=== PATIENT | female | born 1955 | race Caucasian/White ===

== ENCOUNTER 2023-08-30 14:40 | Outpatient (OUT) | payer MEDICARE, MEDICAID, SELFPAY ==
--- NOTE | 2023-08-30 14:43 | US_ITS ---
[address] [address] Patient Name: BROOKE VELASQUEZ MRN: [id number] date: 1955 Sex: F Assigned Patient Location: Current Patient Location: Accession/Order Number: [id number] Exam Date: 08/30/2023 14:58 Report Date: 09/01/2023 12:38 At the request of: SAMEER BOUDREAUX Procedure: US carotid duplex BI EXAMINATION: US carotid duplex BI HISTORY: Dizziness COMPARISON: No relevant comparison available. TECHNIQUE: Duplex Doppler ultrasound analysis of carotid and vertebral arteries. . Bilateral carotid arterial duplex examination was performed using B-mode, color flow and spectral analysis. Carotid stenosis is reported according to validated velocity parameters, similar to NASCET criteria. FINDINGS: RIGHT CAROTID ARTERY: Mild atherosclerotic plaque without significant stenosis. RIGHT VERTEBRAL: Antegrade flow. Subclavian: PSV: 244.3 cm/s EDV: 0.0 cm/s CCA: Prox: PSV: 122.9 cm/s EDV: 13.7 cm/s Mid: PSV: 122.9 cm/s EDV: 20.7 cm/s Distal: PSV: 92.5 cm/s EDV: 15.6 cm/s BULB: PSV: 64.4 cm/s EDV: 9.5 cm/s ICA: Prox: PSV: 91.9 cm/s EDV: 14.4 cm/s Mid: PSV: 73.0 cm/s EDV: 11.6 cm/s Distal: PSV: 61.7 cm/s EDV: 24.5 cm/s ECA: PSV: 93.5 cm/s EDV: 4.7 cm/s VERTEBRAL: PSV: 84.6 cm/s EDV: 11.6 cm/s ICA/CCA ratio: PSV: 0.7 EDV: 0.7 LEFT CAROTID ARTERY: Moderate atherosclerotic plaque with 60% area reduction of the carotid bulb. LEFT VERTEBRAL: Antegrade flow. Subclavian: PSV: 231.0 cm/s EDV: 13.2 cm/s CCA: Prox: PSV: 130.6 cm/s EDV: 30.4 cm/s Mid: PSV: 83.4 cm/s EDV: 16.0 cm/s Distal: PSV: 74.7 cm/s EDV: 31.3 cm/s BULB: PSV: 74.7 cm/s EDV: 21.5 cm/s ICA: Prox: PSV: 78.6 cm/s EDV: 27.4 cm/s Mid: PSV: 94.4 cm/s EDV: 25.4 cm/s Distal: PSV: 72.7 cm/s EDV: 31.3 cm/s ECA: PSV: 123.9 cm/s EDV: 7.7 cm/s VERTEBRAL: PSV: 56.4 cm/s EDV: 16.0 cm/s ICA/CCA ratio: PSV: 1.1 EDV: 1.6 US/US carotid duplex BI IMPRESSION: 1. Moderate atherosclerotic disease on left, mild on right. 2. 0-40% flow stenosis bilaterally. Spectral Doppler US Thresholds Stenosis (%) PSV (cm/sec) VICA/VCCA 0-49 <150 <2.5 50-69 150-225 2.5-4.0 >70 >225 >4.0 Electronically authenticated by: NIRANJAN LAMAS Date: 09/01/2023 12:38
== END 2023-08-30 14:41 | disposition home or self-care (01) ==
LOC: US 14:40
PROVIDERS: PCP Nurse Practitioner Family; Visit Provider Nurse Practitioner Family
DX: R42 Dizziness and giddiness (principal)
CPT/HCPCS: 93880

== ENCOUNTER 2023-08-31 07:45 | Outpatient (OUT) | payer MEDICARE, MEDICAID, SELFPAY ==
--- OUTSIDE RECORDS SUMMARY | 2023-08-31 07:47 | XMS_ITS | CCD ---
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 threaded screws. We subsequently advanced to appropriately-sized screws in a retrograde fashion up the fibula securing our fibular length. We again stressed this ankle, which demonstrated syndesmotic widening. We therefore placed a single fully-threaded 4.5 cancellous screw across the syndesmosis thus securing it. We then irrigated the small incisions from this minimally invasive open reduction internal fixation, closed this with simple Novafil sutures. We also placed Xeroform, 4x4, Webril, both lower extremities were subsequently splinted. The patient be nonweightbearing to bilateral lower extremities. The patient will be admitted to the hospital for pain control as well as with assistance in mobilization to work with physical therapy. She will subsequently follow up in clinic in 10-[address] Pacheco was present for all critical aspects of the procedure and was otherwise immediately available for assistance. IMPLANTS: Left ankle three 4.5 [employer] cannulated screws, to the right ankle was [employer] 10-hole small Frag plate with appropriately sized 3.5 cortical screws. Electronically Signed by: Catarino Pacheco M.D. 01/31/2019 10:09 A Catarino Pacheco M.D. I was present for the eduardo and critical portions and I was otherwise immediately available to assist. Date Dict: 01/29/2019/08:25 A/Álvaro Dao MD Date Trans: 01/29/2019 11:37 A/smooth [id number] [facility] BASIC METABOLIC PANELon 08-0 Calcium [Mass/Vol] 9.4 mg/dL Normal 8.6-10.3 [facility] Comment on above: Order Comment: , str ess view , Views (X-RAY, ANKLE): Radiologic Protocol , stress view , Views (X-RAY, ANKLE): Radiologic Protocol , , , Ordering Lucero PACHECO MD , Performed By: #### 0 0071 ####[facility] Chloride [Moles/Vol] 100 mmol/L Normal 98-107 [facility] Comment on above: Order Comment: , str ess view , Views (X-RAY, ANKLE): Radiologic Protocol , stress view , Views (X-RAY, ANKLE): Radiologic Protocol , , , Ordering Lucero PACHECO MD , Performed By: #### 0 0071 ####[facility] CO2 [Moles/Vol] 32 mmol/L High 21-31 [facility] Comment on above: Order Comment: , str ess view , Views (X-RAY, ANKLE): Radiologic Protocol , stress view , Views (X-RAY, ANKLE): Radiologic Protocol , , , Ordering Lucero PACHECO MD , Performed By: #### 0 0071 ####[facility] [place] [address], [facility] Creatinine [Mass/Vol] 0.78 mg/dL Normal 0.60-1.20 [facility] Comment on above: Order Comment: , str ess view , Views (X-RAY, ANKLE): Radiologic Protocol , stress view , Views (X-RAY, ANKLE): Radiologic Protocol , , , Ordering Lucero PACHECO MD , Performed By: #### 0 0071 ####[address] GFR/1.73 sq M predicted among blacks MDRD (S/P/Bld) [Vol rate/Area] mL/min/{1.73_m2} Normal >60 [facility] Comment on above: Order Comment: , str ess view , Views (X-RAY, ANKLE): Radiologic Protocol , stress view , Views (X-RAY, ANKLE): Radiologic Protocol , , , Ordering Lucero PACHECO MD , Performed By: #### 0 0071 ####[address] GFR/1.73 sq M predicted among non-blacks MDRD (S/P/Bld) [Vol rate/Area] mL/min/{1.73_m2} Normal >60 [facility] Comment on above: Order Comment: , str ess view , Views (X-RAY, ANKLE): Radiologic Protocol , stress view , Views (X-RAY, ANKLE): Radiologic Protocol , , , Ordering Lucero PACHECO MD , Performed By: #### 0 0071 ####[address] Glucose [Mass/Vol] 151 mg/dL High 70-100 [facility] Comment on above: Order Comment: , str ess view , Views (X-RAY, ANKLE): Radiologic Protocol , stress view , Views (X-RAY, ANKLE): Radiologic Protocol , , , Ordering Lucero PACHECO MD , Performed By: #### 0 0071 ####[place] [address], [facility] Potassium [Moles/Vol] 4.1 mmol/L Normal 3.5-5.1 [facility] Comment on above: Order Comment: , str ess view , Views (X-RAY, ANKLE): Radiologic Protocol , stress view , Views (X-RAY, ANKLE): Radiologic Protocol , , , Ordering Lucero PACHECO MD , Performed By: #### 0 0071 ####[address] Sodium [Moles/Vol] 137 mmol/L Normal 136-145 [facility] Comment on above: Order Comment: , str ess view , Views (X-RAY, ANKLE): Radiologic Protocol , stress view , Views (X-RAY, ANKLE): Radiologic Protocol , , , Ordering Lucero PACHECO MD , Performed By: #### 0 0071 ####[address] Urea nitrogen [Mass/Vol] 13 mg/dL Normal 7-25 [facility] Comment on above: Order Comment: , str ess view , Views (X-RAY, ANKLE): Radiologic Protocol , stress view , Views (X-RAY, ANKLE): Radiologic Protocol , , , Ordering Lucero PACHECO MD , Performed By: #### 0 0071 ####[address] CBC COMPLETE BLOOD COUNTon 0 01-23-2019 Erythrocyte distribution width (RBC) [Ratio] 13.5 % Normal 11.5-15.0 [facility] Comment on above: Order Comment: , str ess view , Views (X-RAY, ANKLE): Radiologic Protocol , stress view , Views (X-RAY, ANKLE): Radiologic Protocol , , , Ordering Lucero PACHECO MD , Performed By: #### [id number] ####[address] Hematocrit (Bld) [Volume fraction] 41.9 % Normal 36.0-45.0 [facility] Comment on above: Order Comment: , str ess view , Views (X-RAY, ANKLE): Radiologic Protocol , stress view , Views (X-RAY, ANKLE): Radiologic Protocol , , , Ordering Lucero PACHECO MD , Performed By: #### 5 0608 ####[address] Hemoglobin (Bld) [Mass/Vol] 13.1 g/dL Normal 12.0-15.0 [facility] Comment on above: Order Comment: , str ess view , Views (X-RAY, ANKLE): Radiologic Protocol , stress view , Views (X-RAY, ANKLE): Radiologic Protocol , , , Ordering Lucero PACHECO MD , Performed By: #### 5 [id number] ####[address] MCH (RBC) [Entitic mass] 27.3 pg Normal 27.0-33.0 [facility] Comment on above: Order Comment: , str ess view , Views (X-RAY, ANKLE): Radiologic Protocol , stress view , Views (X-RAY, ANKLE): Radiologic Protocol , , , Ordering Lucero PACHECO MD , Performed By: #### 5 [id number] ####[address] MCHC (RBC) [Mass/Vol] 31.3 g/dL Low 32.0-35.0 [facility] Comment on above: Order Comment: , str ess view , Views (X-RAY, ANKLE): Radiologic Protocol , stress view , Views (X-RAY, ANKLE): Radiologic Protocol , , , Ordering Lucero PACHECO MD , Performed By: #### 5 0608 ####[address] MCV (RBC) [Entitic vol] 87.5 fL Normal 82.0-98.0 [facility] Comment on above: Order Comment: , str ess view , Views (X-RAY, ANKLE): Radiologic Protocol , stress view , Views (X-RAY, ANKLE): Radiologic Protocol , , , Ordering Lucero PACHECO MD , Performed By: #### 5 0608 ####[address] Nucleated RBC/100 WBC (Bld) [Ratio] 0 % Normal 0-0 [facility] Comment on above: Order Comment: , str ess view , Views (X-RAY, ANKLE): Radiologic Protocol , stress view , Views (X-RAY, ANKLE): Radiologic Protocol , , , Ordering Lucero PACHECO MD , Performed By: #### 5 0608 ####[address] PLAT CNT 295 10*3/uL Normal 150-400 [facility] Comment on above: Order Comment: , str ess view , Views (X-RAY, ANKLE): Radiologic Protocol , stress view , Views (X-RAY, ANKLE): Radiologic Protocol , , , Ordering Lucero PACHECO MD , Performed By: #### 5 0608 ####[address] [place] [address], [facility] RBC (Bld) [#/Vol] 4.79 10*6/uL Normal 3.80-5.00 [facility] Comment on above: Order Comment: , str ess view , Views (X-RAY, ANKLE): Radiologic Protocol , stress view , Views (X-RAY, ANKLE): Radiologic Protocol , , , Ordering Provider - CATARINO PACHECO MD , Performed By: #### 5 [id number] ####[facility] [facility].[place] [id number], [facility] WBC (Bld) [#/Vol] 7.82 10*3/uL Normal 4.00-10.60 [facility] Comment on above: Order Comment: , str ess view , Views (X-RAY, ANKLE): Radiologic Protocol , stress view , Views (X-RAY, ANKLE): Radiologic Protocol , , , Ordering Provider - CATARINO PACHECO MD , Performed By: #### 5 0608 ####[address] [place] [address], [facility] POC GLUCOSE LABon 01-23-2019 Glucose [Mass/Vol] 116 mg/dL High 70-100 [facility] Comment on above: Performed By: #### 8 [id number] ####[address] [place] [address], [facility] POC GLUCOSE LABon 01-22-2019 Glucose [Mass/Vol] 98 mg/dL Normal 70-100 [facility] Comment on above: Performed By: #### 8 [id number] ####[place] [address] [facility].[place] [id number], [facility] Glucose [Mass/Vol] 88 mg/dL Normal 70-100 [facility] Comment on above: Performed By: #### 8 [id number] ####[facility] [facility] [place] [address], [place] Glucose [Mass/Vol] 112 mg/dL High 70-100 [facility] Comment on above: Performed By: #### 8 5499 ####[facility] [place] [address], [place] Glucose [Mass/Vol] 101 mg/dL High 70-100 [facility] Comment on above: Performed By: #### 8 [id number] ####[facility] [place] [address], [place] POC GLUCOSE LABon 01-21-2019 Glucose [Mass/Vol] 125 mg/dL High 70-100 [facility] Comment on above: Performed By: #### 8 [id number] ####[facility] [place] [address], [place] Glucose [Mass/Vol] 117 mg/dL High 70-100 [facility] Comment on above: Performed By: #### 8 [id number] ####[facility] [place] [address], [place] Glucose [Mass/Vol] 107 mg/dL High 70-100 [facility] Comment on above: Performed By: #### 8 [id number] ####[facility] [place] [address], [place] Glucose [Mass/Vol] 132 mg/dL High 70-100 [facility] Comment on above: Performed By: #### 8 [id number] ####[facility] [place] [address], [place] *MRSA/MSSA DNA NASALon 01-20 *MRSA/MSSA DNA NASAL Clinical Report: (D) Specimen: NASAL SWAB Collected: 01/20/2019 11:05 Status: Final Last Updated: 01/20/2019 19:57 MSSA DNA (Final) Negative MRSA DNA (Final) Negative Normal [facility] Comment on above: Performed By: #### 3 1595 ####[facility] [place], [place] [address] ANKLE LEFT 2 [facility] 9 ANKLE LEFT 2 [facility] Department of Radiology [address] [place] [phone] Patient Name: ANALI LANDRY : 1955 Sex: F Age: Race: White Pt. Location: OUTP Patient Status: D Ordered Date: 01/20/2019 12:15:00 PM Completed Date: 01/20/2019 12:34 PM Requesting Provider: CATARINO PACHECO Attending Provider: CATARINO PACHECO Report Copy To: Signs & Symptoms: ORIF LEFT ANKLE, History: ORIF LEFT ANKLE, Comments: ORIF LEFT ANKLE, Exam: ANKLE LEFT 2 [facility] ANKLE LEFT 2 [facility] 01/20/2019 12:34 PM EDT SIGNS AND SYMPTOMS: ORIF LEFT ANKLE, TECHNOLOGIST COMMENTS: Dr Pacheco used 1 minute and 39 seconds of fluoro time for orif right and left ankle orange c-arm in 1130 out 1235 QUESTION FOR THE RADIOLOGIST: ORIF LEFT ANKLE, PROTOCOL: AP(PA) and Lateral views were obtained. COMPARISON: January 19 FINDINGS: 7 images were obtained. Open reduction, ankle fracture with syndesmotic screw placement. Fluoroscopic use noted above. IMPRESSION: For documentation Electronically signed by:Beatrice Whalen. Transcribed by: [email or web address], User Resident: Electronically Signed by: BEATRICE WHALEN @ 01/20/2019 02:24 PM Normal [facility] Comment on above: Order Comment: , Vie ws (X-RAY, TIBIA AND FIBULA): Radiologic Protocol , Weight Bearing?: N , With or Without Brace/Cast/Collar: Without , Views (X-RAY, TIBIA AND FIBULA): Radiologic Protocol , Weight Bearing?: N , With or Without Brace/Cast/Collar: Without , , , Ordering Provider - CATARINO PACHECO MD , ANKLE RIGHT 2 [facility] 01-21-20 19 ANKLE RIGHT 2 [facility] Department of Radiology [address] [place] [phone] Patient Name: ANALI LANDRY : 1955 Sex: F Age: Race: White Pt. Location: OUTP Patient Status: D Ordered Date: 01/20/2019 12:15:00 PM Completed Date: 01/20/2019 12:34 PM Requesting Provider: CATARINO PACHECO Attending Provider: CATARINO PACHECO Report Copy To: Signs & Symptoms: HALIMA OF RIGHT ANKLE History: HALIMA OF RIGHT ANKLE Comments: HALIMA OF RIGHT ANKLE Exam: ANKLE RIGHT 2 [facility] ANKLE RIGHT 2 [facility] 01/20/2019 12:34 PM EDT SIGNS AND SYMPTOMS: HALIMA OF RIGHT ANKLE TECHNOLOGIST COMMENTS: Dr Pacheco used 1 minute and 39 seconds of fluoro time for orif right and left ankle orange c-arm in 1130 out 1235 QUESTION FOR THE RADIOLOGIST: HALIMA OF RIGHT ANKLE PROTOCOL: AP(PA) and Lateral views were obtained. COMPARISON: January 19 FINDINGS: Side plate with 2 syndesmotic screws was placed. Fluoroscopy as per above. 6 images were obtained. IMPRESSION: For documentation Electronically signed by:Beatrice Whalen. Transcribed by: [id number], User Resident: Electronically Signed by: BEATRICE WHALEN @ 01/20/2019 02:23 PM Normal [facility] Comment on above: Order Comment: , Vie ws (X-RAY, TIBIA AND FIBULA): Radiologic Protocol , Weight Bearing?: N , With or Without Brace/Cast/Collar: Without , Views (X-RAY, TIBIA AND FIBULA): Radiologic Protocol , Weight Bearing?: N , With or Without Brace/Cast/Collar: Without , , , Ordering Provider - CATARINO PACHECO MD , POC GLUCOSE LABon 01-20-2019 Glucose [Mass/Vol] 190 mg/dL High 70-100 [facility] Comment on above: Performed By: #### 8 [id number] ####[facility] Glucose [Mass/Vol] 118 mg/dL High 70-100 [facility] Comment on above: Performed By: #### 8 5499 ####[facility] [place] [address], [facility] Glucose [Mass/Vol] 100 mg/dL Normal 70-100 [facility] Comment on above: Performed By: #### 8 5499 #### [facility] [address] ANKLE LEFT 2 Son 9 ANKLE LEFT 2 [facility] Department of Radiology [address] [place] [phone] Patient Name: ANALI LANDRY : 1955 Sex: F Age: Race: White Pt. Location: Patient Status: O Ordered Date: 01/19/2019 12:05:00 PM Completed Date: 01/19/2019 12:19 PM Requesting Provider: CATARINO PACHECO Attending Provider: CATARINO PACHECO Report Copy To: Signs & Symptoms: S82.92XA Unsp fracture of left lower leg, init for clos fx I10 History: Reina Comments: , stress view , Views (X-RAY, ANKLE): Radiologic Protocol , stress view , Views (X-RAY, ANKLE): Radiologic Protocol , , , Ordering Provider - CATARINO PACHECO MD , Exam: ANKLE LEFT 2 V[facility] ANKLE LEFT 3 VWS, ANKLE LEFT 2 VWS, ANKLE RIGHT 2 VWS, TIBIA FIBULA RIGHT 01/19/2019 11:10 AM EDT SIGNS AND SYMPTOMS: S82.92XA Unsp fracture of left lower leg, init for clos fx I10 TECHNOLOGIST COMMENTS: left ankle fx - 5 weeks ago f/u (accession [id number]), Patient has bi-lateral ankle pain. Right ankle is worse. Stress views ordered. (accession [id number]), Patient has bi-lateral ankle pain. Right ankle is worse. Stress views ordered. (accession [id number]), right tibia pain fx - 5 weeks ago f/u (accession [id number]) QUESTION FOR THE RADIOLOGIST: , Views (X-RAY, ANKLE): Radiologic Protocol , Weight Bearing?: N , With or Without Brace/Cast/Collar: Without , Views (X-RAY, ANKLE): Radiologic Protocol , Weight Bearing?: N ...More In Sending System PROTOCOL: AP,Lateral and Oblique views were obtained. (accession [id number]), AP(PA) and Lateral views were obtained. (accession [id number]), Stress views were obtained. AP(PA) view was obtained. (accession [id number]), AP(PA) and Lateral views were obtained. (accession [id number]) COMPARISON: None FINDINGS: Left ankle: Swelling Healing oblique distal fibular fracture in good alignment Mild tibiotalar narrowing with some spurring Moderately prominent calcaneal enthesophytes Mildly prominent dorsal midfoot osteophytes Varus stress show 1 mm lateral shift of talus on tibia by no definite syndesmotic widening Right ankle: Mild swelling Healing slightly comminuted distal fibular shaft fracture in good alignment Valgus stress view shows 5 degrees opening of the joint Right tibia-fibula: Healing distal shaft fibular fracture in good alignment Total knee arthroplasty in good alignment Preservation of tibiotalar joint IMPRESSION: 1. Healing lower leg fractures in satisfactory alignment without stress 2. Right ankle with valgus or lateral stress shows 5 degrees opening of the tibial talar joint with no definite syndesmotic widening 3. Left ankle with valgus stress shows 1 mm widening of the medial tibiotalar joint probably no syndesmotic widening Electronically signed by:Levi Che. Transcribed by: [id number], User Resident: Electronically Signed by: LEVI CHE @ 01/19/2019 01:54 PM Normal [facility] Comment on above: Order Comment: , str ess view , Views (X-RAY, ANKLE): Radiologic Protocol , stress view , Views (X-RAY, ANKLE): Radiologic Protocol , , , Ordering Provider - CATARINO PACHECO MD , ANKLE LEFT 3 [facility] 9 ANKLE LEFT 3 [facility] Department of Radiology [address] [place] [phone] Patient Name: ANALI LANDRY : 1955 Sex: F Age: Race: White Pt. Location: 84 Patient Status: O Ordered Date: 01/19/2019 10:50:00 AM Completed Date: 01/19/2019 11:10 AM Requesting Provider: CATARINO PACHECO Attending Provider: CATARINO PACHECO Report Copy To: Signs & Symptoms: S82.92XA Unsp fracture of left lower leg, init for clos fx I10 History: Outlook Comments: , Views (X-RAY, ANKLE): Radiologic Protocol , Weight Bearing?: N , With or Without Brace/Cast/Collar: Without , Views (X-RAY, ANKLE): Radiologic Protocol , Weight Bearing?: N , With or Without Brace/Cast/Collar: Without , , , Ordering Provider - CATARINO PACHECO MD , Exam: ANKLE LEFT 3 VWS ANKLE LEFT 3 VWS, ANKLE LEFT 2 VWS, ANKLE RIGHT 2 VWS, TIBIA FIBULA RIGHT 01/19/2019 11:10 AM EDT SIGNS AND SYMPTOMS: S82.92XA Unsp fracture of left lower leg, init for clos fx I10 TECHNOLOGIST COMMENTS: left ankle fx - 5 weeks ago f/u (accession [id number]), Patient has bi-lateral ankle pain. Right ankle is worse. Stress views ordered. (accession [id number]), Patient has bi-lateral ankle pain. Right ankle is worse. Stress views ordered. (accession [id number]), right tibia pain fx - 5 weeks ago f/u (accession [id number]) QUESTION FOR THE RADIOLOGIST: , Views (X-RAY, ANKLE): Radiologic Protocol , Weight Bearing?: N , With or Without Brace/Cast/Collar: Without , Views (X-RAY, ANKLE): Radiologic Protocol , Weight Bearing?: N ...More In Sending System PROTOCOL: AP,Lateral and Oblique views were obtained. (accession [id number]), AP(PA) and Lateral views were obtained. (accession [id number]), Stress views were obtained. AP(PA) view was obtained. (accession [id number]), AP(PA) and Lateral views were obtained. (accession [id number]) COMPARISON: None FINDINGS: Left ankle: Swelling Healing oblique distal fibular fracture in good alignment Mild tibiotalar narrowing with some spurring Moderately prominent calcaneal enthesophytes Mildly prominent dorsal midfoot osteophytes Varus stress show 1 mm lateral shift of talus on tibia by no definite syndesmotic widening Right ankle: Mild swelling Healing slightly comminuted distal fibular shaft fracture in good alignment Valgus stress view shows 5 degrees opening of the joint Right tibia-fibula: Healing distal shaft fibular fracture in good alignment Total knee arthroplasty in good alignment Preservation of tibiotalar joint IMPRESSION: 1. Healing lower leg fractures in satisfactory alignment without stress 2. Right ankle with valgus or lateral stress shows 5 degrees opening of the tibial talar joint with no definite syndesmotic widening 3. Left ankle with valgus stress shows 1 mm widening of the medial tibiotalar joint probably no syndesmotic widening Electronically signed by:Levi Che. Transcribed by: [email or web address], User Resident: Electronically Signed by: LEVI CHE @ 01/19/2019 01:54 PM Normal [facility] Comment on above: Order Comment: , Rosalee ws (X-RAY, ANKLE): Radiologic Protocol , Weight Bearing?: N , With or Without Brace/Cast/Collar: Without , Views (X-RAY, ANKLE): Radiologic Protocol , Weight Bearing?: N , With or Without Brace/Cast/Collar: Without , , , Ordering Provider - CATARINO PACHECO MD , ANKLE RIGHT 2 [facility] 01-20-20 19 ANKLE RIGHT 2 [facility] Department of Radiology [address] [place] [phone] Patient Name: ANALI LANDRY : 1955 Sex: F Age: Race: White Pt. Location: Patient Status: O Ordered Date: 01/19/2019 12:05:00 PM Completed Date: 01/19/2019 12:19 PM Requesting Provider: CATARINO PACHECO Attending Provider: CATARINO PACHECO Report Copy To: Signs & Symptoms: S82.92XA Unsp fracture of left lower leg, init for clos fx I10 History: Reina Comments: , stress view , Views (X-RAY, ANKLE): Radiologic Protocol , stress view , Views (X-RAY, ANKLE): Radiologic Protocol , , , Ordering Provider - CATARINO PACHECO MD , Exam: ANKLE RIGHT 2 VWS ANKLE LEFT 3 VWS, ANKLE LEFT 2 VWS, ANKLE RIGHT 2 VWS, TIBIA FIBULA RIGHT 01/19/2019 11:10 AM EDT SIGNS AND SYMPTOMS: S82.92XA Unsp fracture of left lower leg, init for clos fx I10 TECHNOLOGIST COMMENTS: left ankle fx - 5 weeks ago f/u (accession [id number]), Patient has bi-lateral ankle pain. Right ankle is worse. Stress views ordered. (accession [id number]), Patient has bi-lateral ankle pain. Right ankle is worse. Stress views ordered. (accession [id number]), right tibia pain fx - 5 weeks ago f/u (accession [id number]) QUESTION FOR THE RADIOLOGIST: , Views (X-RAY, ANKLE): Radiologic Protocol , Weight Bearing?: N , With or Without Brace/Cast/Collar: Without , Views (X-RAY, ANKLE): Radiologic Protocol , Weight Bearing?: N ...More In Sending System PROTOCOL: AP,Lateral and Oblique views were obtained. (accession [id number]), AP(PA) and Lateral views were obtained. (accession [id number]), Stress views were obtained. AP(PA) view was obtained. (accession [id number]), AP(PA) and Lateral views were obtained. (accession [id number]) COMPARISON: None FINDINGS: Left ankle: Swelling Healing oblique distal fibular fracture in good alignment Mild tibiotalar narrowing with some spurring Moderately prominent calcaneal enthesophytes Mildly prominent dorsal midfoot osteophytes Varus stress show 1 mm lateral shift of talus on tibia by no definite syndesmotic widening Right ankle: Mild swelling Healing slightly comminuted distal fibular shaft fracture in good alignment Valgus stress view shows 5 degrees opening of the joint Right tibia-fibula: Healing distal shaft fibular fracture in good alignment Total knee arthroplasty in good alignment Preservation of tibiotalar joint IMPRESSION: 1. Healing lower leg fractures in satisfactory alignment without stress 2. Right ankle with valgus or lateral stress shows 5 degrees opening of the tibial talar joint with no definite syndesmotic widening 3. Left ankle with valgus stress shows 1 mm widening of the medial tibiotalar joint probably no syndesmotic widening Electronically signed by:Levi Che. Transcribed by: [email or web address], User Resident: Electronically Signed by: LEVI CHE @ 01/19/2019 01:54 PM Normal [facility] Comment on above: Order Comment: , str ess view , Views (X-RAY, ANKLE): Radiologic Protocol , stress view , Views (X-RAY, ANKLE): Radiologic Protocol , , , Ordering Provider - CATARINO PACHECO MD , APTTon 01-19-2019 aPTT Coag (Bld) [Time] 30.1 s Normal 25.0-35.0 [facility] Comment on above: Result Comment: ALL RESULTS MUST BE INTERPRETED WITH RESPECT TO BLOOD DRAWING ARTIFACT OR DILUTION ERROR OF ANTICOAGULANT AT THE TIME OF SAMPLING. THE APTT SHOULD NOT BE USED TO MONITOR UNFRACTIONATED HEPARIN THERAPY, THIS LABORATORY NO LONGER HAS AN ESTABLISHED THERAPEUTIC RANGE BASED ON THE APTT. IT IS RECOMMENDED THAT THE UFH - HEPARIN ASSAY (ANTI-XA ACTIVITY) BE USED FOR THIS PURPOSE. Performed By: #### 5 6101, [id number] #### [facility] [address] [place] [address], [facility] BASIC METABOLIC PANELon 08-0 Calcium [Mass/Vol] 10.4 mg/dL High 8.6-10.3 [facility] Comment on above: Performed By: #### 0 0071 #### [facility] [address] [facility] [place] [address], [facility] Chloride [Moles/Vol] 101 mmol/L Normal 98-107 [facility] Comment on above: Performed By: #### 0 0071 #### [facility] [address] [facility] [place] [address], [facility] CO2 [Moles/Vol] 32 mmol/L High 21-31 [facility] Comment on above: Performed By: #### 0 0071 #### [facility] [address] [facility] [place] [address], [facility] Creatinine [Mass/Vol] 0.82 mg/dL Normal 0.60-1.20 [facility] Comment on above: Performed By: #### 0 0071 #### [facility] [address] [facility] [place] [address], [facility] GFR/1.73 sq M predicted among blacks MDRD (S/P/Bld) [Vol rate/Area] mL/min/{1.73_m2} Normal >60 [facility] Comment on above: Performed By: #### 0 0071 #### [facility] [address] [place] [address], [facility] GFR/1.73 sq M predicted among non-blacks MDRD (S/P/Bld) [Vol rate/Area] mL/min/{1.73_m2} Normal >60 [facility] Comment on above: Performed By: #### 0 0071 #### [facility] [address] Glucose [Mass/Vol] 89 mg/dL Normal 70-100 [facility] Comment on above: Performed By: #### 0 0071 #### [facility] [address] Potassium [Moles/Vol] 4.4 mmol/L Normal 3.5-5.1 [facility] Comment on above: Performed By: #### 0 0071 #### [facility] [address] Sodium [Moles/Vol] 141 mmol/L Normal 136-145 [facility] Comment on above: Performed By: #### 0 0071 #### [facility] [address] Urea nitrogen [Mass/Vol] 18 mg/dL Normal 7-25 [facility] Comment on above: Performed By: #### 0 0071 #### [facility] [address] CBC W/DIFFon 01-19-2019 ABS BASOPHILS 0.1 10*3/uL Normal 0.0-0.2 [facility] Comment on above: Performed By: #### 5 102 ####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 dailyAmsler grid monitoring and prompt notification with any changes. Return toclinic 3-4 months.Cataracts Left eye > Right eye. The vision remains stable. Advisedcontinued observation. .Patient with Myasthenia gravis with improved symptoms of double vision oncurrent therapy. 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 Recommend continued therapy with Restasis twice a dayBoth eyes and Artificial tears . Advise Edwall 3 fatty acids 1gram daily.The documentation recorded by the scribe accurately reflects the service Ipersonally performed and the decisions made by me.I have confirmed and edited as necessary the relevant ophthalmic history,ROS, and the neuro exam findings as obtained by others. I have seen andexamined Anali Landry. I have discussed the case and the management ofthis patient's care with the Contact Center Professional, if applicable. 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 I have confirmed and edited as necessarythe relevant ophthalmic history, medications, ROS, and the neuro and ophthalmicexam findings as obtained by others and myself.I have discussed the case and the management of this patient's care with theResident/Fellow, if applicable. I also have reviewed and agree with theassessment and plan as stated above and agree with all of its relevantcomponents.I have discussed the treatment alternatives with the patient and the patient'sfamily, if applicable. Follow-up as noted below, or sooner if new symptomsdevelop.Sterling Baca MD 04/08/2017 4:19 PM SignedAddended by: LEONEL HERNANDEZ on: 04/08/2017 04:19 PM Modules accepted: Orders, SmartSetReferring Provider: CARO SUGGS [[id number]]Allergies As of Date: 04/08/2017 Noted Allergy ReactionACTICOAT DRESSING (SILVER-HYDROCO*01/27/2016 4 - HivesBLUEBERRY 01/27/2016 12 - Shortness of BreathLATEX, NATURAL RUBBER 05/18/2013 2 - Rash 4 - HivesMORPHINE 01/07/2015 2 - Rash 9 - ItchingSHELLFISH DERIVED 01/27/2016 12 - Shortness of BreathDate Reviewed: 04/08/2017Reviewed by: Leonel Hernandez - Fully AssessedReason for Visit: Type 2 macular telangiectasis [Other]Primary Visit Diagnosis: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 [H35.073]Order(s):DILATED FUNDUS EXAM [] Order #: [id number]: 1 IOP MEASUREMENT [] Order #: [id number]: 1 OCT MACULA CIRRUS OU (BOTH EYES) [21291020] Order #: [id number]: 1 DILATED FUNDUS EXAM [] Order #: [id number]: 1 FUTURE IOP MEASUREMENT [] Order #: [id number]: 1 FUTURE OCT MACULA CIRRUS OU (BOTH EYES) [21291020] Order #: [id number]: 1 FUTUREPrescriptions as of 04/08/2017 Sig: PYRIDOSTIGMINE BROMIDE 60 MG * Take 30 mg by mouth three carlos* PIOGLITAZONE 15 MG TABLET Take 15 mg by mouth once alexsander* CYCLOSPORINE 0.05 % EYE DROPS* Use 1 Drop in both eyes twice* LIDOCAINE 1 % LOTION Apply 1 application to affect* ASCORBIC ACID (VITAMIN C) 1,0* Take 1,000 mg by mouth once d* METFORMIN 1,000 MG TABLET 1,000 mg. SIMVASTATIN 10 MG TABLET Take 10 mg by mouth daily at * MULTIVITAMIN ORAL Take by mouth once daily. GLUCOSAMINE CHONDROITIN MAXST* Take by mouth three times da* MAGNESIUM 100 MG CAPSULE Take 100 mg by mouth once kristin* POTASSIUM 99 MG TABLET Take by mouth every 48 hours. D-3-5 ORAL Take by mouth once daily. 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] INVALID FOR* Dry eye syndrome of bilateral lacrimal glands [*INVALID FOR* Type 2 macular telangiectasis [H35.079] INVALID FOR* Myasthenia gravis without exacerbation (HCC) [G*INVALID FOR*Disposition: Return in about 6 months (around 10/07/2017).Follow-up and Disposition History RecordedEncounter Number: [id number] Status:Closed by LEONEL HERNANDEZ on 04/08/17 [facility] PROGRESSon 04-08-2017 PROGRESS HNO ID: [id number] thor: Leonel Evangelista: (none)Author Type: PhysicianType: Progress NotesFiled: 04/08/2017 4:20 PMNote Text:Prefers to be seen in [place].(H35.073) 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 I have confirmed and edited asnecessary the relevant ophthalmic history, medications, ROS, and the neuroand ophthalmic exam findings as obtained by others and myself.I have discussed the case and the management of this patient's care withthe Resident/Fellow, if applicable. I also have reviewed and agree withthe assessment and plan as stated above and agree with all of its relevantcomponents.I have discussed the treatment alternatives with the patient and thepatient's family, if applicable. Follow-up as noted below, or sooner ifnew symptoms develop.Leonel Hernandez MD [facility] Encounters Encounter Date Encounter Type Care Provider Facility Start: 11-03-2022 ambulatory SAMERE BOUDREAUX Facility: Start: 09-21-2022 End: 09-22-2022 ambulatory NONE LISTED REQUEST Facility: Start: 09-11-2022 End: 09-12-2022 ambulatory Arnel Bustillos Facility: Start: 11-16-2021 ambulatory SAMEER BOUDREAUX Facility: Start: 01-20-2019 End: 01-23-2019 Evaluation and management of inpatient CATARINO PACHECO Facility:[facility] Start: 10-07-2017 End: 10-09-2017 Ambulatory CARO SUGGS [facility] Start: 07-08-2017 End: 07-09-2017 Ambulatory CARO SUGGS [facility] Start: 04-08-2017 End: 04-11-2017 Ambulatory CARO SUGGS [facility] Procedures Date Procedure Procedure Detail Performing Clinician Start: 01-20-2019 REPOSITION LEFT FIBU LA WITH INT FIX, OPEN APPROACH CATARINO PACHECO Start: 01-20-2019 REPOSITION RIGHT FIB SEGUNDO WITH INT FIX, OPEN APPROACH CATARINO EBWILDA Start: 01-19-2019 Antibody screen CATARINO BAJWA Comment on above: Performed By: #### [id number] #### [facility] [address] Payers Date Payer Category Payer Unknown [id number] 1961 Medicaid [id number] 1961 Medicare [id number] 1961 Self-pay [id number] 1955 Unknown [id number] [id number] 1955 Unknown [id number] 2.16.84 [id number] 1955 Unknown [id number] 2.16.84 [id number] 1955 Unknown [id number] 2.16.84 [id number] Unknown [id number] 2.16.84 [id number] Summary Purpose Family History No Family History Records FoundNo Family History Records FoundNo Family History Records FoundNo Family History Records Found Advance Directives No Advanced Directives Records FoundNo Advanced Directives Records FoundNo Advanced Directives Records FoundNo Advanced Directives Records Found Hospital Course Note MR#: [id number] I [facility] Pt. Name: Anali Landry Admitted: 01/20/2019 Discharged: 01/23/2019 Date of : 1955 Physician: Catarino Pacheco M.D. DISCHARGE SUMMARY ADMITTING DIAGNOSIS: Bilateral ankle fractures, bimalleolar. CLINICAL SUMMARY: The patient is a female, who sustained bilateral ankle fractures. We did see the patient in clinic and discussed treatment options with the patient. After thorough discussion of the benefits and risks, the patient elected to proceed with the aforementioned procedure. The patient presented to [facility] on 01/20/2019, where ORIF of bilateral ankles was performed. These were performed without complications. For operative details, please see separately dictated operative report. The patient was transferred from the anesthesia care unit to the hospital floor. The patient's pain was well controlled and received DVT prophylaxis as well as postoperative antibiotics. The patient was seen by Phy (more content not included)... Additional Source Comments INFORMATION SOURCE (unrecogn ized section and content) DATE CREATED AUTHOR 12/05/2017 [facility] DATE CREATED AUTHOR AUTHOR'S ORGANIZ ATION 01/05/2019 [facility] DATE CREATED AUTHOR AUTHOR'S ORGANIZ ATION 06/22/2019 [facility] DATE CREATED AUTHOR AUTHOR'S ORGANIZ ATION 10/31/2022 [facility] FOR RECORDS PERTAINING TO PATIENTS WHO ARE OR HAVE BEEN ENROLLED IN A CHEMICAL DEPENDENCY/SUBSTANCEABUSE PROGRAM, SOME INFORMATION MAY BE OMITTED. This clinical summary was aggregated from multiple sources. Caution should be exercised in using it in the provision of clinical care. This summary normalizes information from multiple sources, and as a consequence, information in this document may materially change the coding, format and clinical context of patient data. In addition, data may be omitted in some cases. CLINICAL DECISIONS SHOULD BE BASED ON THE PRIMARY CLINICAL RECORDS. [facility]. provides no warranty or guarantee of the accuracy or completeness of information in this document.
[2023-08-31 08:16] LABS: Basophils Absolute Auto 0.1 10^3/uL (0.0-0.1); Eosinophils Absolute Auto 0.2 10^3/uL (0.0-0.7); Eosinophils Percent Auto 2.6 % (0.9-7.0); Hematocrit 45.5 % (36.0-48.0); Hemoglobin 14.1 g/dL (12.0-16.0); Immature Granulocytes Abs Auto 0.01 10^3/uL (0.00-0.03); Immature Granulocytes Pct Auto 0.1 % (0.0-0.5); Lymphocytes Absolute Auto 2.1 10^3/uL (1.2-3.8); Lymphocytes Percent Auto 29.5 % (20.5-60.0); Mean Corpuscular Hemoglobin 27.9 pg (26.7-34.0); Mean Corpuscular Volume 90.1 fL (81.0-99.0); Mean Platelet Volume 11.2 fL (9.5-13.5); Monocytes Absolute Auto 0.7 10^3/uL (0.3-0.8); Monocytes Percent Auto 9.5 % (1.7-12.0); Neutrophils Absolute Auto 4.1 10^3/uL (1.4-6.5); Neutrophils Percent Auto 57.3 % (43.0-75.0); Platelet Count 284 10^3/uL (150-450); Red Blood Count 5.05 10^6/uL (4.20-5.40); Red Cell Distribution Width 13.2 % (11.0-15.0); White Blood Count 7.2 10^3/uL (4.0-11.0)
[2023-08-31 08:28] LABS: Estimated Average Glucose 114 mg/dL; Glycohemoglobin A1C 5.6 % (4.5-6.2)
[2023-08-31 09:58] LABS: Alanine Aminotransferase 31 U/L (14-59); Albumin Level 3.7 g/dL (3.4-5.0); Alkaline Phosphatase 59 U/L (46-116); Anion Gap 12.6; Aspartate Amino Transferase 21 U/L (15-37); BUN Creatinine Ratio 19.5; Bilirubin Total 0.5 mg/dL (0.2-1.0); Calcium 9.1 mg/dL (8.5-10.1); Carbon Dioxide 29.7 mmol/L (21.0-32.0); Chloride 102 mmol/L (98-107); Chol HDL Ratio 3.1; Cholesterol 168 mg/dL (<=200); Estimated GFR (African America 58 (>=60); Estimated GFR (Non-African Ame 48 (>=60); Free T3 2.69 pg/mL (2.18-3.98); Globulin 3.6 g/dL; Glucose 94 mg/dL (74-106); HDL Cholesterol 55 mg/dL (40-60); LDL Cholesterol Calculated 87.8 mg/dL; Potassium 4.3 mmol/L (3.5-5.1); Sodium 140 mmol/L (136-145); Thyroid Stimulating Hormone 1.866 uIU/mL (0.358-3.740); Total Protein 7.3 g/dL (6.4-8.2); Triglycerides 126 mg/dL (<=150); VLDL CHOLESTEROL 25.2 mg/dL
[2023-09-01 13:07] LABS: Insulin 44.9 uIU/mL (2.6-24.9)
== END 2023-08-31 07:46 | disposition home or self-care (01) ==
LOC: LAB 07:45
PROVIDERS: PCP Nurse Practitioner Family; Visit Provider Nurse Practitioner Family
DX: R73.03 Prediabetes (principal); G43.909 Migraine, unspecified, not intractable, without status migrainosus; I10 Essential (primary) hypertension; E78.00 Pure hypercholesterolemia, unspecified; R42 Dizziness and giddiness
CPT/HCPCS: 36415; 80053; 80061; 82306; 83036; 83525; 83540; 84436; 84443; 84481; 85025

== ENCOUNTER 2023-09-06 09:12 | Outpatient (OUT) | payer MEDICARE, MEDICAID, SELFPAY ==
--- NOTE | 2023-09-06 | MM_ITS ---
Patient Name: BROOKE VELASQUEZ MR#: [id number] : 1955 Exam Date: 09/06/2023 Ordering Doctor: SAMEER BOUDREAUX CNP RADIOLOGY REPORT PROCEDURE: MM TOMOSYNTHESIS SCREENING BI COMPARISON: MG MAMM SANDRO SCRN W CAD DIG, 01/15/2014. MG MAMM SANDRO SCRN W CAD DIG, 04/27/2005. INDICATIONS: Screening for breast cancer Calculator Name NCI Breast Cancer Risk Assessment Tool 5 Year Breast Cancer Risk 7.60% Lifetime Breast Cancer Risk 21.70% Personal Breast Cancer No Personal Ovarian Cancer No Treatments None Family Cancers Mother with breast cancer at age ~72; Sister with breast cancer at age ~61; Aunt-maternal with breast cancer at age ~65; Cousin-maternal with breast cancer at age ~65; Grandfather-paternal with prostate cancer at age 65; Grandmother-maternal with lung cancer at age ~78. LOCATION: [facility] BREAST COMPOSITION: Scattered areas fibroglandular density. FINDINGS: DIAGNOSTIC CATEGORY 2--BENIGN FINDING: RIGHT BREAST: No significant suspicious finding. Scattered benign-appearing nodules are present. No significant change has occurred. LEFT BREAST: No significant suspicious finding. Scattered benign-appearing nodules are present. No significant change has occurred. RECOMMENDATIONS: ROUTINE MAMMOGRAM AND CLINICAL EVALUATION IN 12 MONTHS. PLEASE NOTE: A NORMAL MAMMOGRAM DOES NOT EXCLUDE THE POSSIBILITY OF BREAST CANCER. A CLINICALLY SUSPICIOUS PALPABLE LUMP SHOULD BE BIOPSIED. Dictated by: Arnel Bustillos M.D. on 09/06/2023 at 14:25 Approved by: Arnel Bustillos M.D. on 09/06/2023 at 14:27
--- OUTSIDE RECORDS SUMMARY | 2023-09-06 09:15 | XMS_ITS | CCD ---
Author Organization [facility] Care Team Providers Care Industrial [employer] Name Role Phone JEEVAN CARO F Unavailable Unavailable GORDON ROBLES Unavailable Unavailab le DEASY, CARO F Unavailable Unavailable DEASY, CARO F Unavailable Unavailable EBRAHEIM, CATARINO Admitting Unavailable EBRAHEIM, CATARINO Attending Unavailable ABIEL BLACKWELL Referring Unavailable ABIEL BLACKWELL Primary Care Unavailable [place] Procedure Practitioner Unavailab le MARCELO, CATARINO Surgeon Unavailable SAMEER BOUDREAUX Attending Unavailable [...] to adverse reactions to drug (disorder) 6 [facility] Repository (4 sources) morphine; Translations: [MORPHINE] Drug Allergy 5 [facility] Repository (3 sources) natural latex rubber; Translations: [LATEX, NATURAL RUBBER] Propensity to adverse reactions to drug (disorder) 3 [facility] Repository (2 sources) Shellfish; Translations: [SHELLFISH DERIVED] Propensity to adverse reactions to drug (disorder) 6 [facility] Repository (1 source) SILVER-HYDROCOLL OID DRESSING; Translations: [SILVER-HYDROCOL LOID DRESSING] Propensity to adverse reactions to drug (disorder) 6 [facility] Repository (1 source) Blueberry; Translations: [BLUEBERRIES] Propensity to adverse reactions (disorder) 9 [facility] Repository (1 source) Latex; Translations: [LATEX] Propensity to adverse reactions (disorder) 9 [facility] Repository (1 source) ACCUCOT; Translations: [Unknown] Propensity to adverse reactions (disorder) 9 [facility] Repository (1 source) Adhesive agent Drug allergy (disorder) The [facility] Repository (2 sources) Aspirin Drug Allergy The [facility] Repository (1 source) fluticasone / vilanterol Drug Allergy The [facility] Repository (2 sources) Shellfish Drug allergy (disorder) The [facility] Repository (2 sources) Acticoat Dressing Drug allergy (disorder) The [facility] Repository Problems Problem Classification Problem Date Documented Da te Episodic/Chronic Asthma (4 sources) Mild persistent asthma, uncomplicated; Translations: [MILD PERSIST ASTHMA UNCOMPLICATED] Onset: 09-11-2022 Chronic Results Test Name Value Interpretation Reference Range Facility GLYCOHEMOGLOBIN A1Con 2022 ADA RECOMMENDATION SEE BELOW Normal The [facility] [place] Comment on above: Result Comment: ADA RECOMMENDED LIMIT 4.0 - 6.0 ADA THERAPEUTIC TARGET < 7.0 ACTION SUGGESTED > 7.0 Performed By: #### D ATA1C #### [facility] [address] [place] [address] Dr. Kiley Plata Glucose [Mass/Vol] 120 mg/dL Normal [facility] [place] Comment on above: Performed By: #### D ATA1C #### [facility] [address] [address] [address] Kiley Plata HbA1c (Bld) [Mass fraction] 5.8 % Normal 4.5-6.2 [facility] Comment on above: Performed By: #### D ATA1C #### [facility] [address] [place] [address] Dr. Kiley Plata XR CHEST 2 Von [...] by: ARNEL BUSTILLOS Date: 2022-09-11 10:04 Normal [facility] ANKLE LEFT 3 VWSon 9 ANKLE LEFT 3 VWS [facility] Department of Radiology [address] [place] [id number] Patient Name: ANALI LANDRY : 1955 Sex: F Age: Race: White Pt. Location: 84 Patient Status: Ordered Date: 06/15/2019 1:45:00 PM Completed Date: 06/15/2019 01:47 PM Requesting Provider: SOLANGE CRUZ Attending Provider: Report Copy To: Signs & Symptoms: M25.579 Pain in unspecified ankle and joints of unspecified foot I10 History: [place] Comments: , , , Ordering Provider - SOLANGE CRUZ PA-C , Exam: ANKLE LEFT 3 VWS [...] alignment Electronically signed by:Levi Che. Transcribed by: [email or web address], User Resident: Electronically Signed by: LEVI CHE @ 06/15/2019 02:12 PM Normal [facility] Comment on above: Order Comment: , str ess view , Views (X-RAY, ANKLE): Radiologic Protocol , stress view , Views (X-RAY, ANKLE): Radiologic Protocol , , , Ordering Provider - CATARINO PACHECO MD , ANKLE RIGHT 3 [facility] 06-15-20 19 ANKLE RIGHT 3 [facility] Department of Radiology [address] [place] [phone] Patient Name: ANALI LANDRY : 1955 Sex: F Age: Race: White Pt. Location: Patient Status: Ordered Date: 06/15/2019 1:45:00 PM Completed Date: 06/15/2019 01:47 PM Requesting Provider: SOLANGE CRUZ Attending Provider: Report Copy To: Signs & Symptoms: M25.579 Pain in unspecified ankle and joints of unspecified foot I10 History: [place] Comments: , , , Ordering Provider - [...] alignment Electronically signed by:Levi Che. Transcribed by: [id number], User Resident: Electronically Signed by: LEVI CHE @ 06/15/2019 02:12 PM Normal [facility] Comment on above: Order Comment: , str ess view , Views (X-RAY, ANKLE): Radiologic Protocol , stress view , Views (X-RAY, ANKLE): Radiologic Protocol , , , Ordering Provider - CATARINO PACHECO MD , ANKLE LEFT 3 Son 9 ANKLE LEFT 3 VWS [facility] Department of Radiology [address] [place] [phone] Patient Name: NAALI LANDRY : 1955 Sex: F Age: Race: White Pt. Location: 84 Patient Status: Ordered Date: 04/29/2019 2:10:00 PM [...] spurring Electronically signed by:Levi Che. Transcribed by: [id number], User Resident: Electronically Signed by: LEVI CHE @ 04/29/2019 03:41 PM Normal [facility] Comment on above: Order Comment: , str ess view , Views (X-RAY, ANKLE): Radiologic Protocol , stress view , Views (X-RAY, ANKLE): Radiologic Protocol , , , Ordering Provider - CATARINO PACHECO MD , ANKLE RIGHT 3 Son 04-29-20 19 ANKLE RIGHT 3 S [facility] Department of Radiology [address] [place] [phone] Patient Name: ANALI LANDRY : 1955 Sex: F Age: Race: White Pt. Location: Patient Status: Ordered Date: 04/29/2019 2:10:00 PM Completed Date: 04/29/2019 02:13 PM Requesting Provider: BEBETO CRUM Attending Provider: Report Copy To: Signs & Symptoms: S82.842D Displ bimalleol fx l low leg, subs for clos fx w routn heal I10 History: [place] Comments: , , , Ordering Provider - BEBETO CRUM PA-C , Exam: ANKLE RIGHT 3 [facility] ANKLE LEFT 3 VWS, ANKLE RIGHT 3 [...] spurring Electronically signed by:Levi Che. Transcribed by: [email or web address], User Resident: Electronically Signed by: LEVI CHE @ 04/29/2019 03:41 PM Normal [facility] Comment on above: Order Comment: , str ess view , Views (X-RAY, ANKLE): Radiologic Protocol , stress view , Views (X-RAY, ANKLE): Radiologic Protocol , , , Ordering Provider - CATARINO PACHECO MD , ANKLE LEFT 3 Son 9 ANKLE LEFT 3 VWS [facility] Department of Radiology [address] [place] [phone] Patient Name: ANALI LANDRY : 1955 [...] alignment Electronically signed by:Levi Che. Transcribed by: [email or web address], User Resident: Electronically Signed by: LEVI CHE @ 03/18/2019 03:19 PM [facility] Comment on above: Order Comment: , str ess view , Views (X-RAY, ANKLE): Radiologic Protocol , stress view , Views (X-RAY, ANKLE): Radiologic Protocol , , , Ordering Provider - CATARINO PACHECO MD , ANKLE RIGHT 3 VWSon 03-18-20 19 ANKLE RIGHT 3 VWS [facility] Department of Radiology [address] [place] [phone] Patient Name: ANALI LANDRY : 1955 [...] alignment Electronically signed by:Levi Che. Transcribed by: [email or web address], User Resident: Electronically Signed by: LEVI CHE @ 03/18/2019 03:19 PM Normal [facility] Comment on above: Order Comment: , str ess view , Views (X-RAY, ANKLE): Radiologic Protocol , stress view , Views (X-RAY, ANKLE): Radiologic Protocol , , , Ordering Provider - CATARINO PACHECO MD , ANKLE LEFT 3 [facility] 9 ANKLE LEFT 3 [facility] Department of Radiology [address] [place] [phone] Patient Name: ANALI LANDRY : 1955 Sex: F Age: Race: White Pt. Location: Patient Status: O Ordered Date: 03/04/2019 1:25:00 PM Completed Date: 03/04/2019 01:38 PM Requesting Provider: BEBETO CRUM Attending Provider: BEBETO CRUM Report Copy To: Signs & Symptoms: S82.842D Displ bimalleol fx l low leg, subs for clos fx w routn heal I10 History: [place] Comments: , , , Ordering Provider - [...] alignment Electronically signed by:Levi Che. Transcribed by: [id number], User Resident: Electronically Signed by: LEVI CHE @ 03/04/2019 01:59 PM Normal [facility] Comment on above: Order Comment: , str ess view , Views (X-RAY, ANKLE): Radiologic Protocol , stress view , Views (X-RAY, ANKLE): Radiologic Protocol , , , Ordering Provider - CATARINO PACHECO MD , ANKLE RIGHT 3 VWSon 03-04-20 19 ANKLE RIGHT 3 S [facility] Department of Radiology [address] [place] [phone] Patient Name: ANALI LANDRY : 1955 Sex: F Age: Race: White Pt. Location: Patient Status: O Ordered Date: 03/04/2019 1:25:00 PM Completed Date: 03/04/2019 01:38 PM Requesting Provider: BEBETO CRUM Attending Provider: BEBETO CRUM Report Copy To: Signs & Symptoms: S82.842D Displ bimalleol fx l low leg, subs for clos fx w routn heal I10 History: [place] Comments: , , , Ordering Provider - [...] , , , Ordering Provider - BEBETO VINCENTC , PROTOCOL: AP,Lateral and Oblique views were [...] alignment Electronically signed by:Levi Che. Transcribed by: [id number], User Resident: Electronically Signed by: LEVI CHE @ 03/04/2019 01:59 PM Normal [facility] Comment on above: Order Comment: , str ess view , Views (X-RAY, ANKLE): Radiologic Protocol , stress view , Views (X-RAY, ANKLE): Radiologic Protocol , , , Ordering Provider - CATARINO PACHECO MD , ANKLE LEFT 3 Son 9 ANKLE LEFT 3 [facility] Department of Radiology [address] [place] [phone] Patient Name: ANALI LANDRY : 1955 Sex: F Age: Race: White Pt. Location: Patient Status: Ordered Date: 02/04/2019 10:25:00 AM Completed Date: 02/04/2019 10:38 AM Requesting Provider: ITALO JIANG Attending Provider: Report Copy To: Signs & Symptoms: S82.842A Displaced bimalleolar fracture of left lower leg, init I10 History: [place] Comments: , Views (X-RAY, ANKLE): Radiologic Protocol , Views (X-RAY, ANKLE): Radiologic Protocol , , , Ordering Provider - ITALO JIANG PA-C , Exam: ANKLE LEFT 3 [facility] ANKLE LEFT 3 S 02/04/2019 10:38 AM [...] healing Electronically signed by:Zonia Cates. Transcribed by: [id number], User Resident: Electronically Signed by: ZONIA CATES @ 02/04/2019 03:17 PM Normal [facility] Comment on above: Order Comment: , str ess view , Views (X-RAY, ANKLE): Radiologic Protocol , stress view , Views (X-RAY, ANKLE): Radiologic Protocol , , , Ordering Provider - CATARINO PACHECO MD , ANKLE RIGHT 3 [facility] 02-05-20 19 ANKLE RIGHT 3 [facility] Department of Radiology [address] [place] [phone] Patient Name: ANALI LANDRY : 1955 Sex: F Age: Race: White Pt. Location: Patient Status: Ordered Date: 02/04/2019 10:30:00 AM Completed Date: 02/04/2019 10:38 AM Requesting Provider: ITALO JIANG Attending Provider: Report Copy To: Signs & Symptoms: S82.841A Displaced bimalleolar fracture of right lower leg, init I10 History: [place] Comments: , Views (X-RAY, ANKLE): Radiologic Protocol [...] healing Electronically signed by:Zonia Cates. Transcribed by: [email or web address], User Resident: Electronically Signed by: ZONIA CATES @ 02/04/2019 03:31 PM Normal [facility] Comment on above: Order Comment: , str ess view , Views (X-RAY, ANKLE): Radiologic Protocol , stress view , Views (X-RAY, ANKLE): Radiologic Protocol , , , Ordering Provider - CATARINO PACHECO MD , Operative Reporton 9 Operative Report MR#: [id number] I [facility] Pt. Name: Anali Landry Room #: [id number] Discharge 01/23/2019 Date: Birthdate: 1955 OPERATIVE REPORT [...] Dao MD Date Trans: 01/29/2019 11:37 A/smooth [id number] Normal [facility] BASIC METABOLIC PANELon 08-0 Calcium [Mass/Vol] 9.4 mg/dL Normal 8.6-10.3 [facility] Comment on above: Order Comment: , str ess view , Views (X-RAY, ANKLE): Radiologic Protocol , stress view , Views (X-RAY, ANKLE): Radiologic Protocol , , , Ordering Lucero PACHECO MD , Performed By: #### 0 0071 ####[place] [address] [address] Chloride [Moles/Vol] 100 mmol/L Normal 98-107 [facility] Comment on above: Order Comment: , str ess view , Views (X-RAY, ANKLE): Radiologic Protocol , stress view , Views (X-RAY, ANKLE): Radiologic Protocol , , , Ordering Lucero PACHECO MD , Performed By: #### 0 [id number] ####[place] [address] CO2 [Moles/Vol] 32 mmol/L High 21-31 [facility] Comment on above: Order Comment: , str ess view , Views (X-RAY, ANKLE): Radiologic Protocol , stress view , Views (X-RAY, ANKLE): Radiologic Protocol , , , Ordering Lucero PACHECO MD , Performed By: #### 0 [id number] ####[address] Creatinine [Mass/Vol] 0.78 mg/dL Normal 0.60-1.20 [facility] Comment on above: Order Comment: , str ess view , Views (X-RAY, ANKLE): Radiologic Protocol , stress view , Views (X-RAY, ANKLE): Radiologic Protocol , , , Ordering Lucero PACHECO MD , Performed By: #### 0 [id number] ####[facility] [place] [address], [facility] GFR/1.73 sq M predicted among blacks MDRD (S/P/Bld) [Vol rate/Area] mL/min/{1.73_m2} Normal >60 [facility] Comment on above: Order Comment: , str ess view , Views (X-RAY, ANKLE): Radiologic Protocol , stress view , Views (X-RAY, ANKLE): Radiologic Protocol , , , Ordering Lucero PACHECO MD , Performed By: #### 0 [id number] ####[facility] [place] [address], [facility] GFR/1.73 sq M predicted among non-blacks MDRD (S/P/Bld) [Vol rate/Area] mL/min/{1.73_m2} Normal >60 [facility] Comment on above: Order Comment: , str ess view , Views (X-RAY, ANKLE): Radiologic Protocol , stress view , Views (X-RAY, ANKLE): Radiologic Protocol , , , Ordering Lucero PACHECO MD , Performed By: #### 0 [id number] ####[place] [address], [facility] Glucose [Mass/Vol] 151 mg/dL High 70-100 [facility] Comment on above: Order Comment: , str ess view , Views (X-RAY, ANKLE): Radiologic Protocol , stress view , Views (X-RAY, ANKLE): Radiologic Protocol , , , Ordering Lucero PACHECO MD , Performed By: #### 0 [id number] ####[place] [address], [facility] Potassium [Moles/Vol] 4.1 mmol/L Normal 3.5-5.1 [facility] Comment on above: Order Comment: , str ess view , Views (X-RAY, ANKLE): Radiologic Protocol , stress view , Views (X-RAY, ANKLE): Radiologic Protocol , , , Ordering Lucero PACHECO MD , Performed By: #### 0 [id number] ####[place] [address] Sodium [Moles/Vol] 137 mmol/L Normal 136-145 [facility] Comment on above: Order Comment: , str ess view , Views (X-RAY, ANKLE): Radiologic Protocol , stress view , Views (X-RAY, ANKLE): Radiologic Protocol , , , Ordering Lucero PACHECO MD , Performed By: #### 0 [id number] ####[address] Urea nitrogen [Mass/Vol] 13 mg/dL Normal 7-25 [facility] Comment on above: Order Comment: , str ess view , Views (X-RAY, ANKLE): Radiologic Protocol , stress view , Views (X-RAY, ANKLE): Radiologic Protocol , , , Ordering Lucero PACHECO MD , Performed By: #### 0 [id number] ####[address] CBC COMPLETE BLOOD COUNTon 0 - Erythrocyte distribution width (RBC) [Ratio] 13.5 % Normal 11.5-15.0 [facility] Comment on above: Order Comment: , str ess view , Views (X-RAY, ANKLE): Radiologic Protocol , stress view , Views (X-RAY, ANKLE): Radiologic Protocol , , , Ordering Lucero PACHECO MD , Performed By: #### [id number] ####[facility] Hematocrit (Bld) [Volume fraction] 41.9 % Normal 36.0-45.0 [facility] Comment on above: Order Comment: , str ess view , Views (X-RAY, ANKLE): Radiologic Protocol , stress view , Views (X-RAY, ANKLE): Radiologic Protocol , , , Ordering Provider Brandon PACHECO MD , Performed By: #### [id number] ####[address] Hemoglobin (Bld) [Mass/Vol] 13.1 g/dL Normal 12.0-15.0 [facility] Comment on above: Order Comment: , str ess view , Views (X-RAY, ANKLE): Radiologic Protocol , stress view , Views (X-RAY, ANKLE): Radiologic Protocol , , , Ordering Provider Brandon PACHECO MD , Performed By: #### [id number] ####[address] MCH (RBC) [Entitic mass] 27.3 pg Normal 27.0-33.0 [facility] Comment on above: Order Comment: , str ess view , Views (X-RAY, ANKLE): Radiologic Protocol , stress view , Views (X-RAY, ANKLE): Radiologic Protocol , , , Ordering Provider Brandon PACHECO MD , Performed By: #### [id number] ####[address] MCHC (RBC) [Mass/Vol] 31.3 g/dL Low 32.0-35.0 [facility] Comment on above: Order Comment: , str ess view , Views (X-RAY, ANKLE): Radiologic Protocol , stress view , Views (X-RAY, ANKLE): Radiologic Protocol , , , Ordering Lucero PACHECO MD , Performed By: #### [id number] ####[facility] MCV (RBC) [Entitic vol] 87.5 fL Normal 82.0-98.0 [facility] Comment on above: Order Comment: , str ess view , Views (X-RAY, ANKLE): Radiologic Protocol , stress view , Views (X-RAY, ANKLE): Radiologic Protocol , , , Ordering Lucero PACHECO MD , Performed By: #### [id number] ####[address] Nucleated RBC/100 WBC (Bld) [Ratio] 0 % Normal 0-0 [facility] Comment on above: Order Comment: , str ess view , Views (X-RAY, ANKLE): Radiologic Protocol , stress view , Views (X-RAY, ANKLE): Radiologic Protocol , , , Ordering Lucero PACHECO MD , Performed By: #### [id number] ####[address] PLAT CNT 295 10*3/uL Normal 150-400 [facility] Comment on above: Order Comment: , str ess view , Views (X-RAY, ANKLE): Radiologic Protocol , stress view , Views (X-RAY, ANKLE): Radiologic Protocol , , , Ordering Lucero PACHECO MD , Performed By: #### [id number] ####[address] RBC (Bld) [#/Vol] 4.79 10*6/uL Normal 3.80-5.00 [facility] Comment on above: Order Comment: , str ess view , Views (X-RAY, ANKLE): Radiologic Protocol , stress view , Views (X-RAY, ANKLE): Radiologic Protocol , , , Ordering Provider - CATARINO PACHECO MD , Performed By: #### [id number] ####[facility] [place] [address], [facility] WBC (Bld) [#/Vol] 7.82 10*3/uL Normal 4.00-10.60 [facility] Comment on above: Order Comment: , str ess view , Views (X-RAY, ANKLE): Radiologic Protocol , stress view , Views (X-RAY, ANKLE): Radiologic Protocol , , , Ordering Provider - CATARINO PACHECO MD , Performed By: #### [id number] ####[facility] [place] [address], [place] POC GLUCOSE LABon 01-23-2019 Glucose [Mass/Vol] 116 mg/dL High 70-100 [facility] Comment on above: Performed By: #### 8 [id number] ####[facility] [place] [address], [place] POC GLUCOSE LABon 01-22-2019 Glucose [Mass/Vol] 98 mg/dL Normal 70-100 [facility] Comment on above: Performed By: #### 8 [id number] ####[facility] [place] [address], [place] Glucose [Mass/Vol] 88 mg/dL Normal 70-100 [facility] Comment on above: Performed By: #### 8 [id number] ####[facility] [place] [address], [place] Glucose [Mass/Vol] 112 mg/dL High 70-100 [facility] Comment on above: Performed By: #### 8 [id number] ####[facility] [facility] [place] [address], [facility] Glucose [Mass/Vol] 101 mg/dL High 70-100 [facility] Comment on above: Performed By: #### 8 [id number] ####[facility] [facility] [address], [facility] POC GLUCOSE LABon 01-21-2019 Glucose [Mass/Vol] 125 mg/dL High 70-100 [facility] Comment on above: Performed By: #### [id number] ####[facility] [facility] [place] [address], [facility] Glucose [Mass/Vol] 117 mg/dL High 70-100 [facility] Comment on above: Performed By: #### [id number] ####[facility] [facility].[address] Glucose [Mass/Vol] 107 mg/dL High 70-100 [facility] Comment on above: Performed By: #### [id number] ####[facility] [facility] [place] [address], [facility] Glucose [Mass/Vol] 132 mg/dL High 70-100 [facility] Comment on above: Performed By: #### [id number] ####[facility] *MRSA/MSSA DNA NASALon 01-20 *MRSA/MSSA DNA NASAL Clinical Report: (D) Specimen: NASAL SWAB Collected: 01/20/2019 11:05 Status: Final Last Updated: 01/20/2019 19:57 MSSA DNA (Final) Negative MRSA DNA (Final) Negative Normal [facility] Comment on above: Performed By: #### [id number] ####[facility] [facility] [place] [address], [facility] ANKLE LEFT 2 VWSon 9 ANKLE LEFT 2 [facility] Department of Radiology [address] [place] [address] Patient Name: ANALI LANDRY : 1955 Sex: F Age: Race: White Pt. Location: OUTP Patient Status: D Ordered Date: 01/20/2019 12:15:00 PM Completed Date: 01/20/2019 12:34 PM Requesting Provider: CATARINO PACHECO Attending Provider: CATARINO PACHECO Report Copy To: Signs & Symptoms: ORIF LEFT ANKLE, History: ORIF LEFT ANKLE, Comments: ORIF LEFT ANKLE, Exam: ANKLE LEFT 2 [facility] ANKLE LEFT 2 [facility] 01/20/2019 12:34 PM EDT SIGNS AND SYMPTOMS: [...] documentation Electronically signed by:Beatrice Whalen. Transcribed by: [email or web address], User Resident: Electronically Signed by: BEATRICE WHALEN @ 01/20/2019 02:24 PM Normal [facility] Comment on above: Order Comment: , Vie ws (X-RAY, TIBIA AND FIBULA): Radiologic Protocol , Weight Bearing?: N , With or Without Brace/Cast/Collar: Without , Views (X-RAY, TIBIA AND FIBULA): Radiologic Protocol , Weight Bearing?: N , With or Without Brace/Cast/Collar: Without , , , Ordering Provider - CATARINO PACHECO MD , ANKLE RIGHT 2 [facility] 01-21-20 19 ANKLE RIGHT 2 [facility] Department of Radiology [address] [place] [phone] Patient Name: ANALI LANDRY : 1955 Sex: F Age: Race: White Pt. Location: OUTP Patient Status: D Ordered Date: 01/20/2019 12:15:00 PM Completed Date: 01/20/2019 12:34 PM Requesting Provider: CATARINO PACHECO Attending Provider: CATARINO PACHECO Report Copy To: Signs & Symptoms: HALIMA OF RIGHT ANKLE History: HALIMA OF RIGHT ANKLE Comments: HALIMA OF RIGHT ANKLE Exam: ANKLE RIGHT 2 [facility] ANKLE RIGHT 2 [facility] 01/20/2019 12:34 PM EDT SIGNS AND SYMPTOMS: [...] documentation Electronically signed by:Beatrice Whalen. Transcribed by: [email or web address], User Resident: Electronically Signed by: BEATRICE WHALEN @ 01/20/2019 02:23 PM Normal [facility] Comment on above: Order Comment: , Vie ws (X-RAY, TIBIA AND FIBULA): Radiologic Protocol , Weight Bearing?: N , With or Without Brace/Cast/Collar: Without , Views (X-RAY, TIBIA AND FIBULA): Radiologic Protocol , Weight Bearing?: N , With or Without Brace/Cast/Collar: Without , , , Ordering Provider - CATARINO PACHECO MD , POC GLUCOSE LABon 01-20-2019 Glucose [Mass/Vol] 190 mg/dL High 70-100 [facility] Comment on above: Performed By: #### 8 5499 ####[facility] [place] [address], [facility] Glucose [Mass/Vol] 118 mg/dL High 70-100 [facility] Comment on above: Performed By: #### 8 5499 ####[facility] [place] [address], [facility] Glucose [Mass/Vol] 100 mg/dL Normal 70-100 [facility] Comment on above: Performed By: #### 8 5499 #### [facility] [address] ANKLE LEFT 2 [facility] 9 ANKLE LEFT 2 S [facility] Department of Radiology [address] [place] [phone] Patient Name: ANALI LANDRY : 1955 Sex: [...] fx - 5 weeks ago f/u (accession [id number]), Patient has bi-lateral ankle pain. Right ankle is worse. Stress views ordered. (accession [id number]), Patient has bi-lateral ankle pain. Right ankle is worse. Stress views ordered. (accession [id number]), right tibia pain fx - 5 weeks ago f/u (accession [id number]) QUESTION FOR THE RADIOLOGIST: , Views (X-RAY, ANKLE): Radiologic Protocol , Weight Bearing?: N , With or Without Brace/Cast/Collar: Without , Views (X-RAY, ANKLE): Radiologic Protocol , Weight Bearing?: N ...More In Sending System PROTOCOL: AP,Lateral and Oblique views were obtained. (accession [id number]), AP(PA) and Lateral views were obtained. (accession [id number]), Stress views were obtained. AP(PA) view was obtained. (accession [id number]), AP(PA) and Lateral views were obtained. (accession [id number]) COMPARISON: None FINDINGS: Left ankle: Swelling Healing [...] widening Electronically signed by:Levi Che. Transcribed by: [email or web address], User Resident: Electronically Signed by: LEVI CHE @ 01/19/2019 01:54 PM Normal [facility] Comment on above: Order Comment: , str ess view , Views (X-RAY, ANKLE): Radiologic Protocol , stress view , Views (X-RAY, ANKLE): Radiologic Protocol , , , Ordering Provider - CATARINO PACHECO MD , ANKLE LEFT 3 [facility] 9 ANKLE LEFT 3 [facility] Department of Radiology [address] [place] [phone] Patient Name: ANALI LANDRY : 1955 Sex: F Age: Race: White Pt. Location: 84 Patient Status: O Ordered Date: 01/19/2019 10:50:00 AM Completed Date: 01/19/2019 11:10 AM Requesting Provider: CATARINO PACHECO Attending Provider: CATARINO PACHECO Report Copy To: Signs & Symptoms: S82.92XA Unsp fracture of left lower leg, init for clos fx I10 History: [place] Comments: , Views (X-RAY, ANKLE): Radiologic Protocol [...] fx - 5 weeks ago f/u (accession [id number]), Patient has bi-lateral ankle pain. Right ankle is worse. Stress views ordered. (accession [id number]), Patient has bi-lateral ankle pain. Right ankle is worse. Stress views ordered. (accession [id number]), right tibia pain fx - 5 weeks ago f/u (accession [id number]) QUESTION FOR THE RADIOLOGIST: , Views (X-RAY, ANKLE): Radiologic Protocol , Weight Bearing?: N , With or Without Brace/Cast/Collar: Without , Views (X-RAY, ANKLE): Radiologic Protocol , Weight Bearing?: N ...More In Sending System PROTOCOL: AP,Lateral and Oblique views were obtained. (accession [id number]), AP(PA) and Lateral views were obtained.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 2.16.84 [id number] 1955 Unknown [id number] 2.16.84 [id number] Unknown [id number] 2.16.84 [id number] Summary Purpose Family History No Family History Records FoundNo Family History Records FoundNo Family History Records FoundNo Family History Records Found Advance Directives No Advanced Directives Records FoundNo Advanced Directives Records FoundNo Advanced Directives Records FoundNo Advanced Directives Records Found Hospital Course Note MR#: [id number] I [facility] Pt. Name: Anali Landry Admitted: 01/20/2019 Discharged: [...] the aforementioned procedure. The patient presented to [facility] on 01/[facility]/2019, where ORIF of bilateral ankles [...] section and content) DATE CREATED AUTHOR 12/05/2017 [facility] DATE CREATED AUTHOR AUTHOR'S ORGANIZ ATION 01/05/2019 [facility] DATE CREATED AUTHOR AUTHOR'S ORGANIZ ATION 06/22/2019 [facility] DATE CREATED AUTHOR AUTHOR'S ORGANIZ ATION 10/31/2022 [facility] FOR RECORDS PERTAINING TO PATIENTS WHO [...] BE BASED ON THE PRIMARY CLINICAL RECORDS. [facility] [employer] [facility]. provides no warranty or guarantee of the accuracy or completeness of information in this document.
--- NOTE | 2023-09-06 09:51 | CA_ITS ---
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1955 Requested By: [id number] Order Number: [id number] Reading MD: MIRELLA MAST Interpretive Statements Predominant rhythm is sinus with average rate of 71 bpm Tachycardia - max rate of 112 bpm - longest episode of 3min 19sec with rates between 102-112 bpm Bradycardia - min rate of 51 bpm - longest episode of 13min 24sec with rates between 55-58 bpm Ventricular ectopy - 75,878 total, 11% burden - 108 couplets - 75,770 PVC - bigeminy and trigeminy Patient triggered events: 13 - associated with VE - associated with SOB, palpitations, CP Impression: Predominant rhythm is sinus with average rate of 71 bpm Fastest rate of 112 bpm (sinus tachycardia) and slowest rate of 51 bpm Ventricular ectopy 75,878 (11% total), 75,770 PVC, 108 couplets, bigeminy and trigeminy No atrial fibrillation No pauses or blocks Electronically Signed On 09-20-2023 7:22:16 EDT by MIRELLA MAST
== END 2023-09-06 09:13 | disposition home or self-care (01) ==
LOC: MAMMO 09:13
PROVIDERS: PCP Nurse Practitioner Family; Visit Provider Nurse Practitioner Family
DX: R00.2 Palpitations (principal); R06.02 Shortness of breath; Z12.31 Encounter for screening mammogram for malignant neoplasm of breast; Z80.3 Family history of malignant neoplasm of breast; Z80.1 Family history of malignant neoplasm of trachea, bronchus and lung; Z80.42 Family history of malignant neoplasm of prostate
CPT/HCPCS: 77063; 77067; 93246

== ENCOUNTER 2023-09-06 10:12 | Outpatient (OUT) | payer MEDICARE, MEDICAID, SELFPAY ==
--- OUTSIDE RECORDS SUMMARY | 2023-09-06 10:25 | XMS_ITS | CCD ---
Author Organization [facility] Care Team Providers Care Trial Consultant Name Role Phone JEEVAN CARO F Unavailable Unavailable GORDON ROBLES Unavailable Unavailab le DEASY, CARO F Unavailable Unavailable DEASY, CARO F Unavailable Unavailable EBRAHEIM, CATARINO Admitting Unavailable EBRAHEIM, CATARINO Attending Unavailable ABIEL BLACKWELL Referring Unavailable ABIEL BLACKWELL Primary Care Unavailable PA Procedure Practitioner Unavailab le MARCELO, CATARINO Surgeon [...] to adverse reactions to drug (disorder) 6 [facility] Repository (4 sources) morphine; Translations: [MORPHINE] Drug Allergy 5 [facility] Repository (3 sources) natural latex rubber; Translations: [LATEX, NATURAL RUBBER] Propensity to adverse reactions to drug (disorder) 3 [facility] Repository (2 sources) Shellfish; Translations: [SHELLFISH DERIVED] Propensity to adverse reactions to drug (disorder) 6 [facility] Repository (1 source) SILVER-HYDROCOLL OID DRESSING; Translations: [SILVER-HYDROCOL LOID DRESSING] Propensity to adverse reactions to drug (disorder) 6 [facility] Repository (1 source) Blueberry; Translations: [BLUEBERRIES] Propensity to adverse reactions (disorder) 9 [facility] Repository (1 source) Latex; Translations: [LATEX] Propensity to adverse reactions (disorder) 9 [facility] Repository (1 source) ACCUCOT; Translations: [Unknown] Propensity to adverse reactions (disorder) 9 [facility] Repository (1 source) Adhesive agent Drug allergy (disorder) [facility] Repository (2 sources) Aspirin Drug Allergy [facility] (1 source) fluticasone / vilanterol Drug Allergy [facility] Repository (2 sources) Shellfish Drug allergy (disorder) [facility] Repository (2 sources) Acticoat Dressing Drug allergy (disorder) [facility] Problems Problem Classification Problem Date Documented Da te Episodic/Chronic Asthma (4 sources) Mild persistent asthma, uncomplicated; Translations: [MILD PERSIST ASTHMA UNCOMPLICATED] Onset: 09-11-2022 Chronic Results Test Name Value Interpretation Reference Range Facility GLYCOHEMOGLOBIN A1Con 2022 ADA RECOMMENDATION SEE BELOW Normal The [facility] Comment on above: Result Comment: ADA RECOMMENDED LIMIT 4.0 - 6.0 ADA THERAPEUTIC TARGET < 7.0 ACTION SUGGESTED > 7.0 Performed By: #### D ATA1C #### [facility] [address] [place] [address] Dr. Kiley Plata Glucose [Mass/Vol] 120 mg/dL Normal [facility] Comment on above: Performed By: #### D ATA1C #### [facility] [address] [address] [address] Kiley Plata HbA1c (Bld) [Mass fraction] 5.8 % Normal 4.5-6.2 [facility] Comment on above: Performed By: #### D ATA1C #### [facility] [address] [place] [address] Dr. Kiley Plata XR CHEST 2 Von [...] by: ARNEL BUSTILLOS Date: 2022-09-11 10:[address] [facility] ANKLE LEFT 3 VWSon 9 ANKLE LEFT 3 VWS [facility] Department of Radiology [address] [place] [phone] Patient Name: ANALI LANDRY : 1955 [...] alignment Electronically signed by:Levi Che. Transcribed by: [email or web address], User Resident: Electronically Signed by: LEVI CHE @ 06/15/2019 02:12 PM Normal [facility] Comment on above: Order Comment: , str ess view , Views (X-RAY, ANKLE): Radiologic Protocol , stress view , Views (X-RAY, ANKLE): Radiologic Protocol , , , Ordering Provider - CATARINO PACHECO MD , ANKLE RIGHT 3 [facility] 06-15-20 19 ANKLE RIGHT 3 [facility] Department of Radiology [address] [place] [phone] Patient Name: ANALI LANDRY : 1955 Sex: F Age: Race: White Pt. Location: Patient Status: Ordered Date: 06/15/2019 1:45:00 PM Completed Date: 06/15/2019 01:47 PM Requesting Provider: SOLANGE CRUZ Attending Provider: Report Copy To: Signs & Symptoms: M25.579 Pain in unspecified ankle and joints of unspecified foot I10 History: [place] Comments: , , , Ordering Provider - [...] alignment Electronically signed by:Levi Che. Transcribed by: [email or web address], User Resident: Electronically Signed by: LEVI CHE @ 06/15/2019 02:12 PM Normal [facility] Comment on above: Order Comment: , str ess view , Views (X-RAY, ANKLE): Radiologic Protocol , stress view , Views (X-RAY, ANKLE): Radiologic Protocol , , , Ordering Provider - CATARINO PACHECO MD , ANKLE LEFT 3 Son 9 ANKLE LEFT 3 [facility] Department of Radiology [address] [place] [phone] Patient Name: ANALI LANDRY : 1955 [...] spurring Electronically signed by:Levi Che. Transcribed by: [email or web address], User Resident: Electronically Signed by: LVEI CHE @ 04/29/2019 03:41 PM Normal [facility] Comment on above: Order Comment: , str ess view , Views (X-RAY, ANKLE): Radiologic Protocol , stress view , Views (X-RAY, ANKLE): Radiologic Protocol , , , Ordering Provider - CATARINO PACHECO MD , ANKLE RIGHT 3 Son 04-29-20 19 ANKLE RIGHT 3 [facility] Department of Radiology [address] [place] [phone] Patient Name: ANALI LANDRY : 1955 Sex: F Age: Race: White Pt. Location: Patient Status: Ordered Date: 04/29/2019 2:10:00 PM Completed Date: 04/29/2019 02:13 PM Requesting Provider: BEBETO CRUM Attending Provider: Report Copy To: Signs & Symptoms: S82.842D Displ bimalleol fx l low leg, subs for clos fx w routn heal I10 History: [place] Comments: , , , Ordering Provider - BEBETO CRUM PA-C , Exam: ANKLE RIGHT 3 [facility] ANKLE LEFT 3 VWS, ANKLE RIGHT [...] spurring Electronically signed by:Levi Che. Transcribed by: [email or web address], User Resident: Electronically Signed by: LEVI CHE @ 04/29/2019 03:41 PM Normal [facility] Comment on above: Order Comment: , str ess view , Views (X-RAY, ANKLE): Radiologic Protocol , stress view , Views (X-RAY, ANKLE): Radiologic Protocol , , , Ordering Provider - CATARINO PACHECO MD , ANKLE LEFT 3 Son 9 ANKLE LEFT 3 [facility] Department of Radiology [address] [place] [phone] Patient Name: ANALI LANDRY : [...] alignment Electronically signed by:Levi Che. Transcribed by: [email or web address], User Resident: Electronically Signed by: LEVI CHE @ 03/18/2019 03:19 PM [facility] Comment on above: Order Comment: , str ess view , Views (X-RAY, ANKLE): Radiologic Protocol , stress view , Views (X-RAY, ANKLE): Radiologic Protocol , , , Ordering Provider - CATARINO PACHECO MD , ANKLE RIGHT 3 VWSon 03-18-20 19 ANKLE RIGHT 3 [facility] Department of Radiology [address] [place] [phone] Patient Name: ANALI LANDRY : 1955 [...] alignment Electronically signed by:Levi Che. Transcribed by: [email or web address], User Resident: Electronically Signed by: LEVI CHE @ 03/18/2019 03:19 PM Normal [facility] Comment on above: Order Comment: , str ess view , Views (X-RAY, ANKLE): Radiologic Protocol , stress view , Views (X-RAY, ANKLE): Radiologic Protocol , , , Ordering Provider - CATARINO PACHECO MD , ANKLE LEFT 3 [facility] 9 ANKLE LEFT 3 [facility] Department of Radiology [address] [place] [phone] Patient Name: ANALI LANDRY : 1955 Sex: F Age: Race: White Pt. Location: Patient Status: O Ordered Date: 03/04/2019 1:25:00 PM Completed Date: 03/04/2019 01:38 PM Requesting Provider: BEBETO CRUM Attending Provider: BEBETO CRUM Report Copy To: Signs & Symptoms: S82.842D Displ bimalleol fx l low leg, subs for clos fx w routn heal I10 History: [place] Comments: , , , Ordering Provider - [...] alignment Electronically signed by:Levi Che. Transcribed by: [email or web address], User Resident: Electronically Signed by: LEVI CHE @ 03/04/2019 01:59 PM Normal [facility] Comment on above: Order Comment: , str ess view , Views (X-RAY, ANKLE): Radiologic Protocol , stress view , Views (X-RAY, ANKLE): Radiologic Protocol , , , Ordering Provider - CATARINO PACHECO MD , ANKLE RIGHT 3 VWSon 03-04-20 19 ANKLE RIGHT 3 [facility] Department of Radiology [address] [place] [phone] Patient Name: ANALI LANDRY : 1955 Sex: F Age: Race: White Pt. Location: Patient Status: O Ordered Date: 03/04/2019 1:25:00 PM Completed Date: 03/04/2019 01:38 PM Requesting Provider: BEBETO CRUM Attending Provider: BEBETO CRUM Report Copy To: Signs & Symptoms: S82.842D Displ bimalleol fx l low leg, subs for clos fx w routn heal I10 History: [place] Comments: , , , Ordering Provider - [...] alignment Electronically signed by:Levi Che. Transcribed by: [email or web address], User Resident: Electronically Signed by: LEVI CHE @ 03/04/2019 01:59 PM Normal [facility] Comment on above: Order Comment: , str ess view , Views (X-RAY, ANKLE): Radiologic Protocol , stress view , Views (X-RAY, ANKLE): Radiologic Protocol , , , Ordering Provider - CATARINO PACHECO MD , ANKLE LEFT 3 Son 9 ANKLE LEFT 3 [facility] Department of Radiology [address] [place] [phone] Patient Name: ANALI LANDRY : 1955 [...] JIANG PA-C , Exam: ANKLE LEFT 3 [facility] ANKLE LEFT 3 S 02/04/2019 10:38 [...] healing Electronically signed by:Zonia Cates. Transcribed by: [email or web address], User Resident: Electronically Signed by: ZONIA CATES @ 02/04/2019 03:17 PM Normal [facility] Comment on above: Order Comment: , str ess view , Views (X-RAY, ANKLE): Radiologic Protocol , stress view , Views (X-RAY, ANKLE): Radiologic Protocol , , , Ordering Provider - CATARINO PACHECO MD , ANKLE RIGHT 3 [facility] 02-05-20 19 ANKLE RIGHT 3 [facility] Department of Radiology [address] [place] [phone] Patient Name: ANALI LANDRY : 1955 Sex: F Age: Race: White Pt. Location: Patient Status: Ordered Date: 02/04/2019 10:30:00 AM Completed Date: 02/04/2019 10:38 AM Requesting Provider: ITALO JIANG Attending Provider: Report Copy To: Signs & Symptoms: S82.841A Displaced bimalleolar fracture of right lower leg, init I10 History: [place] Comments: , Views (X-RAY, ANKLE): Radiologic Protocol [...] healing Electronically signed by:Zonia Cates. Transcribed by: [email or web address], User Resident: Electronically Signed by: ZONIA CATES @ 02/04/2019 03:31 PM Normal [facility] Comment on above: Order Comment: , str ess view , Views (X-RAY, ANKLE): Radiologic Protocol , stress view , Views (X-RAY, ANKLE): Radiologic Protocol , , , Ordering Provider - CATARINO PACHECO MD , Operative Reporton 9 Operative Report MR#: [id number] I [facility] Pt. Name: Anali Landry Room #: [id number] Discharge 01/23/2019 Date: Birthdate: 1955 OPERATIVE REPORT DATE OF SURGERY: 01/20/2019 SURGEON: Catarino Pacheco M.D. ASSISTANTS: 1. Álvrao Dao M.D. 2. Naveed Dawson M.D. 3. [...] Dao MD Date Trans: 01/29/2019 11:37 A/smooth [id number] Normal [facility] BASIC METABOLIC PANELon 08-0 Calcium [Mass/Vol] 9.4 mg/dL Normal 8.6-10.3 [facility] Comment on above: Order Comment: , str ess view , Views (X-RAY, ANKLE): Radiologic Protocol , stress view , Views (X-RAY, ANKLE): Radiologic Protocol , , , Ordering Lucero PACHECO MD , Performed By: #### 0 [address]71 ####[place] [address] [address] Chloride [Moles/Vol] 100 mmol/L Normal 98-107 [facility] Comment on above: Order Comment: , str ess view , Views (X-RAY, ANKLE): Radiologic Protocol , stress view , Views (X-RAY, ANKLE): Radiologic Protocol , , , Ordering Lucero PACHECO MD , Performed By: #### 0 0071 ####[place] [address] [address] CO2 [Moles/Vol] 32 mmol/L High 21-31 [facility] Comment on above: Order Comment: , str ess view , Views (X-RAY, ANKLE): Radiologic Protocol , stress view , Views (X-RAY, ANKLE): Radiologic Protocol , , , Ordering Lucero PACHECO MD , Performed By: #### 0 0071 ####[address] Creatinine [Mass/Vol] 0.78 mg/dL Normal 0.60-1.20 [facility] Comment on above: Order Comment: , str ess view , Views (X-RAY, ANKLE): Radiologic Protocol , stress view , Views (X-RAY, ANKLE): Radiologic Protocol , , , Ordering Lucero PACHECO MD , Performed By: #### 0 0071 ####[facility] [place] [address], [facility] GFR/1.73 sq M predicted among blacks MDRD (S/P/Bld) [Vol rate/Area] mL/min/{1.73_m2} Normal >60 [facility] Comment on above: Order Comment: , str ess view , Views (X-RAY, ANKLE): Radiologic Protocol , stress view , Views (X-RAY, ANKLE): Radiologic Protocol , , , Ordering Lucero PACHECO MD , Performed By: #### 0 0071 ####[facility] [place] [address], [facility] GFR/1.73 sq M predicted among non-blacks MDRD (S/P/Bld) [Vol rate/Area] mL/min/{1.73_m2} Normal >60 [facility] Comment on above: Order Comment: , str ess view , Views (X-RAY, ANKLE): Radiologic Protocol , stress view , Views (X-RAY, ANKLE): Radiologic Protocol , , , Ordering Lucero PACHECO MD , Performed By: #### 0 0071 ####[place] [address], [facility] Glucose [Mass/Vol] 151 mg/dL High 70-100 [facility] Comment on above: Order Comment: , str ess view , Views (X-RAY, ANKLE): Radiologic Protocol , stress view , Views (X-RAY, ANKLE): Radiologic Protocol , , , Ordering Lucero PACHECO MD , Performed By: #### 0 0071 ####[place] [address], [facility] Potassium [Moles/Vol] 4.1 mmol/L Normal 3.5-5.1 [facility] Comment on above: Order Comment: , str ess view , Views (X-RAY, ANKLE): Radiologic Protocol , stress view , Views (X-RAY, ANKLE): Radiologic Protocol , , , Ordering Lucero PACHECO MD , Performed By: #### 0 0071 ####[place] [address] [address] Sodium [Moles/Vol] 137 mmol/L Normal 136-145 [facility] Comment on above: Order Comment: , str ess view , Views (X-RAY, ANKLE): Radiologic Protocol , stress view , Views (X-RAY, ANKLE): Radiologic Protocol , , , Ordering Lucero PACHECO MD , Performed By: #### 0 0071 ####[address] Urea nitrogen [Mass/Vol] 13 mg/dL Normal 7-25 [facility] Comment on above: Order Comment: , str ess view , Views (X-RAY, ANKLE): Radiologic Protocol , stress view , Views (X-RAY, ANKLE): Radiologic Protocol , , , Ordering Lucero PACHECO MD , Performed By: #### 0 0071 ####[address] CBC COMPLETE BLOOD COUNTon 0 - Erythrocyte distribution width (RBC) [Ratio] 13.5 % Normal 11.5-15.0 [facility] Comment on above: Order Comment: , str ess view , Views (X-RAY, ANKLE): Radiologic Protocol , stress view , Views (X-RAY, ANKLE): Radiologic Protocol , , , Ordering Lucero PACHECO MD , Performed By: #### 5 [id number] ####[facility] Hematocrit (Bld) [Volume fraction] 41.9 % Normal 36.0-45.0 [facility] Comment on above: Order Comment: , str ess view , Views (X-RAY, ANKLE): Radiologic Protocol , stress view , Views (X-RAY, ANKLE): Radiologic Protocol , , , Ordering Provider Brandon PACHECO MD , Performed By: #### 5 [id number] ####[address] Hemoglobin (Bld) [Mass/Vol] 13.1 g/dL Normal 12.0-15.0 [facility] Comment on above: Order Comment: , str ess view , Views (X-RAY, ANKLE): Radiologic Protocol , stress view , Views (X-RAY, ANKLE): Radiologic Protocol , , , Ordering Provider Barndon PACHECO MD , Performed By: #### 5 [id number] ####[address] MCH (RBC) [Entitic mass] 27.3 pg Normal 27.0-33.0 [facility] Comment on above: Order Comment: , str ess view , Views (X-RAY, ANKLE): Radiologic Protocol , stress view , Views (X-RAY, ANKLE): Radiologic Protocol , , , Ordering Provider Brandon PACHECO MD , Performed By: #### 5 [id number] ####[address] MCHC (RBC) [Mass/Vol] 31.3 g/dL Low 32.0-35.0 [facility] Comment on above: Order Comment: , str ess view , Views (X-RAY, ANKLE): Radiologic Protocol , stress view , Views (X-RAY, ANKLE): Radiologic Protocol , , , Ordering Lucero PACHECO MD , Performed By: #### 5 0608 ####[facility] MCV (RBC) [Entitic vol] 87.5 fL Normal 82.0-98.0 [facility] Comment on above: Order Comment: , str ess view , Views (X-RAY, ANKLE): Radiologic Protocol , stress view , Views (X-RAY, ANKLE): Radiologic Protocol , , , Ordering Lucero PACHECO MD , Performed By: #### 5 [id number] ####[address] Nucleated RBC/100 WBC (Bld) [Ratio] 0 % Normal 0-0 [facility] Comment on above: Order Comment: , str ess view , Views (X-RAY, ANKLE): Radiologic Protocol , stress view , Views (X-RAY, ANKLE): Radiologic Protocol , , , Ordering Lucero PACHECO MD , Performed By: #### 5 [id number] ####[address] PLAT CNT 295 10*3/uL Normal 150-400 [facility] Comment on above: Order Comment: , str ess view , Views (X-RAY, ANKLE): Radiologic Protocol , stress view , Views (X-RAY, ANKLE): Radiologic Protocol , , , Ordering Lucero PACHECO MD , Performed By: #### 5 [id number] ####[address] RBC (Bld) [#/Vol] 4.79 10*6/uL Normal 3.80-5.00 [facility] Comment on above: Order Comment: , str ess view , Views (X-RAY, ANKLE): Radiologic Protocol , stress view , Views (X-RAY, ANKLE): Radiologic Protocol , , , Ordering Provider - CATARINO PACHECO MD , Performed By: #### 5 [id number] ####[facility] [place] [address], [facility] WBC (Bld) [#/Vol] 7.82 10*3/uL Normal 4.00-10.60 [facility] Comment on above: Order Comment: , str ess view , Views (X-RAY, ANKLE): Radiologic Protocol , stress view , Views (X-RAY, ANKLE): Radiologic Protocol , , , Ordering Provider - CATARINO PACHECO MD , Performed By: #### 5 [id number] ####[facility] [place] [address], [place] POC GLUCOSE LABon 01-23-2019 Glucose [Mass/Vol] 116 mg/dL High 70-100 [facility] Comment on above: Performed By: #### 8 [id number] ####[facility] [place] [address], [place] POC GLUCOSE LABon 01-22-2019 Glucose [Mass/Vol] 98 mg/dL Normal 70-100 [facility] Comment on above: Performed By: #### 8 [id number] ####[facility] [place] [address], [place] Glucose [Mass/Vol] 88 mg/dL Normal 70-100 [facility] Comment on above: Performed By: #### 8 [id number] ####[facility] [place] [address], [place] Glucose [Mass/Vol] 112 mg/dL High 70-100 [facility] Comment on above: Performed By: #### 8 [id number] ####[facility] [facility] [place] [address], [facility] Glucose [Mass/Vol] 101 mg/dL High 70-100 [facility] Comment on above: Performed By: #### 8 [id number] ####[facility] [facility] [place] [address], [facility] POC GLUCOSE LABon 01-21-2019 Glucose [Mass/Vol] 125 mg/dL High 70-100 [facility] Comment on above: Performed By: #### 8 [id number] ####[facility] [facility] [place] [address], [facility] Glucose [Mass/Vol] 117 mg/dL High 70-100 [facility] Comment on above: Performed By: #### 8 [id number] ####[facility] [facility].[address] Glucose [Mass/Vol] 107 mg/dL High 70-100 [facility] Comment on above: Performed By: #### 8 [id number] ####[facility] [facility] [place] [address], [facility] Glucose [Mass/Vol] 132 mg/dL High 70-100 [facility] Comment on above: Performed By: #### 8 [id number] ####[facility] *MRSA/MSSA DNA NASALon 01-20 *MRSA/MSSA DNA NASAL Clinical Report: (D) Specimen: NASAL SWAB Collected: 01/20/2019 11:05 Status: Final Last Updated: 01/20/2019 19:57 MSSA DNA (Final) Negative MRSA DNA (Final) Negative Normal [facility] Comment on above: Performed By: #### 3 [id number] ####[facility] [facility] [place] [address], [facility] ANKLE LEFT 2 VWSon 9 ANKLE LEFT 2 [facility] Department of Radiology [address] [place] [address] Patient Name: ANALI LANDRY : 1955 Sex: F Age: Race: White Pt. Location: OUTP Patient Status: D Ordered Date: 01/20/2019 12:15:00 PM Completed Date: 01/20/2019 12:34 PM Requesting Provider: CATARINO PACHECO Attending Provider: CATARINO PACHECO Report Copy To: Signs & Symptoms: ORIF LEFT ANKLE, History: ORIF LEFT ANKLE, Comments: ORIF LEFT ANKLE, Exam: ANKLE LEFT 2 [facility] ANKLE LEFT 2 [facility] 01/20/2019 12:34 PM EDT SIGNS AND [...] documentation Electronically signed by:Beatrice Whalen. Transcribed by: [email or web address], User Resident: Electronically Signed by: BEATRICE WHALEN @ 01/20/2019 02:24 PM Normal [facility] Comment on above: Order Comment: , Vie ws (X-RAY, TIBIA AND FIBULA): Radiologic Protocol , Weight Bearing?: N , With or Without Brace/Cast/Collar: Without , Views (X-RAY, TIBIA AND FIBULA): Radiologic Protocol , Weight Bearing?: N , With or Without Brace/Cast/Collar: Without , , , Ordering Provider - CATARINO PACHECO MD , ANKLE RIGHT 2 [facility] 01-21-20 19 ANKLE RIGHT 2 [facility] Department of Radiology [address] [place] [phone] Patient Name: ANALI LANDRY : 1955 Sex: F Age: Race: White Pt. Location: OUTP Patient Status: D Ordered Date: 01/20/2019 12:15:00 PM Completed Date: 01/20/2019 12:34 PM Requesting Provider: CATARINO PACHECO Attending Provider: CATARINO PACHECO Report Copy To: Signs & Symptoms: HALIMA OF RIGHT ANKLE History: HALIMA OF RIGHT ANKLE Comments: HALIMA OF RIGHT ANKLE Exam: ANKLE RIGHT 2 [facility] ANKLE RIGHT 2 [facility] 01/20/2019 12:34 PM EDT SIGNS AND [...] documentation Electronically signed by:Beatrice Whalen. Transcribed by: [email or web address], User Resident: Electronically Signed by: BEATRICE WHALEN @ 01/20/2019 02:23 PM Normal [facility] Comment on above: Order Comment: , Vie ws (X-RAY, TIBIA AND FIBULA): Radiologic Protocol , Weight Bearing?: N , With or Without Brace/Cast/Collar: Without , Views (X-RAY, TIBIA AND FIBULA): Radiologic Protocol , Weight Bearing?: N , With or Without Brace/Cast/Collar: Without , , , Ordering Provider - CATARINO PACHECO MD , POC GLUCOSE LABon 01-20-2019 Glucose [Mass/Vol] 190 mg/dL High 70-100 [facility] Comment on above: Performed By: #### [id number] ####[facility] [place] [address], [facility] Glucose [Mass/Vol] 118 mg/dL High 70-100 [facility] Comment on above: Performed By: #### 8 [id number] ####[facility] [place] [address], [facility] Glucose [Mass/Vol] 100 mg/dL Normal 70-100 [facility] Comment on above: Performed By: #### 8 [id number] #### [facility] [address] ANKLE LEFT 2 [facility] 9 ANKLE LEFT 2 [facility] Department of Radiology [address] [place] [phone] Patient Name: ANALI LANDRY : 1955 Sex: F Age: Race: White Pt. Location: Patient Status: O Ordered Date: 01/19/2019 12:05:00 PM Completed Date: 01/19/2019 12:19 PM Requesting Provider: CATARINO PACHECO Attending Provider: CATARINO APCHECO Report Copy To: Signs & Symptoms: S82.92XA [...] fx - 5 weeks ago f/u (accession [id number]), Patient has bi-lateral ankle pain. Right ankle is worse. Stress views ordered. (accession [id number]), Patient has bi-lateral ankle pain. Right ankle is worse. Stress views ordered. (accession [id number]), right tibia pain fx - 5 weeks ago f/u (accession [id number]) QUESTION FOR THE RADIOLOGIST: , Views (X-RAY, ANKLE): Radiologic Protocol , Weight Bearing?: N , With or Without Brace/Cast/Collar: Without , Views (X-RAY, ANKLE): Radiologic Protocol , Weight Bearing?: N ...More In Sending System PROTOCOL: AP,Lateral and Oblique views were obtained. (accession [id number]), AP(PA) and Lateral views were obtained. (accession [id number]), Stress views were obtained. AP(PA) view was obtained. (accession [id number]), AP(PA) and Lateral views were obtained. (accession [id number]) COMPARISON: None FINDINGS: Left ankle: Swelling Healing [...] widening Electronically signed by:Levi Che. Transcribed by: [email or web address], User Resident: Electronically Signed by: LEVI CHE @ 01/19/2019 01:54 PM Normal [facility] Comment on above: Order Comment: , str ess view , Views (X-RAY, ANKLE): Radiologic Protocol , stress view , Views (X-RAY, ANKLE): Radiologic Protocol , , , Ordering Provider - CATARINO PACHECO MD , ANKLE LEFT 3 [facility] 9 ANKLE LEFT 3 [facility] Department of Radiology [address] [place] [phone] Patient Name: ANALI LANDRY : 1955 Sex: F Age: Race: White Pt. Location: 84 Patient Status: O Ordered Date: 01/19/2019 10:50:00 AM Completed Date: 01/19/2019 11:10 AM Requesting Provider: CATARINO PACHECO Attending Provider: CATARINO PACHECO Report Copy To: Signs & Symptoms: S82.92XA Unsp fracture of left lower leg, init for clos fx I10 History: [place] Comments: , Views (X-RAY, ANKLE): Radiologic Protocol [...] fx - 5 weeks ago f/u (accession [id number]), Patient has bi-lateral ankle pain. Right ankle is worse. Stress views ordered. (accession [id number]), Patient has bi-lateral ankle pain. Right ankle is worse. Stress views ordered. (accession [id number]), right tibia pain fx - 5 weeks ago f/u (accession [id number]) QUESTION FOR THE RADIOLOGIST: , Views (X-RAY, ANKLE): Radiologic Protocol , Weight Bearing?: N , With or Without Brace/Cast/Collar: Without , Views (X-RAY, ANKLE): Radiologic Protocol , Weight Bearing?: N ...More In Sending System PROTOCOL: AP,Lateral and Oblique views were obtained. (accession [id number]), AP(PA) and Lateral views were obtained. (accession [id number]), Stress views were obtained. AP(PA) view was obtained. (accession [id number]), AP(PA) and Lateral views were obtained. (accession [id number]) COMPARISON: None FINDINGS: Left ankle: Swelling Healing [...] widening Electronically signed by:Levi Che. Transcribed by: [email or web address], User Resident: Electronically Signed by: LEVI CHE @ 01/19/2019 01:54 PM Normal [facility] Comment on above: Order Comment: , Rosalee ws (X-RAY, ANKLE): Radiologic Protocol , Weight Bearing?: N , With or Without Brace/Cast/Collar: Without , Views (X-RAY, ANKLE): Radiologic Protocol , Weight Bearing?: N , With or Without Brace/Cast/Collar: Without , , , Ordering Provider - CATARINO PACHECO MD , ANKLE RIGHT 2 [facility] 01-20-20 19 ANKLE RIGHT 2 [facility] Department of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
[2023-09-06 11:07] LABS: Alanine Aminotransferase 31 U/L (14-59); Albumin Globulin Ratio 1.1; Albumin Level 3.7 g/dL (3.4-5.0); Alkaline Phosphatase 62 U/L (46-116); Anion Gap 12.5; Aspartate Amino Transferase 19 U/L (15-37); BUN Creatinine Ratio 17.2; Bilirubin Total 0.3 mg/dL (0.2-1.0); Calcium 9.5 mg/dL (8.5-10.1); Carbon Dioxide 30.7 mmol/L (21.0-32.0); Chloride 102 mmol/L (98-107); Estimated GFR (African America >60 (>=60); Estimated GFR (Non-African Ame 56 (>=60); Globulin 3.4 g/dL; Glucose 86 mg/dL (74-106); Potassium 4.2 mmol/L (3.5-5.1); Sodium 141 mmol/L (136-145); Total Protein 7.1 g/dL (6.4-8.2)
== END 2023-09-06 10:13 | disposition home or self-care (01) ==
LOC: LAB 10:12
PROVIDERS: PCP Nurse Practitioner Family; Visit Provider Nurse Practitioner Family
DX: E78.5 Hyperlipidemia, unspecified (principal); I10 Essential (primary) hypertension
CPT/HCPCS: 36415; 80053

== ENCOUNTER 2023-10-04 08:17 | Outpatient (OUT) | payer MEDICARE, MEDICAID, SELFPAY ==
--- NOTE | 2023-10-04 | PCN_ITS ---
CARDIAC STRESS TEST Requesting Physician: Procedure Date: 10/04/2023 This was a Lexiscan stress test with myocardial perfusion imaging performed at the [facility] on 10/04/2023. Informed consent was obtained. An intravenous line was secured. The patient was attached to electrocardiographic monitoring. Vital signs were obtained. Lexiscan 0.4 mg was infused intravenously, followed by administration of Cardiolite. The patient then went on to obtain myocardial perfusion imaging. Resting heart rate was 72 BPM and peak heart rate was 98 BPM. Resting blood pressure was 152/76 and peak blood pressure was 154/72. Resting ECG showed sinus rhythm with frequent PVCs. ECG following infusion of Lexiscan showed sinus rhythm with frequent PVCs. There was no evidence of ischemic ST changes seen. Final ECG showed evidence of sinus rhythm with frequent PVCs. SUMMARY OF THE FINDINGS: 1. No evidence of ischemic ECG changes following infusion of Lexiscan. 2. Frequent PVCs noted throughout the exam. 3. Uncontrolled systemic hypertension. 4. Myocardial perfusion images will be reported separately. BASSEM
--- OUTSIDE RECORDS SUMMARY | 2023-10-04 08:24 | XMS_ITS | CCD ---
Author Organization [facility] Care Team Providers Care Hydroelectric Mechanic Name Role Phone JEEVAN, CARO F Unavailable Unavailable GORDON ROBLES Unavailable Unavailab le DEASY, CARO F Unavailable Unavailable DEASY, CARO F Unavailable Unavailable EBRAHEIM, JAMIN Admitting Unavailable MARCELO JAMIN Attending Unavailable ABIEL BLACKWELL Referring Unavailable ABIEL BLACKWELL Primary Care Unavailable [place] Procedure Practitioner Unavailab sachin PACHECO, JAMIN Surgeon Unavailable CECILIA BOUDREAUX Attending Unavailable ABIEL BLACKWELL Primary Care Unavailable CECILIA BOUDREAUX Admitting Unavailable Niranjan Bustillos Consulting Unavailable SAMSA ., ANGIE Admitting Unavailable SAM . ANGIE Attending Unavailable CECILIA BOUDREAUX Primary Care Unavailable SAM . ANGIE Consulting Unavailable CECILIA BOUDREAUX Admitting Unavailable CECILIA BOUDREAUX Primary Care Unavailable CECILIA BOUDREAUX Attending Unavailable REQUEST, NONE LISTED Admitting Unavaila ble REQUEST, NONE LISTED Consulting Unavaila ble REQUEST, NONE LISTED Attending Unavaila ble CECILIA BOUDREAUX Primary Care Unavailable Abiel Blackwell MD Primary Care Provider ALEXSANDRA ÁLVAREZ Attending Unavailable CECILIA BOUDREAUX Referring Unavailable ABIEL BLACKWELL Primary Care Unavailable Allergies Allergy Classification Reported Allergen(s) Allergy Type Date of Onset Reaction(s) Facility (7 sources) Blueberry; Translations: [BLUEBERRY] Propensity to adverse reactions to drug (disorder) 6 Anaphylaxis [facility] Repository (8 sources) morphine; Translations: [MORPHINE] Drug Allergy 5 Itching, Rash [facility] Repository (3 sources) natural latex rubber; Translations: [LATEX, NATURAL RUBBER] Propensity to adverse reactions to drug (disorder) 3 AOF [facility] Repository (2 sources) Shellfish; Translations: [SHELLFISH DERIVED] Propensity to adverse reactions to drug (disorder) 6 AOF [facility] Repository (1 source) SILVER-HYDROCOL LOID DRESSING; Translations: [SILVER-HYDROCO LLOID DRESSING] Propensity to adverse reactions to drug (disorder) 6 AOF [facility] Repository (1 source) Blueberry; Translations: [BLUEBERRIES] Propensity to adverse reactions (disorder) 9 [facility] Repository (5 sources) Latex; Translations: [LATEX] Propensity to adverse reactions (disorder) 9 Rash [facility] Repository (1 source) ACCUCOT; Translations: [Unknown] Propensity to adverse reactions (disorder) 9 [facility] Repository (1 source) Adhesive agent Drug allergy (disorder) [facility] (2 sources) Aspirin Drug Allergy [facility] (1 source) fluticasone / vilanterol Drug Allergy [facility] (2 sources) Shellfish Drug allergy (disorder) [facility] (2 sources) Acticoat Dressing Drug allergy (disorder) [facility] (4 sources) crab allergenic extract; Translations: [CRAB] Drug Allergy 1 [facility]axis [facility] Other; Translations: [OTHER] Propensity to adverse reactions [facility] Medications Current Medications Medication Drug Class(es) Dates Sig (Normalized) Sig (Original) [id number] actuat albuterol 0.09 mg/actuat metered dose inhaler (3 sources) beta2-Adrenergic Agonist take 2 puff(s) by inhalation every six hours as needed for wheezing albuterol (PROVENTIL HFA;VENTOLIN HFA) 90 mcg/actuation inhaler Inhale 2 puffs every 6 (six) hours as needed for wheezing. 0 Active antiox #8/om3/dha/epa/lut/z eax (PRESERVISION AREDS 2, OMEGA-3, ORAL) (3 sources) take 2 tablets by mouth once daily antiox #8/om3/dha/epa/lut/ zeax (PRESERVISION AREDS 2, OMEGA-3, ORAL) Take 2 tablets by mouth daily. 0 Active B-complex with vitamin C tablet (3 sources) take 1 tablet by mouth in the morning B-complex with vitamin C tablet Take 1 tablet by mouth in the morning. 0 Active take 1 tablet by mouth once alexsander y B-complex with vitamin C tablet Take 1 tablet by mouth daily. 0 Active carboxymethylcellulose sodiu m 5 mg/ml ophthalmic solution (3 sources) take 1 drop(s) into the eye(s) three times daily as needed carboxymethylcellulose (REFRESH PLUS) 0.5 % dropperette 1 drop 3 (three) times a day as needed for dry eyes. 0 Active cholecalciferol 0.125 mg ora l tablet (3 sources) Vitamin D take 1 tablet by mouth in the morning cholecalciferol, vitamin D3, 5,000 units tablet Take 1 tablet (5,000 Units total) by mouth in the morning. 0 Active take 1 tablet by mouth once alexsander y cholecalciferol, vitamin D3, 5,000 units tablet Take 5,000 Units by mouth daily. 0 Active cycloSPORINE 0.5 mg/ml ophthalmic suspension (3 sources) Calcineurin Inhibitor Immunosuppressant take 1 drop(s) into the eye(s) in the morning cycloSPORINE (RESTASIS) 0.05 % ophthalmic emulsion 1 drop in the morning and 1 drop before bedtime. 0 Active take 1 drop(s) into the eye(s) twice daily cycloSPORINE (RESTASIS) 0.05 % ophthalmi c emulsion 1 drop 2 (two) times a day. 0 Active fluticasone (3 sources) Corticosteroid take 1 puff(s) by inhalation in the morning fluticasone furoate (ARNUITY ELLIPTA) 100 mcg/actuation blister with device Inhale 1 puff in the morning. 0 Active take 1 puff(s) by inhalation onc e daily fluticasone furoate (ARNUITY ELLIPTA) 100 mcg/actuation blister with device Inhale 1 puff daily. 0 Active KRILL OIL ORAL (3 sources) KRILL OIL ORAL T dixon 1,000 mg by mouth. 0 Active losartan potassium 50 mg oral tablet (3 sources) Angiotensin 2 Receptor Yulissa take 2 tablets by mouth in the morning losartan (COZAAR) 50 mg tablet Take 2 tablets (100 mg total) by mouth in the morning. 0 Active magnesium oxide 400 mg oral tablet (3 sources) take 1 tablet by mouth in the morning, then take 1 tablet by mouth at bedtime magnesium oxide (MAG-OX) 400 mg tablet Take 1 tablet (400 mg total) by mouth in the morning and 1 tablet (400 mg total) before bedtime. 0 Active metFORMIN hydrochloride 500 mg oral tablet (3 sources) Biguanide take 1 tablet by mouth in the morning, then take 1 tablet by mouth at bedtime metFORMIN (GLUCOPHAGE) 500 mg tablet Take 1 tablet (500 mg total) by mouth in the morning and 1 tablet (500 mg total) before bedtime. 0 Active 24 hr metoprolol succinate 50 mg extended release oral tablet (3 sources) beta-Adrenergic Yulissa take 1 tablet by mouth every twenty-four hours in the morning metoprolol succinate XL (TOPROL-XL) 50 mg 24 hr tablet Take 1 tablet (50 mg total) by mouth in the morning. 0 Active take 1 tablet by mouth once alexsander y metoprolol succinate XL (TOPROL-XL) 50 mg 24 hr tablet Take 50 mg by mouth daily. 0 Active montelukast 10 mg oral tablet (3 sources) Leukotriene Receptor Antagonist take 1 tablet by mouth once daily montelukast (SINGULAIR) 10 mg tablet Take 1 tablet (10 mg total) by mouth nightly. 0 Active opiknmkv-rjeb-MO-calci um &mins (THERAGRAN-M) 9 mg iron-400 mcg tablet (3 sources) optntvye-uaso-BA -calci um &mins (THERAGRAN-M) 9 mg iron-400 mcg tablet Take 1 tablet by mouth in the morning. 0 Active tyhibhge-zjkw-SM -calcium &mins (THERAGRAN-M) 9 mg iron-400 mcg tablet Take 1 tablet by mouth daily. 0 Active simvastatin 10 mg oral tablet (3 sources) HMG-CoA Reductase Inhibitor take 1 tablet by mouth once daily simvastatin (ZOCOR) 10 mg tablet Take 1 tablet (10 mg total) by mouth nightly. 0 Active Turmeric extract (3 sources) take 1000 mg by mouth once daily TURMERIC ORAL Take 1,000 mg by mouth daily. With curcumin 0 Active ubidecarenone 30 mg oral capsule (3 sources) take 10 capsules by mouth twice daily coenzyme Q10 30 mg capsule Take 200 mg by mouth 2 (two) times a day. 0 Active vitamin b12 1 mg oral tablet (3 sources) Vitamin B12 take 5 tablets by mouth in the morning cyanocobalamin 1000 MCG tablet Take 5 tablets (5,000 mcg total) by mouth in the morning. 0 Active Problems Problem Classification Problem Date Documented Da te Episodic/Chronic Asthma (4 sources) Mild persistent asthma, uncomplicated; Translations: [MILD PERSIST ASTHMA UNCOMPLICATED] Onset: 09-11-2022 Chronic Conditions associated with dizziness or vertigo (1 source) Dizziness; Translations: [Dizziness and giddiness] 09-16-2023 Episodic Occlusion or stenosis of precerebral arteries (7 sources) Vascular calcification; Translations: [Occlusion and stenosis of unspecified carotid artery] Onset: 09-13-2023 09-12-2023 Chronic Unclassified (1 source) Carotid Artery Disease Onset: 09-12-2023 Results Test Name Value Interpretation Reference Range Facility GLYCOHEMOGLOBIN A1Con 2022 ADA RECOMMENDATION SEE BELOW Normal [facility] Comment on above: Result Comment: ADA RECOMMENDED LIMIT 4.0 - 6.0 ADA THERAPEUTIC TARGET < 7.0 ACTION SUGGESTED > 7.0 Performed By: #### D ATA1C #### [facility] [address] [address] [address] Kiley Plata Glucose [Mass/Vol] 120 mg/dL Normal [facility] Comment on above: Performed By: #### D ATA1C #### [facility] [address] [address] [address] Kiley Plata HbA1c (Bld) [Mass fraction] 5.8 % Normal 4.5-6.2 [facility] Comment on above: Performed By: #### D ATA1C #### [facility] [address] [address] [address] Kiley Plata XR CHEST 2 Von [...] fat pad is favored. Electronically authenticated by: NIRANJAN BUSTILLOS Date: 2022-09-11 10:04 Normal [facility] ANKLE LEFT 3 VWSon 9 ANKLE LEFT 3 VWS [facility] Department of Radiology [address] [place] [phone] Patient Name: BROOKE LANDRY : 1955 Sex: F Age: Race: White Pt. Location: Patient Status: Ordered Date: 06/15/2019 1:45:00 PM Completed Date: 06/15/2019 01:47 PM Requesting Provider: SOLANGE CRUZ Attending Provider: Report Copy To: Signs & Symptoms: M25.579 Pain in unspecified ankle and joints of unspecified foot I10 History: [place] Comments: , , , Ordering Provider - SOLANGE CRUZ PA-C , Exam: ANKLE LEFT 3 S ANKLE LEFT 3 VWS, ANKLE RIGHT 3 VWS 06/15/2019 1:47 PM EST SIGNS AND SYMPTOMS: M25.579 Pain in unspecified ankle and joints of unspecified foot I10 TECHNOLOGIST COMMENTS: follow/up bi-lateral ankle surgery 01/2019 QUESTION FOR THE RADIOLOGIST: , , , Ordering Provider - SOLANGE NANCY PA-C , PROTOCOL: AP,Lateral and Oblique views were obtained. COMPARISON: April 29, 2019 FINDINGS: Soft tissues: Persistent swelling Bones: Unchanged hardware Joints: Joint maintained Questionable cystic changes along the medial talar dome which could be an osteochondral lesion IMPRESSION: Healing ankle injury supported by hardware in good alignment Electronically signed by:Julissa Che. Transcribed by: [email or web address], User Resident: Electronically Signed by: JULISSA CHE @ 06/15/2019 02:12 PM Normal [facility] Comment on above: Order Comment: , str ess view , Views (X-RAY, ANKLE): Radiologic Protocol , stress view , Views (X-RAY, ANKLE): Radiologic Protocol , , , Ordering Provider - JAMIN PACHECO MD , ANKLE RIGHT 3 [facility] 06-15-20 19 ANKLE RIGHT 3 [facility] Department of Radiology [address] [place] [phone] Patient Name: BROOKE LANDRY : 1955 Sex: F Age: Race: White Pt. Location: Patient Status: Ordered Date: 06/15/2019 1:45:00 PM Completed Date: 06/15/2019 01:47 PM Requesting Provider: SOLANGE CRUZ Attending Provider: Report Copy To: Signs & Symptoms: M25.579 Pain in unspecified ankle and joints of unspecified foot I10 History: [place] Comments: , , , Ordering Provider - SOLANGE CRUZ PA-C , Exam: ANKLE RIGHT 3 [facility] ANKLE LEFT 3 VWS, ANKLE RIGHT [...] by hardware in good alignment Electronically signed by:Julissa Che. Transcribed by: [email or web address], User Resident: Electronically Signed by: JULISSA CHE @ 06/15/2019 02:12 PM Normal [facility] Comment on above: Order Comment: , str ess view , Views (X-RAY, ANKLE): Radiologic Protocol , stress view , Views (X-RAY, ANKLE): Radiologic Protocol , , , Ordering Provider - JAMIN PACHECO MD , ANKLE LEFT 3 [facility] 9 ANKLE LEFT 3 [facility] Department of Radiology [address] [place] [phone] Patient Name: BROOKE LANDRY : 1955 Sex: F Age: Race: White Pt. Location: Patient Status: Ordered Date: 04/29/2019 2:10:00 PM Completed Date: 04/29/2019 02:13 PM Requesting Provider: BEBETO CRUM Attending Provider: Report Copy To: Signs & Symptoms: S82.842D Displ bimalleol fx l low leg, subs for clos fx w routn heal I10 History: [place] Comments: , , , Ordering Provider - [...] Both sides show scattered spurring Electronically signed by:Julissa Che. Transcribed by: [email or web address], User Resident: Electronically Signed by: JULISSA CHE @ 04/29/2019 03:41 PM Normal [facility] Comment on above: Order Comment: , str ess view , Views (X-RAY, ANKLE): Radiologic Protocol , stress view , Views (X-RAY, ANKLE): Radiologic Protocol , , , Ordering Provider - JAMIN PACHECO MD , ANKLE RIGHT 3 VWSon 04-29-20 19 ANKLE RIGHT 3 VWS [facility] Department of Radiology [address] [place] [phone] Patient Name: BROOKE LANDRY : 1955 Sex: F Age: Race: [...] Both sides show scattered spurring Electronically signed by:Julissa Che. Transcribed by: [email or web address], User Resident: Electronically Signed by: JULISSA CHE @ 04/29/2019 03:41 PM Normal [facility] Comment on above: Order Comment: , str ess view , Views (X-RAY, ANKLE): Radiologic Protocol , stress view , Views (X-RAY, ANKLE): Radiologic Protocol , , , Ordering Provider - JAMIN PACHECO MD , ANKLE LEFT 3 [facility] 9 ANKLE LEFT 3 [facility] Department of Radiology [address] [place] [phone] Patient Name: BROOKE LANDRY : 1955 Sex: F Age: Race: [...] ankle injury in satisfactory alignment Electronically signed by:Julissa Che. Transcribed by: [email or web address], User Resident: Electronically Signed by: JULISSA CHE @ 03/18/2019 03:19 PM [place] [facility] Comment on above: Order Comment: , str ess view , Views (X-RAY, ANKLE): Radiologic Protocol , stress view , Views (X-RAY, ANKLE): Radiologic Protocol , , , Ordering Provider - JAMIN PACHECO MD , ANKLE RIGHT 3 VWSon 03-18-20 19 ANKLE RIGHT 3 VWS [facility] Department of Radiology [address] [place] [phone] Patient Name: BROOKE LANDRY : 1955 Sex: F Age: Race: White Pt. Location: Patient Status: Ordered Date: 03/18/2019 2:25:00 PM Completed Date: 03/18/2019 02:28 PM Requesting Provider: BEBETO CRUM Attending Provider: Report Copy To: Signs & Symptoms: S82.842D Displ bimalleol fx l low leg, subs for clos fx w routn heal I10 History: [place] Comments: , , , Ordering Provider - [...] ankle injury in satisfactory alignment Electronically signed by:Julissa Che. Transcribed by: [email or web address], User Resident: Electronically Signed by: JULISSA CHE @ 03/18/2019 03:19 PM Normal [facility] Comment on above: Order Comment: , str ess view , Views (X-RAY, ANKLE): Radiologic Protocol , stress view , Views (X-RAY, ANKLE): Radiologic Protocol , , , Ordering Provider - JAMIN PACHECO MD , ANKLE LEFT 3 [facility] 9 ANKLE LEFT 3 [facility] Department of Radiology [address] [place] [phone] Patient Name: BROOKE LANDRY : 1955 Sex: F Age: Race: [...] CRUM PA-C , Exam: ANKLE LEFT 3 [facility] ANKLE LEFT 3 VWS, ANKLE RIGHT [...] hardware fixation in satisfactory alignment Electronically signed by:Julissa Che. Transcribed by: [email or web address], User Resident: Electronically Signed by: JULISSA CHE @ 03/04/2019 01:59 PM Normal [facility] Comment on above: Order Comment: , str ess view , Views (X-RAY, ANKLE): Radiologic Protocol , stress view , Views (X-RAY, ANKLE): Radiologic Protocol , , , Ordering Provider - JAMIN PACHECO MD , ANKLE RIGHT 3 Son 03-04-20 19 ANKLE RIGHT 3 VWS [facility] Department of Radiology [address] [place] [phone] Patient Name: BROOKE LANDRY : 1955 Sex: F Age: Race: White Pt. Location: Patient Status: O Ordered Date: 03/04/2019 1:25:00 PM Completed Date: 03/04/2019 01:38 PM Requesting Provider: BEBETO CRUM Attending Provider: BEBETO CRUM Report Copy To: Signs & Symptoms: S82.842D Displ bimalleol fx l low leg, subs for clos fx w routn heal I10 History: [place] Comments: , , , Ordering Provider - [...] hardware fixation in satisfactory alignment Electronically signed by:Julissa Che. Transcribed by: [email or web address], User Resident: Electronically Signed by: JULISSA CHE @ 03/04/2019 01:59 PM Normal [facility] Comment on above: Order Comment: , str ess view , Views (X-RAY, ANKLE): Radiologic Protocol , stress view , Views (X-RAY, ANKLE): Radiologic Protocol , , , Ordering Provider - JAMIN PACHECO MD , ANKLE LEFT 3 Son 9 ANKLE LEFT 3 S [facility] Department of Radiology [address] [place] [phone] Patient Name: BROOKE LANDRY : 1955 Sex: F Age: Race: White Pt. Location: Patient Status: Ordered Date: 02/04/2019 10:25:00 AM Completed Date: 02/04/2019 10:38 AM Requesting Provider: ITALO JIANG Attending Provider: Report Copy To: Signs & Symptoms: S82.842A Displaced bimalleolar fracture of left lower leg, init I10 History: [place] Comments: , Views (X-RAY, ANKLE): Radiologic Protocol , Views (X-RAY, ANKLE): Radiologic Protocol , , , Ordering Provider - ITALO JIANG PA-C , Exam: ANKLE LEFT 3 [facility] ANKLE LEFT 3 S 02/04/2019 10:38 [...] healing Electronically signed by:Zonia Cates. Transcribed by: [email or web address], User Resident: Electronically Signed by: ZONIA CATES @ 02/04/2019 03:17 PM Normal [facility] Comment on above: Order Comment: , str ess view , Views (X-RAY, ANKLE): Radiologic Protocol , stress view , Views (X-RAY, ANKLE): Radiologic Protocol , , , Ordering Provider - JAMIN PACHECO MD , ANKLE RIGHT 3 [facility] 02-05-20 19 ANKLE RIGHT 3 S [facility] Department of Radiology [address] [place] [phone] Patient Name: BROOKE LANDRY : 1955 Sex: F Age: Race: White Pt. Location: Patient Status: Ordered Date: 02/04/2019 10:30:00 AM Completed Date: 02/04/2019 10:38 AM Requesting Provider: ITALO JIANG Attending Provider: Report Copy To: Signs & Symptoms: S82.841A Displaced bimalleolar fracture of right lower leg, init I10 History: [place] Comments: , Views (X-RAY, ANKLE): Radiologic Protocol , Views (X-RAY, ANKLE): Radiologic Protocol , , , Ordering Provider - ITALO JIANG PA-C , Exam: ANKLE RIGHT 3 VWS ANKLE RIGHT 3 VWS 02/04/2019 10:38 AM EDT SIGNS AND SYMPTOMS: [...] healing Electronically signed by:Zonia Cates. Transcribed by: [email or web address], User Resident: Electronically Signed by: ZONIA CATES @ 02/04/2019 03:31 PM Normal [facility] Comment on above: Order Comment: , str ess view , Views (X-RAY, ANKLE): Radiologic Protocol , stress view , Views (X-RAY, ANKLE): Radiologic Protocol , , , Ordering Provider - JAMIN PACHECO MD , Operative Reporton 9 Operative Report MR#: [id number] I [facility] Pt. Name: Brooke Landry Room #: [id number] Discharge 01/23/2019 Date: Birthdate: 1955 OPERATIVE REPORT DATE OF SURGERY: 01/20/2019 SURGEON: Jamin Pacheco M.D. ASSISTANTS: 1. Álvaro Dao M.D. [...] sized 3.5 cortical screws. Electronically Signed by: Jamin Pacheco M.D. 01/31/2019 10:09 A Jamin Pacheco M.D. I was present for the eduardo and critical portions and I was otherwise immediately available to assist. Date Dict: 01/29/2019/08:25 Purvi/Álvaro Dao MD Date Trans: 01/29/2019 11:37 Purvi/smooth [id number] Normal [facility] BASIC METABOLIC PANELon 08-0 Calcium [Mass/Vol] 9.4 mg/dL Normal 8.6-10.3 [facility] Comment on above: Order Comment: , str ess view , Views (X-RAY, ANKLE): Radiologic Protocol , stress view , Views (X-RAY, ANKLE): Radiologic Protocol , , , Ordering Provider - JAMIN PACHECO MD , Performed By: #### 0 [id number] ####[facility] Chloride [Moles/Vol] 100 mmol/L Normal 98-107 [facility] Comment on above: Order Comment: , str ess view , Views (X-RAY, ANKLE): Radiologic Protocol , stress view , Views (X-RAY, ANKLE): Radiologic Protocol , , , Ordering Lucero PACHECO MD , Performed By: #### 0 [id number] ####[place] [id number] [address] CO2 [Moles/Vol] 32 mmol/L High 21-31 [facility] Comment on above: Order Comment: , str ess view , Views (X-RAY, ANKLE): Radiologic Protocol , stress view , Views (X-RAY, ANKLE): Radiologic Protocol , , , Ordering Lucero PACHECO MD , Performed By: #### 0 [id number] ####[address] Creatinine [Mass/Vol] 0.78 mg/dL Normal 0.60-1.20 [facility] Comment on above: Order Comment: , str ess view , Views (X-RAY, ANKLE): Radiologic Protocol , stress view , Views (X-RAY, ANKLE): Radiologic Protocol , , , Ordering Lucero PACHECO MD , Performed By: #### 0 [id number] ####[address] GFR/1.73 sq M predicted among blacks MDRD (S/P/Bld) [Vol rate/Area] mL/min/{1.73_m2} Normal >60 [facility] Comment on above: Order Comment: , str ess view , Views (X-RAY, ANKLE): Radiologic Protocol , stress view , Views (X-RAY, ANKLE): Radiologic Protocol , , , Ordering Lucero PACHECO MD , Performed By: #### 0 [id number] ####[facility] GFR/1.73 sq M predicted among non-blacks MDRD (S/P/Bld) [Vol rate/Area] mL/min/{1.73_m2} Normal >60 [facility] Comment on above: Order Comment: , str ess view , Views (X-RAY, ANKLE): Radiologic Protocol , stress view , Views (X-RAY, ANKLE): Radiologic Protocol , , , Ordering Lucero PACHECO MD , Performed By: #### 0 [id number] ####[facility] Glucose [Mass/Vol] 151 mg/dL High 70-100 [facility] Comment on above: Order Comment: , str ess view , Views (X-RAY, ANKLE): Radiologic Protocol , stress view , Views (X-RAY, ANKLE): Radiologic Protocol , , , Hermann PACHECO MD , Performed By: #### 0 [id number] ####[facility] Potassium [Moles/Vol] 4.1 mmol/L Normal 3.5-5.1 [facility] Comment on above: Order Comment: , str ess view , Views (X-RAY, ANKLE): Radiologic Protocol , stress view , Views (X-RAY, ANKLE): Radiologic Protocol , , , Hermann PACHECO MD , Performed By: #### 0 [id number] ####[place] [id number] Sodium [Moles/Vol] 137 mmol/L Normal 136-145 [facility] Comment on above: Order Comment: , str ess view , Views (X-RAY, ANKLE): Radiologic Protocol , stress view , Views (X-RAY, ANKLE): Radiologic Protocol , , , Ordering Provider Brandon PACHECO MD , Performed By: #### 0 [id number] ####[address] Urea nitrogen [Mass/Vol] 13 mg/dL Normal 7-25 [facility] Comment on above: Order Comment: , str ess view , Views (X-RAY, ANKLE): Radiologic Protocol , stress view , Views (X-RAY, ANKLE): Radiologic Protocol , , , Ordering Provider Brandon PACHECO MD , Performed By: #### 0 [id number] ####[address] CBC COMPLETE BLOOD COUNTon 0 01-23-2019 Erythrocyte distribution width (RBC) [Ratio] 13.5 % Normal 11.5-15.0 [facility] Comment on above: Order Comment: , str ess view , Views (X-RAY, ANKLE): Radiologic Protocol , stress view , Views (X-RAY, ANKLE): Radiologic Protocol , , , Ordering Lucero PACHECO MD , Performed By: #### [id number] ####[address] Hematocrit (Bld) [Volume fraction] 41.9 % Normal 36.0-45.0 [facility] Comment on above: Order Comment: , str ess view , Views (X-RAY, ANKLE): Radiologic Protocol , stress view , Views (X-RAY, ANKLE): Radiologic Protocol , , , Ordering Lucero PACHECO MD , Performed By: #### [id number] ####[address] Hemoglobin (Bld) [Mass/Vol] 13.1 g/dL Normal 12.0-15.0 [facility] Comment on above: Order Comment: , str ess view , Views (X-RAY, ANKLE): Radiologic Protocol , stress view , Views (X-RAY, ANKLE): Radiologic Protocol , , , Ordering Lucero PACHECO MD , Performed By: #### 5 0608 ####[address] MCH (RBC) [Entitic mass] 27.3 pg Normal 27.0-33.0 [facility] Comment on above: Order Comment: , str ess view , Views (X-RAY, ANKLE): Radiologic Protocol , stress view , Views (X-RAY, ANKLE): Radiologic Protocol , , , Ordering Lucero PACHECO MD , Performed By: #### 5 0608 ####[address] MCHC (RBC) [Mass/Vol] 31.3 g/dL Low 32.0-35.0 [facility] Comment on above: Order Comment: , str ess view , Views (X-RAY, ANKLE): Radiologic Protocol , stress view , Views (X-RAY, ANKLE): Radiologic Protocol , , , Ordering Lucero PACHECO MD , Performed By: #### 5 0608 ####[place] [address], [place] MCV (RBC) [Entitic vol] 87.5 fL Normal 82.0-98.0 [facility] Comment on above: Order Comment: , str ess view , Views (X-RAY, ANKLE): Radiologic Protocol , stress view , Views (X-RAY, ANKLE): Radiologic Protocol , , , Ordering Lucero PACHECO MD , Performed By: #### 5 0608 ####[address] Nucleated RBC/100 WBC (Bld) [Ratio] 0 % Normal 0-0 [facility] Comment on above: Order Comment: , str ess view , Views (X-RAY, ANKLE): Radiologic Protocol , stress view , Views (X-RAY, ANKLE): Radiologic Protocol , , , Ordering Lucero PACHECO MD , Performed By: #### 5 0608 ####[address] PLAT CNT 295 10*3/uL Normal 150-400 [facility] Comment on above: Order Comment: , str ess view , Views (X-RAY, ANKLE): Radiologic Protocol , stress view , Views (X-RAY, ANKLE): Radiologic Protocol , , , Ordering Lucero PACHECO MD , Performed By: #### 5 0608 ####[address] RBC (Bld) [#/Vol] 4.79 10*6/uL Normal 3.80-5.00 [facility] Comment on above: Order Comment: , str ess view , Views (X-RAY, ANKLE):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 Department were for an urgent problem and are not intended as complete care. It is important that you follow up with a doctor, nurse practitioner, or physician?s assistant county attorney for ongoing care. If your symptoms become worse or you do not improve as expected and you are unable to reach your usual health care provider, you should return to the Emergency Department. We are available 24 hours a day. BROOKE LANDRY has been given the following list of patient education materials, prescriptions and follow-up instructions: Follow-up Instructions: With: Address: When: Chava Farris [address] [place] [address] [facility] () Within 1 to 2 days Comments: CALL THE ORTHO DOCTOR IN THE AM TO MAKE AN APPOINTMENT WEIGHT BEARING TOLERATED MAINTAIN THE BOOTS USE A WALKER FOR AMBULATION FOLLOW UP WITH PCP IN 1-2 DAYS RETURN IF SYMPTOMS WORSEN With: Address: When: ABIEL BLACKWELL [address] [place] [address] [facility] () Within 1 to 2 days Comments: Return to ED if symptoms worsen In the event that this physician does not participate in your insurance network, please consult with your insurance company to find a nearby participating provider. Patient Education Materials: Fibular Fracture, Adult, Treated Without Immobilization; Cast or Splint Care, Dixv-ia-Odwc A MESSAGE TO ALL PATIENTS REGARDING OPIOIDS PRESCRIPTION OPIOIDS: WHAT YOU NEED TO KNOW Prescription opioids can be used to help relieve dfzsepyg-xe-vbudmw pain and are often prescribed following a [...] be struggling with addiction, tell your health prompt care rn and ask for guidance or call [facility]S National Helpline at 1-168-051-KYDF. y Source: US Department of Health and Human Services/Center for Disease Control & Prevention [facility] Medications Given: Medication Dose Route acetaminophen-oxycodone 1.00 tab(s) Oral Medication Information: New Medications Printed Prescriptions acetaminophen-hydrocodone ([place] 325 mg-5 mg oral tablet) 1 Tabs [...] Comment: Pharmacy Information: Thank you for choosing [facility] Patient Education Materials: Fibular Fracture, Adult, [...] when comfortable doing so. ? Only take slmq-dev-azhphha or prescription medicines for pain, discomfort, or [...] Document Reviewed: 01/07/2009 ExitCare? Patient Information ?2015 [employer]. This information is not intended to replace [...] Document Reviewed: 12/10/2013 ExitCare? Patient Information ?2015 [employer]. This information is not intended to replace advice given to you by your health care provider. Make sure you discuss any questions you have with your health care provider. RON Chan VERNA L , have received the following patient education materials/instructions and have verbalized understanding: Patient Education Materials: Fibular Fracture, Adult, Treated Without Immobilization; Cast or Splint Care, Wubi-fd-Tvaw Follow-up Instructions: With: Address: When: Chava Farris [address] [place] [phone] Business (1) Within 1 to 2 days Comments: CALL THE ORTHO DOCTOR IN THE AM TO MAKE AN APPOINTMENT WEIGHT BEARING TOLERATED MAINTAIN THE BOOTS USE A WALKER FOR AMBULATION FOLLOW UP WITH PCP IN 1-2 DAYS RETURN IF SYMPTOMS WORSEN With: Address: When: ABIEL BLACKWELL [facility] [place] [address] [facility] (1) Within 1 to 2 days Comments: Return to ED if symptoms worsen Prescriptions: [acetaminophen-hydrocodone ([place] 325 mg-5 mg oral tablet)] [lidocaine topical (lidocaine Top 5% film Patch)] [orphenadrine (orphenadrine 100 mg ER Tab)] Patient Signature __ Date Clinician/Nurse Signature Date 12/16/18 22:04:54 Normal [facility] XR Ankle 3+ Views Lefton XR [...] Harry M.D. Transcribed by: KARLOS Technologist: ROSA Normal [facility] XR Ankle 3+ Views Righton XR [...] Edenilson Harry M.D. Transcribed by: KARLOS Technologist: ORSA Normal [facility] XR Foot 3+ Views Lefton XR [...] Harry M.D. Transcribed by: KARLOS Technologist: ROSA [facility] XR Knee Complete 4+ Views Wanda combs [...] Harry M.D. Transcribed by: KARLOS Technologist: ROSA [facility] PROGRESSon 10-07-2017 PROGRESS HNO ID: [id number] thor: Caro Bowers DeasyService: (none)Author Type: PhysicianType: [...] dayBoth eyes and Artificial tears . Advise [place] 3 fatty acids 1gram daily.Return to clinic in [address] Robles and 12 months with .The documentation recorded by the scribe accurately reflects the service Ipersonally performed and the decisions made by me.I have confirmed and edited as necessary the relevant ophthalmic history,ROS, and the neuro exam findings as obtained by others. I have seen andexamined Brooke Landry. I have discussed the case and the management ofthis patient's care with the Tobacco Checkout Clerk, if applicable. I also havereviewed and agree with the assessment and plan as stated above and agreewith all of its relevant components.Caro Suggs MD [facility] HOSPon 07-08-2017 HOSP Office Visit OPHT (OPLKAV) BROOKE LANDRY ([id number]) 1955 FDate Time Provider Department07/08/17 1:30 PM [...] day Botheyes and Artificial tears . Advise [place] 3 fatty acids 1gram daily.The documentation recorded by the scribe accurately reflects the service Ipersonally performed and the decisions made by me.I have confirmed and edited as necessary the relevant ophthalmic history, ROS,and the neuro exam findings as obtained by others. I have seen and examinedBrooke Landry. I have discussed the case and the management of this patient'scare with the Tobacco Checkout Clerk, if applicable. I also have reviewed and agree withthe assessment and plan as stated above and agree with all of its relevantcomponents.Caro Suggs, MDReferring Provider: GORDON ROBLES [[id number]]Allergies As of Date: 07/08/2017 Noted Allergy ReactionACTICOAT [...] right [H35.411]Order(s):DILATED FUNDUS EXAM [] Order #: [id number]: 1 IOP MEASUREMENT [] Order #: [id number]: 1 OCT MACULA CIRRUS OU (BOTH EYES) [21291020] Order #: [id number]: 1 DILATED FUNDUS EXAM [] Order #: [id number]: 1 FUTURE IOP MEASUREMENT [] Order #: [id number]: 1 FUTURE OCT MACULA CIRRUS OU (BOTH EYES) [21291020] Order #: [id number]: 1 FUTUREPrescriptions as of 07/08/2017 Sig: TURMERIC [...] [G*INVALID FOR*Follow-up and Disposition History RecordedEncounter Number: [id number] Status:Closed by CARO SUGGS MD on 07/08/17 [facility] PROGRESSon 07-08-2017 PROGRESS HNO ID: [id number] thor: Caro Bowers DeakjService: (none)Author Type: PhysicianType: [...] dayBoth eyes and Artificial tears . Advise [place] 3 fatty acids 1gram daily.The documentation recorded by the scribe accurately reflects the service Ipersonally performed and the decisions made by me.I have confirmed and edited as necessary the relevant ophthalmic history,ROS, and the neuro exam findings as obtained by others. I have seen andexamined Brooke Landry. I have discussed the case and the management ofthis patient's care with the Tobacco Checkout Clerk, if applicable. 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 I have confirmed and edited as [...] Baca MD 04/08/2017 4:19 PM SignedAddended by: OKSANA HERNANDEZ on: 04/08/2017 04:19 PM Modules accepted: Orders, SmartSetReferring Provider: CARO SUGGS [[id number]]Allergies As of Date: 04/08/2017 Noted Allergy ReactionACTICOAT DRESSING (SILVER-HYDROCO*01/27/2016 4 - HivesBLUEBERRY 01/27/2016 12 - Shortness of BreathLATEX, NATURAL RUBBER 05/18/2013 2 - Rash 4 - HivesMORPHINE 01/07/2015 2 - Rash 9 - ItchingSHELLFISH DERIVED 01/27/2016 12 - Shortness of BreathDate Reviewed: 04/08/2017Reviewed by: Oksana Hernandez - Fully AssessedReason for Visit: Type 2 macular telangiectasis [Other]Primary Visit Diagnosis: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 [H35.073]Order(s):DILATED FUNDUS EXAM [] Order #: [id number]: 1 IOP MEASUREMENT [] Order #: [id number]: 1 OCT MACULA CIRRUS OU (BOTH EYES) [21291020] Order #: [id number]: 1 DILATED FUNDUS EXAM [] Order #: [id number]: 1 FUTURE IOP MEASUREMENT [] Order #: [id number]: 1 FUTURE OCT MACULA CIRRUS OU (BOTH EYES) [21291020] Order #: [id number]: 1 FUTUREPrescriptions as of 04/08/2017 Sig: PYRIDOSTIGMINE [...] (around 10/07/2017).Follow-up and Disposition History RecordedEncounter Number: [id number] Status:Closed by OKSANA HERNANDEZ on 04/08/17 [facility] PROGRESSon 04-08-2017 PROGRESS HNO ID: [id number] thor: Oksana Evangelista: (none)Author Type: PhysicianType: Progress NotesFiled: 04/08/2017 4:20 PMNote Text:Prefers to be seen in [place].(H35.527) 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 I have confirmed and edited asnecessary [...] as noted below, or sooner ifnew symptoms develop.Oksana Hernandez MD [facility] Encounters Encounter Date Encounter Type Care Provider Facility Start: 09-16-2023 Orders Only Reina Gomes LPN [facility] Comment on above: Carotid artery calci fication, unspecified laterality (Primary Dx); Bilateral carotid artery stenosis Dizziness (Primary D x) Start: 09-12-2023 ambulatory ALEXSANDRA ÁLVAREZ [facility] Start: 09-12-2023 End: 09-12-2023 Office outpatient new 30 minutes Alexsandra Álvarez MD Work Phone: [facility] Comment on above: Carotid artery calci fication, unspecified laterality Start: 11-03-2022 ambulatory CECILIA BOUDREAUX Facility: [facility] Start: 09-21-2022 End: 09-22-2022 ambulatory NONE LISTED REQUEST Facility:[facility] Start: 09-11-2022 End: 09-12-2022 ambulatory Niranjan Bustillos Facility:[facility] Start: 11-16-2021 ambulatory CECILIA BOUDREAUX Facility: [facility] Start: 01-20-2019 End: 01-23-2019 Evaluation and management of inpatient JAMIN PACHECO Facility:[facility] Start: 10-07-2017 End: 10-09-2017 Ambulatory CARO SUGGS [facility] Start: 07-08-2017 End: 07-09-2017 Ambulatory CARO SUGGS [facility] Start: 04-08-2017 End: 04-11-2017 Ambulatory CARO [facility] Procedures Date Procedure Procedure Detail Performing Clinician Start: 01-20-2019 REPOSITION LEFT FIBU LA WITH INT FIX, OPEN APPROACH JAMIN EBRAHEIM Start: 01-20-2019 REPOSITION RIGHT FIB SEGUNDO WITH INT FIX, OPEN APPROACH JAMIN EBRAHEIM Start: 01-19-2019 Antibody screen JAMIN E AYDEE Comment on above: Performed By: #### 6 [id number] #### [facility] [address] Plan of Treatment Date Care Activity Detail Author Start: 10-08-2024 End: 10-08-2024 Patient encounter procedure 10/08/2024 10:50 AM EDT Office Visit [facility] [address] [place] [address] Alexsandra Álvarez MD [address], [address] [address] [facility] Start: 02-16-2024 Influenza vaccination Influenza Vacc ine [facility] Start: 09-16-2023 End: 10-14-2024 US Carotid arteries - bilateral Vas carotid duplex bilateral Vascular Ultrasound Routine Bilateral carotid artery stenosis Expected: 09/16/2023, Expires: 10/14/2024 [facility] Work Phone: Comment on above: Expected: 09/16/2023 , Expires: 10/14/2024 Start: 02-15-2023 COVID-19 Vaccine ( season) COVID-19 Vaccine ( season) [facility] [employer] [facility] Start: 02-15-2023 Influenza vaccination Influenza Vacc ine [facility] [employer] [facility] Start: 11-02-2021 Adult BMI Screening Adult BMI Screen ing [facility] [employer] [facility] Start: 2018 Fall Risk Screening Fall Risk Screen ing [facility] Start: 11-16-2003 Administration of varicella zoster vaccine Zoster (Shingles) Vaccine (1 of 2) [facility] Start: 1972 DTaP,Tdap and Td Vac cines (1 - Tdap) DTaP,Tdap and Td Vaccines (1 - Tdap) [facility] Start: 11-16-1971 Adult BMI Follow Up Plan Adult BMI Follow Up Plan [facility] Start: 1965 Depression Screening Depression Scre ening [facility] Start: 1965 Tobacco Screening Tobacco Screening [facility] Start: 1955 Medicare Annual Well ness Visit Medicare Annual Wellness Visit [facility] Immunizations Immunization Date Immunization Notes Care Provider Fa cili 04-13-2022 influenza virus vaccine, unspecified formulation Alexsandra Álvarez MD Work Phone: [facility] Payers Date Payer Category Payer Medicaid MEDICAID [facility] EDICAID [id number] 2019-Present [phone] [address] [place] [address] [id number] 2018 Unknown [id number] 2014 Medicare MEDICARE MEDICAR E PART A & B [id number] 2014-Present [phone] [address] [place] [address] [id number] 1959 Medicaid [id number] 1961 Medicare [id number] 1959 Self-pay [id number] 1955 Unknown [id number] 1955 Unknown [id number] 1955 Unknown [id number] 1955 Unknown [id number] 1955 Unknown [id number] Unknown [id number] Social History Date Type Detail Facility Start: 10-20-2020 End: 09-16-2023 Tobacco smoking status NHIS Never smoked tobacco [facility] Start: 10-20-2020 End: 09-16-2023 Tobacco use and exposure Smokeless tobacco non-user [facility] Start: 11-03-2020 End: 09-16-2023 Alcohol intake Lifetime non-drinker (finding) [facility] Start: 11-03-2020 End: 09-16-2023 History of [address] [facility] Start: 11-03-2020 End: 09-16-[address] [facility] Childcare Unknown [facility] Start: 1955 Sex Assigned At Not on file P [facility] History of Present illness Narrative 09-12-2023 Alexsandra Álvarez MD - 09/12/2023 3:00 PM EDT Note Date & Type Note Facility 09-12-2023 History of Presen t illness Narrative Images from the original note were not included. [facility] [address] [place] [phone] Subjective: Patient ID: Brooke Landry is a 67 y.o. female. Chief Complaint No chief complaint on file. History of Present Illness: 67 year old lady with less than 40% ICA stenosis bilaterally. No Stroke, or mini strokes. She has dizziness and palpitation. Patient Active Problem List Diagnosis Carotid artery calcification Current Outpatient Medications: albuterol (PROVENTIL HFA;VENTOLIN HFA) 90 mcg/actuation inhaler, Inhale 2 puffs every 6 (six) hours as needed for wheezing. (Patient not taking: Reported on 11/02/2020 ), Disp: , Rfl: antiox #8/om3/dha/epa/lut/zeax (PRESERVISION AREDS 2, OMEGA-3, ORAL), Take 2 tablets by mouth daily., Disp: , Rfl: B-complex with vitamin C tablet, Take 1 tablet by mouth daily., Disp: , Rfl: carboxymethylcellulose (REFRESH PLUS) 0.5 % dropperette, 1 drop 3 (three) times a day as needed for dry eyes., Disp: , Rfl: cholecalciferol, vitamin D3, 5,000 units tablet, Take 5,000 Units by mouth daily., Disp: , Rfl: coenzyme Q10 30 mg capsule, Take 200 mg by mouth 2 (two) times a day., Disp: , Rfl: cyanocobalamin 1000 MCG tablet, Take 5,000 mcg by mouth daily., Disp: , Rfl: cycloSPORINE (RESTASIS) 0.05 % ophthalmic emulsion, 1 drop 2 (two) times a day., Disp: , Rfl: fluticasone furoate (ARNUITY ELLIPTA) 100 mcg/actuation blister with device, Inhale 1 puff daily., Disp: , Rfl: KRILL OIL ORAL, Take 1,000 mg by mouth., Disp: , Rfl: losartan (COZAAR) 50 mg tablet, Take 100 mg by mouth daily., Disp: , Rfl: magnesium oxide (MAG-OX) 400 mg tablet, Take 400 mg by mouth 2 (two) times a day., Disp: , Rfl: metFORMIN (GLUCOPHAGE) 500 mg tablet, Take 1 tablet by mouth 2 (two) times a day., Disp: , Rfl: metoprolol succinate XL (TOPROL-XL) 50 mg 24 hr tablet, Take 50 mg by mouth daily., Disp: , Rfl: montelukast (SINGULAIR) 10 mg tablet, Take 10 mg by mouth nightly., Disp: , Rfl: hbtuoqaj-xxud-DN-calcium &mins (THERAGRAN-M) 9 mg iron-400 mcg tablet, Take 1 tablet by mouth daily., Disp: , Rfl: simvastatin (ZOCOR) 10 mg tablet, Take 10 mg by mouth nightly., Disp: , Rfl: TURMERIC ORAL, Take 1,000 mg by mouth daily. With curcumin, Disp: , Rfl: Past Medical History: Diagnosis Date Arrhythmia Arthritis Asthma Diabetes mellitus type 2, controlled ([facility]) prediabetic Headache Hypertension Hypoglycemia Obesity PONV (postoperative nausea and vomiting) Sleep apnea cpap Visual impairment glasses Past Surgical History: Procedure Laterality Date CARPAL TUNNEL RELEASE Right HERNIA REPAIR 06/2019 JOINT REPLACEMENT bilateral knees LEG SURGERY Bilateral plate and screws in right, screws in left ankle RELEASE TRIGGER FINGER Right 11/02/2020 Performed by Wallace Barakat DO at [facility] TONSILLECTOMY Family History Problem Relation Age of Onset Cancer Mother breast Stroke Mother Diabetes Mother Hypertension Mother Neuropathy Mother Heart disease Mother Diabetes Father Stroke Father Hypertension Father Heart disease Father Cancer Daughter ewings sarcoma No Known Problems Son No Known Problems Son Social History Socioeconomic History Marital status: Spouse name: Not on file Number of children: Not on file Years of education: Not on file Highest education level: Not on file Occupational History Not on file Tobacco Use Smoking status: Never Smokeless tobacco: Never Substance and Sexual Activity Alcohol use: Never Drug use: Never Sexual activity: Defer Other Topics Concern Not on file Social History Narrative Not on file Social Determinants of Health Financial Resource Strain: Not on file Food Insecurity: Not on file Transportation Needs: Not on file Physical Activity: Not on file Stress: Not on file Social Connections: Not on file Interpersonal Safety: Not on file Housing Instability: Not on file Allergies Allergen Reactions Blueberry Anaphylaxis Crab Anaphylaxis Other acticot dressing (for MRSA prevention), caused blistering Latex Rash Morphine Itching and Rash The following portions of the patient's history were reviewed and updated as appropriate: allergies, current medications, past family history, past medical history, past social history, past surgical history and problem list. Review of Systems: Review of Systems Constitutional: Negative. HENT: Negative. Respiratory: Negative. Cardiovascular: Negative. Gastrointestinal: Negative. Endocrine: Negative. Genitourinary: Negative. Musculoskeletal: Negative. Skin: Negative. Neurological: Negative. Hematological: Negative. All other systems reviewed and are negative. Objective: Vitals There were no vitals taken for this visit. Physical Exam Physical Exam Constitutional: Appearance: Normal appearance. She is obese. HENT: Head: Normocephalic. Cardiovascular: Rate and Rhythm: Normal rate and regular rhythm. Pulmonary: Effort: Pulmonary effort is normal. Abdominal: General: Abdomen is flat. Palpations: Abdomen is soft. Musculoskeletal: Cervical back: Normal range of motion and neck supple. Skin: General: Skin is warm. Capillary Refill: Capillary refill takes less than 2 seconds. Neurological: General: No focal deficit present. Mental Status: She is alert. Mental status is at baseline. She is disoriented. Psychiatric: Mood and Affect: Mood normal. Behavior: Behavior normal. Thought Content: Thought content normal. Judgment: Judgment normal. Studies Reviewed Carotid Ultrasound, personally interpreted Assesment: Diagnoses and all orders for this visit: Carotid artery calcification, unspecified laterality - [facility] [place] Plan Plan: Best medical therapy ASA/Statin Annual surveillance Cardiology referral Alexsandra Álvarez MD, MARLEE documented in this encounter [facility] [employer] [facility] Evaluation note Note Date & Type Note Facility Evaluation note Diagnosis Carotid artery calcification, unspecified laterality documented in this encounter [facility] Evaluation note Note Date & Type Note Facility Evaluation note Diagnosis Carotid artery calcification, unspecified laterality- Primary Bilateral carotid artery stenosis Occlusion and stenosis of carotid artery without mention of cerebral infarction documented in this encounter [facility] [employer] [facility] Evaluation note Note Date & Type Note Facility Evaluation note Diagnosis Dizziness- Primary Dizziness and giddiness documented in this encounter [facility] [employer] [facility] Instructions Note Date & Type Note Facility Instructions Not on filedocumented in this en counter [facility] Instructions Note Date & Type Note Facility Instructions Not on filedocumented in this en counter [facility] Reason for referral (narrative) Consultation (Routine) - Pending Review Note Date & Type Note Facility Reason for referral (narrati ve) Specialty Diagnoses / Procedures Referred By Contac t Referred To Contact Cardiology Diagnoses Dizziness Alexsandra Álvarez MD [address], [address] [address] [employer] [address] [place] [address] Referral ID Status Reason Start Date Expiration Date Visits Requested Visits Authorized [id number] Pending Review Specialty Services Required 09/16/2023 09/15/2024 1 1 [facility] Reason for visit Narrative Consultation (Routine) - Pending Review Note Date & Type Note Facility Reason for visit Narrative Specialty Diagnoses / Procedures Referred By Yaritza parra Referred To Contact Vascular Surgery Diagnoses Carotid artery calcification, unspecified laterality Cecilia Boudreaux, PAD ASSEMBLER-FURNACE CLERK [address] [facility] [place] [address] Alexsandra Álvarez MD [address], [address] [address] Referral ID Status Reason Start Date Expiration Date Visits Requested Visits Authorized [id number] Pending Review Specialty Services Required 09/05/2023 09/04/[address] [facility] Summary Purpose Family History No Family History Records FoundNo Family History Records FoundNo Family History Records FoundNo Family History Records FoundNo Family History Records Found Advance Directives No Advanced Directives Records FoundNo Advanced Directives Records FoundNo Advanced Directives Records FoundNo Advanced Directives Records FoundNo Advanced Directives Records Found Hospital Course Note MR#: [id number] [facility] Pt. Name: Brooke Landry Admitted: 01/20/2019 Discharged: 01/23/2019 Date of : 1955 Physician: Jamin Pacheco M.D. DISCHARGE SUMMARY ADMITTING DIAGNOSIS: Bilateral ankle fractures, bimalleolar. CLINICAL SUMMARY: The patient is a female, who sustained bilateral ankle fractures. We did see the patient in clinic and discussed treatment options with the patient. After thorough discussion of the benefits and risks, the patient elected to proceed with the aforementioned procedure. The patient presented to [facility] on 01/20/2019, where ORIF of bilateral ankles was performed. These were performed without complications. For operative details, please see separately dictated operative report. The patient was transferred from the anesthesia care unit to the hospital floor. The patient's pain was well controlled and received DVT prophylaxis as well as postoperative antibiotics. The patient was seen by [facility] (more content not included)... Reason for Referral Specialty Diagnoses / Procedures Referred By Yaritza parra Referred To Contact Diagnoses Bilateral carotid artery stenosis Procedures Vas carotid duplex bilateral Alexsandra Álvarez MD [address], [address] [address] Referral ID Status Reason Start Date Expiration Date V isits Requested Visits Authorized [id number] Pending Review 09/16/2023 09/15/2024 1 1 Additional Source Comments INFORMATION SOURCE (unrecogn ized section and content) DATE CREATED AUTHOR 12/05/2017 [facility] DATE CREATED AUTHOR AUTHOR'S ORGANIZ ATION 01/05/2019 [facility] DATE CREATED AUTHOR AUTHOR'S ORGANIZ ATION 06/22/2019 [facility] DATE CREATED AUTHOR AUTHOR'S ORGANIZ ATION 10/31/2022 [facility] DATE CREATED AUTHOR AUTHOR'S ORGANIZ ATION 09/17/2023 [facility] Care Teams (unrecognized sec tion and content) Hydroelectric Mechanic Relationship Specialty Start Date End Date Abiel Blackwell MD [address] [place] [address] PCP - General Family Medicine 10/20/20 Hydroelectric Mechanic Relationship Specialty Start Date End Date Abiel Blackwell MD [address] [place] [address] PCP - General Family Medicine 10/20/20 Hydroelectric Mechanic Relationship Specialty Start Date End Date Abiel Blackwell MD [address] [place] [address] PCP - General Family Medicine 10/20/20 FOR RECORDS PERTAINING TO PATIENTS WHO ARE [...] BE BASED ON THE PRIMARY CLINICAL RECORDS. [facility] [employer] [facility]. provides no warranty or guarantee of the accuracy or completeness of information in this document.
--- NOTE | 2023-10-04 08:30 | NM_ITS ---
Patient Name: BROOKE VELASQUEZ MR#: [id number] : 1955 Exam Date: 10/04/2023 Ordering Doctor: DR KIM DE LA GARZA M.D. RADIOLOGY REPORT PROCEDURE: NM MATTHIAS PERF SPECT REST STR COMPARISON: None. INDICATIONS: CHEST PAIN TECHNIQUE: Exam Description: Stress/Rest two day protocol gated SPECT Rest Imagin.2 mCi Tc-99m Cardiolite IV on 10/07/2023 Stress Imaging 26.6 mCi Tc-99m Cardiolite IV on 10/04/2023 Exercise Protocol: 0.4 mg Lexiscan given IV Heart Rate (bpm): Rest: 72 Max: 98 PMHR: 64 Blood Pressure: Rest: 164/72 Max: 164/72 Symptoms: Rest and peak stress ECG findings were normal and the exercise portion of the study was normal per attending physician Dr. De La Garza . For more details please see separate cardiac stress test report. FINDINGS: QUALITY OF STUDY: PERFUSION DEFECT: LOCATION: Basal anteroseptal. Mid-anteroseptal. [place]. SIZE: Medium (3-4 segments). SEVERITY: Moderate. TYPE: Reversible. WALL MOTION: Normal. LV SIZE: Normal. 104 mL. TID / TCD: None; 1.8 LVEF: Normal. Calculated EF 57%. SUMMARY: Myocardial perfusion imaging study CONCLUSION: 1. Small to moderate sized area of mildly decreased uptake in the anterior septal wall extending to the apex with suspected reversible ischemia. LAD distribution. Consider follow-up 2. Normal exercise test Dictated by: Michael Del Toro MD on 10/08/2023 at 13:30 Approved by: Michael Del Toro MD on 10/08/2023 at 13:39
[2023-10-04] MEDS: REGADENOSON 0.4 MG/5 ML SYRINGE 0.400000000000000022 MG IV (13:52)
[2023-10-04] MEDS: AMINOPHYLLINE 250 MG/10 ML VIAL 25 MG IVP (13:54)
== END 2023-10-04 08:18 | disposition home or self-care (01) ==
LOC: CARD 08:17
PROVIDERS: PCP Nurse Practitioner Family; Visit Provider Internal Medicine Interventional Cardiology
DX: R06.02 Shortness of breath (principal); R07.89 Other chest pain
CPT/HCPCS: 78452; 93017; A9500; J2785

== ENCOUNTER 2023-10-07 08:45 | Outpatient (OUT) | payer MEDICARE, MEDICAID, SELFPAY ==
--- OUTSIDE RECORDS SUMMARY | 2023-10-07 08:57 | XMS_ITS | CCD ---
Author Organization [facility] Care Team Providers [facility] Paramedic Name Role Phone JEEVAN, CARO F Unavailable Unavailable GORDON ROBLES Unavailable Unavailab le DEASY, CARO F Unavailable Unavailable DEASY, CARO F Unavailable Unavailable EBRAHEIM, JAMNI Admitting Unavailable MARCELO JAMIN Attending Unavailable ABIEL BLACKWELL Referring Unavailable ABIEL BLACKWELL Primary Care Unavailable [place] Procedure Practitioner Unavailab sachin PACHECO, JAMIN Surgeon Unavailable CECILIA BOUDREAUX Attending Unavailable ABIEL BLACKWELL Primary Care Unavailable CECILIA BOUDREAUX Admitting Unavailable Niranjan [employer] Unavailable SAMSA ., ANGIE Admitting Unavailable [...] adverse reactions to drug (disorder) 6 Anaphylaxis [facility] Repository (8 sources) morphine; Translations: [MORPHINE] Drug Allergy 5 Itching, Rash [facility] Repository (3 sources) natural latex rubber; Translations: [LATEX, NATURAL RUBBER] Propensity to adverse reactions to drug (disorder) 3 AOF [facility] Repository (2 sources) Shellfish; Translations: [SHELLFISH DERIVED] Propensity to adverse reactions to drug (disorder) 6 AOF [facility] Repository (1 source) SILVER-HYDROCOL LOID DRESSING; Translations: [SILVER-HYDROCO LLOID DRESSING] Propensity to adverse reactions to drug (disorder) 6 AOF [facility] Repository (1 source) Blueberry; Translations: [BLUEBERRIES] Propensity to adverse reactions (disorder) [address] [facility] Repository (5 sources) Latex; Translations: [LATEX] Propensity to adverse reactions (disorder) [address] [facility] Repository (1 source) ACCUCOT; Translations: [Unknown] Propensity to adverse reactions (disorder) [address] [facility] Repository (1 source) Adhesive agent Drug allergy (disorder) [facility] Repository (2 sources) Aspirin Drug Allergy [facility] (1 source) fluticasone / vilanterol Drug Allergy [facility] Rep[facility] (2 sources) Shellfish Drug allergy (disorder) [facility] Rep[facility] (2 sources) Acticoat Dressing Drug allergy (disorder) [facility] Repository (4 sources) crab allergenic extract; Translations: [CRAB] Drug Allergy 1 [facility] Other; Translations: [OTHER] Propensity to adverse reactions [facility] Medications Current Medications Medication Drug Class(es) Dates Sig (Normalized) Sig (Original) [id number] 200 actuat albuterol 0.09 mg/actuat metered dose [...] mg total) by mouth nightly. 0 Active zjbzoudf-rnlq-KH-calci um &mins (THERAGRAN-M) 9 mg iron-400 mcg tablet (3 sources) qlkcvcpu-ghgp-SO -calci um &mins (THERAGRAN-M) 9 mg iron-400 mcg tablet Take 1 tablet by mouth in the morning. 0 Active fjweomyz-pxvv-PB -calcium &mins (THERAGRAN-M) 9 mg iron-400 mcg [...] 2022 ADA RECOMMENDATION SEE BELOW Normal [facility] Comment on above: Result Comment: ADA RECOMMENDED LIMIT 4.0 - 6.0 ADA THERAPEUTIC TARGET < 7.0 ACTION SUGGESTED > 7.0 Performed By: #### D ATA1C #### [facility] [address] [address] [address] Kiley Plata Glucose [Mass/Vol] 120 mg/dL Normal [facility] Comment on above: Performed By: #### D ATA1C #### [facility] [address] [address] [address] Kiley Plata HbA1c (Bld) [Mass fraction] 5.8 % Normal 4.5-6.2 [facility] Comment on above: Performed By: #### D ATA1C #### [facility] [address] [address] [address] Kiley Plata XR CHEST 2 Von [...] by: NIRANJAN BUSTILLOS Date: 2022-09-11 10:04 Normal [facility] ANKLE LEFT 3 VWSon 9 ANKLE LEFT [address] [facility] Department of Radiology [address] [place] [phone] Patient Name: BROOKE LANDRY : 1955 Sex: F Age: Race: White Pt. Location: Patient Status: Ordered Date: 06/15/2019 1:45:00 PM Completed Date: 06/15/2019 01:47 PM Requesting Provider: SOLANGE CRUZ Attending Provider: Report Copy To: Signs & Symptoms: M25.579 Pain in unspecified ankle and joints of unspecified foot I10 History: Hope Comments: , , , Ordering Provider - [...] alignment Electronically signed by:Julissa Che. Transcribed by: [email or web address], User Resident: Electronically Signed by: JULISSA CHE @ 06/15/2019 02:[address] [facility] Comment on above: Order Comment: , str ess view , Views (X-RAY, ANKLE): Radiologic Protocol , stress view , Views (X-RAY, ANKLE): Radiologic Protocol , , , Ordering Provider - JAMIN PACHECO MD , ANKLE RIGHT 3 [facility] 06-15-20 19 ANKLE RIGHT 3 [facility] Department of Radiology [address] [place] [phone] Patient Name: BROOKE LANDRY : 1955 Sex: F Age: Race: White Pt. Location: Patient Status: Ordered Date: 06/15/2019 1:45:00 PM Completed Date: 06/15/2019 01:47 PM Requesting Provider: SOLANGE CRUZ Attending Provider: Report Copy To: Signs & Symptoms: M25.579 Pain in unspecified ankle and joints of unspecified foot I10 History: Hope Comments: , , , Ordering Provider - SOLANGE CRUZ PA-C , Exam: ANKLE RIGHT 3 [facility] ANKLE LEFT 3 VWS, ANKLE RIGHT 3 [...] alignment Electronically signed by:Julissa Che. Transcribed by: [id number], User Resident: Electronically Signed by: JULISSA CHE @ 06/15/2019 02:[address] [facility] Comment on above: Order Comment: , str ess view , Views (X-RAY, ANKLE): Radiologic Protocol , stress view , Views (X-RAY, ANKLE): Radiologic Protocol , , , Ordering Provider - JAMIN PACHECO MD , ANKLE LEFT 3 [facility] 9 ANKLE LEFT 3 [facility] Department of Radiology [address] [place] [phone] Patient Name: BROOKE LANDRY : 1955 Sex: F Age: Race: White Pt. Location: Patient Status: Ordered Date: 04/29/2019 2:10:00 PM Completed Date: 04/29/2019 02:13 PM Requesting Provider: BEBETO CRUM Attending Provider: Report Copy To: Signs & Symptoms: S82.842D Displ bimalleol fx l low leg, subs for clos fx w routn heal I10 History: Hope Comments: , , , Ordering Provider - [...] spurring Electronically signed by:Julissa Che. Transcribed by: [email or web address], User Resident: Electronically Signed by: JULISSA CHE @ 04/29/2019 03:[address] [facility] Comment on above: Order Comment: , str ess view , Views (X-RAY, ANKLE): Radiologic Protocol , stress view , Views (X-RAY, ANKLE): Radiologic Protocol , , , Ordering Provider - JAMIN PACHECO MD , ANKLE RIGHT 3 VWSon 04-29-20 19 ANKLE RIGHT [address] 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 Transcribed by: [email or web address], User Resident: Electronically Signed by: JULISSA CHE @ 04/29/2019 03:[address] [facility] Comment on above: Order Comment: , str ess view , Views (X-RAY, ANKLE): Radiologic Protocol , stress view , Views (X-RAY, ANKLE): Radiologic Protocol , , , Ordering Provider - JAMIN PACHECO MD , ANKLE LEFT 3 [facility] 9 ANKLE LEFT 3 [facility] Department of Radiology [address] [place] [phone] Patient Name: BROOKE LANDRY : 1955 [...] alignment Electronically signed by:Julissa Che. Transcribed by: [email or web address], User Resident: Electronically Signed by: JULISSA CHE @ 03/18/2019 03:[address] [facility] Comment on above: Order Comment: , str ess view , Views (X-RAY, ANKLE): Radiologic Protocol , stress view , Views (X-RAY, ANKLE): Radiologic Protocol , , , Ordering Provider - JAMIN PACHECO MD , ANKLE RIGHT 3 VWSon 03-18-20 [address] ANKLE RIGHT [address] [facility] Department of Radiology [address] [place] [phone] Patient Name: BROOKE LANDRY : 1955 Sex: F Age: Race: White Pt. Location: Patient Status: Ordered Date: 03/18/2019 2:25:00 PM Completed Date: 03/18/2019 02:28 PM Requesting Provider: BEBETO CRUM Attending Provider: Report Copy To: Signs & Symptoms: S82.842D Displ bimalleol fx l low leg, subs for clos fx w routn heal I10 History: Hope Comments: , , , Ordering Provider - [...] alignment Electronically signed by:Julissa Che. Transcribed by: [id number], User Resident: Electronically Signed by: JULISSA CHE @ 03/18/2019 03:[address] [facility] Comment on above: Order Comment: , str ess view , Views (X-RAY, ANKLE): Radiologic Protocol , stress view , Views (X-RAY, ANKLE): Radiologic Protocol , , , Ordering Provider - JAMIN PACHECO MD , ANKLE LEFT 3 [facility] 9 ANKLE LEFT 3 [facility] Department of Radiology [address] [place] [phone] Patient Name: BROOKE LANDRY : 1955 [...] CRUM PA-C , Exam: ANKLE LEFT 3 [facility] ANKLE LEFT 3 VWS, ANKLE RIGHT 3 [...] alignment Electronically signed by:Julissa Che. Transcribed by: [id number], User Resident: Electronically Signed by: JULISSA CHE @ 03/04/2019 01:[address] [facility] Comment on above: Order Comment: , str ess view , Views (X-RAY, ANKLE): Radiologic Protocol , stress view , Views (X-RAY, ANKLE): Radiologic Protocol , , , Ordering Provider - JAMIN PACHECO MD , ANKLE RIGHT 3 Son 03-04-20 [address] ANKLE RIGHT [address] [facility] Department of Radiology [address] [place] [phone] Patient Name: BROOKE LANDRY : 1955 Sex: F Age: Race: White Pt. Location: Patient Status: O Ordered Date: 03/04/2019 1:25:00 PM Completed Date: 03/04/2019 01:38 PM Requesting Provider: BEBETO CRUM Attending Provider: BEBETO CRUM Report Copy To: Signs & Symptoms: S82.842D Displ bimalleol fx l low leg, subs for clos fx w routn heal I10 History: Hope Comments: , , , Ordering Provider - [...] alignment Electronically signed by:Julissa Che. Transcribed by: [id number], User Resident: Electronically Signed by: JULISSA CHE @ 03/04/2019 01:[address] [facility] Comment on above: Order Comment: , str ess view , Views (X-RAY, ANKLE): Radiologic Protocol , stress view , Views (X-RAY, ANKLE): Radiologic Protocol , , , Ordering Provider - JAMIN PACHECO MD , ANKLE LEFT 3 Son [address] [facility] Department of Radiology [address] [place] [phone] Patient Name: BROOKE LANDRY : 1955 Sex: F Age: Race: White Pt. Location: Patient Status: Ordered Date: 02/04/2019 10:25:00 AM Completed Date: 02/04/2019 10:38 AM Requesting Provider: ITALO JIANG Attending Provider: Report Copy To: Signs & Symptoms: S82.842A Displaced bimalleolar fracture of left lower leg, init I10 History: Hope Comments: , Views (X-RAY, ANKLE): Radiologic Protocol , Views (X-RAY, ANKLE): Radiologic Protocol , , , Ordering Provider - ITALO JIANG PA-C , Exam: ANKLE LEFT 3 [facility] ANKLE LEFT 3 S 02/04/2019 10:38 AM [...] healing Electronically signed by:Zonia Cates. Transcribed by: [email or web address], User Resident: Electronically Signed by: ZONIA CATES @ 02/04/2019 03:[address] [facility] Comment on above: Order Comment: , str ess view , Views (X-RAY, ANKLE): Radiologic Protocol , stress view , Views (X-RAY, ANKLE): Radiologic Protocol , , , Ordering Provider - JAMIN PACHECO MD , ANKLE RIGHT 3 [facility] 02-05-20 19 ANKLE RIGHT [address] [facility] Department of Radiology [address] [place] [phone] Patient Name: BROOKE LANDRY : 1955 Sex: F Age: Race: White Pt. Location: Patient Status: Ordered Date: 02/04/2019 10:30:00 AM Completed Date: 02/04/2019 10:38 AM Requesting Provider: ITALO JIANG Attending Provider: Report Copy To: Signs & Symptoms: S82.841A Displaced bimalleolar fracture of right lower leg, init I10 History: Hope Comments: , Views (X-RAY, ANKLE): Radiologic Protocol [...] healing Electronically signed by:Zonia Cates. Transcribed by: [email or web address], User Resident: Electronically Signed by: ZONIA CATES @ 02/04/2019 03:[address] [facility] Comment on above: Order Comment: , str ess view , Views (X-RAY, ANKLE): Radiologic Protocol , stress view , Views (X-RAY, ANKLE): Radiologic Protocol , , , Ordering Provider - JAMIN PACHECO MD , Operative Reporton 9 Operative Report MR#: [id number] [facility] Pt. Name: Brooke Landry Room #: [id number] Discharge 01/23/2019 Date: Birthdate: 1955 OPERATIVE REPORT [...] Dao MD Date Trans: 01/29/2019 11:37 Purvi/smooth [id number] Normal [facility] BASIC METABOLIC PANELon 08-0 Calcium [Mass/Vol] 9.4 mg/dL Normal 8.6-10.[address] [facility] Comment on above: Order Comment: , str ess view , Views (X-RAY, ANKLE): Radiologic Protocol , stress view , Views (X-RAY, ANKLE): Radiologic Protocol , , , Ordering Provider - JAMIN PACHECO MD , Performed By: #### 0 0071 ####[facility] Chloride [Moles/Vol] 100 mmol/L Normal 98-[address] [facility] Comment on above: Order Comment: , str ess view , Views (X-RAY, ANKLE): Radiologic Protocol , stress view , Views (X-RAY, ANKLE): Radiologic Protocol , , , Ordering Lucero PACHECO MD , Performed By: #### 0 0071 ####[place] [id number] [address] CO2 [Moles/Vol] 32 mmol/L High 21-[address] [facility] Comment on above: Order Comment: , str ess view , Views (X-RAY, ANKLE): Radiologic Protocol , stress view , Views (X-RAY, ANKLE): Radiologic Protocol , , , Ordering Lucero PACHECO MD , Performed By: #### 0 0071 ####[address] Creatinine [Mass/Vol] 0.78 mg/dL Normal 0.60-1.[address] [facility] Comment on above: Order Comment: , str ess view , Views (X-RAY, ANKLE): Radiologic Protocol , stress view , Views (X-RAY, ANKLE): Radiologic Protocol , , , Ordering Lucero PACHECO MD , Performed By: #### 0 0071 ####[address] GFR/1.73 sq M predicted among blacks MDRD (S/P/Bld) [Vol rate/Area] mL/min/{1.73_m2} Normal >[address] [facility] Comment on above: Order Comment: , str ess view , Views (X-RAY, ANKLE): Radiologic Protocol , stress view , Views (X-RAY, ANKLE): Radiologic Protocol , , , Ordering Lucero PACHECO MD , Performed By: #### 0 0071 ####[facility] GFR/1.73 sq M predicted among non-blacks MDRD (S/P/Bld) [Vol rate/Area] mL/min/{1.73_m2} Normal >[address] [facility] Comment on above: Order Comment: , str ess view , Views (X-RAY, ANKLE): Radiologic Protocol , stress view , Views (X-RAY, ANKLE): Radiologic Protocol , , , Ordering Lucero PACHECO MD , Performed By: #### 0 0071 ####[facility] Glucose [Mass/Vol] 151 mg/dL High 70-[address] [facility] Comment on above: Order Comment: , str ess view , Views (X-RAY, ANKLE): Radiologic Protocol , stress view , Views (X-RAY, ANKLE): Radiologic Protocol , , , Hermann PACHECO MD , Performed By: #### 0 0071 ####[facility] Potassium [Moles/Vol] 4.1 mmol/L Normal 3.5-5.[address] [facility] Comment on above: Order Comment: , str ess view , Views (X-RAY, ANKLE): Radiologic Protocol , stress view , Views (X-RAY, ANKLE): Radiologic Protocol , , , Hermann PACHECO MD , Performed By: #### 0 0071 ####[place] [id number] Sodium [Moles/Vol] 137 mmol/L Normal 136-[address] [facility] Comment on above: Order Comment: , str ess view , Views (X-RAY, ANKLE): Radiologic Protocol , stress view , Views (X-RAY, ANKLE): Radiologic Protocol , , , Ordering Provider Brandon PACHECO MD , Performed By: #### 0 0071 ####[address] Urea nitrogen [Mass/Vol] 13 mg/dL Normal 7-[address] [facility] Comment on above: Order Comment: , str ess view , Views (X-RAY, ANKLE): Radiologic Protocol , stress view , Views (X-RAY, ANKLE): Radiologic Protocol , , , Ordering Provider Brandon PACHECO MD , Performed By: #### 0 0071 ####[address] CBC COMPLETE BLOOD COUNTon 0 01-23-2019 Erythrocyte distribution width (RBC) [Ratio] 13.5 % Normal 11.5-15.0 [facility] Comment on above: Order Comment: , str ess view , Views (X-RAY, ANKLE): Radiologic Protocol , stress view , Views (X-RAY, ANKLE): Radiologic Protocol , , , Ordering Lucero PACHECO MD , Performed By: #### [id number] ####[address] Hematocrit (Bld) [Volume fraction] 41.9 % Normal 36.0-45.[address] [facility] Comment on above: Order Comment: , str ess view , Views (X-RAY, ANKLE): Radiologic Protocol , stress view , Views (X-RAY, ANKLE): Radiologic Protocol , , , Ordering Lucero PACHECO MD , Performed By: #### [id number] ####[address] Hemoglobin (Bld) [Mass/Vol] 13.1 g/dL Normal 12.0-15.[address] [facility] Comment on above: Order Comment: , str ess view , Views (X-RAY, ANKLE): Radiologic Protocol , stress view , Views (X-RAY, ANKLE): Radiologic Protocol , , , Ordering Lucero PACHECO MD , Performed By: #### [id number] ####[address] MCH (RBC) [Entitic mass] 27.3 pg Normal 27.0-33.0 [facility] Comment on above: Order Comment: , str ess view , Views (X-RAY, ANKLE): Radiologic Protocol , stress view , Views (X-RAY, ANKLE): Radiologic Protocol , , , Ordering Lucero PACHECO MD , Performed By: #### [id number] ####[address] MCHC (RBC) [Mass/Vol] 31.3 g/dL Low 32.0-35.[address] [facility] Comment on above: Order Comment: , str ess view , Views (X-RAY, ANKLE): Radiologic Protocol , stress view , Views (X-RAY, ANKLE): Radiologic Protocol , , , Ordering Lucero PACHECO MD , Performed By: #### 5 [id number] ####[place] [address], [place] MCV (RBC) [Entitic vol] 87.5 fL Normal 82.0-98.[address] [facility] Comment on above: Order Comment: , str ess view , Views (X-RAY, ANKLE): Radiologic Protocol , stress view , Views (X-RAY, ANKLE): Radiologic Protocol , , , Ordering Lucero PACHECO MD , Performed By: #### [id number] ####[address] Nucleated RBC/100 WBC (Bld) [Ratio] 0 % Normal 0-[address] [facility] Comment on above: Order Comment: , str ess view , Views (X-RAY, ANKLE): Radiologic Protocol , stress view , Views (X-RAY, ANKLE): Radiologic Protocol , , , Ordering Lucero PACHECO MD , Performed By: #### 5 [id number] ####[address] PLAT CNT 295 10*3/uL Normal 150-[address] [facility] Comment on above: Order Comment: , str ess view , Views (X-RAY, ANKLE): Radiologic Protocol , stress view , Views (X-RAY, ANKLE): Radiologic Protocol , , , Ordering Lucero PACHECO MD , Performed By: #### [id number] ####[address] RBC (Bld) [#/Vol] 4.79 10*6/uL Normal 3.80-5.[address] [facility] Comment on above: Order Comment: , str ess view , Views (X-RAY, ANKLE): Radiologic Protocol , stress view , Views (X-RAY, ANKLE): Radiologic Protocol , , , Ordering Lucero PACHECO MD , Performed By: #### [id number] ####[facility] [place] [address], [facility] WBC (Bld) [#/Vol] 7.82 10*3/uL Normal 4.00-10.[address] [facility] Comment on above: Order Comment: , str ess view , Views (X-RAY, ANKLE): Radiologic Protocol , stress view , Views (X-RAY, ANKLE): Radiologic Protocol , , , Ordering Provider - JAMIN PACHECO MD , Performed By: #### [id number] ####[facility] [facility] [place] [address], [place] POC GLUCOSE LABon 01-23-2019 Glucose [Mass/Vol] 116 mg/dL High 70-[address] [facility] Comment on above: Performed By: #### 8 [id number] ####[facility] [place] [address], [place] POC GLUCOSE LABon 01-22-2019 Glucose [Mass/Vol] 98 mg/dL Normal 70-[address] [facility] Comment on above: Performed By: #### 8 [id number] ####[facility] [place] [address], [place] Glucose [Mass/Vol] 88 mg/dL Normal 70-[address] [facility] Comment on above: Performed By: #### 8 [id number] ####[facility] [place] [address], [place] Glucose [Mass/Vol] 112 mg/dL High 70-[address] [facility] Comment on above: Performed By: #### 8 [id number] ####[facility] [place] [address], [place] Glucose [Mass/Vol] 101 mg/dL High 70-[address] [facility] Comment on above: Performed By: #### 8 [id number] ####[facility] [facility] [place] [address], [facility] POC GLUCOSE LABon 01-21-2019 Glucose [Mass/Vol] 125 mg/dL High 70-[address] [facility] Comment on above: Performed By: #### 8 [id number] ####[facility] [facility] [place] [address], [place] Glucose [Mass/Vol] 117 mg/dL High 70-[address] [facility] Comment on above: Performed By: #### 8 [id number] ####[facility] [place] [address], [place] Glucose [Mass/Vol] 107 mg/dL High 70-[address] [facility] Comment on above: Performed By: #### 8 [id number] ####[facility] [place] [address], [place] Glucose [Mass/Vol] 132 mg/dL High 70-[address] [facility] Comment on above: Performed By: #### 8 [id number] ####[facility] [place] [address], [facility] *MRSA/MSSA DNA NASALon 01-20 *MRSA/MSSA DNA NASAL Clinical Report: (D) Specimen: NASAL SWAB Collected: 01/20/2019 11:05 Status: Final Last Updated: 01/20/2019 19:57 MSSA DNA (Final) Negative MRSA DNA (Final) Negative Normal [facility] Comment on above: Performed By: #### 3 [id number] ####[facility] [place] [address], [facility] ANKLE LEFT 2 VWSon [address] [facility] Department of Radiology [address] [place] [address] Patient Name: BROOKE LANDRY : [...] documentation Electronically signed by:Manolo Whalen. Transcribed by: [email or web address], User Resident: Electronically Signed by: MANOLO WHALEN @ 01/20/2019 02:[address] [facility] Comment on above: Order Comment: , Rosalee ws (X-RAY, TIBIA AND FIBULA): Radiologic Protocol , Weight Bearing?: N , With or Without Brace/Cast/Collar: Without , Views (X-RAY, TIBIA AND FIBULA): Radiologic Protocol , Weight Bearing?: N , With or Without Brace/Cast/Collar: Without , , , Ordering Provider - JAMIN PACHECO MD , ANKLE RIGHT 2 [facility] 01-21-20 19 ANKLE RIGHT [address] [facility] Department of Radiology [address] [place] [phone] Patient Name: BROOKE LANDRY : 1955 Sex: F Age: Race: White Pt. Location: OUTP Patient Status: D Ordered Date: 01/20/2019 12:15:00 PM Completed Date: 01/20/2019 12:34 PM Requesting Provider: JAMIN PACHECO Attending Provider: JAMIN PACHECO Report Copy To: Signs & Symptoms: HALIMA OF RIGHT ANKLE History: HALIMA OF RIGHT ANKLE Comments: HALIMA OF RIGHT ANKLE Exam: ANKLE RIGHT 2 [facility] ANKLE RIGHT 2 [facility] 01/20/2019 12:34 PM EDT SIGNS AND SYMPTOMS: [...] documentation Electronically signed by:Manolo Whalen. Transcribed by: [email or web address], User Resident: Electronically Signed by: MANOLO WHALEN @ 01/20/2019 02:[address] [facility] Comment on above: Order Comment: , Vie ws (X-RAY, TIBIA AND FIBULA): Radiologic Protocol , Weight Bearing?: N , With or Without Brace/Cast/Collar: Without , Views (X-RAY, TIBIA AND FIBULA): Radiologic Protocol , Weight Bearing?: N , With or Without Brace/Cast/Collar: Without , , , Ordering Provider - JAMIN PACHECO MD , POC GLUCOSE LABon 01-20-2019 Glucose [Mass/Vol] 190 mg/dL High 70-[address] [facility] Comment on above: Performed By: #### 8 5499 ####[facility] Glucose [Mass/Vol] 118 mg/dL High 70-100 [facility] Comment on above: Performed By: #### 8 5499 ####[place] [id number] [address] Glucose [Mass/Vol] 100 mg/dL Normal 70-[address] [facility] Comment on above: Performed By: #### 8 5499 #### [address] ANKLE LEFT 2 [facility] 9 ANKLE LEFT [address] [facility] Department of Radiology [address] [place] [phone] Patient Name: BROOKE LANDRY : 1955 Sex: F Age: Race: White Pt. Location: Patient Status: O Ordered Date: 01/19/2019 12:05:00 PM Completed Date: 01/19/2019 12:19 PM Requesting Provider: JAMIN PACHECO Attending Provider: JAMIN PACHECO Report Copy To: Signs & Symptoms: S82.92XA Unsp fracture of left lower leg, init for clos fx I10 History: Hope Comments: , stress view , Views (X-RAY, [...] fx - 5 weeks ago f/u (accession [id number]), Patient has bi-lateral ankle pain. Right ankle is worse. Stress views ordered. (accession [id number]), Patient has bi-lateral ankle pain. Right ankle is worse. Stress views ordered. (accession [id number]), right tibia pain fx - 5 weeks ago f/u (accession [id number]) QUESTION FOR THE RADIOLOGIST: , Views (X-RAY, ANKLE): Radiologic Protocol , Weight Bearing?: N , With or Without Brace/Cast/Collar: Without , Views (X-RAY, ANKLE): Radiologic Protocol , Weight Bearing?: N ...More In Sending System PROTOCOL: AP,Lateral and Oblique views were obtained. (accession [id number]), AP(PA) and Lateral views were obtained. (accession [id number]), Stress views were obtained. AP(PA) view was obtained. (accession [id number]), AP(PA) and Lateral views were obtained. (accession [id number]) COMPARISON: None FINDINGS: Left ankle: Swelling Healing [...] widening Electronically signed by:Julissa Che. Transcribed by: [email or web address], User Resident: Electronically Signed by: JULISSA CHE @ 01/19/2019 01:[address] [facility] Comment on above: Order Comment: , str ess view , Views (X-RAY, ANKLE): Radiologic Protocol , stress view , Views (X-RAY, ANKLE): Radiologic Protocol , , , Ordering Provider - JAMIN PACHECO MD , ANKLE LEFT 3 [facility] 9 ANKLE LEFT 3 [facility] Department of Radiology [address] [place] [phone] Patient Name: BROOKE LANDRY : 1955 [...] fx - 5 weeks ago f/u (accession [id number]), Patient has bi-lateral ankle pain. Right ankle is worse. Stress views ordered. (accession [id number]), Patient has bi-lateral ankle pain. Right ankle is worse. Stress views ordered. (accession [id number]), right tibia pain fx - 5 weeks ago f/u (accession [id number])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 Expires: 10/14/2024 Start: 02-15-2023 COVID-19 Vaccine ( season) COVID-19 Vaccine ( season) [facility] Start: 02-15-2023 Influenza vaccination Influenza Vacc ine [facility] Start: 11-02-2021 Adult BMI Screening Adult BMI Screen ing [facility] Start: 2018 Fall Risk Screening Fall Risk Screen ing [facility] Start: 11-16-2003 Administration of varicella zoster vaccine Zoster (Shingles) Vaccine (1 of 2) [facility] Start: 1972 DTaP,Tdap and Td Vac cines (1 - Tdap) DTaP,Tdap and Td Vaccines (1 - Tdap) [facility] Start: 11-16-1971 Adult BMI Follow Up Plan Adult BMI Follow Up Plan [facility] Start: 1965 Depression Screening Depression Scre ening [facility] Start: 1965 Tobacco Screening Tobacco Screening [facility] Start: 1955 Medicare Annual Well ness Visit Medicare Annual Wellness Visit [facility] Immunizations Immunization Date Immunization Notes Care Provider Fa cili 04-13-2022 influenza virus vaccine, unspecified formulation Alexsandra Álvarez MD Work Phone: [facility] Payers Date Payer Category Payer Medicaid MEDICAID [facility] EDICAID [id number] 2019-Present [phone] [address] [place] [address] [id number] 2018 Unknown [id number] 2014 Medicare MEDICARE MEDICAR E PART A & B [id number] 2014-Present [phone] [address] [place] [address] [id number] 1959 Medicaid [id number] 1959 Medicare [id number] 1959 Self-pay [id number] 1955 Unknown [id number] 1955 Unknown [id number] 1955 Unknown [id number] 1953 Unknown [id number] 1955 Unknown [id number] Unknown [id number] Social History Date Type Detail Facility Start: 10-20-2020 End: 09-16-2023 Tobacco smoking status NHIS Never smoked tobacco [facility] Start: 10-20-2020 End: 09-16-2023 Tobacco use and exposure Smokeless tobacco non-user [facility] Start: 11-03-2020 End: 09-16-2023 Alcohol intake Lifetime non-drinker (finding) [facility] Start: 11-03-2020 End: 09-16-2023 History of Social function [facility] Start: 11-03-2020 End: 09-16-2023 Tobacco use panel [facility] Childcare Unknown [facility] Start: 1955 Sex Assigned At Not on file P [facility] History of Present illness Narrative 09-12-2023 Alexsandra Álvarez MD - 09/12/2023 3:00 PM EDT Note Date & Type Note Facility 09-12-2023 History of Presen t illness Narrative Images from the original note were not included. [facility] [address] [place] [id number] Subjective: Patient ID: Brooke Landry is a [...] mg by mouth nightly., Disp: , Rfl: wcrzjjeb-wbgk-ND-calcium &mins (THERAGRAN-M) 9 mg iron-400 mcg tablet, Take 1 tablet by mouth daily., Disp: , Rfl: simvastatin (ZOCOR) 10 mg tablet, Take 10 mg by mouth nightly., Disp: , Rfl: TURMERIC ORAL, Take 1,000 mg by mouth daily. With curcumin, Disp: , Rfl: Past Medical History: Diagnosis Date Arrhythmia Arthritis Asthma Diabetes mellitus type 2, controlled ([facility]) prediabetic Headache Hypertension Hypoglycemia Obesity PONV (postoperative nausea and vomiting) Sleep apnea cpap Visual impairment glasses Past Surgical History: Procedure Laterality Date CARPAL TUNNEL RELEASE Right HERNIA REPAIR 06/2019 JOINT REPLACEMENT bilateral knees LEG SURGERY Bilateral plate and screws in right, screws in left ankle RELEASE TRIGGER FINGER Right 11/02/2020 Performed by Wallace Barakat DO at [facility] Family History Problem Relation Age [...] visit: Carotid artery calcification, [facility] [place] Plan Plan: Best medical therapy ASA/Statin Annual surveillance Cardiology referral Alexsandra Álvarez MD, MALREE documented in this encounter [facility] Evaluation note Note Date & Type Note Facility Evaluation note Diagnosis Carotid artery calcification, unspecified laterality documented in this encounter [facility] Evaluation note Note Date & Type Note Facility Evaluation note Diagnosis Carotid artery calcification, unspecified laterality- Primary Bilateral carotid artery stenosis Occlusion and stenosis of carotid artery without mention of cerebral infarction documented in this encounter [facility] Evaluation note Note Date & Type Note Facility Evaluation note Diagnosis Dizziness- Primary Dizziness and giddiness documented in this encounter [facility] Instructions Note Date & Type Note Facility Instructions Not on filedocumented in this en counter [facility] Instructions Note Date & Type Note Facility Instructions Not on filedocumented in this en counter [facility] Reason for referral (narrative) Consultation (Routine) - Pending Review Note Date & Type Note Facility Reason for referral (narrati ve) Specialty Diagnoses / Procedures Referred By Contac t Referred To Contact Cardiology Diagnoses Dizziness Alexsandra Álvarez MD [address], [address] [address] [facility] Cardiology [address] [place] [address] Referral ID Status Reason Start Date Expiration Date Visits Requested Visits Authorized [id number] Pending Review Specialty Services Required 09/16/2023 09/15/2024 1 1 [facility] Reason for visit Narrative Consultation (Routine) - Pending Review Note Date & Type Note Facility Reason for visit Narrative Specialty Diagnoses / Procedures Referred By Yaritza parra Referred To Contact Vascular Surgery Diagnoses Carotid artery calcification, unspecified laterality Cecilia Boudreaux, 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 [address] [facility] [place] [address] Alexsandra Álvarez MD [address], [address] [address] Referral ID Status Reason Start Date Expiration Date Visits Requested Visits Authorized [id number] Pending Review Specialty Services Required 09/05/2023 09/04/2024 1 1 [facility] Summary Purpose Family History No Family History Records FoundNo Family History Records FoundNo Family History Records FoundNo Family History Records FoundNo Family History Records Found Advance Directives No Advanced Directives Records FoundNo Advanced Directives Records FoundNo Advanced Directives Records FoundNo Advanced Directives Records FoundNo Advanced Directives Records Found Hospital Course Note MR#: [id number] [facility] Pt. Name: Brooke Landry Admitted: 01/20/2019 Discharged: [...] the aforementioned procedure. The patient presented to [facility] on 01/20/2019, where ORIF of bilateral [...] bilateral Alexsandra Álvarez MD [address], [address] [address] Referral ID Status Reason Start Date Expiration Date V isits Requested Visits Authorized [id number] Pending Review 09/16/2023 09/15/2024 1 1 Additional Source Comments INFORMATION SOURCE (unrecogn ized section and content) DATE CREATED AUTHOR 12/05/2017 [facility] DATE CREATED AUTHOR AUTHOR'S ORGANIZ ATION 01/05/2019 [facility] DATE CREATED AUTHOR AUTHOR'S ORGANIZ ATION 06/22/2019 [facility] DATE CREATED AUTHOR AUTHOR'S ORGANIZ ATION 10/31/2022 [facility] [place] [facility] DATE CREATED AUTHOR AUTHOR'S ORGANIZ ATION 09/17/2023 [facility] Care Teams (unrecognized sec tion and content) Ambulance Paramedic Relationship Specialty Start Date End Date Abiel Blackwell MD [address] [place] [address] PCP - General Family Medicine 10/20/20 Ambulance Paramedic Relationship Specialty Start Date End Date Abiel Blackwell MD [address] [place] [address] PCP - General Family Medicine 10/20/20 Ambulance Paramedic Relationship Specialty Start Date End Date Abiel Blackwell MD [address] [place] [address] PCP - General Family Medicine 10/20/20 FOR [...] BE BASED ON THE PRIMARY CLINICAL RECORDS. [facility]. provides no warranty or guarantee of the accuracy or completeness of information in this document.
--- NOTE | 2023-10-07 09:00 | CA_ITS ---
Patient Name: BROOKE VELASQUEZ MR#: [id number] : 1955 Exam Date: 10/07/2023 Ordering Doctor: DR KIM ROSSI M.D. ECHOCARDIOGRAM REPORT PROCEDURE: CA ECHO DOPPLER COMPLETE INDICATIONS: Chest pain, dyspnea, peripheral edema COMPARISON: None. DESCRIPTION: COMPLETE ECHOCARDIOGRAM Real-time transthoracic echocardiography with 2D, M-mode, spectral and color flow Doppler performed. QUALITY: Technically difficult due to patient's condition. 63 , 269#, BSA 2.24 m2, BP 168/76 LEFT VENTRICLE: Normal chamber size. Mild concentric left ventricular hypertrophy. LV EF: Global left ventricular systolic function is normal; visually estimated ejection fraction is 55%. Unable to assess regional wall motion abnormalities; consider contrast study for better delineation of endocardial borders. DIASTOLIC: Normal diastolic function. ATRIAL SEPTUM: Visually appears intact. LEFT ATRIUM: Normal chamber size. RIGHT ATRIUM: Normal chamber size. RIGHT VENTRICLE: Normal chamber size. Normal right ventricular systolic function. TRICUSPID VALVE: Normal mobility and thickness. No stenosis with trivial regurgitation. Doppler studies reveal mildly (35-45) elevated right sided pressures. RVSP 38 mmHg MITRAL VALVE: Normal mobility and thickness. No evidence of mitral valve stenosis. There is no mitral annular calcification. No mitral regurgitation. AORTIC VALVE: Normal trileaflet appearance. No visible sclerosis. Normal leaflet mobility. No evidence of aortic valve stenosis. No aortic regurgitation. AORTIC ROOT: Normal diameter and appearance. PULMONIC VALVE: Not well visualized. No stenosis. No regurgitation. PERICARDIUM: Anterior free space; trivial effusion versus fat pad IVC: Collapses with inspirations. IVC is normal in size. CONCLUSION: 1. Global left ventricular systolic function is normal; visually estimated ejection fraction is 55% 2. Normal right ventricular size and systolic function 3. Mildly increased left ventricular wall thickness 4. Normal diastolic function 5. The left atrium is normal in size 6. Mild elevated right ventricular systolic pressure; RVSP 38 mmHg 7. No significant valvular abnormalities 8. Anterior free space; trivial effusion versus fat pad Adult Echocardiography Procedure Report Left Ventricle LVEDD (3.7 - 5.6 cm): 4.68 cm LVESD (2.2 - 4.0 cm): 3.43 cm LVIVS thickness (0.6 - 1.2 cm): 1.20 cm LVPW thickness (0.5 - 1.0 cm): 1.20 cm e': 0.12 m/s E - e': 4.49 LVOT Max Gradient: 4.30 mm[Hg] LVOT Area (cm2): 1.04 m/s Peak Velocity (LVOT): 1.04 m/s Mean Velocity (LVOT): 0.70 m/s LVOT Diameter 1.93 cm Left Atrium LA Volume Index (2D A2C): 25.44 ml/m2 Left Atrium Systolic Dimension: 3.14 cm Mitral Valve MV E to A Ratio: 0.58 Mitral Valve A-Wave Peak Velocity: 0.90 m/s Mitral Valve E-Wave Peak Velocity: 0.52 m/s Right Ventricle Aorta AO Root Diam: 2.97 cm Aortic Valve AoV Area (Peak Shantanu): 1.89 cm2, 1.89 cm2 AoV Area (VTI): 1.78 cm2, 1.78 cm2 Peak Velocity(Antegrade Flow): 1.62 m/s Peak Gradient(Antegrade Flow): 10.44 mm[Hg] Mean Velocity(Antegrade Flow): 0.95 m/s Mean Gradient(Antegrade Flow): 4.48 mm[Hg] Velocity Time Integral: 35.13 cm Tricuspid Valve Peak Velocity (Regurgitant Flow): 2.97 m/s Pulmonic Valve Peak Gradient: 2.58 mm[Hg], 2.87 mm[Hg] Right Atrium Right Atrium Systolic Pressure: 36.21 ml, 36.21 ml Dictated by: Chester Gamez M.D. on 10/08/2023 at 09:24 Approved by: Chester Gamez M.D. on 10/08/2023 at 09:28
== END 2023-10-07 08:46 | disposition home or self-care (01) ==
LOC: CARD 08:45
PROVIDERS: PCP Nurse Practitioner Family; Visit Provider Internal Medicine Interventional Cardiology
DX: I49.3 Ventricular premature depolarization (principal); R06.02 Shortness of breath; R07.89 Other chest pain
CPT/HCPCS: 93306

== ENCOUNTER 2023-11-08 07:40 | Outpatient (OUT) | payer MEDICARE, MEDICAID, SELFPAY ==
--- OUTSIDE RECORDS SUMMARY | 2023-11-08 07:43 | XMS_ITS | CCD ---
Author Organization [facility] [employer] Care Team Providers Care Sales Operations Associate Name Role Phone JEEVAN CARO F Unavailable Unavailable GORDON ROBLES Unavailable Unavailab le DEASY, CARO F Unavailable Unavailable DEASY, CARO F Unavailable Unavailable EBRAHEIM, JAMIN Admitting Unavailable MARCELO, JAMIN Attending Unavailable ABIEL BLACKWELL Referring Unavailable ABIEL BLACKWELL Primary Care Unavailable MD Procedure Practitioner Unavailab SU YoungerIL Surgeon Unavailable CECILIA BOUDREAUX Attending Unavailable ABIEL BLACKWELL Primary Care Unavailable CECILIA BOUDREAUX Admitting Unavailable Niranjan Bustillos Consulting Unavailable SAM .ANGIE Admitting Unavailable SAM .ANGIE Attending Unavailable CECILIA BOUDREAUX Primary Care Unavailable YVONNE .ANGIE Consulting Unavailable CECILIA BOUDREAUX Admitting Unavailable CECILIA BOUDREAUX Primary Care Unavailable CECILIA BOUDREAUX Attending Unavailable REQUEST, NONE LISTED Admitting Unavaila ble REQUEST, NONE LISTED Consulting Unavaila ble REQUEST, NONE LISTED Attending Unavaila ble CECILIA BOUDREAUX Primary Care Unavailable Abiel Blackwell MD Primary Care Provider [phone] ALEXSANDRA ÁLVAREZ Attending Unavailable CECILIA BOUDREAUX Referring Unavailable ABIEL BLACKWELL Primary Care Unavailable KIM ROSSI Attending Unavailable KIM ROSSI Attending Unavailable Allergies Allergy Classification Reported Allergen(s) Allergy Type Date of Onset Reaction(s) Facility (7 sources) Blueberry; Translations: [BLUEBERRY] Propensity to adverse reactions to drug (disorder) 6 Anaphylaxis [facility] Repository (9 sources) morphine; Translations: [MORPHINE] Drug Allergy 2 Itching, Rash [facility] Repository (4 sources) natural latex rubber; Translations: [LATEX, NATURAL RUBBER] Propensity to adverse reactions to drug (disorder) 3 AOF [facility] Repository (2 sources) Shellfish; Translations: [SHELLFISH DERIVED] Propensity to adverse reactions [facility] drug [facility]disorder) [facility] SILVER-HYDROCOL LOID DRESSING; Translations: [SILVER-HYDROCO LLOID DRESSING] Propensity to adverse reactions to drug (disorder) [facility]) Blueberry; Translations: [BLUEBERRIES] Propensity to adverse reactions (disorder) 9 [facility] Repository (5 sources) Latex; Translations: [LATEX] Propensity to adverse reactions (disorder) 9 Rash [facility] Repository (1 source) ACCUCOT; Translations: [Unknown] Propensity to adverse reactions (disorder) 9 [facility] Repository (2 sources) Adhesive agent; Translations: [ADHESIVE] Drug allergy (disorder) 2 [facility] Repository (2 sources) Aspirin Drug Allergy [facility] Repository (1 source) fluticasone / vilanterol Drug Allergy [facility] Repository (2 sources) Shellfish Drug allergy (disorder) [facility] Repository (2 sources) Acticoat Dressing Drug allergy (disorder) [facility] Repository (4 sources) crab allergenic extract; Translations: [CRAB] Drug Allergy 1 Anaphylaxis [facility] (4 sources) Other; Translations: [OTHER] Propensity to adverse reactions 1 [facility] (1 source) BLUEBERRY FLAVOR; Translations: [BLUEBERRY FLAVOR] Propensity to adverse reactions to drug (disorder) 2 [facility] Repository (1 source) SHELLFISH CONTAINING PRODUCTS; Translations: [SHELLFISH CONTAINING PRODUCTS] Propensity to adverse reactions to drug (disorder) 2 [facility] Repository (1 source) WOUND DRESSINGS; Translations: [WOUND DRESSINGS] Propensity to adverse reactions to drug (disorder) 2 [facility] Repository Medications Current Medications Medication Drug Class(es) Dates Sig (Normalized) Sig (Original) [id number] 200 actuat albuterol 0.09 mg/actuat metered dose [...] mg total) by mouth nightly. 0 Active clcxoiig-ysvc-LN-calci um &mins (THERAGRAN-M) 9 mg iron-400 mcg tablet (3 sources) fhcltzzj-igba-OW -calci um &mins (THERAGRAN-M) 9 mg iron-400 mcg tablet Take 1 tablet by mouth in the morning. 0 Active iyzufctr-ovdd-WV -calcium &mins (THERAGRAN-M) 9 mg iron-400 mcg [...] Active Problems Problem Classification Problem Date Documented Date Episodic/Chronic Asthma (4 sources) Mild persistent asthma, uncomplicated; Translations: [MILD PERSIST ASTHMA UNCOMPLICATED] Onset: 09-11-2022 Chronic Cardiac dysrhythmias (2 sources) Ventricular premature depolarization; Translations: [Ventricular premature depolarization] Onset: 10-11-2023 Chronic Cardiac dysrhythmias (2 sources) Palpitations; Translations: [Palpitations] Onset: 10-11-2023 Episodic Conditions associated with dizziness or vertigo (3 sources) Dizziness; Translations: [Dizziness and giddiness] Onset: 10-11-2023 09-16-2023 Episodic Disorders of lipid metabolism (2 sources) Mixed hyperlipidemia; Translations: [Mixed hyperlipidemia] Onset: 09-16-2023 Chronic Essential hypertension (2 sources) Essential (primary) hypertension; Translations: [Essential (primary) hypertension] Onset: 09-16-2023 Chronic Nonspecific chest pain (2 sources) Other chest pain; Translations: [Other chest pain] Onset: 10-11-2023 Episodic Occlusion or stenosis of precerebral arteries (7 sources) Vascular calcification; Translations: [Occlusion and stenosis of unspecified carotid artery] Onset: 09-13-2023 09-12-2023 Chronic Other lower respiratory disease (2 sources) Shortness of breath; Translations: [Shortness of breath] Onset: 10-11-2023 Episodic Other screening for suspected conditions (not mental disorders or infectious disease) (2 sources) Abnormal result of other cardiovascular function study; Translations: [Abnormal result of other cardiovascular function study] Onset: 10-11-2023 Episodic Residual codes; unclassified (2 sources) Obstructive sleep apnea (adult) (pediatric); Translations: [Obstructive sleep apnea (adult) (pediatric)] Onset: 10-11-2023 Chronic Unclassified (1 source) Carotid Artery Disease Onset: 09-12-2023 Results Test Name Value Interpretation Reference Range Facility Office Visiton 10-11-2023 Follow-up visit [id number] Brooke Landry Bassem 1955 F Date Provider Department Center 10/11/2023 KIM STEPHENS [facility] [place] [facility] Family History Problem Relation Age of Onset Cancer Mother Heart disease Mother Stroke Mother Diabetes Father Heart disease Father Breast cancer Sister Diabetes Sister Mental illness Sister Family Status - Relation Status Age at Mother Father Sister Level of Service:[id number] MD OFFICE/OUTPATIENT ESTABLISHED HIGH MDM 40 MIN Reason for Visit and Comments: Follow-up [682649] - Stress test/echo Chest Pain [107673] - (Tightness) no pain- Lasting 15mins-30mins with the off rhythm episodes. Normal [facility] Office Visiton 09-20-2023 Follow-up visit [id number] Teri Landrymartha Luevano 1955 F Date Provider Department Center 09/20/2023 KIM STEPHENS [facility] [facility] Family History Problem Relation Age of Onset Cancer Mother Heart disease Mother Stroke Mother Diabetes Father Heart disease Father Breast cancer Sister Diabetes Sister Mental illness Sister Family Status - Relation Status Age at Mother Father Sister Level of Service:80085 MD OFFICE/OUTPATIENT NEW MODERATE MDM 45 MINUTES Reason for Visit and Comments: New Patient [632] - Pt having chest pressure, dizziness, fatigue Normal [facility] GLYCOHEMOGLOBIN A1Con 2022 ADA RECOMMENDATION SEE BELOW Normal [facility] Comment on above: Result Comment: ADA RECOMMENDED LIMIT 4.0 - 6.0 ADA THERAPEUTIC TARGET < 7.0 ACTION SUGGESTED > 7.0 Performed By: #### D ATA1C #### [facility] [address] [place] [address] Dr. Kiley Plata Glucose [Mass/Vol] 120 mg/dL Normal [facility] Comment on above: Performed By: #### D ATA1C #### [facility] [address] [place], [place] [address] Dr. Kiley Plata HbA1c (Bld) [Mass fraction] 5.8 % Normal 4.5-6.2 [facility] Comment on above: Performed By: #### D ATA1C #### [facility] [address] [place], [place] [address] Dr. Kiley Plata XR CHEST 2 Von [...] by: NIRANJAN BUSTILLOS Date: 2022-09-11 10:04 Normal [facility] S [facility] Department of Radiology [address] [place] [phone] Patient Name: BROOKE LANDRY : 1955 Sex: F Age: Race: White Pt. Location: 84 Patient Status: Ordered Date: 06/15/2019 1:45:00 PM Completed Date: 06/15/2019 01:47 PM Requesting Provider: SOLANGE CRUZ Attending Provider: Report Copy To: Signs & Symptoms: M25.579 Pain in unspecified ankle and joints of unspecified foot I10 History: [place] Comments: , , , Ordering Provider - [...] alignment Electronically signed by:Julissa Che. Transcribed by: [email or web address], User Resident: Electronically Signed by: JULISSA CHE @ 06/15/2019 02:12 PM Normal [facility] Comment on above: Order Comment: , str ess view , Views (X-RAY, ANKLE): Radiologic Protocol , stress view , Views (X-RAY, ANKLE): Radiologic Protocol , , , Ordering Provider - JAMIN PACHECO MD , ANKLE RIGHT 3 VWSon 06-15-20 19 ANKLE RIGHT 3 VWS [facility] Department of Radiology [address] [place] [phone] Patient Name: BROOKE LANDRY : 1955 Sex: F Age: Race: White Pt. Location: Patient Status: Ordered Date: 06/15/2019 1:45:00 PM Completed Date: 06/15/2019 01:47 PM Requesting Provider: SOLANGE CRUZ Attending Provider: Report Copy To: Signs & Symptoms: M25.579 Pain in unspecified ankle and joints of unspecified foot I10 History: [place] Comments: , , , Ordering Provider - [...] alignment Electronically signed by:Julissa Che. Transcribed by: [email or web address], User Resident: Electronically Signed by: JULISSA CHE @ 06/15/2019 02:12 PM [place] [facility] Comment on above: Order Comment: , str ess view , Views (X-RAY, ANKLE): Radiologic Protocol , stress view , Views (X-RAY, ANKLE): Radiologic Protocol , , , Ordering Provider - JAMIN PACHECO MD , ANKLE LEFT 3 VWSon 9 ANKLE LEFT 3 VWS [facility] Department of Radiology [address] [place] [phone] Patient Name: BROOKE LANDRY : 1955 [...] spurring Electronically signed by:Julissa Che. Transcribed by: [email or web address], User Resident: Electronically Signed by: JULISSA CHE @ 04/29/2019 03:41 PM Normal [facility] Comment on above: Order Comment: , str ess view , Views (X-RAY, ANKLE): Radiologic Protocol , stress view , Views (X-RAY, ANKLE): Radiologic Protocol , , , Ordering Provider - JAMIN PACHECO MD , ANKLE RIGHT 3 [facility] 04-29-20 19 ANKLE RIGHT 3 S [facility] Department of Radiology [address] [place] [phone] Patient Name: BROOKE LANDRY : 1955 [...] spurring Electronically signed by:Julissa Che. Transcribed by: [email or web address], User Resident: Electronically Signed by: JULISSA CHE @ 04/29/2019 03:41 PM Normal [facility] Comment on above: Order Comment: , str ess view , Views (X-RAY, ANKLE): Radiologic Protocol , stress view , Views (X-RAY, ANKLE): Radiologic Protocol , , , Ordering Provider - JAMNI PACHECO MD , ANKLE LEFT 3 VWSon 9 ANKLE LEFT 3 VWS [facility] Department of Radiology [address] [place] [phone] Patient Name: BROOKE LANDRY : 1955 Sex: F Age: Race: White Pt. Location: Patient Status: Ordered Date: 03/18/2019 2:25:00 PM Completed Date: 03/18/2019 02:28 PM Requesting Provider: BEBETO CRUM Attending Provider: Report Copy To: Signs & Symptoms: S82.842D Displ bimalleol fx l low leg, subs for clos fx w routn heal I10 History: [place] Comments: , Views (X-RAY, ANKLE): Radiologic Protocol [...] alignment Electronically signed by:Julissa Che. Transcribed by: [email or web address], User Resident: Electronically Signed by: JULISSA CHE @ 03/18/2019 03:19 PM Normal [facility] Comment on above: Order Comment: , str ess view , Views (X-RAY, ANKLE): Radiologic Protocol , stress view , Views (X-RAY, ANKLE): Radiologic Protocol , , , Ordering Provider - JAMIN PACHECO MD , ANKLE RIGHT 3 [facility] 03-18-20 19 ANKLE RIGHT 3 [facility] Department of Radiology [address] [place] [phone] Patient Name: BROOKE LANDRY : 1955 [...] alignment Electronically signed by:Julissa Che. Transcribed by: [email or web address], User Resident: Electronically Signed by: JULISSA CHE @ 03/18/2019 03:19 PM Normal [facility] Comment on above: Order Comment: , str ess view , Views (X-RAY, ANKLE): Radiologic Protocol , stress view , Views (X-RAY, ANKLE): Radiologic Protocol , , , Ordering Provider - JAMIN PACHECO MD , ANKLE LEFT 3 Son 9 ANKLE LEFT 3 S [facility] Department of Radiology [address] [place] [phone] Patient Name: BROOKE LANDRY : 1955 [...] alignment Electronically signed by:Julissa Che. Transcribed by: [email or web address], User Resident: Electronically Signed by: JULISSA CHE @ 03/04/2019 01:59 PM Normal [facility] Comment on above: Order Comment: , str ess view , Views (X-RAY, ANKLE): Radiologic Protocol , stress view , Views (X-RAY, ANKLE): Radiologic Protocol , , , Ordering Provider - JAMIN PACHECO MD , ANKLE RIGHT 3 VWSon 03-04-20 19 ANKLE RIGHT 3 VWS [facility] Department of Radiology [address] [place] [phone] Patient Name: BROOKE LANDRY : 1955 [...] alignment Electronically signed by:Julissa Che. Transcribed by: [email or web address], User Resident: Electronically Signed by: JULISSA CHE @ 03/04/2019 01:59 PM Normal [facility] Comment on above: Order Comment: , str ess view , Views (X-RAY, ANKLE): Radiologic Protocol , stress view , Views (X-RAY, ANKLE): Radiologic Protocol , , , Ordering Provider - JAMIN PACHECO MD , ANKLE LEFT 3 [facility] 9 ANKLE LEFT 3 [facility] Department of Radiology [address] [place] [phone] Patient Name: BROOKE LANDRY : 1955 Sex: F Age: Race: White Pt. Location: Patient Status: Ordered Date: 02/04/2019 10:25:00 AM Completed Date: 02/04/2019 10:38 AM Requesting Provider: ITALO JIANG Attending Provider: Report Copy To: Signs & Symptoms: S82.842A Displaced bimalleolar fracture of left lower leg, init I10 History: [place] Comments: , Views (X-RAY, ANKLE): Radiologic Protocol , Views (X-RAY, ANKLE): Radiologic Protocol , , , Ordering Provider - ITALO JIANG PA-C , Exam: ANKLE LEFT 3 [facility] ANKLE LEFT 3 [facility] 02/04/2019 10:38 AM EDT SIGNS AND SYMPTOMS: [...] healing Electronically signed by:Zonia Cates. Transcribed by: [email or web address], User Resident: Electronically Signed by: ZONIA CATES @ 02/04/2019 03:17 PM Normal [facility] Comment on above: Order Comment: , str ess view , Views (X-RAY, ANKLE): Radiologic Protocol , stress view , Views (X-RAY, ANKLE): Radiologic Protocol , , , Ordering Provider - JAMIN PACHECO MD , ANKLE RIGHT 3 [facility] 02-05-20 19 ANKLE RIGHT 3 [facility] Department of Radiology [address] [place] [phone] Patient Name: BROOKE LANDRY : 1955 [...] healing Electronically signed by:Zonia Cates. Transcribed by: [email or web address], User Resident: Electronically Signed by: ZONIA CATES @ 02/04/2019 03:31 PM Normal [facility] Comment on above: Order Comment: , str ess view , Views (X-RAY, ANKLE): Radiologic Protocol , stress view , Views (X-RAY, ANKLE): Radiologic Protocol , , , Ordering Provider - JAMIN PACHECO MD , Operative Reporton 01-29- 9 Operative Report MR#: [id number] I [facility] Pt. Name: Brooke Landry Room #: [id number] Discharge 01/23/2019 Date: Birthdate: 1955 OPERATIVE REPORT [...] Dao MD Date Trans: 01/29/2019 11:37 A/smooth [id number] Normal [facility] BASIC METABOLIC PANELon Calcium [Mass/Vol] 9.4 mg/dL Normal 8.6-10.3 [facility] Comment on above: Order Comment: , str ess view , Views (X-RAY, ANKLE): Radiologic Protocol , stress view , Views (X-RAY, ANKLE): Radiologic Protocol , , , Ordering Lucero PACHECO MD , Performed By: #### 0 [id number] ####[facility] [address] Chloride [Moles/Vol] 100 mmol/L Normal 98-107 [facility] Comment on above: Order Comment: , str ess view , Views (X-RAY, ANKLE): Radiologic Protocol , stress view , Views (X-RAY, ANKLE): Radiologic Protocol , , , Ordering Lucero PACHECO MD , Performed By: #### 0 [id number] ####[facility] [address] CO2 [Moles/Vol] 32 mmol/L High 21-31 [facility] Comment on above: Order Comment: , str ess view , Views (X-RAY, ANKLE): Radiologic Protocol , stress view , Views (X-RAY, ANKLE): Radiologic Protocol , , , Ordering Lucero PACHECO MD , Performed By: #### 0 [id number] ####[facility] [address] Creatinine [Mass/Vol] 0.78 mg/dL Normal 0.60-1.20 [facility] Comment on above: Order Comment: , str ess view , Views (X-RAY, ANKLE): Radiologic Protocol , stress view , Views (X-RAY, ANKLE): Radiologic Protocol , , , Ordering Lucero PACHECO MD , Performed By: #### 0 [id number] ####[id number] [place] [address], [facility] GFR/1.73 sq M predicted among blacks MDRD (S/P/Bld) [Vol rate/Area] mL/min/{1.73_m2} Normal >60 [facility] Comment on above: Order Comment: , str ess view , Views (X-RAY, ANKLE): Radiologic Protocol , stress view , Views (X-RAY, ANKLE): Radiologic Protocol , , , Ordering Lucero PACHECO MD , Performed By: #### 0 [id number] ####[place] [address], [facility] GFR/1.73 sq M predicted among non-blacks MDRD (S/P/Bld) [Vol rate/Area] mL/min/{1.73_m2} Normal >60 [facility] Comment on above: Order Comment: , str ess view , Views (X-RAY, ANKLE): Radiologic Protocol , stress view , Views (X-RAY, ANKLE): Radiologic Protocol , , , Ordering Lucero PACHECO MD , Performed By: #### 0 [id number] ####[address] [place] [address], [facility] Glucose [Mass/Vol] 151 mg/dL High 70-100 [facility] Comment on above: Order Comment: , str ess view , Views (X-RAY, ANKLE): Radiologic Protocol , stress view , Views (X-RAY, ANKLE): Radiologic Protocol , , , Ordering Lucero PACHECO MD , Performed By: #### 0 [id number] ####[address] Potassium [Moles/Vol] 4.1 mmol/L Normal 3.5-5.1 [facility] Comment on above: Order Comment: , str ess view , Views (X-RAY, ANKLE): Radiologic Protocol , stress view , Views (X-RAY, ANKLE): Radiologic Protocol , , , Ordering Lucero PACHECO MD , Performed By: #### 0 [id number] ####[address] Sodium [Moles/Vol] 137 mmol/L Normal 136-145 [facility] Comment on above: Order Comment: , str ess view , Views (X-RAY, ANKLE): Radiologic Protocol , stress view , Views (X-RAY, ANKLE): Radiologic Protocol , , , Hermann PACHECO MD , Performed By: #### 0 [id number] ####[address] Urea nitrogen [Mass/Vol] 13 mg/dL Normal 7-25 [facility] Comment on above: Order Comment: , str ess view , Views (X-RAY, ANKLE): Radiologic Protocol , stress view , Views (X-RAY, ANKLE): Radiologic Protocol , , , Hermann PACHECO MD , Performed By: #### [id number] ####[facility] [address] CBC COMPLETE BLOOD COUNTon 0 01-23-2019 Erythrocyte distribution width (RBC) [Ratio] 13.5 % Normal 11.5-15.0 [facility] Comment on above: Order Comment: , str ess view , Views (X-RAY, ANKLE): Radiologic Protocol , stress view , Views (X-RAY, ANKLE): Radiologic Protocol , , , Ordering Provider Brandon PACHECO MD , Performed By: #### [id number] ####[address] Hematocrit (Bld) [Volume fraction] 41.9 % Normal 36.0-45.0 [facility] Comment on above: Order Comment: , str ess view , Views (X-RAY, ANKLE): Radiologic Protocol , stress view , Views (X-RAY, ANKLE): Radiologic Protocol , , , Ordering Provider Brandon PACHECO MD , Performed By: #### [id number] ####[address] Hemoglobin (Bld) [Mass/Vol] 13.1 g/dL Normal 12.0-15.0 [facility] Comment on above: Order Comment: , str ess view , Views (X-RAY, ANKLE): Radiologic Protocol , stress view , Views (X-RAY, ANKLE): Radiologic Protocol , , , Ordering Provider Brandon PACHECO MD , Performed By: #### [id number] ####[address] MCH (RBC) [Entitic mass] 27.3 pg Normal 27.0-33.0 [facility] Comment on above: Order Comment: , str ess view , Views (X-RAY, ANKLE): Radiologic Protocol , stress view , Views (X-RAY, ANKLE): Radiologic Protocol , , , Ordering Lucero PACHECO MD , Performed By: #### [id number] ####[facility] [address] MCHC (RBC) [Mass/Vol] 31.3 g/dL Low 32.0-35.0 [facility] Comment on above: Order Comment: , str ess view , Views (X-RAY, ANKLE): Radiologic Protocol , stress view , Views (X-RAY, ANKLE): Radiologic Protocol , , , Ordering Lucero PACHECO MD , Performed By: #### [id number] ####[address] MCV (RBC) [Entitic vol] 87.5 fL Normal 82.0-98.0 [facility] Comment on above: Order Comment: , str ess view , Views (X-RAY, ANKLE): Radiologic Protocol , stress view , Views (X-RAY, ANKLE): Radiologic Protocol , , , Ordering Lucero PACEHCO MD , Performed By: #### [id number] ####[address] Nucleated RBC/100 WBC (Bld) [Ratio] 0 % Normal 0-0 [facility] Comment on above: Order Comment: , str ess view , Views (X-RAY, ANKLE): Radiologic Protocol , stress view , Views (X-RAY, ANKLE): Radiologic Protocol , , , Ordering Lucero PACHECO MD , Performed By: #### [id number] ####[address] PLAT CNT 295 10*3/uL Normal 150-400 [facility] Comment on above: Order Comment: , str ess view , Views (X-RAY, ANKLE): Radiologic Protocol , stress view , Views (X-RAY, ANKLE): Radiologic Protocol , , , Ordering Provider Brandon PACHECO MD , Performed By: #### [id number] ####[facility] [address] RBC (Bld) [#/Vol] 4.79 10*6/uL Normal 3.80-5.00 [facility] Comment on above: Order Comment: , str ess view , Views (X-RAY, ANKLE): Radiologic Protocol , stress view , Views (X-RAY, ANKLE): Radiologic Protocol , , , Ordering Provider - JAMIN PACHECO MD , Performed By: #### [id number] ####[facility] [address] WBC (Bld) [#/Vol] 7.82 10*3/uL Normal 4.00-10.60 [facility] Comment on above: Order Comment: , str ess view , Views (X-RAY, ANKLE): Radiologic Protocol , stress view , Views (X-RAY, ANKLE): Radiologic Protocol , , , Ordering Provider - JAMIN PACHECO MD , Performed By: #### [id number] ####[facility] [address] POC GLUCOSE LABon 01-23-2019 Glucose [Mass/Vol] 116 mg/dL High 70-100 [facility] Comment on above: Performed By: #### [id number] ####[facility] [place], [place] [id number] [place] [address] POC GLUCOSE LABon 01-22-2019 Glucose [Mass/Vol] 98 mg/dL Normal 70-100 [facility] [facility] Comment on above: Performed By: #### 8 5499 ####[facility] [place] [address], [place] Glucose [Mass/Vol] 88 mg/dL Normal 70-100 [facility] Comment on above: Performed By: #### 8 5499 ####[facility] [place] [address], [place] Glucose [Mass/Vol] 112 mg/dL High 70-100 [facility] Comment on above: Performed By: #### 8 5499 ####[facility] [place] [address], [place] Glucose [Mass/Vol] 101 mg/dL High 70-100 [facility] Comment on above: Performed By: #### 8 5499 ####[facility] [place] [address], [place] POC GLUCOSE LABon 01-21-2019 Glucose [Mass/Vol] 125 mg/dL High 70-100 [facility] Comment on above: Performed By: #### 8 5499 ####[facility] [place] [address], [place] Glucose [Mass/Vol] 117 mg/dL High 70-100 [facility] Comment on above: Performed By: #### 8 5499 ####[facility] [place] [address], [place] Glucose [Mass/Vol] 107 mg/dL High 70-100 [facility] Comment on above: Performed By: #### 8 5499 ####[facility] [place] [address], [place] Glucose [Mass/Vol] 132 mg/dL High 70-100 [facility] Comment on above: Performed By: #### 8 5499 ####[facility] [place], [place] [address] *MRSA/MSSA DNA NASALon 01-20 *MRSA/MSSA DNA NASAL Clinical Report: (D) Specimen: NASAL SWAB Collected: 01/20/2019 11:05 Status: Final Last Updated: 01/20/2019 19:57 MSSA DNA (Final) Negative MRSA DNA (Final) Negative Normal [facility] Comment on above: Performed By: #### 3 1595 ####[facility] [place], [place] [address] ANKLE LEFT 2 VWSon 9 ANKLE LEFT 2 S [facility] Department of Radiology [address] [place] [address] Patient Name: BROOKE LANDRY : 1955 Sex: F Age: Race: White Pt. Location: OUTP Patient Status: D Ordered Date: 01/20/2019 12:15:00 PM Completed Date: 01/20/2019 12:34 PM Requesting Provider: JAMIN PACHECO Attending Provider: JAMIN PACHECO Report Copy To: Signs & Symptoms: ORIF LEFT ANKLE, History: ORIF LEFT ANKLE, Comments: ORIF LEFT ANKLE, Exam: ANKLE LEFT 2 [facility] ANKLE LEFT 2 S 01/20/2019 12:34 PM [...] documentation Electronically signed by:Manolo Whalen. Transcribed by: [email or web address], User Resident: Electronically Signed by: MANOLO WHALEN @ 01/20/2019 02:24 PM Normal [facility] Comment on above: Order Comment: , Vie ws (X-RAY, TIBIA AND FIBULA): Radiologic Protocol , Weight Bearing?: N , With or Without Brace/Cast/Collar: Without , Views (X-RAY, TIBIA AND FIBULA): Radiologic Protocol , Weight Bearing?: N , With or Without Brace/Cast/Collar: Without , , , Ordering Provider - JAMIN PACHECO MD , ANKLE RIGHT 2 [facility] 01-21-20 19 ANKLE RIGHT 2 [facility] Department of Radiology [address] [place] [phone] Patient Name: BROOKE LANDRY : 1955 Sex: F Age: Race: White Pt. Location: OUTP Patient Status: D Ordered Date: 01/20/2019 12:15:00 PM Completed Date: 01/20/2019 12:34 PM Requesting Provider: JAMIN PACHECO Attending Provider: JAMIN PACHECO Report Copy To: Signs & Symptoms: HALIMA OF RIGHT ANKLE History: HALIMA OF RIGHT ANKLE Comments: HALIMA OF RIGHT ANKLE Exam: ANKLE RIGHT 2 [facility] ANKLE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 Diehljosh. I have discussed the case and the management ofthis patient's care with the Leasing Specialist, if applicable. 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 I have confirmed and edited as necessarythe [...] Modules accepted: Orders, SmartSetReferring Provider: CARO SUGGS [[id number]]Allergies As of Date: 04/08/2017 Noted Allergy ReactionACTICOAT [...] eyes [H35.073]Order(s):DILATED FUNDUS EXAM [] Order #: [id number]: 1 IOP MEASUREMENT [] Order #: [id number]: 1 OCT MACULA CIRRUS OU (BOTH EYES) [21291020] Order #: [id number]: 1 DILATED FUNDUS EXAM [] Order #: [id number]: 1 FUTURE IOP MEASUREMENT [3720509] Order #: [id number]: 1 FUTURE OCT MACULA CIRRUS OU (BOTH EYES) [21291020] Order #: [id number]: 1 FUTUREPrescriptions as of 04/08/2017 Sig: PYRIDOSTIGMINE [...] (around 10/07/2017).Follow-up and Disposition History RecordedEncounter Number: [id number] Status:Closed by OKSANA HERNANDEZ on 04/08/17 [facility] PROGRESSon 04-08-2017 PROGRESS HNO ID: [id number] thor: Oksana Evangelista: (none)Author Type: PhysicianType: Progress NotesFiled: 04/08/2017 4:20 PMNote Text:Prefers to be seen in [place].(H35.073) 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 [...] or sooner ifnew symptoms develop.Oksana Hernandez MD [facility] Encounters Encounter Date Encounter Type Care Provider Facility Start: 10-11-2023 End: 10-11-2023 ambulatory [facility] Start: 09-20-2023 End: 09-20-2023 ambulatory [facility] Start: 09-16-2023 Orders Only Reina Gomes LPN [facility] Comment on above: Carotid artery calci fication, unspecified laterality (Primary Dx); Bilateral carotid artery stenosis Dizziness (Primary D x) Start: 09-12-2023 ambulatory [facility]DR[facility] Start: 09-12-2023 End: 09-12-2023 Office outpatient new 30 minutes Alexsandra Álvarez MD Work Phone: [facility] Comment on above: Carotid artery calci fication, unspecified laterality Start: 11-03-2022 ambulatory CECILIA BOUDREAUX Facility: [facility] Start: 09-21-2022 End: 09-22-[address] PEREZ LISTED REQUEST Facility:[facility] Start: 09-11-2022 End: 09-12-2022 ambulatory Niranjan Bustillos Facility:[facility] Start: 11-16-2021 ambulatory CECILIA BOUDREAUX Facility: [facility] Start: 01-20-2019 End: 01-23-2019 Evaluation and management of inpatient JAMIN EBHEIM Facility:[facility] Start: 10-07-2017 End: 10-09-2017 Ambulatory CARO Bowers [facility] Start: 07-08-2017 End: 07-09-2017 Ambulatory CARO Robinson [facility] Start: 04-08-2017 End: 04-11-2017 Ambulatory [facility] Procedures Date Procedure Procedure Detail Performing Clinician Start: 01-20-2019 REPOSITION LEFT FIBU LA WITH INT FIX, OPEN APPROACH JAMIN EBRAHEIM Start: 01-20-2019 REPOSITION RIGHT FIB SEUGNDO WITH INT FIX, OPEN APPROACH JAMIN EBRAHEIM Start: 01-19-2019 Antibody screen JAMIN BAJWA Comment on above: Performed By: #### [id number] #### [place] [address] [place] [address], [facility] Plan of Treatment Date Care Activity Detail Author Start: 10-08-2024 End: 10-08-2024 Patient encounter procedure 10/08/2024 10:50 AM EDT Office Visit [facility] [address] [place] [address] Alexsandra Álvarez MD [address], [address] [address] [facility] Start: 02-16-2024 Influenza vaccination Influenza Vacc ine [facility] Start: 09-16-2023 End: 10-14-2024 [place] Carotid arteries - bilateral Vas carotid duplex bilateral Vascular Ultrasound Routine Bilateral carotid artery stenosis Expected: 09/16/2023, Expires: 10/14/2024 [facility] Work Phone: Comment on above: Expected: 09/16/2023 , Expires: 10/14/2024 Start: 02-15-2023 COVID-19 Vaccine ( season) COVID-19 Vaccine ( season) [facility] Start: 02-15-2023 Influenza vaccination Influenza Vacc ine [facility] Start: 11-02-2021 Adult BMI Screening Adult BMI Screen ing [facility] Start: 2018 Fall Risk Screening Fall Risk Screen ing [facility] Start: 11-16-2003 Administration of varicella zoster vaccine Zoster (Shingles) Vaccine (1 of 2) [facility] Start: 1972 DTaP,Tdap and Td Vac cines (1 - Tdap) DTaP,Tdap and Td Vaccines (1 - Tdap) [facility] Start: 11-16-1971 Adult BMI Follow Up Plan Adult BMI Follow Up Plan [facility] Start: 1965 Depression Screening Depression Scre ening [facility] Start: 1965 Tobacco Screening Tobacco Screening [facility] Start: 1955 Medicare Annual Well ness Visit Medicare Annual Wellness Visit [facility] Immunizations Immunization Date Immunization Notes Care Provider Fa cility 04-13-2022 influenza virus vaccine, unspecified formulation Alexsandra Álvarez MD Work Phone: [facility] Payers Date Payer Category Payer Medicare [id number] 2019 [place] [id number] 2019-Present [phone] [address] [place] [address] [id number] 2018 Unknown [id number] 2014 Medicare MEDICARE MEDICAR E PART A & B [id number] 2014-Present [phone] [address] [place] [address] [id number] 1959 Medicaid [id number] 1961 Medicare [id number] 1959 Self-pay [id number] 1955 Unknown [id number] 1955 Unknown [id number] 1955 Unknown [id number] 1955 Unknown [id number] 1955 Unknown [id number] Unknown [id number] Social History Date Type Detail Facility Start: 10-20-2020 End: 09-16-2023 Tobacco smoking status NHIS Never smoked tobacco [facility] Start: 10-20-2020 End: 09-16-2023 Tobacco use and exposure Smokeless tobacco non-user [facility] Start: 11-03-2020 End: 09-16-2023 Alcohol intake Lifetime non-drinker (finding) [facility] Start: 11-03-2020 End: 09-16-2023 History of Social function [facility] Start: 11-03-2020 End: 09-16-2023 Tobacco use panel [facility] Start: 1955 Sex Assigned At Not on file P Near Page Progress note 10-11-2023 Note Date & Type Note Facility 10-11-2023 Note [place] [facility] - [facility] Subjective Brooke Landry is a 67 y.o. year old female patient being seen for Follow-up (Stress test/echo) and Chest Pain ((Tightness) no pain- Lasting 15mins-30mins with the off rhythm episodes. 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 Type 2 diabetes mellitus without complications (CMS/HCC) Type 2 macular telangiectasis Unspecified fracture of left lower leg, sequela Vitamin D deficiency, unspecified Family History Problem Relation Name Age of Onset Cancer Mother Heart disease Mother Stroke Mother Diabetes Father Heart disease Father Breast cancer Sister Diabetes Sister Mental illness Sister Social History Tobacco Use Smoking status: Never Smokeless tobacco: Never Substance Use Topics Alcohol use: Not Currently Drug use: Never HPI Visit of 09/20/2023 - New patient: This is a 67-year-old woman who is seen as a new patient for dizziness, palpitations, chest pain and shortness of breath. Her prior medical history significant for hypertension and hyperlipidemia on treatment. She has obstructive sleep apnea on CPAP. She has obesity and prediabetes. She has been having fairly recent onset symptoms of palpitations, followed by chest pressure and pain located in the center of the chest without radiation. Though symptoms can happen at rest or with exertion. In addition she notes shortness of breath on exertion. She can walk on the treadmill but she has to stop due to shortness of breath. Symptoms are relieved by rest. She denies syncope, lower extremity edema. She was recently investigated by carotid ultrasound that showed mild plaque disease but no significant obstruction. She also wore a 7-day Holter monitor the results of which are not back yet. Follow-up visit 10/11/2023: She is seen in follow-up. After last visit I investigated her chest pain symptoms and shortness of breath with an echocardiogram and a stress test. The stress test showed evidence of ischemia in the LAD territory. The echocardiogram showed normal ventricular and valvular function and mildly elevated right-sided pressures. The Holter monitor showed evidence of frequent PVCs with a burden of 11%. Today she reports that she continues to have the same symptoms of chest discomfort and shortness of breath at rest or with exertion. No change in the character or severity of the symptoms. She feels palpitations with the symptoms. Review of Systems Cardiovascular: Positive for dyspnea on exertion, irregular heartbeat, leg swelling and palpitations. Negative for chest pain, near-syncope, orthopnea, paroxysmal nocturnal dyspnea and syncope. Neurological: Positive for dizziness. Objective Visit Vitals BP 130/70 (BP Location: Left arm, Patient Position: Sitting, BP Cuff Size: Adult) Pulse 64 Resp 16 Ht 1.664 m (5' 5.5 ) Wt 123 kg (272 lb) SpO2 99% BMI 44.57 kg/m??? Smoking Status Never BSA 2.38 m??? Physical Exam Constitutional: Appearance: She is well-developed. She is obese. She is not ill-appearing. HENT: Head: Normocephalic and atraumatic. Nose: Nose normal. Eyes: General: No scleral icterus. Pupils: Pupils are equal, round, and reactive to light. Neck: Thyroid: No thyromegaly. Vascular: No JVD. Cardiovascular: Rate and Rhythm: Normal rate. Rhythm regularly irregular. Pulses: Radial pulses are 2+ on the right side and 2+ on the left side. Heart sounds: Normal heart sounds. No murmur heard. No friction rub. No gallop. Pulmonary: Effort: Pulmonary effort is normal. No respiratory distress. Breath sounds: Normal breath sounds. No wheezing or rales. Chest: Chest wall: No tenderness. Abdominal: General: Bowel sounds are normal. There is no distension. Palpations: Abdomen is soft. Tenderness: There is no abdominal tenderness. Musculoskeletal: General: No swelling. Cervical back: Neck supple. Skin: General: Skin is warm and dry. Neurological: General: No focal deficit present. Mental Status: She is alert and oriented to person, place, and time. Psychiatric: Mood and Affect: Mood normal. Behavior: Behavior is cooperative. Judgment: Judgment normal. Allergies Allergies Allergen Reactions Blueberry Flavor Itching, Rash and Shortness of breath Shellfish Containing Products Anaphylaxis, Hives, Itching, Other and Shortness of breath Crab Meat (more content not included)... [facility] Progress note 09-20-2023 Note Date & Type Note Facility 09-20-2023 Note [place] [facility]iology - [facility] Subjective Brooke Landry is a 67 y.o. year old female patient being seen for New Patient (Pt having chest pressure, dizziness, fatigue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 Type 2 diabetes mellitus without complications (CMS/HCC) Type 2 macular telangiectasis Unspecified fracture of left lower leg, sequela Vitamin D deficiency, unspecified Family History Problem Relation Name Age of Onset Cancer Mother Heart disease Mother Stroke Mother Diabetes Father Heart disease Father Breast cancer Sister Diabetes Sister Mental illness Sister Social History Tobacco Use Smoking status: Never Smokeless tobacco: Never Substance Use Topics Alcohol use: Not Currently Drug use: Never HPI This is a 67-year-old woman who is seen as a new patient for dizziness, palpitations, chest pain and shortness of breath. Her prior medical history significant for hypertension and hyperlipidemia on treatment. She has obstructive sleep apnea on CPAP. She has obesity and prediabetes. She has been having fairly recent onset symptoms of palpitations, followed by chest pressure and pain located in the center of the chest without radiation. Though symptoms can happen at rest or with exertion. In addition she notes shortness of breath on exertion. She can walk on the treadmill but she has to stop due to shortness of breath. Symptoms are relieved by rest. She denies syncope, lower extremity edema. She was recently investigated by carotid ultrasound that showed mild plaque disease but no significant obstruction. She also wore a 7-day Holter monitor the results of which are not back yet. Review of Systems Constitutional: Positive for malaise/fatigue. Cardiovascular: Positive for chest pain, dyspnea on exertion, leg swelling (bilateral) and palpitations. Respiratory: Positive for shortness of breath. Neurological: Positive for dizziness. All other systems reviewed and are negative. Objective Visit Vitals BP 124/70 (BP Location: Left arm, Patient Position: Sitting, BP Cuff Size: Adult) Pulse 76 Resp 13 Ht 1.664 m (5' 5.5 ) Wt 123 kg (271 lb) SpO2 97% BMI 44.41 kg/m??? Smoking Status Never BSA 2.38 m??? Physical Exam Constitutional: Appearance: She is well-developed. She is obese. She is not ill-appearing. HENT: Head: Normocephalic and atraumatic. Nose: Nose normal. Eyes: General: No scleral icterus. Pupils: Pupils are equal, round, and reactive to light. Neck: Thyroid: No thyromegaly. Vascular: No JVD. Cardiovascular: Rate and Rhythm: Normal rate and regular rhythm. Pulses: Radial pulses are 2+ on the right side and 2+ on the left side. Posterior tibial pulses are 2+ on the right side and 2+ on the left side. Heart sounds: Normal heart sounds. No murmur heard. No friction rub. No gallop. Pulmonary: Effort: Pulmonary effort is normal. No respiratory distress. Breath sounds: Normal breath sounds. No wheezing or rales. Chest: Chest wall: No tenderness. Abdominal: General: Bowel sounds are normal. There is no distension. Palpations: Abdomen is soft. Tenderness: There is no abdominal tenderness. Musculoskeletal: General: No swelling. Cervical back: Neck supple. Skin: General: Skin is warm and dry. Neurological: General: No focal deficit present. Mental Status: She is alert and oriented to person, place, and time. Psychiatric: Mood and Affect: Mood normal. Behavior: Behavior is cooperative. Judgment: Judgment normal. Allergies Allergies Allergen Reactions Blueberry Flavor Itching, Rash and Shortness of breath Shellfish Containing Products Anaphylaxis, Hives, Itching, Other and Shortness of breath Crab Meat only known at this time. Adhesive Other blisters Silver-Hydrocolloid Dressing Hives Latex, Natural Rubber Hives and Rash Morphine Itching, Other and Rash Wound Dressings Itching and Other blisters Medications Current Outpatient Medications: albuterol 90 mcg/actuation inhaler, Inhale 2 puffs every 6 (six) hours if needed., Disp: , Rfl: b complex-vitamin c tablet, Take 1 tablet by mouth in the morning., Disp: , Rfl: carboxymethylcellulose PF (Refresh Plus) 0.5 % ophthalmic solution, 1 drop if needed in the morning, at noon, and at bedtime., Disp: , Rfl: cholecalciferol (D3-5) 5,000 Units tablet, Take 5,000 Units by mo (more content not included)... [facility] History of Present illness Narrative 09-12-2023 Alexsandra Álvarez MD - 09/12/2023 3:00 PM EDT Note Date & Type Note Facility 09-12-2023 History of Presen t illness Narrative Images from the original note were not included. [facility] [address] [place] [id number] Subjective: Patient ID: Brooke Landry is a [...] mg by mouth nightly., Disp: , Rfl: ryhyogut-hbvp-VL-calcium &mins (THERAGRAN-M) 9 mg iron-400 mcg tablet, Take 1 tablet by mouth daily., Disp: , Rfl: simvastatin (ZOCOR) 10 mg tablet, Take 10 mg by mouth nightly., Disp: , Rfl: TURMERIC ORAL, Take 1,000 mg by mouth daily. With curcumin, Disp: , Rfl: Past Medical History: Diagnosis Date Arrhythmia Arthritis Asthma Diabetes mellitus type 2, controlled ([facility]) prediabetic Headache Hypertension Hypoglycemia Obesity PONV (postoperative nausea and vomiting) Sleep apnea cpap Visual impairment glasses Past Surgical History: Procedure Laterality Date CARPAL TUNNEL RELEASE Right HERNIA REPAIR 06/2019 JOINT REPLACEMENT bilateral knees LEG SURGERY Bilateral plate and screws in right, screws in left ankle RELEASE TRIGGER FINGER Right 11/02/2020 Performed by Wallace Barakat DO at [facility] TONSILLECTOMY Family History Problem Relation Age of [...] visit: Carotid artery calcification, unspecified laterality - [facility] [place] Plan Plan: Best medical therapy ASA/Statin Annual surveillance Cardiology referral Alexsandra Álvarez MD, MARLEE documented in this encounter [facility] Evaluation note Note Date & Type Note Facility Evaluation note Diagnosis Carotid artery calcification, unspecified laterality documented in this encounter [facility] Evaluation note Note Date & Type Note Facility Evaluation note Diagnosis Carotid artery calcification, unspecified laterality- Primary Bilateral carotid artery stenosis Occlusion and stenosis of carotid artery without mention of cerebral infarction documented in this encounter [facility] Evaluation note Note Date & Type Note Facility Evaluation note Diagnosis Dizziness- Primary Dizziness and giddiness documented in this encounter [facility] Instructions Note Date & Type Note Facility Instructions Not on filedocumented in this en counter [facility] Instructions Note Date & Type Note Facility Instructions Not on filedocumented in this en counter [facility] Reason for referral (narrative) Consultation (Routine) - Pending Review Note Date & Type Note Facility Reason for referral (narrati ve) Specialty Diagnoses / Procedures Referred By Contac t Referred To Contact Cardiology Diagnoses Dizziness Alexsandra Álvarez MD [address], [address] [facility] [address] [place] [address] Referral ID Status Reason Start Date Expiration Date Visits Requested Visits Authorized [id number] Pending Review Specialty Services Required 09/16/2023 09/15/2024 1 1 [facility] Reason for visit Narrative Consultation (Routine) - Pending Review Note Date & Type Note Facility Reason for visit Narrative Specialty Diagnoses / Procedures Referred By Contac t Referred To Contact Vascular Surgery Diagnoses Carotid artery calcification, unspecified laterality Cecilia Boudreaux, IRONWORKER FOREMAN-DIGITAL OPERATIONS ANALYST [address] [facility], [place] [address] Alexsandra Álvarez MD [address], [address] [address] Referral ID Status Reason Start Date Expiration Date Visits Requested Visits Authorized [id number] Pending Review Specialty Services Required 09/05/2023 09/04/2024 1 1 [facility] Summary Purpose Family History No Family History Records FoundNo Family History Records FoundNo Family History Records FoundNo Family History Records FoundNo Family History Records FoundNo Family History Records Found Advance Directives No Advanced Directives Records FoundNo Advanced Directives Records FoundNo Advanced Directives Records FoundNo Advanced Directives Records FoundNo Advanced Directives Records FoundNo Advanced Directives Records Found Hospital Course Note MR#: [id number] [facility] Pt. Name: Brooke Landry Admitted: 01/20/2019 Discharged: [...] the aforementioned procedure. The patient presented to [facility] on 01/20/2019, where ORIF of bilateral ankles [...] Vas carotid duplex bilateral Alexsandra Álvarez MD [address], [address] [address] Referral ID Status Reason Start Date Expiration Date V isits Requested Visits Authorized [id number] Pending Review 09/16/2023 09/15/2024 1 1 Additional Source Comments INFORMATION SOURCE (unrecogn ized section and content) DATE CREATED AUTHOR 12/05/2017 [facility] DATE CREATED AUTHOR AUTHOR'S ORGANIZ ATION 01/05/2019 [facility] DATE CREATED AUTHOR AUTHOR'S ORGANIZ ATION 06/22/2019 [facility] DATE CREATED AUTHOR AUTHOR'S ORGANIZ ATION 10/31/2022 [facility] DATE CREATED AUTHOR AUTHOR'S ORGANIZ ATION 09/17/2023 [facility] DATE CREATED AUTHOR AUTHOR'S ORGANIZ ATION 10/16/2023 [facility] Care Teams (unrecognized sec tion and content) Sales Operations Associate Relationship Specialty Start Date End Date Abiel Blackwell MD [address] [place] [address] PCP - General Family Medicine 10/20/20 Sales Operations Associate Relationship Specialty Start Date End Date Abiel Blackwell MD [address] [place] [address] PCP - General Family Medicine 10/20/20 Sales Operations Associate Relationship Specialty Start Date End Date Abiel Blackwell MD [address] [place] [address] PCP - General Family Medicine 10/20/20 FOR [...] BE BASED ON THE PRIMARY CLINICAL RECORDS. [employer] provides no warranty or guarantee of the accuracy or completeness of information in this document.
[2023-11-08 07:54] LABS: Basophils Absolute Auto 0.1 10^3/uL (0.0-0.1); Basophils Percent Auto 0.9 % (0.2-2.0); Eosinophils Absolute Auto 0.3 10^3/uL (0.0-0.7); Eosinophils Percent Auto 3.4 % (0.9-7.0); Hematocrit 43.9 % (36.0-48.0); Hemoglobin 13.9 g/dL (12.0-16.0); Immature Granulocytes Abs Auto 0.01 10^3/uL (0.00-0.03); Immature Granulocytes Pct Auto 0.1 % (0.0-0.5); Lymphocytes Absolute Auto 2.1 10^3/uL (1.2-3.8); Lymphocytes Percent Auto 28.6 % (20.5-60.0); Mean Corpuscular HGB Conc 31.7 g/dL (29.9-35.2); Mean Corpuscular Hemoglobin 28.1 pg (26.7-34.0); Mean Corpuscular Volume 88.9 fL (81.0-99.0); Mean Platelet Volume 10.4 fL (9.5-13.5); Monocytes Absolute Auto 0.7 10^3/uL (0.3-0.8); Monocytes Percent Auto 9.1 % (1.7-12.0); Neutrophils Absolute Auto 4.3 10^3/uL (1.4-6.5); Neutrophils Percent Auto 57.9 % (43.0-75.0); Platelet Count 265 10^3/uL (150-450); Red Blood Count 4.94 10^6/uL (4.20-5.40); Red Cell Distribution Width 13.3 % (11.0-15.0); White Blood Count 7.4 10^3/uL (4.0-11.0)
[2023-11-08 09:20] LABS: Anion Gap 10.7; BUN Creatinine Ratio 24.2; Calcium 9.7 mg/dL (8.5-10.1); Carbon Dioxide 31.1 mmol/L (21.0-32.0); Chloride 104 mmol/L (98-107); Estimated GFR (African America >60 (>=60); Estimated GFR (Non-African Ame 58 (>=60); Glucose 99 mg/dL (74-106); Potassium 3.8 mmol/L (3.5-5.1); Sodium 142 mmol/L (136-145)
== END 2023-11-08 07:41 | disposition home or self-care (01) ==
LOC: LAB 07:40
PROVIDERS: PCP Nurse Practitioner Family; Visit Provider Internal Medicine Interventional Cardiology
DX: R07.89 Other chest pain (principal); R94.39 Abnormal result of other cardiovascular function study
CPT/HCPCS: 36415; 80048; 85025

== ENCOUNTER 2024-09-25 15:50 | Outpatient (OUT) | payer MEDICARE, MEDICAID, SELFPAY ==
--- OUTSIDE RECORDS SUMMARY | 2024-09-25 16:02 | XMS_ITS | CCD ---
Author Organization [facility] Care Team Providers Care Plugger Name Role Phone JEEVAN, CARO F Unavailable Unavailable SHANTELL SASHAJIA CLARISA Unavailable Unavailab le DEASY, CARO F Unavailable Unavailable DEASY, CARO F Unavailable Unavailable EBRAHEIM, JAMIN Admitting Unavailable MARCELO JAMIN Attending Unavailable ABIEL BLACKWELL Referring Unavailable ABIEL BLACKWELL Primary Care Unavailable MD Procedure Practitioner Unavailab SU YoungerIL Surgeon Unavailable CECILIA BOUDREAUX Attending Unavailable ABIEL BLACKWELL Primary Care Unavailable CECILIA BOUDREAUX Admitting Unavailable Niranjan Bustillos Consulting Unavailable SAMSA .ANGIE Admitting Unavailable SAMSA ANGIE Dumont Attending Unavailable CECILIA BOUDREAUX Primary Care Unavailable SAMSA ANGIE Dumont Consulting Unavailable CECILIA BOUDREAUX Admitting Unavailable CECILIA BOUDREAUX Primary Care Unavailable CECILIA BOUDREAUX Attending Unavailable REQUEST, NONE LISTED Admitting Unavaila ble REQUEST, NONE LISTED Consulting Unavaila ble REQUEST, NONE LISTED Attending Unavaila ble CECILIA BOUDREAUX Primary Care Unavailable ALEXSANDRA ÁLVAREZ Attending Unavailable CECILIA BOUDREAUX Referring Unavailable ABIEL BLACKWELL Primary Care Unavailable Abiel Blackwell MD Primary Care Provider KIM ROSSI Attending Unavailable KIM ROSSI Attending Unavailable KIM ROSSI Admitting Unavailable KIM ROSSI Attending Unavailable KIM ROSSI Referring Unavailable KIM ROSSI Attending Unavailable Allergies Allergy Classification Reported Allergen(s) Allergy Type Date of Onset Reaction(s) Facility (7 sources) Blueberry; Translations: [BLUEBERRY] Propensity to adverse reactions to drug (disorder) 6 Anaphylaxis [facility] Repository (9 sources) morphine; Translations: [MORPHINE] Drug Allergy 2 Itching, Rash [facility] Repository (4 sources) natural latex rubber; Translations: [LATEX, NATURAL RUBBER] Propensity to adverse reactions to drug (disorder) 3 AOF [facility] Repository (2 sources) Shellfish; Translations: [SHELLFISH DERIVED] Prop[facility] SILVER-HYDROCOL LOID DRESSING; Translations: [SILVER-HYDROCO LLOID DRESSING] Prop[facility] adverse reactions [facility] Blueberry; Translations: [BLUEBERRIES] Propensity to adverse reactions (disorder) 9 [facility] Repository (5 sources) Latex; Translations: [LATEX] Propensity to adverse reactions (disorder) 9 Rash [facility] Repository (1 source) ACCUCOT; Translations: [Unknown] Propensity to adverse reactions (disorder) 9 [facility] Repository (2 sources) Adhesive agent; Translations: [ADHESIVE] Drug allergy (disorder) 2 [facility] Repository (2 sources) Aspirin Drug Allergy [facility] Repository (1 source) fluticasone / vilanterol Drug Allergy [facility] Repository (2 sources) Shellfish Drug allergy (disorder) [facility] Repository (2 sources) Acticoat Dressing Drug allergy (disorder) [facility] Repository (4 sources) CRAB; Translations: [CRAB] Propensity to adverse reactions to food (disorder) 1 Anaphylaxis [facility] Repository (4 sources) OTHER; Translations: [OTHER] Propensity to adverse reactions (disorder) 1 [facility] Repository (1 source) metFORMIN; Translations: [METFORMIN HCL] Drug Allergy 5 [facility] Repository (1 source) tiotropium; Translations: [TIOTROPIUM] Drug Allergy 5 [facility] Repository (1 source) BLUEBERRY FLAVOR; Translations: [BLUEBERRY FLAVOR] Propensity to adverse reactions to drug (disorder) 2 [facility] Repository (1 source) SHELLFISH CONTAINING PRODUCTS; Translations: [SHELLFISH CONTAINING PRODUCTS] Propensity to adverse reactions to drug (disorder) 2 [facility] Repository (1 source) WOUND DRESSINGS; Translations: [WOUND DRESSINGS] Propensity to adverse reactions to drug (disorder) 2 [facility] Repository Medications Current Medications Medication Drug Class(es) Dates Sig (Normalized) Sig (Original) [id number] 200 actuat albuterol 0.09 mg/actuat metered dose [...] mg total) by mouth nightly. 0 Active tlylyjtq-udua-JT-calci um &mins (THERAGRAN-M) 9 mg iron-400 mcg tablet (3 sources) repqyzdw-fxip-LV -calci um &mins (THERAGRAN-M) 9 mg iron-400 mcg tablet Take 1 tablet by mouth in the morning. 0 Active fltueecc-jveq-UW -calcium &mins (THERAGRAN-M) 9 mg iron-400 mcg [...] mouth in the morning. 0 Active Problems Active Problems Problem Classification Problem Date Documented Date Episodic/Chronic Asthma (4 sources) Mild persistent asthma, uncomplicated; Translations: [MILD PERSIST ASTHMA UNCOMPLICATED] Onset: 09-11-2022 Chronic Cardiac dysrhythmias (2 sources) Ventricular premature depolarization; Translations: [Ventricular premature depolarization] Onset: 09-16-2024 Chronic Cardiac dysrhythmias (2 sources) Palpitations; Translations: [Palpitations] Onset: 09-16-2024 Episodic Coronary atherosclerosis and other heart disease (2 sources) Atherosclerotic heart disease of [place] coronary artery without angina pectoris; Translations: [Atherosclerotic heart disease of [place] coronary artery without angina pectoris] Onset: 09-16-2024 Chronic Disorders of lipid metabolism (2 sources) Mixed hyperlipidemia; Translations: [Mixed hyperlipidemia] Onset: 09-16-2023 Chronic Essential hypertension (2 sources) Essential (primary) hypertension; Translations: [Essential (primary) hypertension] Onset: 09-16-2023 Chronic Occlusion or stenosis of precerebral arteries (7 sources) Occlusion and stenosis of unspecified carotid artery; Translations: [Vascular calcification] Onset: 09-13-2023 09-12-2023 Chronic Residual codes; unclassified (2 sources) Obstructive sleep apnea (adult) (pediatric); Translations: [Obstructive sleep apnea (adult) (pediatric)] Onset: 09-16-2024 Chronic Unclassified (1 source) Carotid Artery Disease Onset: 09-12-2023 Past or Other Problems Problem Classification Problem Date Documented Date Episodic/Chronic Conditions associated with dizziness or vertigo (3 sources) Dizziness; Translations: [Dizziness and giddiness] Onset: 10-11-2023 09-16-2023 Episodic Nonspecific chest pain (2 sources) Other chest pain; Translations: [Other chest pain] Onset: 10-15-2023 Episodic Other lower respiratory disease (2 sources) Shortness of breath; Translations: [Shortness of breath] Onset: 10-11-2023 Episodic Other screening for suspected conditions (not mental disorders or infectious disease) (2 sources) Abnormal result of other cardiovascular function study; Translations: [Abnormal result of other cardiovascular function study] Onset: 10-15-2023 Episodic Results Test Name Value Interpretation Reference Range Facility Office Visiton 09-16-2024 Follow-up visit [id number] Brooke Landry 1955 F Date Provider Department Center 09/16/2024 KIM STEPHENS Family History Problem Relation Age of Onset Cancer Mother Heart disease Mother Stroke Mother Diabetes Father Heart disease Father Breast cancer Sister Diabetes Sister Mental illness Sister Family Status - Relation Status Age at Mother Father Sister Alive Level of Service:50722 MD OFFICE/OUTPATIENT ESTABLISHED MOD MDM 30 MIN Normal [facility] Office Visiton 12-12-2023 Follow-up visit [id number] Brooke Landry 1955 F Date Provider Department Center 12/12/2023 KIM STEPHENS Family History Problem Relation Age of Onset Cancer Mother Heart disease Mother Stroke Mother Diabetes Father Heart disease Father Breast cancer Sister Diabetes Sister Mental illness Sister Family Status - Relation Status Age at Mother Father Sister Level of Service:[id number] MD OFFICE/OUTPATIENT ESTABLISHED MOD MDM 30 MIN Normal [facility] HPon 2023 History Of Present I piotr Landry is a 67 y.o. female presenting for planned coronary angiogram. PMHx of HTN, HLP, [place], morbid obesity , prediabetes, who was evaluated recently in the clinic for recent onset of CP, SOB, dizziness, and palpitations. She denies syncope, lower extremity edema. Further work up showed stress test showed evidence of anteroapical reversible defect concerning for ischemia in the LAD territory. The echocardiogram showed normal ventricular and valvular function and mildly elevated right-sided pressures. The Holter monitor showed evidence of frequent PVCs with a burden of 11%. Past Medical History She has a past medical history of Hyperlipidemia and Hypertension. [place], morbid obesity, prediabetes Surgical History She has a past surgical history that includes Total knee arthroplasty; [place] tooth extraction; Carpal tunnel release; and Joint replacement. Social History She reports that she has never smoked. She has never used smokeless tobacco. She reports that she does not currently use alcohol. She reports that she does not use drugs. Allergies Blueberry flavor; Shellfish containing products; Adhesive; Silver-hydrocolloid dressing; Latex, natural rubber; Morphine; and Wound dressings Medications Medications Prior to Admission Medication Sig Dispense Refill Last Dose albuterol 90 mcg/actuation inhaler Inhale 2 puffs every 6 (six) hours if needed. aspirin 81 mg chewable tablet Chew 1 tablet (81 mg) in the morning. 90 tablet 3 b complex-vitamin c tablet Take 1 tablet by mouth in the morning. carboxymethylcellulose PF (Refresh Plus) 0.5 % ophthalmic solution 1 drop if needed in the morning, at noon, and at bedtime. cholecalciferol (D3-5) 5,000 Units tablet Take 5,000 Units by mouth in the morning. co-enzyme Q-10 30 mg capsule Take 200 mg by mouth twice a day. cycloSPORINE (Restasis) 0.05 % ophthalmic emulsion 1 drop twice a day. isosorbide mononitrate ER (Imdur) 30 mg 24 hr tablet Take 1 tablet (30 mg) by mouth in the morning. Do not crush or chew. 90 tablet 3 losartan (Cozaar) 100 mg tablet Take 100 mg by mouth in the morning. magnesium oxide (Mag-Ox) 400 mg (241.3 mg magnesium) tablet Take 400 mg by mouth twice a day. metoprolol succinate XL (Toprol-XL) 50 mg 24 hr tablet Take 50 mg by mouth in the morning. montelukast (Singulair) 10 mg tablet Take 10 mg by mouth in the morning. multivitamin (Theragran-M) 9 mg iron-400 mcg tablet Take 1 tablet by mouth in the morning. semaglutide (Ozempic) 1 mg/dose (4 mg/3 mL) pen injector INJECT 1MG SUBCUTANEOUSLY ONCE A WEEK for 84 days simvastatin (Zocor) 10 mg tablet Take 10 mg by mouth in the morning. tiotropium (Spiriva) [address] 1 capsule into inhaler and inhale in the morning. Review of Systems 12 point ROS negative except as in HPI Physical Exam Constitutional: Appearance: She is well-developed. [...] Behavior: Behavior is cooperative. Judgment: Judgment normal. Last Recorded Vitals 03/04/2019 1:42 PM 03/04/2019 1:43 PM 03/18/2019 2:36 PM 04/29/2019 2:57 PM 06/15/2019 2:19 PM 09/20/2023 9:35 AM 10/11/2023 2:39 PM Vitals Systolic 124 130 Diastolic 70 70 Heart Rate 76 64 Resp 13 16 Height (in) 1.664 m (5' 5.5 ) 1.664 m (5' 5.5 ) 1.664 m (5' 5.5 ) 1.664 m (5' 5.5 ) 1.664 m (5' 5.5 ) 1.664 m (5' 5.5 ) Weight (lb) 280 280 280 271 272 BMI 45.89 kg/m2 45.89 kg/m2 45.89 kg/m2 45.89 kg/m2 45.89 kg/m2 45.89 kg/m2 45.89 kg/m2 44.41 kg/m2 44.57 kg/m2 BSA (m2) 2.42 m2 2.42 m2 2.42 m2 2.42 m2 2.42 m2 2.42 m2 2.42 m2 2.38 m2 2.38 m2 Visit Report Report Report Relevant Results Blood testing 09/06/2023: Potassium 4.2, BUN 17, creatinine 0.99, EGFR 56, glucose 86, LFTs normal. Blood testing 08/31/2023: Hemoglobin 14.1, platelets 284, potassium 4.3, BUN 22, creatinine 1.13, EGFR 48, hemoglobin (more content not included)... [facility] NURSNOTEon 2023 NURSNOTE RN educated pt on d/ c instructions. RN encouraged pt to voice any questions or concerns. Pt verbalizes no questions or concerns at this time. Pt was wheeled off of unit with all of belongings. [facility] Office Visiton 10-11-2023 Follow-up visit [id number] Brooke Landry 1955 F Date Provider Department Center 10/11/2023 Saranya-KIM ROSSI [facility] Family History Problem Relation Age of Onset Cancer Mother Heart disease Mother Stroke Mother Diabetes Father Heart disease Father Breast cancer Sister Diabetes Sister Mental illness Sister Family Status - Relation Status Age at Mother Father Sister Level of Service:[id number] MD OFFICE/OUTPATIENT ESTABLISHED HIGH MDM 40 MIN Reason for Visit and Comments: Follow-up [281980] - Stress test/echo Chest Pain [786782] - (Tightness) no pain- Lasting 15mins-30mins with the off rhythm episodes. Normal [facility] GLYCOHEMOGLOBIN A1Con 2022 ADA RECOMMENDATION SEE BELOW Normal [facility] Comment on above: Result Comment: ADA RECOMMENDED LIMIT 4.0 - 6.0 ADA THERAPEUTIC TARGET < 7.0 ACTION SUGGESTED > 7.0 Performed By: #### D ATA1C #### [facility] [address] [place], [place] [address] Dr. Kiley Plata Glucose [Mass/Vol] 120 mg/dL Normal [facility] Comment on above: Performed By: #### D ATA1C #### [facility] [address] [place], [place] [address] Dr. Kiley Plata HbA1c (Bld) [Mass fraction] 5.8 % Normal 4.5-6.2 [facility] Comment on above: Performed By: #### D ATA1C #### [facility] [address] [place] [address] [address] Kiley Plata XR CHEST 2 Von [...] by: NIRANJAN BUSTILLOS Date: 2022-09-11 10:04 Normal [facility] ANKLE LEFT 3 VWSon 9 ANKLE LEFT 3 VWS [facility] Department of Radiology [address] [place] [phone] Patient Name: BROOKE LANDRY : 1955 Sex: F Age: Race: White Pt. Location: 84 Patient Status: Ordered Date: 06/15/2019 1:45:00 PM Completed Date: 06/15/2019 01:47 PM Requesting Provider: SOLANGE CRUZ Attending Provider: Report Copy To: Signs & Symptoms: M25.579 Pain in unspecified ankle and joints of unspecified foot I10 History: [place] Comments: , , , Ordering Provider [...] alignment Electronically signed by:Julissa Che. Transcribed by: [email or web address], User Resident: Electronically Signed by: JULISSA CHE @ 06/15/2019 02:12 PM Normal [facility] Comment on above: Order Comment: , str ess view , Views (X-RAY, ANKLE): Radiologic Protocol , stress view , Views (X-RAY, ANKLE): Radiologic Protocol , , , Ordering Provider - JAMIN PACHECO MD , ANKLE RIGHT 3 VWSon 06-15-20 19 ANKLE RIGHT 3 VWS [facility] Department of Radiology [address] [place] [phone] Patient Name: BROOKE LANDRY : 1955 Sex: F Age: Race: White Pt. Location: 84 Patient Status: Ordered Date: 06/15/2019 1:45:00 PM Completed Date: 06/15/2019 01:47 PM Requesting Provider: SOLANGE CRUZ Attending Provider: Report Copy To: Signs & Symptoms: M25.579 Pain in unspecified ankle and joints of unspecified foot I10 History: [place] Comments: , , , Ordering Provider [...] alignment Electronically signed by:Julissa Che. Transcribed by: [email or web address], User Resident: Electronically Signed by: JULISSA CHE @ 06/15/2019 02:12 PM Normal [facility] Comment on above: Order Comment: , str ess view , Views (X-RAY, ANKLE): Radiologic Protocol , stress view , Views (X-RAY, ANKLE): Radiologic Protocol , , , Ordering Provider - JAMIN PACHECO MD , ANKLE LEFT 3 [facility] 9 ANKLE LEFT 3 [facility] Department of Radiology [address] [place] [phone] Patient Name: BROOKE LANDRY : 1955 Sex: F Age: Race: White Pt. Location: Patient Status: Ordered Date: 04/29/2019 2:10:00 PM Completed Date: 04/29/2019 02:13 PM Requesting Provider: BEBETO CRUM Attending Provider: Report Copy To: Signs & Symptoms: S82.842D Displ bimalleol fx l low leg, subs for clos fx w routn heal I10 History: [place] Comments: , , , Ordering Provider - BEBETO CRUM PA-C , Exam: ANKLE LEFT 3 [facility] ANKLE LEFT 3 VWS, ANKLE RIGHT [...] spurring Electronically signed by:Julissa Che. Transcribed by: [email or web address], User Resident: Electronically Signed by: JULISSA CHE @ 04/29/2019 03:41 PM Normal [facility] Comment on above: Order Comment: , str ess view , Views (X-RAY, ANKLE): Radiologic Protocol , stress view , Views (X-RAY, ANKLE): Radiologic Protocol , , , Ordering Provider - JAMIN PACHECO MD , ANKLE RIGHT 3 VWSon 04-29-20 19 ANKLE RIGHT 3 VWS [facility] Department of Radiology [address] [place] [phone] Patient Name: BROOKE LNADRY : 1955 Sex: F Age: Race: White [...] spurring Electronically signed by:Julissa Che. Transcribed by: [email or web address], User Resident: Electronically Signed by: JULISSA CHE @ 04/29/2019 03:41 PM Normal [facility] Comment on above: Order Comment: , str ess view , Views (X-RAY, ANKLE): Radiologic Protocol , stress view , Views (X-RAY, ANKLE): Radiologic Protocol , , , Ordering Provider - JAMIN PACHECO MD , ANKLE LEFT 3 [facility] 9 ANKLE LEFT 3 [facility] Department of Radiology [address] [place] [phone] Patient Name: BROOKE LANDRY : 1955 [...] CRUM PA-C , Exam: ANKLE LEFT 3 [facility] ANKLE LEFT 3 VWS, ANKLE RIGHT [...] alignment Electronically signed by:Julissa Che. Transcribed by: [email or web address], User Resident: Electronically Signed by: JULISSA CHE @ 03/18/2019 03:19 PM Normal [facility] Comment on above: Order Comment: , str ess view , Views (X-RAY, ANKLE): Radiologic Protocol , stress view , Views (X-RAY, ANKLE): Radiologic Protocol , , , Ordering Provider - JAMIN PACHECO MD , ANKLE RIGHT 3 Son 03-18-20 19 ANKLE RIGHT 3 VWS [facility] Department of Radiology [address] [place] [phone] Patient Name: BROOKE LANDRY : 1955 Sex: F Age: Race: White Pt. Location: 84 Patient Status: Ordered Date: 03/18/2019 2:25:00 PM Completed Date: 03/18/2019 02:28 PM Requesting Provider: BEBETO CRUM Attending Provider: Report Copy To: Signs & Symptoms: S82.842D Displ bimalleol fx l low leg, subs for clos fx w routn heal I10 History: [place] Comments: , , , Ordering Provider [...] alignment Electronically signed by:Julissa Che. Transcribed by: [email or web address], User Resident: Electronically Signed by: JULISSA CHE @ 03/18/2019 03:19 PM [place] [facility] Comment on above: Order Comment: , str ess view , Views (X-RAY, ANKLE): Radiologic Protocol , stress view , Views (X-RAY, ANKLE): Radiologic Protocol , , , Ordering Provider - JAMIN PACHECO MD , ANKLE LEFT 3 VWSon 9 ANKLE LEFT 3 VWS [facility] Department of Radiology [address] [place] [phone] Patient Name: BROOKE LANDRY : 1955 [...] , , , Ordering Provider - BEBETO SKYLA PA-C , PROTOCOL: AP,Lateral and Oblique views [...] alignment Electronically signed by:Julissa Che. Transcribed by: [email or web address], User Resident: Electronically Signed by: JULISSA CHE @ 03/04/2019 01:59 PM Normal [facility] Comment on above: Order Comment: , str ess view , Views (X-RAY, ANKLE): Radiologic Protocol , stress view , Views (X-RAY, ANKLE): Radiologic Protocol , , , Ordering Provider - JAMIN PACHECO MD , ANKLE RIGHT 3 [facility] 03-04-20 19 ANKLE RIGHT 3 [facility] Department of Radiology [address] [place] [phone] Patient Name: BROOKE LANDRY : 1955 Sex: F Age: Race: White Pt. Location: Patient Status: O Ordered Date: 03/04/2019 1:25:00 PM Completed Date: 03/04/2019 01:38 PM Requesting Provider: BEBETO CRUM Attending Provider: BEBETO CRUM Report Copy To: Signs & Symptoms: S82.842D Displ bimalleol fx l low leg, subs for clos fx w routn heal I10 History: [place] Comments: , , , Ordering Provider - BEBETO CRUM PA-C , Exam: ANKLE RIGHT 3 [facility] ANKLE LEFT 3 VWS, ANKLE RIGHT [...] alignment Electronically signed by:Julissa Che. Transcribed by: [email or web address], User Resident: Electronically Signed by: JULISSA CHE @ 03/04/2019 01:59 PM Normal [facility] Comment on above: Order Comment: , str ess view , Views (X-RAY, ANKLE): Radiologic Protocol , stress view , Views (X-RAY, ANKLE): Radiologic Protocol , , , Ordering Provider - JAMIN PACHECO MD , ANKLE LEFT 3 VWSon 9 ANKLE LEFT 3 VWS [facility] Department of Radiology [address] [place] [phone] Patient Name: BROOKE LANDRY : 1955 Sex: F Age: Race: White Pt. Location: 84 Patient Status: Ordered Date: 02/04/2019 10:25:00 AM Completed Date: 02/04/2019 10:38 AM Requesting Provider: ITALO JIANG Attending Provider: Report Copy To: Signs & Symptoms: S82.842A Displaced bimalleolar fracture of left lower leg, init I10 History: [place] Comments: , Views (X-RAY, ANKLE): Radiologic Protocol , Views (X-RAY, ANKLE): Radiologic Protocol , , , Ordering Provider - ITALO JIANG PA-C , Exam: ANKLE LEFT 3 S ANKLE LEFT 3 S 02/04/2019 10:38 AM [...] healing Electronically signed by:Zonia Cates. Transcribed by: [email or web address], User Resident: Electronically Signed by: ZONIA CATES @ 02/04/2019 03:17 PM [facility] Comment on above: Order Comment: , str ess view , Views (X-RAY, ANKLE): Radiologic Protocol , stress view , Views (X-RAY, ANKLE): Radiologic Protocol , , , Ordering Provider - JAMIN PACHECO MD , ANKLE RIGHT 3 VWSon 02-05-20 19 ANKLE RIGHT 3 S [facility] Department of Radiology [address] [place] [phone] Patient Name: BROOKE LANDRY : 1955 [...] JIANG PA-C , Exam: ANKLE RIGHT 3 [facility] ANKLE RIGHT 3 S 02/04/2019 10:38 AM [...] healing Electronically signed by:Zonia Cates. Transcribed by: [email or web address], User Resident: Electronically Signed by: ZONIA CATES @ 02/04/2019 03:31 PM Normal [facility] Comment on above: Order Comment: , str ess view , Views (X-RAY, ANKLE): Radiologic Protocol , stress view , Views (X-RAY, ANKLE): Radiologic Protocol , , , Ordering Provider - JAMIN PACHECO MD , Operative Reporton [id number] 9 Operative Report MR#: [id number] I [facility] Pt. Name: Brooke Landry Room #: [id number] Discharge 01/23/2019 Date: Birthdate: 1955 OPERATIVE REPORT [...] Dao MD Date Trans: 01/29/2019 11:37 A/smooth [id number] Normal [facility] BASIC METABOLIC PANELon 08-0 Calcium [Mass/Vol] 9.4 mg/dL Normal 8.6-10.3 [facility] Comment on above: Order Comment: , str ess view , Views (X-RAY, ANKLE): Radiologic Protocol , stress view , Views (X-RAY, ANKLE): Radiologic Protocol , , , Ordering Provider - JAMIN PACHECO MD , Performed By: #### [id number] ####[facility] [address] Chloride [Moles/Vol] 100 mmol/L Normal 98-107 [facility] Comment on above: Order Comment: , str ess view , Views (X-RAY, ANKLE): Radiologic Protocol , stress view , Views (X-RAY, ANKLE): Radiologic Protocol , , , Ordering Provider - JAMIN PACHECO MD , Performed By: #### [id number] ####[facility] CO2 [Moles/Vol] 32 mmol/L High 21-31 [facility] Comment on above: Order Comment: , str ess view , Views (X-RAY, ANKLE): Radiologic Protocol , stress view , Views (X-RAY, ANKLE): Radiologic Protocol , , , Ordering Lucero PACHECO MD , Performed By: #### [id number] ####[place] [address] [address] Creatinine [Mass/Vol] 0.78 mg/dL Normal 0.60-1.20 [facility] Comment on above: Order Comment: , str ess view , Views (X-RAY, ANKLE): Radiologic Protocol , stress view , Views (X-RAY, ANKLE): Radiologic Protocol , , , Ordering Lucero PACHECO MD , Performed By: #### 0 [id number] ####[address] GFR/1.73 sq M predicted among blacks MDRD (S/P/Bld) [Vol rate/Area] mL/min/{1.73_m2} Normal >60 [facility] [facility] Comment on above: Order Comment: , str ess view , Views (X-RAY, ANKLE): Radiologic Protocol , stress view , Views (X-RAY, ANKLE): Radiologic Protocol , , , Ordering Lucero PACHECO MD , Performed By: #### 0 0071 ####[address] GFR/1.73 sq M predicted among non-blacks MDRD (S/P/Bld) [Vol rate/Area] mL/min/{1.73_m2} Normal >60 [facility] Comment on above: Order Comment: , str ess view , Views (X-RAY, ANKLE): Radiologic Protocol , stress view , Views (X-RAY, ANKLE): Radiologic Protocol , , , Ordering Lucero PACHECO MD , Performed By: #### 0 0071 ####[address] Glucose [Mass/Vol] 151 mg/dL High 70-100 [facility] Comment on above: Order Comment: , str ess view , Views (X-RAY, ANKLE): Radiologic Protocol , stress view , Views (X-RAY, ANKLE): Radiologic Protocol , , , Ordering Lucero PACHECO MD , Performed By: #### 0 0071 ####[address] Potassium [Moles/Vol] 4.1 mmol/L Normal 3.5-5.1 [facility] Comment on above: Order Comment: , str ess view , Views (X-RAY, ANKLE): Radiologic Protocol , stress view , Views (X-RAY, ANKLE): Radiologic Protocol , , , Ordering Lucero PACHECO MD , Performed By: #### 0 0071 ####[address] Sodium [Moles/Vol] 137 mmol/L Normal 136-145 [facility] Comment on above: Order Comment: , str ess view , Views (X-RAY, ANKLE): Radiologic Protocol , stress view , Views (X-RAY, ANKLE): Radiologic Protocol , , , Hermann PACHECO MD , Performed By: #### 0 0071 ####[address] [place] [address], [place] Urea nitrogen [Mass/Vol] 13 mg/dL Normal 7-25 [facility] Comment on above: Order Comment: , str ess view , Views (X-RAY, ANKLE): Radiologic Protocol , stress view , Views (X-RAY, ANKLE): Radiologic Protocol , , , Ordering Lucero PACHECO MD , Performed By: #### 0 0071 ####[address] CBC COMPLETE BLOOD COUNTon 0 01-23-2019 Erythrocyte distribution width (RBC) [Ratio] 13.5 % Normal 11.5-15.0 [facility] Comment on above: Order Comment: , str ess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 ROSALVA [address] [place] [address] Business (1) Within 1 to 2 days Comments: Return to ED if symptoms worsen In the event that this physician does not participate in your insurance network, please consult with your insurance company to find a nearby participating provider. Patient Education Materials: Fibular Fracture, Adult, Treated Without Immobilization; Cast or Splint Care, Mkai-gb-Edwn A MESSAGE TO ALL PATIENTS REGARDING OPIOIDS PRESCRIPTION OPIOIDS: WHAT YOU NEED TO KNOW Prescription opioids can be used to help relieve cmhxhlxo-gg-vjenii pain and are often prescribed following a [...] with addiction, tell your health health care coach and ask for guidance or call SAMHSA?S National Helpline at 1-005-275-YURV. v Source: US Department of Health and Human Services/Center for Disease Control & Prevention [facility] Medications Given: Medication Dose Route acetaminophen-oxycodone 1.00 tab(s) Oral Medication Information: New Medications Printed Prescriptions acetaminophen-hydrocodone (Neopit 325 mg-5 mg oral tablet) 1 Tabs [...] Comment: Pharmacy Information: Thank you for choosing [facility] Patient Education Materials: Fibular Fracture, Adult, [...] when comfortable doing so. ? Only take mbtm-rvx-niiprsn or prescription medicines for pain, discomfort, or [...] Document Reviewed: 01/07/2009 ExitCare? Patient Information ?2015 [employer]blime. This information is not intended to replace [...] Document Reviewed: 12/10/2013 ExitCare? Patient Information ?2015 [employer]blime. This information is not intended to replace advice given to you by your health care provider. Make sure you discuss any questions you have with your health care provider. RON Chan VERNA L , have received the following patient education materials/instructions and have verbalized understanding: Patient Education Materials: Fibular Fracture, Adult, Treated Without Immobilization; Cast or Splint Care, Tiwe-lh-Oqqv Follow-up Instructions: With: Address: When: Chava Brenton [address] [address] Business (1) Within 1 to 2 days Comments: CALL THE ORTHO DOCTOR IN THE AM TO MAKE AN APPOINTMENT WEIGHT BEARING TOLERATED MAINTAIN THE BOOTS USE A WALKER FOR AMBULATION FOLLOW UP WITH PCP IN 1-2 DAYS RETURN IF SYMPTOMS WORSEN With: Address: When: ABIEL ROSALVA [address] [place], [place] [address] [id number] [facility] (1) Within 1 to 2 days Comments: Return to ED if symptoms worsen Prescriptions: [acetaminophen-hydrocodone (Neopit 325 mg-5 mg oral tablet)] [lidocaine topical (lidocaine Top 5% film Patch)] [orphenadrine (orphenadrine 100 mg ER Tab)] Patient Signature __ Date Clinician/Nurse Signature Date 12/16/18 22:04:54 Normal [facility] XR Ankle 3+ Views Lefton XR [...] Harry M.D. Transcribed by: KARLOS Technologist: ROSA [facility] XR Ankle 3+ Views Righton XR [...] Harry M.D. Transcribed by: KARLOS Technologist: ROSA [facility] XR Foot 3+ Views Lefton XR [...] Harry M.D. Transcribed by: KARLOS Technologist: ROSA [facility] XR Knee Complete 4+ Views Ri ghton 12-17-2018 XR Knee Complete 4+ Views Right [...] Harry M.D. Transcribed by: KARLOS Technologist: ROSA [facility] PROGRESSon 10-07-2017 PROGRESS HNO ID: [id number] thor: Caro Bowers DeasyService: (none)Author Type: PhysicianType: [...] dayBoth eyes and Artificial tears . Advise Zahl 3 fatty acids 1gram daily.Return to clinic [...] the management ofthis patient's care with the Legal Receptionist, if applicable. I also havereviewed and agree with the assessment and plan as stated above and agreewith all of its relevant components.Caro Suggs MD [facility] 07-08-2017 HOSP Office Visit OPHT (OPLKAV) BROOKE LANDRY ([id number]) 1955 FDate Time Provider Department07/08/17 1:30 PM [...] day Botheyes and Artificial tears . Advise Zahl 3 fatty acids 1gram daily.The documentation recorded by the scribe accurately reflects the service Ipersonally performed and the decisions made by me.I have confirmed and edited as necessary the relevant ophthalmic history, ROS,and the neuro exam findings as obtained by others. I have seen and examinedBrooke Landry. I have discussed the case and the management of this patient'scare with the Legal Receptionist, if applicable. I also have reviewed and agree withthe assessment and plan as stated above and agree with all of its relevantcomponents.Aldo Molina Provider: GORDON ROBLES [[id number]]Allergies As of Date: 07/08/2017 Noted Allergy ReactionACTICOAT [...] right [H35.411]Order(s):DILATED FUNDUS EXAM [] Order #: [id number]: 1 IOP MEASUREMENT [] Order #: [id number]: 1 OCT MACULA CIRRUS OU (BOTH EYES) [21291020] Order #: [id number]: 1 DILATED FUNDUS EXAM [] Order #: [id number]: 1 FUTURE IOP MEASUREMENT [] Order #: [id number]: 1 FUTURE OCT MACULA CIRRUS OU (BOTH EYES) [21291020] Order #: [id number]: 1 FUTUREPrescriptions as of 07/08/2017 Sig: TURMERIC [...] [G*INVALID FOR*Follow-up and Disposition History RecordedEncounter Number: [id number] Status:Closed by CARO SUGGS MD on 07/08/17 Normal [facility] PROGRESSon 07-08-2017 PROGRESS HNO ID: [id number] thor: Caro SuggsService: (none)Author Type: PhysicianType: Progress [...] dayBoth eyes and Artificial tears . Advise Zahl 3 fatty acids 1gram daily.The documentation recorded by the scribe accurately reflects the service Ipersonally performed and the decisions made by me.I have confirmed and edited as necessary the relevant ophthalmic history,ROS, and the neuro exam findings as obtained by others. I have seen andexamined Brooke Landry. I have discussed the case and the management ofthis patient's care with the Legal Receptionist, if applicable. 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 [...] Modules accepted: Orders, SmartSetReferring Provider: CARO SUGGS [[id number]]Allergies As of Date: 04/08/2017 Noted Allergy ReactionACTICOAT [...] eyes [H35.073]Order(s):DILATED FUNDUS EXAM [] Order #: [id number]: 1 IOP MEASUREMENT [] Order #: [id number]: 1 OCT MACULA CIRRUS OU (BOTH EYES) [21291020] Order #: [id number]: 1 DILATED FUNDUS EXAM [] Order #: [id number]: 1 FUTURE IOP MEASUREMENT [] Order #: [id number]: 1 FUTURE OCT MACULA CIRRUS OU (BOTH EYES) [21291020] Order #: [id number]: 1 FUTUREPrescriptions as of 04/08/2017 Sig: PYRIDOSTIGMINE [...] (around 10/07/2017).Follow-up and Disposition History RecordedEncounter Number: [id number] Status:Closed by OKSANA HERNANDEZ on 04/08/17 [facility] PROGRESSon 04-08-2017 PROGRESS HNO ID: [id number] thor: Oksana Evangelista: (none)Author Type: PhysicianType: Progress NotesFiled: 04/08/2017 4:20 PMNote Text:Prefers to be seen in [place].(H35.073) 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 I have confirmed and edited asnecessary the [...] or sooner ifnew symptoms develop.Oksana Hernandez MD Normal [facility] Encounters Encounter Date Encounter Type Care Provider Facility Start: 09-16-2024 End: 09-16-2024 ambulatory [facility] Start: 12-12-2023 End: 12-12-2023 ambulatory [facility] Start: 2023 End: 2023 ambulatory [facility] Start: 10-11-2023 End: 10-11-2023 ambulatory [facility] Start: 09-16-2023 Orders Only Reina Gomes LPN [facility] Comment on above: Dizziness (Primary D x) Carotid artery calci fication, unspecified laterality (Primary Dx); Bilateral carotid artery stenosis Start: 09-12-2023 ambulatory ALEXSANDRA ÁLVAREZ [facility] Start: 09-12-2023 End: 09-12-2023 [...] Evaluation and management of inpatient JAMIN PACHECO Facility:[facility] Start: 10-07-2017 End: 10-09-2017 Ambulatory CARO SUGGS [facility] Start: 07-08-2017 End: 07-09-2017 Ambulatory CARO Bowers [facility] Start: 04-08-2017 End: 04-11-2017 Ambulatory CARO [facility] Procedures Date Procedure Procedure Detail Performing Clinician Start: 01-20-2019 REPOSITION LEFT FIBU LA WITH INT FIX, OPEN APPROACH JAMIN EBRAHEIM Start: 01-20-2019 REPOSITION RIGHT FIB SEGUNDO WITH INT FIX, OPEN APPROACH JAMIN EBRAHEIM Start: 01-19-2019 Antibody screen JAMIN BAJWA Comment on above: Performed By: #### 6 [id number] #### [facility] [address] Plan of Treatment Date Care Activity Detail Author Start: 10-08-2024 End: 10-08-2024 Patient encounter procedure 10/08/2024 10:50 AM EDT Office Visit [facility] [address] [place] [address] Alexsandra Álvarez MD [address], [address] [address] [facility] Start: 02-16-2024 Influenza vaccination Influenza Vacc ine [facility] Start: 09-16-2023 End: 10-14-2024 US Carotid arteries - bilateral Vas carotid duplex bilateral Vascular Ultrasound Routine Bilateral carotid artery stenosis Expected: 09/16/2023, Expires: 10/14/2024 [facility] Work Phone: Comment on above: Expected: 09/16/2023 , Expires: 10/14/2024 Start: 02-15-2023 COVID-19 Vaccine ( season) COVID-19 Vaccine ( season) [facility] Start: 02-15-2023 Influenza vaccination Influenza Vacc ine [facility] Start: 11-02-2021 Adult BMI Screening Adult BMI Screen ing [facility] Start: 2018 Fall Risk Screening Fall Risk Screen ing [facility] Start: 11-16-2003 Administration of varicella zoster vaccine Zoster (Shingles) Vaccine (1 of 2) [facility] Start: 1972 DTaP,Tdap and Td Vac cines (1 - Tdap) DTaP,Tdap and Td Vaccines (1 - Tdap) [facility] Start: 11-16-1971 Adult BMI Follow Up Plan Adult BMI Follow Up Plan [facility] Start: 1965 [facility] Start: 1965 [facility]ening [facility] Start: 1955 Medicare Annual Well ness Visit Medicare Annual Wellness Visit [facility] Immunizations Immunization Date Immunization Notes Care Provider Fa cility 04-13-2022 influenza virus vaccine, unspecified formulation Alexsandra Álvarez MD Work Phone: [facility] Payers Date Payer Category Payer Medicare [id number] 2019 Medicaid MEDICAID [facility] EDICAID [id number] 2019-Present [phone] [address] [place] [address] [id number] 2018 Unknown [id number] 2014 Medicare MEDICARE MEDICAR E PART A & B [id number] 2014-Present [phone] [address] [place] [address] [id number] 1959 Medicaid [id number] 1961 Medicare [id number] 1959 Self-pay [id number] 1955 Unknown [id number] 1955 Unknown [id number] 1955 Unknown [id number] 1955 Unknown [id number] 1955 Unknown [id number] Unknown [id number] Social History Date Type Detail Facility Start: 10-20-2020 End: 09-16-2023 Tobacco smoking status NHIS Never smoked tobacco [facility] Start: 10-20-2020 End: 09-16-2023 Tobacco use and exposure Smokeless tobacco non-user [facility] Start: 11-03-2020 End: 09-16-2023 Alcohol intake Lifetime non-drinker (finding) [facility] Start: 11-03-2020 End: 09-16-2023 History of Social function [facility] Start: 11-03-2020 End: 09-16-2023 Tobacco use panel [facility] Childcare Unknown [facility] Start: 1955 Sex Assigned At Not on file P [facility] Clinical Notes 09-12-2023 to 09-16-2024 Alexsandra Álvarez MD - 09/12/2023 3:00 PM EDT Note Date & Type Note Facility 09-16-2024 Note [facility] Subjective Brooke Landry is a 68 y.o. year old female patient being seen for 6 month follow up. Labs completed on 08/22/2024. Patient states she is doing a lot better than when she was last here. Patient states she does feel and extra beat when it happens patient states its hard to breath and she feels chest heaviness. Patient states when she has the extra beat it takes her breath way and makes her feel winded and gives her a slight headache Patient Active Problem List Diagnosis Ankle pain [...] lower leg, sequela Vitamin D deficiency, unspecified Other chest pain Abnormal cardiovascular stress test Family History Problem Relation Name Age of [...] symptoms. She feels palpitations with the symptoms. Visit of 12/12/2023: She is seen in follow-up. After last visit I proceeded with cardiac catheterization. This was performed on 2023 and showed stable nonobstructive coronary disease with 40% stenosis in the mid LAD that was nonhemodynamically significant by IFR measurement with minimal disease elsewhere. She was recommended medical therapy. Simvastatin was changed to atorvastatin 20 mg daily. Today she reports that she has been doing well. Her symptoms have improved significantly. She does get lightheaded occasionally. No significant chest pain, her shortness of breath with exertion has improved. No leg swelling. Visit of 09/16/2024: She is seen in follow-up. At last visit of 12/12/2023 I reduced metoprolol succinate to 25 mg once daily and increased isosorbide mononitrate to 60 mg once daily due to the heart rate being low and elevated blood pressure. Today she reports that she feels a lot better than before. She has occasional palpitations and with those palpitations she might feel some chest heaviness but no chest pain. She has improved shortness of breath on exertion. No leg edema. Her blood pressure is elevated but her heart rate is much improved after the above changes. Review of Systems Constitutional: Negative. Cardiovascular: Positive for chest pain ( heaviness with episodes of palpitations), dyspnea on exertion, irregular heartbeat and palpitations. Neurological: Positive for headaches and light-headedness. All other systems reviewed and are negative. Objective Visit Vitals BP 144/77 (BP Location: Right arm, Patient Position: Sitting) Pulse 67 Ht (more content not included)... [facility] 12-12-2023 Note [place] [facility] Subjective Brooke Landry is a 68 y.o. year old female patient being seen for follow up heart cath. Simvastatin was changed to atorvastatin. Says episodes of palpitations and chest heaviness are much less frequent. Patient Active Problem List Diagnosis Ankle pain [...] lower leg, sequela Vitamin D deficiency, unspecified Other chest pain Abnormal cardiovascular stress test Family History Problem Relation Name Age of [...] symptoms. She feels palpitations with the symptoms. Visit of 12/12/2023: She is seen in follow-up. After last visit I proceeded with cardiac catheterization. This was performed on 2023 and showed stable nonobstructive coronary disease with 40% stenosis in the mid LAD that was nonhemodynamically significant by IFR measurement with minimal disease elsewhere. She was recommended medical therapy. Simvastatin was changed to atorvastatin 20 mg daily. Today she reports that she has been doing well. Her symptoms have improved significantly. She does get lightheaded occasionally. No significant chest pain, her shortness of breath with exertion has improved. No leg swelling. Review of Systems Cardiovascular: Positive for chest pain ( heaviness with episodes of palpitations), dyspnea on exertion, irregular heartbeat and palpitations. Neurological: Positive for light-headedness. All other systems reviewed and are negative. Objective Visit Vitals BP 130/82 (BP Location: Left arm, Patient Position: Sitting) Pulse (!) 45 Ht 1.664 m (5' 5.5 ) Wt 122 kg (268 lb) SpO2 95% BMI 43.92 kg/m??? Smoking Status Never BSA 2.37 m??? Physical Exam Constitutional: Appearance: She is well-developed. She is obese. She is not ill-appearing. HENT: Head: Normocephalic and atraumatic. Nose: Nose normal. Eyes: General: No scleral icterus. Pupils: Pupils are equal, round, and reactive to light. Neck: Thyroid: No thyromegaly. Vascular: No JVD. Cardiovascular: Rate and Rhythm: Regular rhythm. Bradycardia present. Pulses: Radial pulses are 2+ on the right side and 2+ on the left side. Heart sounds: Normal heart sounds. No murmur heard. No friction rub. No gallop. Pulmonary: Effort: Pulmonary effort is normal. No respiratory distress. Breath sounds: Normal breath sounds. No wheezing or rales. Chest: Chest wall: No tenderness. Abdominal: Gen (more content not included)... [facility] 2023 Note Patient: Brooke dia Procedure Information Date/Time: 11/15/23 1100 Procedures: Coronary angiography Left heart cath Location: [facility] / [facility] (Cath) Providers: Kim Rossi MD Clinical information reviewed: Allergies Meds Physical Exam Airway Mallampati: IV TM distance: >3 FB Neck ROM: full Cardiovascular Rate: normal Dental Pulmonary (+) decreased breath sounds Abdominal (+) obese Abdomen: soft Anesthesia Plan ASA 4 (Moderate sedation) Anesthetic plan and risks discussed with patient. Use of blood products discussed with patient who consented to blood products. Additional Equipment Requests [facility] 10-11-2023 Note [place] Cardiology - [facility] Subjective Brooke Landry is a 67 [...] breath Crab Meat (more content not included)... [facility] 09-12-2023 History of Present illness Narrative Images from the original note were not included. [facility] [address] [address] Subjective: Patient ID: Brooke Landry is a [...] mg by mouth nightly., Disp: , Rfl: ayhneyvc-hevo-SY-calcium &mins (THERAGRAN-M) 9 mg iron-400 mcg tablet, Take 1 tablet by mouth daily., Disp: , Rfl: simvastatin (ZOCOR) 10 mg tablet, Take 10 mg by mouth nightly., Disp: , Rfl: TURMERIC ORAL, Take 1,000 mg by mouth daily. With curcumin, Disp: , Rfl: Past Medical History: Diagnosis Date Arrhythmia Arthritis Asthma Diabetes mellitus type 2, controlled ([facility] prediabetic Headache Hypertension Hypoglycemia Obesity PONV (postoperative nausea and vomiting) Sleep apnea cpap Visual impairment glasses Past Surgical History: Procedure Laterality Date CARPAL TUNNEL RELEASE Right HERNIA REPAIR 06/2019 JOINT REPLACEMENT bilateral knees LEG SURGERY Bilateral plate and screws in right, screws in left ankle RELEASE TRIGGER FINGER Right 11/02/2020 Performed by Wallace Barakat DO at [facility] TONSILLECTOMY Family History Problem Relation Age [...] visit: Carotid artery calcification, unspecified laterality - [facility] [place] [place] Plan Plan: Best medical therapy ASA/Statin Annual surveillance Cardiology referral Alexsandra Álvarez MD, MARLEE documented in this encounter [facility] Evaluation note Diagnosis Carotid artery calcification, unspecified laterality [facility] Diagnosis Dizziness- Primary Dizziness and giddiness [facility]* Diagnosis Carotid artery calcification, unspecified laterality- Primary Bilateral carotid artery stenosis Occlusion and stenosis of carotid artery without mention of cerebral infarction [facility] SystemInstructionsNot on filedocumented in this encounter [facility] [employer] SystemInstructionsNot on filedocumented in this encounter [facility] SystemReason for referral (narrative)* Consultation (Routine) - Pending Review Specialty Diagnoses / Procedures Referred By Yaritza t Referred To Contact Cardiology Diagnoses Dizziness Alexsandra Álvarez MD [address], [address] [address] [facility] [address] [place] [address] Referral ID Status Reason Start Date Expiration Date Visits Requested Visits Authorized [id number] Pending Review Specialty Services Required 09/16/2023 09/15/2024 [facility] Consultation (Routine) - Pending Review Specialty Diagnoses / Procedures Referred By Yaritza parra Referred To Contact Vascular Surgery Diagnoses Carotid artery calcification, unspecified laterality Cecilia Boudreaux, [employer] FIELD ENGINEER [address] [place] [address] Alexsandra Álvarez MD [address] [address] Referral ID Status Reason Start Date Expiration Date Visits Requested Visits Authorized [id number] Pending Review Specialty Services Required 09/05/2023 09/04/2024 1 1 [facility] Summary Purpose Family History No Family History Records FoundNo Family History Records FoundNo Family History Records FoundNo Family History Records FoundNo Family History Records FoundNo Family History Records Found Advance Directives No Advanced Directives Records FoundNo Advanced Directives Records FoundNo Advanced Directives Records FoundNo Advanced Directives Records FoundNo Advanced Directives Records FoundNo Advanced Directives Records Found Hospital Course Note MR#: [id number] I [facility] Pt. Name: Brooke Landry Admitted: 01/20/2019 Discharged: [...] the aforementioned procedure. The patient presented to [facility] on 01/20/2019, where ORIF of bilateral [...] Vas carotid duplex bilateral Alexsandra Álvarez MD [address] [facility], [address] [address] Referral ID Status Reason Start Date Expiration Date V isits Requested Visits Authorized [id number] Pending Review 09/16/2023 09/15/2024 1 1 Additional Source Comments INFORMATION SOURCE (unrecogn ized section and content) DATE CREATED AUTHOR 12/05/2017 [facility] DATE CREATED AUTHOR AUTHOR'S ORGANIZ ATION 01/05/2019 [facility] DATE CREATED AUTHOR AUTHOR'S ORGANIZ ATION 06/22/2019 [facility] DATE CREATED AUTHOR AUTHOR'S ORGANIZ ATION 10/31/2022 [facility] DATE CREATED AUTHOR AUTHOR'S ORGANIZ ATION 09/17/2023 [facility] DATE CREATED AUTHOR AUTHOR'S ORGANIZ ATION 09/19/[address] [facility] Care Teams (unrecognized sec tion and content) Plugger Relationship Specialty Start Date End Date Abiel Blackwell MD [address] [place] [address] PCP - General Family Medicine 10/20/20 Plugger Relationship Specialty Start Date End Date Abiel Blackwell MD [address], [place] [id number] PCP - General Family Medicine 10/20/20 Plugger Relationship Specialty Start Date End Date Abiel Blackwell MD [address] [place] [address] PCP - General Family Medicine 10/20/20 FOR [...] BE BASED ON THE PRIMARY CLINICAL RECORDS. [facility] [employer] [facility]. provides no warranty or guarantee of the accuracy or completeness of information in this document.
== END 2024-09-25 15:51 | disposition home or self-care (01) ==
LOC: US 15:50
PROVIDERS: Visit Provider Student in an Organized Health Care Education/Training Program
DX: I65.23 Occlusion and stenosis of bilateral carotid arteries (principal)
CPT/HCPCS: 93880

== ENCOUNTER 2024-11-18 15:11 | Outpatient (OUT) | payer MEDICARE, MEDICAID, SELFPAY ==
--- OUTSIDE RECORDS SUMMARY | 2024-08-11 04:07 | XMS_ITS ---
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 Processing Worker Name Role Phone Cecilia Fofana Primary Care Provider REASON FOR VISIT Ozempic refill Encounters Encounter Location Date Provider Diagnosis [facility] [address] [place] [address] 08/11/2024 Cecilia Fofana Plan Of Treatment Next Appt Details Provider Name:Yair Pérez, 01/05/2025 03:30:00 PM, [address] [place], [address], Progress Notes * Anali VELASQUEZ LDOB:1955 (68 yo F)Acc No.[id number]:08/11/2024 Patient: Tammy PADILLANatalieTerimartha Luevnao :1955 A ge:68 Y S ex:Female Address:[address] [place] [address], [phone] Subjective: * Chief Complaints: * O zempic refill * Medical History: * Surgical History: * Hospitalization/Major Diagno stic Procedure: * Medications: Objective: * Vitals: * Physical Examination: Assessment: Plan: * Treatment: * Procedure Codes: * true * Date: Generated for Printi ng/Faxing/eTransmitting on: 0 11/18/2024 03:13 PM EDT
--- OUTSIDE RECORDS SUMMARY | 2024-09-01 11:30 | XMS_ITS ---
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 Name Role Phone Cecilia Fofana Primary Care Provider Allergies Allergen (clinical drug ingredient) Drug/Non Drug Allergy documented on EMR Reaction Allergy Type Onset Date Status Latex latex (uncoded) Unknown Allergy Acti ve Shellfish (FN) shellfish (uncoded) anaphylaxis Allergy Active Blueberry Flavor Unknown Drug Allergy Active metformin metFORMIN HCl Unknown Drug Allergy Act bon morphine Morphine Sulfate Unknown Drug Allergy Active Acticoat Blisters Drug Allergy Active tiotropium Tiotropium Constipation Drug Allergy Ac tive REASON FOR VISIT yearly check up Medications Medication SIG (Take, Route, Frequency, Duration) Notes Start Date End Date Status Cinnamon 500 MG 2 tablets Orally onc e daily 09/01/2024 Active Atorvastatin Calcium 20 MG 1 tablet Orally Once a day 09/01/2024 Active Garlic 1000 MG as directed Orally daily 09/01/2024 Active Arnuity Ellipta 200 MCG/ACT 1 puff Inhalation Once a day for 90 days Rinse 11/13/2023 Active B12 5000 MCG as directed Sublingual Active Potassium 3 times weekly Active Turmeric 500 MG 1 capsule Orally onc e daily 09/01/2024 Active CO-Q 10 Tijeras-3 Fish Oil Active Vitamin B Complex Ac tive Cholecalciferol 50 MCG (2000 UT) 1 capsule Orally weekly 09/01/2024 Active Ventolin HFA 108 (90 Base) MCG/ACT 2 puffs as needed for SOB Inhalation every 4 hrs for 90 days PRN Active Spiriva Respimat 1.25 MCG/ACT 2 puffs Inhalation Once a day for 90 days Active Restasis Active Montelukast Sodium 10 MG 1 tablet Orally Once a day for 90 days Active Multivitamin Active Magnesium Active Metoprolol Succinate ER 25 MG TAKE 1 TABLET BY MOUTH EVERY DAY for 90 days Active Ozempic (1 MG/DOSE) 4 MG/3ML INJECT 1MG SUBCUTANEOUSLY ONCE A WEEK for 84 days Active [facility] Aspirin Adult Low Dose 81 MG CHEW 1 TABLET (81 MG) IN THE MORNING Oral for 90 Days Active Isosorbide Mononitrate ER 30 MG Oral for 90 Days Active Losartan Potassium 100 MG TAKE 1 TABLET BY MOUTH EVERY DAY for 90 days Active Bilberry Active CPAP Supplies -- Mask and Tubing Active Social History Tobacco Use: Social History Observation Description Date Details (start date - stop date) Never Smoker NA - NA Tobacco Control (Standard) Question Answer Notes Tobacco use: Nonsmoker Problems Problem Type SNOMED Code ICD Code Onset Dates Problem Status W/U Status Risk Notes Problem Class 3 obesity (E66.01) Active confirmed Vital Signs Weight 261.6 lbs 09/01/2024 Height 65.5 in 09/01/2024 Blood pressure systolic 142 mm Hg 09/02/19 25 Blood pressure diastolic 70 mm Hg 025 BMI 42.87 kg/m2 09/01/2024 Encounters Encounter Location Date Provider Diagnosis [facility] [address] [place] [address] 09/01/2024 Cecilia Fofana Class 3 obesity E66.01 and Prediabetes R73.03 Assessments Encounter Date Diagnosis (ICD Code) Assessment Notes Treatment Notes Treatment Clinical Notes Section Notes 09/01/2024 Class 3 obesity (ICD-10 - E66.01) continue with Ozempic A1c wnl wants to stay at same dose due to SE work on diet 09/01/2024 Prediabetes (ICD-10 - R73.03) A1C WNL continue ozempic Plan Of Treatment Treatment Notes Assessment Notes Class 3 obesity continue with Ozempic A1c wnl wants to stay at same dose due to SE work on diet Prediabetes A1C WNL continue ozempic Next Appt Details Follow Up: 6 Months,shanicenMaryuri son: Provider Name:Yair Pérez, 01/05/2025 03:30:00 PM, [address] [place], [address], Progress Notes * YONTZ, Anali LDOB:1955 (68 yo F)Acc No.[id number]:09/01/2024 Progress Note Patient: Anali BERRY Provider: Deonna Fofana ([facility]), [employer] :1955 A ge:68 Y S ex:Female Date:09/01/2024 Address:[address] [place], [place] [id number] Check In:03:17 PM ESTCheck O ut:03:52 PM EST Subjective: * Chief Complaints: * Y early check up * HPI: G eneral: feeling better, saw cardiology and changed meds less SOB with exertion, less fatigue reviewed labs A1c 5.5 Ozempic, wants to stay on same dose sees scale slowly dropping will be more active this summer seeing eye Dr, watching pressures needs to see cardiology, and vascular crafts, RENTISHs, 2sms for fun. * ROS: G eneral/Constitutional: Fatigue i mproved some. F ever d enies. H eadache d enies. W eight loss d enies. O phthalmologic: Discharge d enies. E ye Pain d enies. I tching and redness d enies. E NT: Nasal discharge d enies. N modesto congestion d enies.?Sore throat d enies. C ardiovascular: Chest tightness/ heavy pressure d enies. R apid heart rate d enies. S welling of extremities d enies. C hest pain d enies. ? R espiratory: Productive cough d enies. C hest pain d enies. C ough d enies. S hortness of breath i mproved some. W heezing d enies. ? G astrointestinal: Abdominal pain d enies. C onstipation d enies. D ecreased appetite d enies. D iarrhea d enies. N ausea d enies. V omiting?denies. G enitourinary: Urinary incontinence d enies. P ainful urination d enies. M usculoskeletal: Back pain d enies. N nicolasa pain d enies. M uscle aches d enies. S kin: Rash d enies. S kin lesion(s) d enies. ? 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 Modified On:10/11/2022 Status:confirmed H35.30 Macular degeneration Modified On:09/11/2022 Status:confirmed M19.90 Osteoarthritis Modified On:10/11/2022 Status:confirmed R73.9 Hyperglycemia Modified On:10/11/2022 Status:confirmed G47.33 Obstructive sleep ap gogo Modified On:10/09/2022 Status:confirmed G43.909 Migraine Modified On:09/11/2023 Status:confirmed J32.9 Sinusitis Modified On:10/11/2022 Status:confirmed H91.90 Hearing loss Modified On:10/11/2022 Status:confirmed R13.10 Dysphagia Modified On:10/11/2022 Status:confirmed K42.9 Umbilical hernia Modified On:10/11/2022 Status:confirmed 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, unspecified eye Modified On:10/11/2022 Status:confirmed J45.30 Mild persistent asth ma, uncomplicated Modified On:10/09/2022 Status:confirmed R00.2 Palpitations Modified On:08/26/2023 Status:confirmed R09.02 Hypoxemia Modified On:10/11/2022 Status:confirmed Z68.42 BMI 45.0-49.9, adult Modified On:10/11/2022 Status:confirmed H25.10 Nuclear sclerosis Modified On:10/11/2022 Status:confirmed F43.10 Post-traumatic stres s disorder Modified On:10/11/2022 Status:confirmed 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 Modified On:10/11/2022 Status:confirmed K42.9 Hernia, umbilical Modified On:10/11/2022 Status:confirmed Z00.00 Wellness examination Modified On:10/11/2022 Status:confirmed I10 Essential Hypertensi on Modified On:09/11/2023 Status:confirmed Z80.3 Family history of br east cancer in sister Modified On:10/11/2022 Status:confirmed R73.03 Prediabetes Modified On:09/11/2023 Status:confirmed E78.00 Hypercholesteremia Modified On:09/11/2023 Status:confirmed Z96.651 H/O total knee repla cement, right Modified On:10/11/2022 Status:confirmed R07.89 Pain of sternum Modified On:10/11/2022 Status:confirmed R51.9 Headache, unspecifie d Modified On:10/11/2022 Status:confirmed M54.5 Low back pain Modified On:10/11/2022 Status:confirmed Z98.890 H/O carpal tunnel re pair Modified On:10/11/2022 Status:confirmed 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 Modified On:10/09/2022 Status:confirmed Z86.16 History of COVID-19 Modified On:10/09/2022 Status:confirmed 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 Modified On:10/09/2022 Status:confirmed E78.5 Hyperlipidemia, unsp ecified Modified On:10/22/2022 Status:confirmed G47.62 Sleep related leg cr amps Modified On:04/12/2023 Status:confirmed I65.29 Carotid artery calci fication Modified On:09/04/2023 Status:confirmed E66.01 Class 3 obesity Modified On:09/02/2024 Status:confirmed * Medical History: * Surgical History: c arpal tunnel release left knee replacement right knee replacement tonsillectomy trigger finger release Hernia Repair Right Ankle/ Leg Surgery * Hospitalization/Major Diagno stic Procedure: D enies Past Hospitalization * Family History: F ather: , Alzheimers, stroke, diagnosed with Diabetes mellitus without mention of complication, type II or unspecified type, not stated as uncontrolled, Unspecified essential hypertension. M other: , Alzheimers, stroke, breast cancer, diagnosed with Diabetes mellitus without mention of complication, type II or unspecified type, not stated as uncontrolled, Unspecified essential hypertension, Other malignant neoplasm of unspecified site. * Social History: T obacco Use: T obacco Control (Standard) T obacco use: N onsmoker Electronic Cigarette use C urrent user N o Tobacco Use/Smoking P atient is a : nonsmoker. * Medications: T akingArnuity Ellipta(Fluticasone Furoate) 200 MCG/ACT Aerosol Powder Breath Activated 1 puff Inhalation Once a day RinseAtorvastatin Calcium 20 MG Tablet 1 tablet Orally Once a day B12 5000 MCG Tablet Sublingual as directed Sublingual Bilberry Cholecalciferol 50 MCG (1999) Capsule 1 capsule Orally weekly Cinnamon 500 MG Tablet 2 tablets Orally once daily CO-Q 10 Tijeras-3 Fish Oil CPAP Supplies -- -- Mask and Tubing [facility] Aspirin Adult Low Dose(Aspirin) 81 MG Tablet Chewable CHEW 1 TABLET (81 MG) IN THE MORNING Oral Garlic 1000 MG Capsule as directed Orally daily Isosorbide Mononitrate ER 30 MG Tablet Extended Release 24 Hour Oral Losartan Potassium 100 MG Tablet TAKE 1 TABLET BY MOUTH EVERY DAY Magnesium Metoprolol Succinate ER 25 MG Tablet Extended Release 24 Hour TAKE 1 TABLET BY MOUTH EVERY DAY Montelukast Sodium 10 MG Tablet 1 tablet Orally Once a day Multivitamin(Multiple Vitamins-Minerals) Ozempic (1 MG/DOSE)(Semaglutide (1 MG/DOSE)) 4 MG/3ML Solution Pen-injector INJECT 1MG SUBCUTANEOUSLY ONCE A WEEK Potassium , Notes to Pharmacist: 3 times weeklyRestasis Spiriva Respimat(Tiotropium [place] Monohydrate) 1.25 MCG/ACT Aerosol Solution 2 puffs Inhalation Once a day Turmeric 500 MG Capsule 1 capsule Orally once daily Ventolin HFA(Albuterol Sulfate HFA) 108 (90 Base) MCG/ACT Aerosol Solution 2 puffs as needed for SOB Inhalation every 4 hrs , Notes to Pharmacist: PRNVitamin B Complex Taking Arnuity Ellipta(Fluticasone Furoate) 200 MCG/ACT Aerosol Powder Breath Activated 1 puff Inhalation Once a day RinseTaking Atorvastatin Calcium 20 MG Tablet 1 tablet Orally Once a day Taking B12 5000 MCG Tablet Sublingual as directed Sublingual Taking Bilberry Taking Cholecalciferol 50 MCG (1999) Capsule 1 capsule Orally weekly Taking Cinnamon 500 MG Tablet 2 tablets Orally once daily Taking CO-Q 10 Tijeras-3 Fish Oil Taking CPAP Supplies -- -- Mask and Tubing Taking [facility] Aspirin Adult Low Dose(Aspirin) 81 MG Tablet Chewable CHEW 1 TABLET (81 MG) IN THE MORNING Oral Taking Garlic 1000 MG Capsule as directed Orally daily Taking Isosorbide Mononitrate ER 30 MG Tablet Extended Release 24 Hour Oral Taking Losartan Potassium 100 MG Tablet TAKE 1 TABLET BY MOUTH EVERY DAY Taking Magnesium Taking Metoprolol Succinate ER 25 MG Tablet Extended Release 24 Hour TAKE 1 TABLET BY MOUTH EVERY DAY Taking Montelukast Sodium 10 MG Tablet 1 tablet Orally Once a day Taking Multivitamin(Multiple Vitamins-Minerals) Taking Ozempic (1 MG/DOSE)(Semaglutide (1 MG/DOSE)) 4 MG/3ML Solution Pen-injector INJECT 1MG SUBCUTANEOUSLY ONCE A WEEK Taking Potassium , Notes to Pharmacist: 3 times weeklyTaking Restasis Taking Spiriva Respimat(Tiotropium [place] Monohydrate) 1.25 MCG/ACT Aerosol Solution 2 puffs Inhalation Once a day Taking Turmeric 500 MG Capsule 1 capsule Orally once daily Taking Ventolin HFA(Albuterol Sulfate HFA) 108 (90 Base) MCG/ACT Aerosol Solution 2 puffs as needed for SOB Inhalation every 4 hrs , Notes to Pharmacist: PRNTaking Vitamin B Complex DiscontinuedPotassimin Simvastatin 10 MG Tablet TAKE 1 TABLET BY MOUTH EVERYDAY AT BEDTIME Medication List reviewed and reconciled with the patientDiscontinued Potassimin Discontinued Simvastatin 10 MG Tablet TAKE 1 TABLET BY MOUTH EVERYDAY AT BEDTIME Medication List reviewed and reconciled with the patient * Allergies: l atexBlueberry FlavorMorphine Sulfateshellfish: anaphylaxis - AllergyActicoat: Blisters - AllergyTiotropium: Constipation - Side Effects - Criticality LowmetFORMIN HCl: Side Effects - Criticality Unknownno[Allergies Verified] Objective: * Vitals: W t:261.6lbs, Ht: 65.5 in, BP:142/70mm Hg, BMI:42.87Index, Ht-cm: 166.37 cm, Wt- k.66 kg. * Examination: G eneral Examinations: GENERAL APPEARANCE: a lert and oriented, in no acute distress, obese. EYES: c onjunctiva normal, sclera non-icteric. NOSE: n ormal external appearance. LUNGS: c lear to auscultation bilaterally. CARDIO: r egular rate and rhythm, S1, S2 normal, no murmurs, no edema. ABDOMEN: s oft, nontender. MUSCULOSKELETAL: d ecreased ROM due to body habitus. SKIN: w arm and dry. Assessment: * Assessment: 1. C lass 3 obesity - E66.01 (Primary) 2 . P rediabetes - R73.03 Plan: * Treatment: 2. P rediabetes Notes: A1C WNL continue ozempic * Procedure Codes: * Preventive Medicine: Screenings/Counseling: B WA ACTION PLAN Above Normal BMI Follow-up D ietary management education, guidance, and counseling * Follow Up: 6 Months,prn * * Sign off status: Completed Visit Status: C HK (Check Out) true * Provider: Deonna Fofana ([facility]), [employer] Date: 0 09/01/2024 Generated for Printi ng/Fadevanteg/eTransmitting on: 0 11/18/2024 03:13 PM EDT History and Physical Notes * HPI (History of Present Illness) Category Sub-Category Detail Notes Category Not es General feeling better, saw cardiology and changed meds less SOB with exertion, less fatigue reviewed labs A1c 5.5 Ozempic, wants to stay on same dose sees scale slowly dropping will be more active this summer seeing eye Dr, watching pressures needs to see cardiology, and vascular crafts, sews, sesar garden for fun Examination Category Sub-Category Detail Notes Category Not es General Examinations GENERAL APPEARANCE: alert a nd oriented, in no acute distress, obese EYES: conjunctiva normal, sclera non-icteric EARS: NOSE: normal external appe arance THROAT: CARDIO: regular rate and rhy thm, S1, S2 normal, no murmurs, no edema LUNGS: clear to auscultatio n bilaterally ABDOMEN: soft, nontender SKIN: warm and dry BACK: MUSCULOSKELETAL: decreased ROM due to body habitus LYMPH NODES:
--- OUTSIDE RECORDS SUMMARY | 2024-11-10 11:00 | XMS_ITS ---
Author Organization [facility] Ma in [place] Address [address] [place] [address] Care Team Providers Care Sales Trainee Name Role Phone Cecilia Fofana Primary Care Provider [phone] Yair Pérez Unavailable [phone] Allergies Allergen (clinical drug ingredient) Drug/Non Drug [...] Drug Allergy Ac tive REASON FOR VISIT 1YEAR-ASTH[place], [place] Medications Medication SIG (Take, Route, Frequency, Duration) Notes Start Date End Date Status Losartan Potassium 100 MG TAKE 1 TABLET BY MOUTH EVERY DAY for 90 days Active Metoprolol Succinate ER 25 MG TAKE 1 TABLET BY MOUTH EVERY DAY for 90 days Active Magnesium Active Isosorbide Mononitrate ER 60 MG 1 tablet in the morning Orally Once a day for 90 days Active Garlic 1000 MG as directed Orally daily 09/01/2024 Active Cinnamon 500 MG 2 tablets Orally onc e daily 09/01/2024 Active Cholecalciferol 50 MCG (1999) 1 capsule Orally weekly 09/01/2024 Active CPAP Supplies -- Mask and Tubing Active CO-Q 10 [place]-3 Fish Oil Active Atorvastatin Calcium 20 MG 1 tablet Orally Once a day 09/01/2024 Active Bilberry Active B12 5000 MCG as directed Sublingual Active amLODIPine Besylate 5 MG Oral for 90 Days Active Aspirin Low Dose 81 MG CHEW 1 TABLET (81 MG) IN THE MORNING Oral for 90 Days Active Albuterol Sulfate HFA 108 (90 Base) MCG/ACT 2 puffs as needed for SOB Inhalation every 4 hrs for 90 Active Spiriva Respimat 1.25 MCG/ACT 2 puffs Inhalation Once a day for 90 days Active Montelukast Sodium 10 MG 1 tablet Orally Once a day for 90 days Active Arnuity Ellipta 200 MCG/ACT 1 puff Inhalation Once a day for 90 days Active Vitamin B Complex Ac tive Potassium 3 times weekly Active Ozempic (1 MG/DOSE) 4 MG/3ML INJECT 1MG SUBCUTANEOUSLY ONCE A WEEK for 84 days Active Restasis Active Turmeric 500 MG 1 capsule Orally onc e daily 09/01/2024 Active Multivitamin Active Social History Tobacco Use: Social History Observation Description Date Details (start date - stop date) Never Smoker NA - NA Tobacco Control (Standard) Question Answer Notes Tobacco use: Nonsmoker Problems Problem Type SNOMED Code ICD Code Onset Dates Problem Status W/U Status Risk Notes Problem Morbid obesity (E66.01) Active confirmed Problem Uncomplicated moderate persistent asthma (913538694) Moderate persistent asthma, uncomplicated (J45.40) Active confirmed Vital Signs Weight 259.8 lbs 11/10/2024 Height 65.5 in 11/10/2024 Blood pressure systolic 169 mm Hg 11/11/19 25 Blood pressure diastolic 74 mm Hg 025 Temperature 96.8 degrees Fahrenheit 11/11/19 25 Heart Rate 39 /min 11/10/2024 Respiratory Rate 18 /min 11/10/2024 BMI 42.57 kg/m2 11/10/2024 Oximetry 96 % 11/10/2024 Procedures Procedure Date Ordered Date Performed Result Body Sit e MIPS/MEPS 11/10/2024 N/A PFT (14622, [id number], [id number]) 11/10/2024 N/A Encounters Encounter Location Date Provider Diagnosis Pulmonary Medicine [place] [address] [place] [address] 11/10/2024 Yair Pérez Obstructive sleep ap gogo G47.33 ; Moderate persistent asthma, uncomplicated J45.40 ; 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 -DME: [facility]Split-[facility] 09/26/2021: AHI 46, failed CPAP -Compliance reviewed from 10/06/2024 - 11/04/2024 -Total days used: 29/30 (97%) -Total of all days >4 hours of use: 29/30 (97%) -Current mode & pressures: AirCurve 10VAuto - BiPAP 02/06 -Residual AHI: 4.2 -Air leak (median): 4.9L/min -Mask/harness fitting: Okay. Leak is positional if she moves during sleeping -Sleep quality: Better with BiPAP -Daytime hypersomnolence: Denies -Recommendations: She has excellent compliance. Continue using BiPAP @ HS/naps. Refill, renew, reorder PAP & supplies with the size she request. 11/10/2024 Moderate persistent asthma, uncomplicated (ICD-10 - J45.40) Unable to tolerate LABA - palpitations Currently on Arnuity 200 + Spiriva 1.25. Symptomatic with at least 8 exacerbations within the last year. Using albuterol at least 2-3 times a week (without nocturnal symptoms). Worsening symptoms may be due in part to non-adherence to recommended dosing of each inhaler once daily (not alternating or PRN use). The other concern I have is progression of myasthenia gravis. Breath sounds are quite diminished today. As she cannot tolerate LABA, next step would be to look into biologics or referral to tool repair technician. It has been 6 years since last PFT. Ordering PFT, along with MIP & MEP to evaluate neuromuscular strength. Additionally, ordering labs to check for eosinophils & IgE. In the meantime, she was instructed to begin using both Arnuity and Spiriva daily as prescribed. 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 Has not seen anyone locally. Will check PFT with signs of muscle strength including MVV, MIP, and MEP. 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 11/10/2024 Morbid obesity (ICD-10 - E66.01) Patient's weight is inducing a restrictive pulmonary physiology. Weight loss indicated: Decrease calories, increase activity. 11/10/2024 Other Symptoms worse during allergy season, compounded by running out of Arnuity. Spiriva not as effective as Arnuity naturally, as ICS are generally superior to LAMA in asthma. Will retart Arnuity 200 for now. Refilled Singulair and albuterol too. Spiriva ordered as backup, but it causes dry mouth and constipation. Avoiding LABA d/t history of palpitations with them. Steroids prescribed for this patient's underlying pulmonary disease can adversely affect blood glucose levels, inducing hyperglycemia and worsening underlying prediabetes. The patient is encouraged to follow up with the primary care provider to create a plan to manage blood glucose in this situation. Plan Of Treatment Medication Medication Name Sig Start Date Stop Date Notes Ventolin HFA 108 (90 Base) MCG/ACT 2 puffs as needed for SOB Inhalation every 4 hrs PRN Albuterol Sulfate HFA 108 (9 0 Base) MCG/ACT 2 puffs as needed for SOB Inhalation every 4 hrs for 90 Spiriva Respimat 1.25 MCG/ACT 2 puffs In halation Once a day for 90 days Montelukast Sodium 10 MG 1 tablet Orally Once a day for 90 days Arnuity Ellipta 200 MCG/ACT 1 puff Inhal ation Once a day for 90 days Treatment Notes Assessment Notes Obstructive sleep apnea Imgv-rn-dsje encounter performed with the patient to document continued need of BiPAP for [place]. -DME: [facility] -Split-[facility] 09/26/2021: AHI 46, failed CPAP -Compliance reviewed from 10/06/2024 - 11/04/2024 -Total days used: 29/30 (97%) -Total of all days >4 hours of use: 29/30 (97%) -Current mode & pressures: AirCurve 10VAuto - BiPAP 02/06 -Residual AHI: 4.2 -Air leak (median): 4.9L/min -Mask/harness fitting: Okay. Leak is positional if she moves during sleeping -Sleep quality: Better with BiPAP -Daytime hypersomnolence: Denies -Recommendations: She has excellent compliance. Continue using BiPAP @ HS/naps. Refill, renew, reorder PAP & supplies with the size she request. Moderate persistent asthma, uncomplicate d Unable to tolerate LABA - palpitations Currently on Arnuity 200 + Spiriva 1.25. Symptomatic with at least 8 exacerbations within the last year. Using albuterol at least 2-3 times a week (without nocturnal symptoms). Worsening symptoms may be due in part to non-adherence to recommended dosing of each inhaler once daily (not alternating or PRN use). The other concern I have is progression of myasthenia gravis. Breath sounds are quite diminished today. As she cannot tolerate LABA, next step would be to look into biologics or referral to tool repair technician. It has been 6 years since last PFT. Ordering PFT, along with MIP & MEP to evaluate neuromuscular strength. Additionally, ordering labs to check for eosinophils & IgE. In the meantime, she was instructed to begin using both Arnuity and Spiriva daily as prescribed. Ocular myasthenia gravis Neurologist in [place] retired. Has not seen anyone locally. Will check PFT with signs of muscle strength including MVV, MIP, and MEP. snf (current) use of i nhaled steroids Patient was counseled to rinse & gargle with water after inhaled corticosteroid use. Morbid obesity Patient's weight is inducing a restrictive pulmonary physiology. Weight loss indicated: Decrease calories, increase activity. Other Symptoms worse during allergy season, compounded by running out of Arnuity. Spiriva not as effective as Arnuity naturally, as ICS are generally superior to LAMA in asthma. Will retart Arnuity 200 for now. Refilled Singulair and albuterol too. Spiriva ordered as backup, but it causes dry mouth and constipation. Avoiding LABA d/t history of palpitations with them. Steroids prescribed for this patient's underlying pulmonary disease can adversely affect blood glucose levels, inducing hyperglycemia and worsening underlying prediabetes. The patient is encouraged to follow up with the primary care provider to create a plan to manage blood glucose in this situation. Pending Test Test Name Order Date IGE, IMMUNOGLOBULIN (TOTAL) 11/10/2024 MIPS/MEPS 11/10/2024 CBC W/AUTO DIFF 11/10/2024 PFT ([id number], [id number], 87141) 11/10/2024 Next Appt Details Follow Up: 2 Months, Reason: Asthma Provider Name:Yair Pérez, 01/05/2025 03:30:00 PM, [address] [place], [address], Procedure Notes * Category Sub-Category Detail Notes PFT Data: 10/24/2018:-FEV1/ FVC: 82%-FEV1: 96%-FVC: 89%-No bronchodilator administered-RV: 102%-T%-DLCO: 99%-FENO: 7 Progress Notes * RON Anali LDOB:1955 (68 yo F)Acc No.[id number]:11/10/2024 Follow Up Patient: Anali BERRY Provider: Estefani Pérez DO :1955 A ge:68 Y S ex:Female Date:11/10/2024 Address:[address] [place], [place] [id number] Pcp:Cecilia Fofana Check In:02:54 PM ESTCheck O ut:03:44 PM EST Subjective: * Chief Complaints: * 1 YEAR-[place], [place] * HPI: E pworth Sleepiness Scale: Patient is using Arnuity and Spiriva, sometimes on alternating days, sometimes not Spiriva at all. States Spiriva helps to dry up mucus in her chest. I asked why she is alternating the inhalers. She replied I didn't know I was supposed to take them together. I asked her don't the labels say to use them daily? to which she replied yes, they do. I explained that these inhalers have slow onsets and can take about a week to achieve full effect. She replied I can tell it takes about a week until I feel better. S he said I begin to use the Spiriva when I start having an asthma attack. I asked her how many asthma attacks she has had in the last year. She replied at least 8. She voices no issues with the BiPAP other than occasionally a leak, position dependent. Overall compliance is excellent. No issues with the pressure. MA Intake Comments:. Shamrock Sleepiness Scale C niko while sitting and reading:?0 - Never C katelyn of dozing while watching TV: 0 - Never C katelyn of dozing while sitting in a public place: 0 - Never C katelyn of dozing as a passenger in a car for an hour without a break: 0 - Never C katelyn of dozing while lying down in the afternoon to rest: 0 - Never C katelyn of dozing while sitting and talking to someone: 0 - Never C katelyn of dozing while sitting quietly after lunch: 0 - Never C katelyn of dozing in a stopped car for a few minutes in traffic: 0 - Never T OTAL SCORE: 0 Patient presents for a follow-up for Ast[place]. Patient complains of SOB with exertion. Patient is using Spiriva or Arnuity daily. Patient reports rare albuterol use. Patient is currently using a PAP and reports benefit. DME:[facility]. Patient denies any complaints or concerns with her machine/supplies. Patient is under the care of [facility] Cardiology. * ROS: G eneral/Constitutional: Fatigue a dmits. F ever or sweats d enies. C hange of appetite d enies. C hills d enies.?Weight Change d enies. H EENT: Blurry Vision a dmits - macular degeneration. D ry mouth d enies. O ral Ulcers d enies. P ost Nasal Drip y es. R hinitis a llergies. H oarseness D enies. C ardiovascular: Tachycardia d enies. C hest pain d enies. P alpitations a dmits. R espiratory: Dyspnea a ctivity/exertion. C ough w ith congestion. H emoptysis d enies. S putum production p resent. W heezing o ccasionally. G astrointestinal: Acid Reflux/GERD/Heartburn d enies. M usculoskeletal: Arthralgias/joint pain A dmits. S kin: Rash d enies. N eurologic: Seizures d enies. T remor d enies. H ematology: Abnormal Bleeding d enies. P sychiatric: Anxiety d enies. 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, unspecified eye Modified On:10/11/2022W/U Status:confirmed J45.40 Moderate persistent asthma, uncomplicated Modified On:11/10/2024 Status:confirmed H35.30 Macular degeneration Modified On:09/11/2022 Status:confirmed M19.90 Osteoarthritis Modified On:10/11/2022 Status:confirmed G47.33 Obstructive sleep ap gogo Modified On:10/09/2022 Status:confirmed G43.909 Migraine Modified On:09/11/2023 Status:confirmed H91.90 Hearing loss Modified On:10/11/2022 Status:confirmed K42.9 Umbilical hernia Modified On:10/11/2022 Status:confirmed H25.10 Nuclear sclerosis Modified On:10/11/2022 Status:confirmed F43.10 Post-traumatic stres s disorder Modified On:10/11/2022 Status:confirmed 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 Modified On:10/11/2022 Status:confirmed I10 Essential Hypertensi on Modified On:09/11/2023 Status:confirmed Z80.3 Family history of br east cancer in sister Modified On:10/11/2022 Status:confirmed E78.00 Hypercholesteremia Modified On:09/11/2023 Status:confirmed Z96.651 H/O total knee repla cement, right Modified On:10/11/2022 Status:confirmed 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 Modified On:10/11/2022 Status:confirmed Z98.890 H/O carpal tunnel re pair Modified On:10/11/2022 Status:confirmed 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 Modified On:10/09/2022 Status:confirmed Z86.16 History of COVID-19 Modified On:10/09/2022 Status:confirmed Z79.51 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 exterminator (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) use of inhaled steroids Modified On:10/09/2022 Status:confirmed E78.5 Hyperlipidemia, unsp ecified Modified On:10/22/2022 Status:confirmed G47.62 Sleep related leg cr amps Modified On:10/27/2023W/U Status:confirmed I65.29 Carotid artery calci fication Modified On:09/04/2023W/U Status:confirmed E66.01 Class 3 obesity Modified On:09/02/2024W/U Status:confirmed E66.01 Morbid obesity Modified On:11/10/2024/U Status:confirmed * Medical History: * Surgical History: c arpal tunnel release left knee replacement right knee replacement tonsillectomy trigger finger release Hernia Repair Right Ankle/ Leg Surgery * Hospitalization/Major Diagno stic Procedure: D enies Past Hospitalization * Family History: F ather: , Alzheimers, stroke, diagnosed with Unspecified essential hypertension, Diabetes mellitus without mention of complication, type II or unspecified type, not stated as uncontrolled. M other: , Alzheimers, stroke, breast cancer, diagnosed with Other malignant neoplasm of unspecified site, Diabetes mellitus without mention of complication, type II or unspecified type, not stated as uncontrolled, Unspecified essential hypertension. 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 D rugs/Alcohol: D rugs H ave you used drugs other than those for medical reasons in the past 12 months? N o D oes the Patient have a History of Drug Abuse in the Past? N o Caffeine I ntake: t ea and mountain dew, Occasionally Do you drink alcohol?: No. Do you smoke marijuana?: Denies. * Medications: T akingAlbuterol Sulfate HFA 108 (90 Base) MCG/ACT Aerosol Solution 2 puffs as needed for SOB Inhalation every 4 hrs amLODIPine Besylate 5 MG Tablet Oral Arnuity Ellipta(Fluticasone Furoate) 200 MCG/ACT Aerosol Powder Breath Activated 1 puff Inhalation Once a day RinseAspirin Low Dose(Aspirin) 81 MG Tablet Chewable CHEW 1 TABLET (81 MG) IN THE MORNING Oral Atorvastatin Calcium 20 MG Tablet 1 tablet Orally Once a day B12 5000 MCG Tablet Sublingual as directed Sublingual Bilberry Cholecalciferol 50 MCG (2000 UT) Capsule 1 capsule Orally weekly Cinnamon 500 MG Tablet 2 tablets Orally once daily CO-Q 10 [place]-3 Fish Oil CPAP Supplies -- -- Mask and Tubing Garlic 1000 MG Capsule as directed Orally daily Isosorbide Mononitrate ER 60 MG Tablet Extended Release 24 Hour 1 tablet in the morning Orally Once a day Losartan Potassium 100 MG Tablet TAKE 1 [...] to Pharmacist: 3 times weeklyRestasis Spiriva Respimat(Tiotropium [place] Monohydrate) 1.25 MCG/ACT Aerosol Solution 2 puffs Inhalation Once a day Turmeric 500 MG Capsule 1 capsule Orally once daily Vitamin B Complex Taking Albuterol Sulfate HFA 108 (90 Base) MCG/ACT Aerosol Solution 2 puffs as needed for SOB Inhalation every 4 hrs Taking amLODIPine Besylate 5 MG Tablet Oral Taking Arnuity Ellipta(Fluticasone Furoate) 200 MCG/ACT Aerosol Powder Breath Activated 1 puff Inhalation Once a day RinseTaking Aspirin Low Dose(Aspirin) 81 MG Tablet Chewable CHEW 1 TABLET (81 MG) IN THE MORNING Oral Taking Atorvastatin Calcium 20 MG Tablet 1 tablet Orally Once a day Taking B12 5000 MCG Tablet Sublingual as directed Sublingual Taking Bilberry Taking Cholecalciferol 50 MCG (2000 UT) Capsule 1 capsule Orally weekly Taking Cinnamon 500 MG Tablet 2 tablets Orally once daily Taking CO-Q 10 [place]-3 Fish Oil Taking CPAP Supplies -- -- Mask and Tubing Taking Garlic 1000 MG Capsule as directed Orally daily Taking Isosorbide Mononitrate ER 60 MG Tablet Extended Release 24 Hour 1 tablet in the morning Orally Once a day Taking Losartan Potassium 100 MG Tablet TAKE [...] 3 times weeklyTaking Restasis Taking Spiriva Respimat(Tiotropium [place] Monohydrate) 1.25 MCG/ACT Aerosol Solution 2 puffs Inhalation Once a day Taking Turmeric 500 MG Capsule 1 capsule Orally once daily Taking Vitamin B Complex DiscontinuedCVS Aspirin Adult Low Dose(Aspirin) 81 MG Tablet Chewable CHEW 1 TABLET (81 MG) IN THE MORNING Oral Discontinued CVS Aspirin Adult Low Dose(Aspirin) 81 MG Tablet Chewable CHEW 1 TABLET (81 MG) IN THE MORNING Oral * Allergies: l atexBlueberry FlavorMorphine Sulfateshellfish: anaphylaxis - AllergyActicoat: Blisters - AllergyTiotropium: Constipation - Side Effects - Criticality LowmetFORMIN HCl: Side Effects - Criticality Unknownno[Allergies Verified] Objective: * Vitals: W t:259.8lbs, Ht: 65.5 in, BP:sittin/74mm Hg, Temp:Forehead:96.8F, HR:39/min, RR:18/min, BMI:42.57Index, Oxygen sat %:Room Air:96%, Ht-cm: 166.37 cm, Wt-k.84 kg. * Examination: E xam: GENERAL APPEARANCE: A ppears younger than stated age. Skin N ormal. Mouth P ink and moist. No oral candidiasis. Oropharynx/Tongue M acroglossia. T ongue ridging. Trachea M idline. Chest N ormal. Respiratory Q uite limited air movement today - very diminished without wheezes, crackles, or rhonchi. Auscultation D iminished but clear today. Cardiac R egular rate and rhythm. Gastrointestinal I ncreased central adiposity. Vascular N o edema. Musculoskeletal N ormal posture. Neurological F ocal, intact. Psychiatric A lert and oriented x3. Pleasant. Mentation/Cognition N ormal. Assessment: * Assessment: 1. M oderate persistent asthma, uncomplicated - J45.40 (Primary) 2 . O bstructive sleep apnea - G47.33 3 . O cular myasthenia gravis - G70.00 ?4. L yennifer term (current) use of inhaled steroids - Z79.51 5 . M orbid obesity - E66.01 Plan: * Treatment: ?Procedure: PFT (36985, [id number], [id number])* With MIP/MEP Notes: Unable to tolerate LABA - palpitations Currently on Arnuity 200 + Spiriva 1.25. Symptomatic with at least 8 exacerbations within the last year. Using albuterol at least 2-3 times a week (without nocturnal symptoms). Worsening symptoms maybe due in part to non- adherence to recommended dosing of each inhaler once daily (not alternating or PRN use). The other concern I have is progression of myasthenia gravis. Breath sounds are quite diminished today. As she cannot tolerate LABA, next step would be to look into biologics or referral to tool repair technician. Ithas been 6 years since last PFT. Ordering PFT, along with MIP & MEP to evaluate neuromuscular strength. Additionally, ordering labs to check for eosinophils & IgE. In the meantime, she was instructed to begin using both Arnuity and Spiriva daily as prescribed. ??2.?Obstructive sleep apnea? Notes: Hwud-ov-rkwl encounter performed with the patient to document continued need of BiPAP for [place]. -DME: [facility] 09/26/2021: AHI 46, failed CPAP -Compliance reviewed from 10/06/2024 - 11/04/2024 -Total days used: 29/30 (97%) -Total of all days >4 hours of use: 29/30 (97%) -Current mode & pressures: AirCurve 10VAuto - BiPAP 02/06 -Residual AHI: 4.2 -Air leak (median): 4.9L/min -Mask/harness fitting: Okay. Leak is positional if she moves during sleeping -Sleep quality: Better with BiPAP -Daytime hypersomnolence: Denies -Recommendations: She has excellent compliance. Continue using BiPAP @ HS/naps. Refill, renew, reorder PAP & supplies with the size she request. ??3.?Ocular myasthenia gravis?Procedure: MIPS/MEPS* With PFT ?Procedure: PFT (95141, 50377, 12527)* With MIP/MEP Notes: Neurologist in [place] retired. Has not seen anyone locally. Will check PFT with signs of muscle strength including MVV, MIP, and MEP.??4.?snf (current) use of inhaled steroids? Notes: Patient was counseled to rinse & gargle with water after inhaled corticosteroid use.??5.?Morbid obesity? Notes: Patient's weight is inducing a restrictive pulmonary physiology. Weight loss indicated: Decrease calories, increase activity.??6.?Others? Notes: Symptoms worse during allergy season, compounded by running out of Arnuity. Spiriva not as effective as Arnuity naturally, as ICS are generally superior to LAMA in asthma. Will retart Arnuity 200 fornow. Refilled Singulair and albuterol too. Spiriva ordered as backup, but it causes dry mouth and constipation. Avoiding LABA d/t history of palpitations with them. Steroids prescribed for this patient's underlying pulmonary disease can adversely affect blood glucose levels, inducing hyperglycemia and worsening underlying prediabetes. The patient is encouraged to follow up with the primary care provider to create a plan to manage blood glucose in this situation.?? * Procedures: P FT: Data: :-FEV1/FVC: 82%-FEV1: 96%-FVC: 89% -No bronchodilator administered-RV: 102%-T%-DLCO: 99%-FENO: 7. * Procedure Codes: * Preventive Medicine: COVID Vaccination: H as patient had COVID Vaccination? COVID Vaccination Y es 09/07/2021 Immunization Status: I nfluenza U TD per patient. Screenings/Counseling: F ALL RISK SCREENING Fall Risk Assessment: N o falls in the past year Are you afraid of falling? Y es T OBACCO ACTION PLAN Exclusion: M edical Reason Non Smoker Type of Medical Reason: N ot indicated B [place] ACTION PLAN Above Normal BMI Follow-up D ietary management education, guidance, and counseling * Follow Up: 2 Months (Reason: Asthma) * * Sign off status: Completed Visit Status: C HK (Check Out) true * Provider: Estefani Pérez DO Date: 0 11/10/2024 Generated for Mariela valdez/Letty/Hal on: 0 11/18/2024 03:13 PM EDT History and Physical Notes * HPI (History of Present Illness) Category Sub-Category Detail Notes Category Not es Shamrock Sleepiness Scale Shamrock Sleepiness Scale Chance of dozing while sitting and reading:: 0 - Never Patient presents for a follow-up for Ast[place]. Patient complains of SOB with exertion. Patient is using Spiriva or Arnuity daily. Patient reports rare albuterol use. Patient is currently using a PAP and reports benefit. DME:[facility]. Patient denies any complaints or concerns with her machine/supplies. Patient is under the care of [facility] Cardiology. Chance of dozing while watching TV:: 0 - Never Chance of dozing while sitting in a publ ic place:: 0 - Never Chance of dozing as a passen patty in a car for an hour without a break:: 0 - Never Chance of dozing while lying down in the afternoon to rest:: 0 - Never Chance of dozing while sitting and talki ng to someone:: 0 - Never Chance of dozing while sitting quietly a fter lunch:: 0 - Never Chance of dozing in a stopped car for a few minutes in traffic:: 0 - Never TOTAL SCORE:: 0 Examination Category Sub-Category Detail Notes Category Not es Exam GENERAL APPEARANCE: Appears younger than stated age Skin Normal Mouth Handley and moist. No o ral candidiasis Trachea Midline Chest Normal Respiratory Quite limited air mo vement today - very diminished without wheezes, crackles, or rhonchi Auscultation Diminished but clear today Percussion Egophony Bronchophony Fremitus Whispered pectoriloquy Cardiac Regular rate and rhy thm Murmur Gastrointestinal Increased central ad iposity Palpation Ostomy Tubes Liver Spleen Vascular No edema Musculoskeletal Normal posture Neurological Focal, intact Psychiatric Alert and oriented x 3. Pleasant Mentation/Cognition Normal Oropharynx/Tongue Macroglossia. Tongue ridging
--- OUTSIDE RECORDS SUMMARY | 2024-11-18 15:13 | XMS_ITS | Referral Summary ---
Author Organization [facility] Address [address] [place] [address] Care Team Providers Care E Commerce Architect Name Role Phone Cecilia Fofana GYPSY Primary Care Provider [phone] Encounters Date Type Department Care Team Description 10/01/[address] [address] Giorgio De La Garza MD Mixed hyperlipidemia; Primary hypertension; Coronary artery disease involving [place] coronary artery of [place] heart without angina pectoris 09/29/[address] [phone] Giorgio De La Garza MD Abnormal cardiovascular stress test 09/16/2024 3:45 PM EDT Office Visit [address] [address] Giorgio De La Garza MD Coronary artery disease involving [place] coronary artery of [place] heart without angina pectoris (Primary Dx); Mixed hyperlipidemia; PVC (premature ventricular contraction); Primary hypertension; Palpitations; [place] (obstructive sleep apnea) from Last 3 Months Allergies Active Allergy Reactions Criticality Noted Date Comments Adhesive Other 04/15/2012 blisters Blueberry Flavor Itching,Rash,Shortne s s of breath High 05/03/2012 Latex, Natural Rubber Hives,Rash Low 05/18/2013 Metformin Hcl Unknown 09/16/2024 Morphine Itching,Other,Rash Low 04/15/2012 Shellfish Containing Products Anaphylaxis,Hives,Itc hugo,Other,Shortness of breath High 05/03/2012 Crab Meat only known at this time. Silver-Hydrocolloid Dressing Hives 01/27/2016 Tiotropium Unknown 09/16/2024 Wound Dressings Itching,Other Low 05/03/2012 blisters Medications Medication Sig Dispensed Refills Start Date End Date Status albuterol 90 mcg/actuation inhaler Inhale 2 puffs every 6 (six) hours if needed. Active b complex-vitamin c tablet Take 1 tablet by mouth in the morning. Active carboxymethylcellulo se PF (Refresh Plus) 0.5 % ophthalmic solution 1 drop if needed in the morning, at noon, and at bedtime. Active cholecalciferol (D3-5) 5,000 Units tablet Take 5,000 Units by mouth in the morning. Active cycloSPORINE (Restasis) 0.05 % ophthalmic emulsion 1 drop twice a day. Active losartan (Cozaar) 100 mg tablet Take 100 mg by mouth in the morning. Active magnesium oxide (Mag-Ox) 400 mg (241.3 mg magnesium) tablet Take 400 mg by mouth every other day. Active multivitamin (Theragran-M) 9 mg iron-400 mcg tablet Take 1 tablet by mouth in the morning. Active co-enzyme Q-10 30 mg capsule Take 200 mg by mouth twice a day. Active semaglutide (Ozempic) 1 mg/dose (4 mg/3 mL) pen injector INJECT 1MG SUBCUTANEOUSLY ONCE A WEEK for 84 days Active montelukast (Singulair) 10 mg tablet Take 10 mg by mouth in the morning. Active tiotropium (Spiriva) [address] 1 capsule into inhaler and inhale in the morning. Active Arnuity Ellipta 200 mcg/actuation inhaler Inhale 1 puff in the morning. 11/14/2023 Active metoprolol succinate XL (Toprol-XL) 25 mg 24 hr tabletIndications:Pr imary hypertension,Coronar y artery disease involving [place] coronary artery of [place] heart without angina pectoris Take 1 tablet (25 mg) by mouth in the morning. Do not crush or chew. 90 tablet 3 12/12/2023 Active po-oaq-WX-vit D-qchxvd-fojwoub (PreserVision AREDS 2 Plus MV) 200 mcg-15 mcg- 5 mg-1 mg capsule Take 200 Units by mouth. Active bilberry 100 mg capsule Take 5,000 Units by mouth in the morning. Active amLODIPine (Norvasc) 5 mg tabletIndications:Pr imary hypertension Take 1 tablet (5 mg) by mouth in the morning. 90 tablet 3 09/16/2024 Active aspirin 81 mg chewable tabletIndications:Ab normal cardiovascular stress test CHEW 1 TABLET (81 MG) IN THE MORNING 90 tablet 3 09/29/2024 Active atorvastatin (Lipitor) 20 mg tabletIndications:Mi xed hyperlipidemia TAKE 1 TABLET BY MOUTH AT BEDTIME 90 tablet 3 10/01/2024 Active isosorbide mononitrate ER (Imdur) 60 mg 24 hr tabletIndications:Pr imary hypertension,Coronar y artery disease involving [place] coronary artery of [place] heart without angina pectoris TAKE 1 TABLET (60 MG) BY MOUTH IN THE MORNING. DO NOT CRUSH OR CHEW. 90 tablet 3 10/01/2024 Active Active Problems Problem Noted Date Diagnosed Date Other chest pain 10/11/2023 Abnormal cardiovascular stress test 10/11/2023 Carotid artery calcification 09/13/202306/2023 Ankle pain 02/04/2019 09/16/2023 Closed bimalleolar fracture 02/04/201906/2023 Hyperlipidemia, unspecified 01/23/201906/2023 Morbid (severe) obesity due to excess calories 0 01/23/2019 09/16/2023 Muscle weakness (generalized) 01/23/2019 Other asthma 01/23/2019 09/16/2023 Type 2 diabetes mellitus without complications 0 01/23/2019 09/16/2023 Unspecified fracture of left lower leg, sequela 01/23/2019 09/16/2023 Vitamin D deficiency, unspecified 01/23/2019 09/16/2023 Myasthenia gravis without exacerbation 6 09/16/2023 Type 2 macular telangiectasis 06/21/2014 Localized osteoarthritis of left knee 10/07/2013 09/16/2023 Corneal guttata 09/28/2013 09/16/2023 Dry eye syndrome of bilateral lacrimal glands 09/16/2023 Senile nuclear sclerosis 06/30/2013 024 Hypertensive retinopathy 05/18/2013 024 Lattice degeneration of peripheral retina 201209/16/2023 HTN (hypertension) 05/04/2012 09/16/2023 Osteoarthrosis involving lower leg 04/30/2012 09/16/2023 Overview (09/16/2023): Replacing Inactive Diagnoses S/P right unicompartmental knee replacement 04/1709/16/2023 Immunizations Name Administration Dates Next Due Influenza, Seasonal, Quadrivalent, Adjuvanted Influenza, injectable, MDCK, preservative free, quadrivalent 03/07/2021 Social History Tobacco Use Types Packs/Day Years Used Date Smoking Tobacco: Never Smokeless Tobacco: Never Tobacco Cessation:Counseling Given: No Alcohol Use Standard Drinks/Week Comments Not Currently 0 (1 standard drink = 0.6 oz pur e alcohol) [place] Safety & Environment Answer Date Rec orded Fear of Current or Ex-Partner Not on file Emotionally Abused Not on file 09/12/2023 Physically Abused Not on file 09/12/2023 Sexually Abused Not on file 09/12/2023 Physically or Sexually Abused Not on file Sex and Gender Information Value Date Recorded Sex Assigned at Female 09/16/2023 11:20 AM EDT Gender Identity Female 09/16/2023 11:20 AM EDT Sexual Orientation Heterosexual or Straight 06/2023 11:20 AM EDT Last Filed Vital Signs Vital Sign Reading Time Taken Comments Blood Pressure 144/77 09/16/2024 3:27 PM EDT Pulse 67 09/16/2024 3:27 PM EDT Temperature - - Respiratory Rate 14 2023 3:30 PM EDT Oxygen Saturation 98% 09/16/2024 3:27 PM EDT Inhaled Oxygen Concentration - - Weight 120 kg (264 lb) 09/16/2024 3:27 PM EDT Height 165.1 cm (5' 5 ) 09/16/2024 3:27 PM EDT Body Mass Index 43.93 09/16/2024 3:27 PM EDT Plan of Treatment Not on file Advance Directives * Full Code (Latest Code Status on File) Date Activated Date Inactivated Comments 2023 1:30 PM 2023 5:42 PM Care Teams E Commerce Architect Relationship Specialty Start Date End Date Cecilia Fofana CNP [address] [facility], [facility] [place] [address] PCP - General Family Medicine 09/12/23
--- OUTSIDE RECORDS SUMMARY | 2024-11-18 15:13 | XMS_ITS | Clinical Summary ---
Author Organization [facility] Address [address] [place] [address] Care Team Providers Care Sand Conditioner Name Role Phone Brigido Cecilia BETANCUR Primary Care Provider [phone] Allergies Active Allergy Reactions Criticality Noted Date [...] tabletIndications:Pr imary hypertension,Coronar y artery disease involving [place] coronary artery of [place] heart without angina pectoris Take 1 tablet (25 mg) by mouth in the morning. Do not crush or chew. 90 tablet 3 12/12/2023 Active rm-ouc-FB-vit N-zrffdc-bltzmum (PreserVision AREDS 2 Plus MV) 200 mcg-15 mcg- 5 mg-1 mg capsule Take 200 Units by mouth. Active bilberry 100 mg capsule Take 5,000 Units by mouth in the morning. Active amLODIPine (Norvasc) 5 mg tabletIndications:Pr imary hypertension Take 1 tablet (5 mg) by mouth in the morning. 90 tablet 3 09/16/2024 6 Active aspirin 81 mg chewable tabletIndications:Ab normal cardiovascular stress test CHEW 1 TABLET (81 MG) IN THE MORNING 90 tablet 3 09/29/2024 6 Active atorvastatin (Lipitor) 20 mg tabletIndications:Mi xed hyperlipidemia TAKE 1 TABLET BY MOUTH AT BEDTIME 90 tablet 3 10/01/2024 Active isosorbide mononitrate ER (Imdur) 60 mg 24 hr tabletIndications:Pr imary hypertension,Coronar y artery disease involving [place] coronary artery of [place] heart without angina pectoris TAKE 1 TABLET (60 MG) BY MOUTH IN THE MORNING. DO NOT CRUSH OR CHEW. 90 tablet 3 10/01/2024 6 Active Active Problems Problem Noted Date Diagnosed [...] Diagnoses S/P right unicompartmental knee replacement 04/1709/16/2023 Encounters Date Type Department Care Team Description 10/01/[address] [phone] Giorgio De La Garza MD Mixed hyperlipidemia; Primary hypertension; Coronary artery disease involving [place] coronary artery of [place] heart without angina pectoris 09/29/[address] [phone] Giorgio De La Garza MD Abnormal cardiovascular stress test 09/16/2024 3:45 PM EDT Office Visit [facility] [address] [place] [address] Giorgio De La Garza MD Coronary artery disease involving [place] coronary artery of [place] heart without angina pectoris (Primary Dx); Mixed hyperlipidemia; PVC (premature ventricular contraction); Primary hypertension; Palpitations; [place] (obstructive sleep apnea) from Last 3 Months Immunizations Name Administration Dates Next Due Influenza, Seasonal, Quadrivalent, Adjuvanted Influenza, injectable, MDCK, preservative free, quadrivalent 03/07/2021 Family History Medical History Relation Name Comments Diabetes Father Heart disease Father Cancer Mother Heart disease Mother Stroke Mother Breast cancer Sister Diabetes Sister Mental illness Sister Relation Name Status Comments Father Mother Sister Alive Social History Tobacco Use Types Packs/Day Years [...] 09/16/2024 3:27 PM EDT Plan of Treatment Health Maintenance Due Date Last Done Comments CT Colonography 1953 Colonoscopy 1953 Colorectal Cancer Screening 1953 Diabetes: Hemoglobin A1C 1953 FIT-DNA 1953 FIT 1953 FOBT 1955 Medicare Annual Wellness (AWV) 1955 Sigmoidoscopy 1955 Pneumococcal Vaccine: 65+ Years (1 of 2 - PCV) 11/16/1959 Diabetes: Retinopathy Screening 11/16/1963 Depression Screening 1965 Diabetes: Urine Protein Screening 1972 Adult Tetanus 11/16/1975 Mammogram 1993 Zoster Vaccines (1 of 2) 11/16/2003 Fall Risk Screening 2018 COVID-19 Vaccine ( - 2023-2 5 season) 2024 09/07/2021, 01/10/2021, 12/20/2020 Influenza Vaccine (Season Ended) 2025 04/13/2022, 03/07/2021 HIB Vaccines Aged Out No longer eligi ble based on patient's age to complete this topic HPV Vaccines Aged Out No longer eligi ble based on patient's age to complete this topic IPV Vaccines Aged Out No longer eligi ble based on patient's age to complete this topic Meningococcal B Vaccine Aged Out No l onger eligible based on patient's age to complete this topic Meningococcal Vaccine Aged Out No christian patty eligible based on patient's age to complete this topic Rotavirus Vaccines Aged Out No longer eligible based on patient's age to complete this topic Advance Directives * Full Code (Latest Code Status on File) Date Activated Date Inactivated Comments 2023 1:30 PM 2023 5:42 PM Care Teams Sand Conditioner Relationship Specialty Start Date End Date Cecilia Fofana CNP [address] [place] [address], [facility] [place] [address] PCP - General Family Medicine 09/12/23
--- OUTSIDE RECORDS SUMMARY | 2024-11-18 15:14 | XMS_ITS | Clinical Summary ---
Author Organization [facility] Address [address] [place] [address] Care Team Providers Care Tube Handler Name Role Phone Unavailable Primary Care Provider Unavailabl e Allergies Active Allergy Reactions Criticality Noted Date Comments Wound Dressings Itching,Other (See Comments) Low 05/03/2012 blisters Blueberry Flavoring Agent (Non-Screening) Shortness Of Breath,Itching,Rash High 05/03/2012 Morphine Itching 04/15/2012 Shellfish Allergy Hives,Shortness Of Breath,Itching High 05/03/2012 Crab Meat only known at this time. Adhesive Tape Other (See Comments) 04/15/2012 blisters Medications ferrous sulfate 325 (65 FE) MG tablet Take 325 mg by mouth 2 times daily. Active Cyanocobalamin (B-12) 2500 MCG TABS Take by mouth daily. Active B Complex-C (SUPER B COMPLEX PO) Take 1 tablet by mouth daily. Active ACETAMINOPHEN Take 1,500 mg by mouth 2 times daily as needed. Active albuterol (PROVENTIL;VENT CÉSAR) 90 MCG/ACT inhaler Inhale 2 puffs into the lungs every 6 hours as needed. Active Glucosamine-Cho ndroit-Vit C-Mn (GLUCOSAMINE CHONDR 1500 COMPLX PO) Take 3 tablets by mouth daily. Active [place]-3 Fatty Acids (FISH OIL) 1000 MG CAPS Take 1,000 mg by mouth daily. Active Multiple Vitamins-Minera ls (COMPLETE MULTIVITAMIN/PA NERAL PO) Take 1 tablet by mouth daily. Complete multivitamin 50+ Active Cholecalciferol (VITAMIN D-3) 5000 UNITS TABS Take 1 tablet by mouth daily. Active metoprolol (TOPROL-XL) 50 MG XL tablet Take 50 mg by mouth daily. Active SUMAtriptan (IMITREX) 100 MG tablet Take 100 mg by mouth once as needed for Migraine. Active Garcinia Cambogia-Chromi um 500-200 MG-MCG TABS Take 3 tablets by mouth 2 times daily. Active lidocaine (LIDODERM) 5 % Place 1 patch onto the skin nightly. 12 hours on, 12 hours off. 30 patch 1 4 Active aspirin 325 MG EC tablet Take 1 tablet by mouth daily. Please take daily for 3 weeks, to help prevent blood clots. 21 tablet 0 4 Active Active Problems Problem Noted Date Diagnosed Date S/P total knee replacement 10/11/2013 Overview (10/11/2013): left Localized osteoarthritis of left knee 10/07/2013 HTN (hypertension) 05/04/2012 Osteoarthrosis involving lower leg 04/30/2012 Overview (11/20/2015): Replacing Inactive Diagnoses S/P right unicompartmental knee replacement 04/17 Family History Medical History Relation Name Comments Diabetes Father Heart Disease Father PA Cancer Mother breast Heart Disease Mother angina Stroke Mother Cancer Sister Page Paul Right Breast CA Diabetes Sister Page Paul Mental Illness Sister Page Paul schizo Relation Name Status Comments Father Mother Sister Page Paul Alive Social History Tobacco Use Types Packs/Day Years Used Date Smoking Tobacco: Never Smokeless Tobacco: Never Alcohol Use Standard Drinks/Week Comments No 0 (1 standard drink = 0.6 oz pur e alcohol) Comments No Sex and Gender Information Value Date Recorded Sex Assigned at Not on file Legal Sex Female 1:14 AM EST Gender Identity Not on file Sexual Orientation Not on file Last Filed Vital Signs Vital Sign Reading Time Taken Comments Blood Pressure 154/78 10/20/2013 8:00 AM EDT Pulse 59 10/20/2013 8:00 AM EDT Temperature 36.8 C (98.2 F) 10/20/2013 8:00 AM EDT Respiratory Rate 20 10/20/2013 8:00 AM EDT Oxygen Saturation 93% 10/20/2013 8:00 AM EDT Inhaled Oxygen Concentration - - Weight 134.5 kg (296 lb 8 oz) 10/20/2013 1:22 AM EDT Height 165.1 cm (5' 5 ) 10/12/2013 8:48 AM EDT Body Mass Index 49.34 10/12/2013 8:48 AM EDT Plan of Treatment Not on file Advance Directives Documents on File Type Date Recorded Patient Sign Hanger Supervisor Expl anation ACP-Power of Cdl Flatbed Truck Driver 10/21/2013 10:24 AM * Full Code (Latest Code Status on File) Date Activated Date Inactivated Comments 10/10/2013 10:54 AM 10/20/2013 12:25 PM * Full Code Date Activated Date Inactivated Comments 10/07/2013 4:36 PM 10/10/2013 10:54 AM * Full Code Date Activated Date Inactivated Comments 05/03/2012 11:56 AM 05/07/2012 7:56 PM * Full Code Date Activated Date Inactivated Comments 04/30/2012 5:14 PM 05/03/2012 11:56 AM
--- OUTSIDE RECORDS SUMMARY | 2024-11-18 15:14 | XMS_ITS | Encounter Summary ---
Author Organization [facility] Address [id number] [address] [place] [address] Care Team Providers Care Disintegrator Name Role Phone Joey Partida MD Primary Care Provider Encounter Details Date Type Department Care Team (Late st Contact Info) Description 09/28/2024 Orders Only [facility] [address] [place] [address] Alexsandra Álvarez MD [address], [facility] [address] [place] [address] Social History Tobacco Use Types Packs/Day Years Used Date Smoking Tobacco: Never Smokeless Tobacco: Never Alcohol Use Standard Drinks/Week Comments Never 0 (1 standard drink = 0.6 oz pur e alcohol) Childcare Answer Date Recorded Childcare Unknown 11/26/2018 Employment Answer Date Recorded Employment Unknown 11/26/2018 Hunger Screening Answer Date Recorded Within the past 12 months we worried whether our food would run out before we got money to buy more. Never True 09/16/2023 Within the past 12 months th e food we bought just didn't last and we didn't have money to get more. Never True 09/16/2023 Comments No Sex and Gender Information Value Date Recorded Sex Assigned at Not on file Legal Sex Female 12:01 PM EDT Gender Identity Not on file Sexual Orientation Not on file documented as of this encounter Plan of Treatment Not on file documented as of this encounter Procedures Procedure Name Priority Date/Time Associated Diagnosis Comments VASC CAROTID DUPLEX BILATERAL Routine 09/25/2024 1:19 PM EDT documented in this encounter Results * Vas carotid duplex bilateral (09/25/2024 1:19 PM EDT) Anatomical Region Laterality Modality Vascular Bilateral Ultrasound us Alexsandra Álvarez MD CV VASCULAR ORDERABLES Final Result documented in this encounter Visit Diagnoses Not on filedocumented in this encounter Care Teams Disintegrator Relationship Specialty Start Date End Date Joey Partida MD [address] [place] [address] PCP - General Family Medicine 10/20/20 documented as of this encounter
--- OUTSIDE RECORDS SUMMARY | 2024-11-18 15:14 | XMS_ITS | Clinical Summary ---
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 Active simvastatin (ZOCOR) 10 mg tablet Take 10 mg by mouth daily at bedtime. Active Ascorbic Acid 1,000 mg tablet Take 1,000 mg by mouth once daily. Active metFORMIN (GLUCOPHAGE) 1,000 mg tablet 1,000 mg. Active pyridostigmine (MESTINON) 60 mg tablet Take 30 mg by mouth three times daily. Active pioglitazone (ACTOS) 15 mg tablet Take 15 mg by mouth once daily. Active cycloSPORINE (RESTASIS) 0.05 % ophthalmic emulsion Use 1 Drop in both eyes twice daily. Active lidocaine HCl 1 % lotn Apply 1 application to affected area as needed. Active TURMERIC ROOT EXTRACT ORAL Take by mouth. 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 05/18/2013 Family History Medical History Relation Comments Diabetes Father Glaucoma Father Cancer Mother Cataract Mother Diabetes Mother Hypertension Mother Macular Degen Mother Cancer Sister Relation Status Comments Father Mother Sister Social History Tobacco Use Types Packs/Day Years Used Date Smoking Tobacco: Never Smokeless Tobacco: Never Alcohol Use Standard Drinks/Week Comments No 0 (1 standard drink = 0.6 oz pur e alcohol) Comments Unknown Sex and Gender Information Value Date Recorded Sex Assigned at Not on file Legal Sex Female 9:22 AM EST Gender Identity Not on file Sexual Orientation Not on file Plan of Treatment Health Maintenance Due Date Last Done Comments Anxiety Screening 11/16/1971 Depression Screening 11/16/1971 Hepatitis C Screening 11/16/1971 DTaP,Tdap,Td Vaccine (1 - Tdap) [address] Colonography 1998 Cologuard (FIT-DNA) 1998 Colonoscopy 1998 Colorectal Cancer Screening 1998 Diabetes Screening 1998 Fecal Occult Blood 1998 Lipid Screening 1998 Sigmoidoscopy 1998 Pneumococcal Vaccine: 50+ (1 of 1 - PCV) 11/16/2003 Shingrix Vaccine (1 of 2) 11/16/2003 Bone Density Screening 2018 Covid-19 Vaccine ( - season) 2024 Advance Directive Discussion 06/17/2024 Influenza Vaccine (Season Ended) 2025 RSV Vaccine (1 - 1-dose 75+ series) 2028 Insurance MEDICAID [place] MEDICARE BLUE CARD PPO OOS Care Teams Washer Blanket Relationship Specialty Start Date End Date Steve No DO PCP - General Family Medicine 05/18/13
--- OUTSIDE RECORDS SUMMARY | 2024-11-18 15:14 | XMS_ITS | Encounter Summary ---
Author Organization [employer] s tem Address [id number] [address] [place] [address] Care Team Providers Care Forest Products Teacher Name Role Phone Joey Partida MD Primary Care Provider [phone] Encounter Details Date Type Department Care Team (Late st Contact Info) Description 09/16/2023 Orders Only [facility] [address] [place] [address] Reina Gomes LPN Social History Tobacco Use Types Packs/Day Years [...] on file documented as of this encounter Visit Diagnoses Not on filedocumented in this encounter Care Teams Forest Products Teacher Relationship Specialty Start Date End Date Joey Partida MD [address] [place] [address] PCP - General Family Medicine 10/20/20 documented as of this encounter
--- OUTSIDE RECORDS SUMMARY | 2024-11-18 15:14 | XMS_ITS | Patient Health Record ---
Author Organization The [facility] in [place] Address [address] [place] [address] Care Team Providers Care Director Of Individual Giving Name Role Phone Cecilia Fofana Primary Care Provider [phone] CECILIA FOFANA Unavailable [phone] NitoYair Unavailable [phone] Allergies Allergen (clinical drug ingredient) Drug/Non Drug [...] tiotropium Tiotropium Constipation Drug Allergy Ac tive Reason For Referral No Information Medications Medication SIG (Take, Route, Frequency, Duration) Notes Start Date End Date Status Losartan Potassium 100 MG TAKE 1 TABLET BY MOUTH EVERY DAY for 90 days Active Atorvastatin Calcium 20 MG 1 tablet Orally Once a day 09/01/2024 Active Albuterol Sulfate HFA 108 (90 Base) MCG/ACT 2 puffs as needed for SOB Inhalation every 4 hrs for 90 Active Spiriva Respimat 1.25 MCG/ACT 2 puffs Inhalation Once a day for 90 days Active Montelukast Sodium 10 MG 1 tablet Orally Once a day for 90 days Active Cinnamon 500 MG 2 tablets Orally onc e daily 09/01/2024 Active Multivitamin Active Cholecalciferol 50 MCG (1999 UT) 1 capsule Orally weekly 09/01/2024 Active CPAP Supplies -- Mask and Tubing Active Potassium 3 times weekly Active CO-Q 10 Coral-3 Fish Oil Active Ozempic (1 MG/DOSE) 4 MG/3ML INJECT 1MG SUBCUTANEOUSLY ONCE A WEEK for 84 days Active amLODIPine Besylate 5 MG Oral for 90 Days Active Restasis Active Aspirin Low Dose 81 MG CHEW 1 TABLET (81 MG) IN THE MORNING Oral for 90 Days Active Isosorbide Mononitrate ER 60 MG 1 tablet in the morning Orally Once a day for 90 days Active Garlic 1000 MG as directed Orally daily 09/01/2024 Active Turmeric 500 MG 1 capsule Orally onc e daily 09/01/2024 Active Vitamin B Complex Ac tive Bilberry Active Metoprolol Succinate ER 25 MG TAKE 1 TABLET BY MOUTH EVERY DAY for 90 days Active B12 5000 MCG as directed Sublingual Active Magnesium Active Arnuity Ellipta 200 MCG/ACT 1 puff Inhalation Once a day for 90 days Active Immunizations Vaccine Route Administration Date Status Comme nts Flu, Fluad (89278) 65 yrs+, single-dose syringe (6768-6607) Unknown 04/13/2022 Administered SARS-COV-2 (COVID 19 Pfizer 30mcg/0.3mL) Unknown 09/07/2021 Administered Social History Tobacco Use: Social History Observation Description Date Details (start date - stop date) Never Smoker NA - NA Tobacco Control (Standard) Question Answer Notes Tobacco use: Nonsmoker Problems Problem Type SNOMED Code ICD Code Onset Dates Problem Status W/U Status Risk Notes Problem 08117052 Hyperlipidemia, unspecified (E78.5) Active confirmed Problem 534287302 Sleep related le g cramps (G47.62) Active confirmed Problem Retinal telangiectas ia (32374785) Retinal telangiectasis, 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) Active confirmed Problem Uncomplicated modera te persistent asthma (369521205) Moderate persistent asthma, uncomplicated (J45.40) Active confirmed Problem 674021545 skilled nursing (curre nt) use of inhaled steroids (Z79.51) Active confirmed Problem Acquired absence of other part of head and neck (Z90.09) Active confirmed Problem Morbid obesity (256569777) Morbid obesity (E66.01) Active confirmed Problem Age-related macular degeneration (disorder) (740425008) Macular degeneration (H35.30) Active confirmed Problem Osteoarthritis (504510703) Osteoarthritis (M19.90) Active confirmed Problem Obstructive sleep apnea (51394188) Obstructive sleep apnea (G47.33) Active confirmed Problem Migraine (35499671) Migraine (G43.909) Active c onfirmed Problem Hearing loss (83286820) Hearing loss (H91.90) Active confirmed Problem Umbilical hernia (748467999) Umbilical hernia (K42.9) Active confirmed Problem 670492904 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) Active confirmed Problem Nuclear sclerosis (597432243) Nuclear sclerosis (H25.10) Active confirmed Problem Post-traumatic stres s disorder (35747834) Post-traumatic stress disorder (F43.10) Active confirmed Problem Dysmetabolic syndrom e X (553428018) Dysmetabolic syndrome X (E88.81) Active confirmed Problem Carotid artery occlusion (619892086) Carotid artery calcification (I65.29) Active confirmed Problem Essential hypertensi on (94099404) Essential Hypertension (I10) Active confirmed Problem Family history of malignant neoplasm of breast (828408182) Family history of breast cancer in sister (Z80.3) Active confirmed Problem hypercholesterolemia (disorder) (31803030) Hypercholesteremia (E78.00) Active confirmed Problem Artificial knee join t present (450065589809) H/O total knee replacement, right (Z96.651) Active confirmed Problem 064528052845342505 History of CO VID-19 (Z86.16) Active confirmed 06/2022 Problem Postprocedural state s (344496139) H/O carpal tunnel repair (Z98.890) Active confirmed Problem Morbid obesity (862579806) Class 3 obesity (E66.01) Active confirmed Vital Signs Heart Rate 39 /min 11/10/2024 Temperature 96.8 degrees Fahrenheit 11/10/2024 Respiratory Rate 18 /min 11/10/2024 Oximetry 96 % 11/10/2024 Blood pressure diastolic 74 mm Hg 11/10/2024 Height 65.5 in 11/10/2024 Blood pressure systolic 169 mm Hg 11/10/2024 Weight 259.8 lbs 11/10/2024 BMI 42.57 kg/m2 11/10/2024 Procedures Procedure Date Ordered Date Performed Result Body Sit e MIPS/MEPS 11/10/2024 N/A PFT (51602, 22394, 37793) 11/10/2024 N/A Encounters Encounter Location Date Provider Diagnosis [facility] [address] [place] [address] 12/05/2023 CECILIA FOFANA [facility] [address] [place] [address] 08/11/2024 Cecilia Fofana [facility] [place] [address] [place] [address] 11/10/2024 Yair Pérez Obstructive sleep ap gogo G47.33 ; Moderate persistent asthma, uncomplicated J45.40 ; Ocular myasthenia gravis G70.00 ; skilled nursing (current) use of inhaled steroids Z79.51 and Morbid obesity E66.01 [facility] [address] [place] [address] 09/01/2024 Cecilia Fofana Class 3 obesity E66. 01 and Prediabetes R73.03 Assessments Encounter Date Diagnosis (ICD Code) Assessment Notes Treatment Notes Treatment Clinical Notes Section Notes 11/10/2024 Obstructive sleep apnea (ICD-10 - G47.33) Wxar-se-zqbn encounter performed with the patient to document [...] to look into biologics or referral to sample washer. It has been 6 years since last PFT. Ordering PFT, along with MIP & MEP to evaluate neuromuscular strength. Additionally, ordering labs to check for eosinophils & IgE. In the meantime, she was instructed to begin using both Arnuity and Spiriva daily as prescribed. 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 Has not seen anyone locally. Will check PFT with signs of muscle strength including MVV, MIP, and MEP. 11/10/2024 skilled nursing (current) use of inhaled steroids (ICD-10 - [...] glucose in this situation. Plan Of Treatment Pending Test Test Name Order Date CMP (COMPLETE METABOLIC PANEL) HEMOGLOBIN A1C (GLYCO) 08/26/2023 IGE, IMMUNOGLOBULIN (TOTAL) 11/10/2024 IRON, TOTAL 08/26/2023 IRON, TOTAL 09/11/2023 LIPID PANEL (CHOL/TRIG/HDL/LDL) 08/26/19 24 CBC WITH DIFF 08/26/2023 VITAMIN D, 25 LEVEL (TOTAL) 08/26/2023 MIPS/MEPS 11/10/2024 Insulin Level 08/26/2023 COMPREHENSIVE METABOLIC PROFILE WITH GFR 09/04/2023 COMPREHENSIVE METABOLIC PROFILE WITH GFR 09/11/2023 Cardiolyte Stress Test 08/26/2023 CBC W/AUTO DIFF 11/10/2024 CBC W/AUTO DIFF 09/11/2023 STOOL OCCULT BLOOD 10/22/2022 PFT (90092, 68285, 88574) 11/10/2024 GLYCOHEMOGLOBIN A1C 09/11/2023 INSULIN 09/11/2023 US CAROTID ART SANDRO 08/26/2023 THYROID PANEL (T4/TSH/FREE T3) THYROID PANEL (T4/TSH/FREE T3) 4 Holter Monitor - 3 days up to 14 days Lipid Panel 09/11/2023 Next Appt Details Provider Name:Yair Pérez, 01/05/2025 03:30:00 PM, [address] [place], [address], Insurance Providers Payer Name Payer Address Payer Phone Subscriber Number Group Number Insured Name Patient Relationship to Insured Coverage Start Date Coverage End Date [place] [address] [place] [address] [id number] Anali Landry Self - patient is the insured 5 [place] 2ND INS [address] [place], [place] [id number] Anali Landry Self - patient is the insured 7 Medical (General) History Medical History History ICD Code Moderate persistent asthma, uncomplicate d J45.40 Obstructive sleep apnea G47.33 Ocular myasthenia gravis G70.00 Essential Hypertension I10 Prediabetes R73.03 Macular degeneration H35.30 Hypercholesteremia E78.00 Post-traumatic stress disorder F43.10 Osteoarthritis M19.90 Umbilical hernia K42.9 Morbid obesity E66.01 History of COVID-19 Z86.16 Migraine G43.909 Hearing loss H91.90 Nuclear sclerosis H25.10 Retinal telangiectasis, unspecified eye H35.079 Dysmetabolic syndrome X E88.81 Family history of breast cancer in siste r Z80.3 H/O total knee replacement, right Z96.65 1 H/O carpal tunnel repair Z98.890 Acquired absence of other part of head a nd neck Z90.09 Surgical History Surgery Date(Month/Year) carpal tunnel release left knee replacement right knee replacement tonsillectomy trigger finger release Hernia Repair Right Ankle/ Leg Surgery
--- OUTSIDE RECORDS SUMMARY | 2024-11-18 15:14 | XMS_ITS | Clinical Summary ---
Author Organization [employer] s tem Address [id number] [address] [place] [address] Care Team Providers Care Slab Installer Name Role Phone Joey Partida MD Primary Care Provider [phone] Allergies Active Allergy Reactions Criticality Noted Date Comments Blueberry Anaphylaxis High 10/20/2020 Crab Anaphylaxis High 10/20/2020 Latex Rash Low 10/20/2020 Morphine Itching,Rash Low 10/20/2020 Other 10/20/2020 acticot dressing (for MRSA prevention), caused blistering Medications metFORMIN (GLUCOPHAGE) 500 mg tablet Take 1 tablet (500 mg total) by mouth in the morning and 1 tablet (500 mg total) before bedtime. Active losartan (COZAAR) 50 mg tablet Take 2 tablets (100 mg total) by mouth in the morning. Active metoprolol succinate XL (TOPROL-XL) 50 mg 24 hr tablet Take 1 tablet (50 mg total) by mouth in the morning. 25mg. Active montelukast (SINGULAIR) 10 mg tablet Take 1 tablet (10 mg total) by mouth nightly. Active cycloSPORINE (RESTASIS) 0.05 % ophthalmic emulsion 1 drop in the morning and 1 drop before bedtime. Active cyanocobalamin 1000 MCG tablet Take 5 tablets (5,000 mcg total) by mouth in the morning. Active fbgthshr-sjvj-UB -calcium &mins (THERAGRAN-M) 9 mg iron-400 mcg tablet Take 1 tablet by mouth in the morning. Active cholecalciferol, vitamin D3, 5,000 units tablet Take 1 tablet (5,000 Units total) by mouth in the morning. Active magnesium oxide (MAG-OX) 400 mg tablet Take 1 tablet (400 mg total) by mouth in the morning and 1 tablet (400 mg total) before bedtime. Active B-complex with vitamin C tablet Take 1 tablet by mouth in the morning. Active TURMERIC ORAL Take 1,000 mg by mouth in the morning. With curcumin . Active coenzyme Q10 30 mg capsule Take 200 mg by mouth in the morning and 200 mg before bedtime. Active BILBERRY ORAL Bilberry Active amLODIPine (NORVASC) 2.5 mg tablet Take 2 tablets (5 mg total) by mouth in the morning. Active atorvastatin (LIPITOR) 20 mg tablet Take 2 tablets (40 mg total) by mouth in the morning. 5 Active isosorbide mononitrate (IMDUR) 60 mg 24 hr tablet Take 1 tablet (60 mg total) by mouth daily. 5 10/02/19 26 Active OZEMPIC 1 mg/dose (4 mg/3 mL) pen injector Inject 1 mg under the skin once a week. Active tiotropium bromide (SPIRIVA RESPIMAT) 1.25 mcg/actuation mist Inhale 2 puffs in the morning. Active albuterol (VENTOLIN HFA) 90 mcg/actuation inhaler Inhale 2 puffs every 6 (six) hours as needed for shortness of breath. Active fluticasone furoate (ARNUITY ELLIPTA) 100 mcg/actuation blister with device Inhale 1 puff in the morning. Active Active Problems Problem Noted Date Diagnosed Date Carotid stenosis, bilateral 10/08/2024 Assessment & Plan (10/08/2024 11:06 AM EDT): Recommended increasing atorvastatin to 40 mg continue aspirin. Continue risk factors modification. Surveillance with carotid imaging in 2 years. Carotid artery calcification 09/13/2023 Encounters Date Type Department Care Team Description 10/08/2024 10:50 AM EDT Office Visit [facility] [address] [place] [address] Alexsandra Álvarez MD Carotid stenosis, bilateral (Primary Dx) 10/08/2024 Travel 09/28/2024 Orders Only [facility] [address] [place] [address] [place] [address] Alexsandra Álvarez MD from Last 3 Months Family History Medical History Relation Name Comments Cancer Daughter ewings sarcoma Diabetes Father Heart disease Father Hypertension Father Stroke Father Cancer Mother breast Diabetes Mother Heart disease Mother Hypertension Mother Neuropathy Mother Stroke Mother No Known Problems Son 1 No Known Problems Son 2 Relation Name Status Comments Daughter Alive Father Mother Son 1 Alive Son 2 Alive Social History Tobacco Use Types Packs/Day Years Used Date Smoking Tobacco: Never Smokeless Tobacco: Never Tobacco Cessation:Counseling Given: Not Answered Alcohol Use Standard Drinks/Week Comments Never 0 (1 standard drink = 0.6 oz pur e alcohol) Childcare Answer Date Recorded Childcare Unknown 11/26/2018 Employment Answer Date Recorded Employment Unknown 11/26/2018 Hunger Screening Answer Date Recorded Within the past 12 months we worried whether our food would run out before we got money to buy more. Never True 10/08/2024 Within the past 12 months th e food we bought just didn't last and we didn't have money to get more. Never True 10/08/2024 Comments No Sex and Gender Information Value Date Recorded Sex Assigned at Not on file Legal Sex Female 12:01 PM EDT Gender Identity Not on file Sexual Orientation Not on file Last Filed Vital Signs Vital Sign Reading Time Taken Comments Blood Pressure 140/78 10/08/2024 10:44 AM EDT Pulse 76 10/08/2024 10:44 AM EDT Temperature 36.4 C (97.5 F) 10/08/2024 10:44 AM EDT Respiratory Rate 18 09/16/2023 2:37 PM EDT Oxygen Saturation 97% 10/08/2024 10:44 AM EDT Inhaled Oxygen Concentration - - Weight 119.7 kg (264 lb) 10/08/2024 10:44 AM EDT Height 166.4 cm (5' 5.5 ) 10/08/2024 10:44 AM ED T Body Mass Index 43.26 10/08/2024 10:44 AM EDT Plan of Treatment Health Maintenance Due Date Last Done Comments Depression Screening 1965 Adult BMI Follow Up Plan 11/16/1971 DTaP,Tdap and Td Vaccines (1 - Tdap) 1972 Zoster (Shingles) Vaccine (1 of 2) 11/16/2003 Fall Risk Screening 2018 COVID-19 Vaccine (2023-2 5 season) 2024 09/07/2021, 01/10/2021, 12/20/2020 Influenza Vaccine 02/15/2025 04/13/2022, 03/07/2021 Adult BMI Screening 10/08/2025 10/08/2024 Tobacco Screening 10/08/2025 10/08/2024 Medical Devices Not on file Procedures Procedure Name Priority Date/Time Associated Diagnosis Comments VASC CAROTID DUPLEX BILATERAL Routine 09/25/2024 1:19 PM EDT from Last 3 Months Results * Vas carotid duplex bilateral (09/25/2024 1:19 PM EDT) Anatomical Region Laterality Modality Vascular Bilateral Ultrasound us Alexsandra Álvarez MD CV VASCULAR ORDERABLES Final Result from Last 3 Months Insurance MEDICARE [place]ICAID [place] Care Teams Slab Installer Relationship Specialty Start Date End Date Joey Partida MD [address] [place] [address] PCP - General Family Medicine 10/20/20
--- OUTSIDE RECORDS SUMMARY | 2024-11-18 15:14 | XMS_ITS ---
Author Organization [facility] Care Team Providers Care Color Maker Dyer Name Role Phone Eloy Merlos Unavailable Unavailable Allergies and adverse reactions Code CodeSystem Substance Reaction Severity StartDate Concern Status Shell Fish Unknown 01/23/2019 active 7052 RXNORM Morphine Unknown 01/23/2019 active Latex Unknown 01/23/2019 active Blueberry Unknown 01/23/2019 active accucot Unknown 01/23/2019 active Care Team Name Role Address Phone Organization Dates Eloy Merlos PCP [address], [place], [address], [place] (Office): : [facility] 01/23/2019 - 04/11/2019 Immunizations Immunization Status Vaccine Details Vaccine Code CodeSystem Nelson e Notes Influenza cancelled Influenza, split virus, trivalent, injectable, contains preservative 141 CVX created date: 03/19/2019 consent date: 03/19/2019 Mental Status Section Date Assessment Total Score Description 04/11/2019 BIMS 15 cognitively int act CAM 0 No delirium ind icated PHQ-9 01 minimal depress ion 04/07/2019 BIMS 15 cognitively int act CAM 0 No delirium ind icated PHQ-9 01 minimal depress ion Problems Problem # Description Date of onset Resolved Date Code CodeSystem Concern Status 1 MORBID (SEVERE) OBESITY DUE TO EXCESS CALORIES 01/23/[address] active 2 MUSCLE WEAKNESS (GENERALIZED) 01/23/[address] active Reason for Referral No Reasons for Referral Entered Social History Social History Observation Description Start Date End Date Code Code System Current Smoking Status Tobacco smoking consumption unknown 877554106 SNOMED CT Sex Assigned At Female 1955 [address]-1 [facility] Gender Identity Vital Signs Code Code System Vitals Name Values and Units Timing Information 9279-1 [facility] Respiratory Rate Value=18.0 Units=/m in 04/10/2019 8462-4 [facility] Blood Pressure-Diastolic Value=73 Un its=mmHg 04/10/2019 8480-6 [facility] Blood Pressure-Systolic Ogpjc=818 Un its=mmHg 04/10/2019 8310-5 [facility] Body Temperature Value=98.1 Units= F 04/10/2019 8867-4 [facility] Heart rate Value=76.0 Units=/min 93123-6 [facility] O2 % BldC Oximetry Value=96.0 Units= % 04/10/2019 47669-1 [facility] Weight Ohsxz=192.0 Units=Lbs 48075-7 [facility] Pain Level Value=0.0 04/08/2019 8302-2 [facility] Height Value=65.0 Units=Inches 01/23/2019
[2024-11-18 15:25] LABS: Basophils Absolute Auto 0.1 10^3/uL (0.0-0.1); Basophils Percent Auto 0.8 % (0.2-2.0); Eosinophils Absolute Auto 0.2 10^3/uL (0.0-0.7); Eosinophils Percent Auto 2.5 % (0.9-7.0); Hematocrit 42.5 % (36.0-48.0); Hemoglobin 14.4 g/dL (12.0-16.0); Immature Granulocytes Abs Auto 0.02 10^3/uL (0.00-0.03); Immature Granulocytes Pct Auto 0.2 % (0.0-0.5); Lymphocytes Absolute Auto 2.2 10^3/uL (1.2-3.8); Lymphocytes Percent Auto 26.4 % (20.5-60.0); Mean Corpuscular HGB Conc 33.9 g/dL (29.9-35.2); Mean Corpuscular Hemoglobin 29.2 pg (26.7-34.0); Mean Corpuscular Volume 86.2 fL (81.0-99.0); Mean Platelet Volume 10.6 fL (9.5-13.5); Monocytes Absolute Auto 0.7 10^3/uL (0.3-0.8); Monocytes Percent Auto 8.4 % (1.7-12.0); Neutrophils Absolute Auto 5.2 10^3/uL (1.4-6.5); Neutrophils Percent Auto 61.7 % (43.0-75.0); Platelet Count 290 10^3/uL (150-450); Red Blood Count 4.93 10^6/uL (4.20-5.40); Red Cell Distribution Width 12.8 % (11.0-15.0); White Blood Count 8.4 10^3/uL (4.0-11.0)
--- NOTE | 2024-11-18 16:30 | RT_ITS ---
The [facility] Test Date: 2024-11-18 Pat Name: BROOKE VELASQUEZ Department: Room: - Gender: Female Stenocaptioner: Bismark Josue RRT : 1955 Requested By: Yair Pérez Order Number: [id number] Reading MD: Yair Pérez Interpretive Statements Pulmonary function testing was completed according to ATS criteria. Findings were considered accurate and reproducible. No bronchodilator was administered due to normal spirometric values. Spirometry: -FEV1/FVC: Normal @ 81% -FEV1: Normal @ 93% -FVC: Normal @ 87% -MVV: Mildly reduced @ 83% -MEP: Mildly reduced @ 71% / [id number] -MIP: Normal @ 120% / -79%cmH2O Lung volumes by plethysmography: -RV: Normal @ 105% -TLC: Normal @ 99% Diffusion capacity: -DLCO: Normal @ 83% when corrected for Hb 14.4g/dL Comparison from 10/24/2018: -No significant change in spirometry (FEV1 96%, FVC 89%) -MVV unchanged @ 83% -TLC relatively unchanged @ 99% -DLCO normal @ 99% Impressions: -Normal spirometry, lung volumes, and diffusion capacity. Other than a slight decrease in MEP, no evidence to suggest neuromuscular weakness. Only significant change from prior testing is a decrease in the DLCO from 99% to 83% - though this remains within the normal range, it is a 16% decrease which could suggest an early stage of ILD, emphysema, or cardiopulmonary vascular disease. Clinical correlation required. Electronically Signed On 11-18-2024 16:53:07 EDT by Yair Pérez
[2024-11-22 20:11] LABS: Immunoglobulin E, Total 19 IU/mL (6-495)
== END 2024-11-18 15:12 | disposition home or self-care (01) ==
LOC: CARD 15:11
PROVIDERS: Visit Provider Internal Medicine
DX: J45.40 Moderate persistent asthma, uncomplicated (principal); G70.00 Myasthenia gravis without (acute) exacerbation
CPT/HCPCS: 36415; 82785; 85025; 94010; 94726; 94729

== ENCOUNTER 2024-12-17 19:49 | Outpatient (OUT) | payer MEDICARE, MEDICAID, SELFPAY ==
--- NOTE | 2024-12-17 19:55 | US_ITS ---
The [address] [address] Patient Name: BROOKE VELASQUEZ MRN: [id number] date: 1955 Sex: F Assigned Patient Location: US Current Patient Location: US Accession/Order Number: [id number] Exam Date: 12/17/2024 22:37 Report Date: 12/17/2024 22:40 At the request of: SAMEER BOUDREAUX Procedure: US thyroid Thyroid Ultrasound HISTORY: Dysphasia COMPARISON: None The RIGHT lobe measures 3.4 x 1.1 x 1.6cm. LEFT lobe measures 3.3 x 0.9 x 1.3 cm. Isthmus has an AP dimension of 0.3cm. Bilateral thyroid nodules identified. Largest measures up to 8 mm.. No microcalcifications identified. Symmetric blood flow of the thyroid gland identified. US/US thyroid IMPRESSION: Subcentimeter bilateral thyroid nodules. Impression dictated by: Abner Colon M.D. 12/17/2024 10:40 PM Dictation Location: [place] [address] Electronically authenticated by: [id number] Y Date: 12/17/2024 22:40
--- NOTE | 2024-12-17 19:56 | XR_ITS ---
[address] [address] Patient Name: BROOKE VELASQUEZ MRN: [id number] date: 1955 Sex: F Assigned Patient Location: US Current Patient Location: US Accession/Order Number: [id number] Exam Date: 12/17/2024 22:40 Report Date: 12/17/2024 22:41 At the request of: SAMEER BOUDREAUX Procedure: XR clavicle BI 2 views both clavicle plain film COMPARISON: None HISTORY: Bilateral clavicle pain ACUTE FINDINGS: None DEGENERATIVE CHANGE: Spurring of acromioclavicular joints SOFT TISSUE FINDINGS: Unremarkable POSTOP CHANGES: None BONE MINERALIZATION: Adequate XR/XR clavicle BI IMPRESSION: Mild bilateral acromioclavicular degeneration Impression dictated by: Abner Colon M.D. 12/17/2024 10:41 PM Dictation Location: [place] [address] Electronically authenticated by: [id number] Y Date: 12/17/2024 22:41
== END 2024-12-17 19:50 | disposition home or self-care (01) ==
PROVIDERS: PCP Nurse Practitioner Family; Visit Provider Nurse Practitioner Family
DX: M89.8X1 Other specified disorders of bone, shoulder (principal); R13.10 Dysphagia, unspecified; E04.1 Nontoxic single thyroid nodule
CPT/HCPCS: 73000; 76536

== ENCOUNTER 2025-04-01 07:43 | Outpatient (OUT) | payer MEDICARE, MEDICAID, SELFPAY ==
--- OUTSIDE RECORDS SUMMARY | 2025-01-05 11:30 | XMS_ITS ---
Author Organization [facility] [place] Address [address] [place] [address] Care Team Providers Care Lead Systems Architect Name Role Phone Cecilia Fofana Primary Care Provider Yair Pérez Unavailable [phone] REASON FOR VISIT 2m F/U - Asthma Encounters Encounter Location Date Provider Diagnosis Pulmonary Medicine [place] [address] [place] [address] 01/05/2025 Yair Pérez Plan Of Treatment No Information Progress Notes * Anali LANDRY LDOB:1955 (69 yo F)Acc No.[id number]:01/05/2025 UNLOCKED PROGRESS NOTE Follow Up Patient: Anali BERRY Provider: Estefani Pérez DO :1955 A ge:69 Y S ex:Female Date:01/05/2025 Address:[address] [place], [place] [id number] Pcp:Cecilia Fofana Subjective: * Chief Complaints: * 1 . 2m F/U - Asthma. * Medical History: Objective: * Vitals: Assessment: Plan: * Treatment: * * Electronic signature of Joanie Pérez DO on 04/01/2025 at 07:46 AM EDT Sign off status: Pending Visit Status: R /S (Rescheduled) * Provider: Estefani Pérez DO Date: 0 01/05/2025 Generated for Mariela valdez/Letty/eTransmitting on: 07:46 AM EDT
--- OUTSIDE RECORDS SUMMARY | 2025-03-19 05:30 | XMS_ITS ---
Author Organization [facility] in [place] Address [address] [place] [address] Care Team Providers Care Coal Sampler Name Role Phone Cecilia Fofana Primary Care Provider Allergies Allergen (clinical drug ingredient) Drug/Non Drug Allergy documented on EMR Reaction Allergy Type Onset Date Status Latex latex (uncoded) Unknown Allergy Acti ve Shellfish (FN) shellfish (uncoded) anaphylaxis Allergy Active Blueberry Flavor Unknown Drug Allergy Active metformin metFORMIN HCl Unknown Drug Allergy Act bon Morphine Sulfate Unknown Drug Allergy Active Acticoat Blisters Drug Allergy Active tiotropium Tiotropium Constipation Drug Allergy Ac tive Reason For Referral Reason right shoulder pain Diagnosis 1 Right shoulder pain (M25.511) Referral Organization [facility] Medicine Referring Provider First Name Cecilia Referring Provider Last Name Brigido Referring Provider Speciality Family [facility] wayne Referred Provider Kushal Parker Referred Provider Specialty Orthopedic S urgery Referral Priority Routine REASON FOR VISIT 6 mo f/u, patient is co right shoulder pain getting worse, patient also stopped taking metoprolol, she has a list of recent bp's, cardiology appt in nov Medications Medication SIG (Take, Route, Frequency, Duration) Notes Start Date End Date Status Losartan Potassium 100 MG TAKE 1 TABLET BY MOUTH EVERY DAY; Duration: 90 days Active Isosorbide Mononitrate ER 60 MG 1 tablet in the morning Orally Once a day; Duration: 90 days Active Garlic 1000 MG as directed Orally daily 09/01/2024 Active CPAP Supplies - Mask and Tubing Active CO-Q 10 [place]-3 Fish Oil Active B12 5000 MCG as directed Sublingual Active Atorvastatin Calcium 20 MG 1 tablet Orally Once a day 09/01/2024 Active Bilberry Active Cinnamon 500 MG 2 tablets Orally onc e daily 09/01/2024 Active Cholecalciferol 50 MCG (2000 UT) 1 capsule Orally weekly 09/01/2024 Active Aspirin Low Dose 81 MG CHEW 1 TABLET (81 MG) IN THE MORNING Oral; Duration: 90 Days Active Arnuity Ellipta 200 MCG/ACT 1 puff Inhalation Once a day; Duration: 90 days Active Vitamin B Complex Ac tive amLODIPine Besylate 5 MG Oral; Duration: 90 Days Active Albuterol Sulfate HFA 108 (90 Base) MCG/ACT 2 puffs as needed for SOB Inhalation every 4 hrs; Duration: 90 Active Ozempic (1 MG/DOSE) 4 MG/3ML INJECT 1MG SUBCUTANEOUSLY ONCE A WEEK; Duration: 84 days Active Turmeric 500 MG 1 capsule Orally onc e daily 09/01/2024 Active Spiriva Respimat 1.25 MCG/ACT 2 puffs Inhalation Once a day; Duration: 90 days Active Restasis Active Potassium 3 times weekly Active Montelukast Sodium 10 MG 1 tablet Orally Once a day; Duration: 90 days Active Magnesium Active Omeprazole 20 MG TAKE 1 CAPSULE BY MOUTH EVERY DAY 1/2 TO 1 HOUR BEFORE MORNING MEAL; Duration: 90 days Active Multivitamin Active Social History Tobacco Use: Social History Observation Description Date Details (start date - stop date) Never Smoker NA - NA Tobacco Control (Standard) Question Answer Notes Tobacco use: Nonsmoker Vital Signs Weight 250 lbs 03/19/2025 Height 65.5 in 03/19/2025 Blood pressure systolic 132 mm Hg 03/19/20 25 Blood pressure diastolic 80 mm Hg 025 Heart Rate 68 /min 03/19/2025 BMI 40.96 kg/m2 03/19/2025 Procedures Procedure Date Ordered Date Performed Result Body Sit e ECG with Interpretation 03/19/2025 03/19/2025 N/A Encounters Encounter Location Date Provider Diagnosis [facility] [address] [place] [address] 03/19/2025 Cecilia Brigido Palpitations R00.2 a nd Right shoulder pain M25.511 Assessments Encounter Date Diagnosis (ICD Code) Assessment Notes Treatment Notes Treatment Clinical Notes Section Notes 03/19/2025 Palpitations (ICD-10 - R00.2) follow up with cardiology cachorro, call for apt today ekg ok here, NSR to ER if symptomatic , verbalizes understanding 03/19/2025 Right shoulder pain (ICD-10 - M25.511) requesting steroid injection ortho referral? Plan Of Treatment Treatment Notes Assessment Notes Palpitations follow up with cardiology cachorro, call for apt today ekg ok here, NSR to ER if symptomatic , verbalizes understanding Right shoulder pain requesting steroid injection ortho referral? Pending Test Test Name Order Date ECG with Interpretation 03/19/2025 Referrals Referral Date Details 03/19/2025 03/19/2025, right sh oulder pain, Kushal Parker Next Appt Details Follow Up: prn, Reason: Progress Notes * Anali LANDRY LDOB:1955 (69 yo F)Acc No.[id number]:03/19/2025 Progress Note Patient: Anali BERRY Provider: Deonna Fofana ([facility]), PEDIATRIC RN :1955 A ge:69 Y S ex:Female Date:03/19/2025 Address:[address] [place], [place] [id number] Check In:09:17 AM ESTCheck O ut:09:51 AM EST Subjective: * Chief Complaints: * 1 . 6 mo f/u. 2. Patient is co right shoulder pain getting worse, patient also stopped taking metoprolol, she has a list of recent bp's, cardiology appt in apr. * HPI: G eneral: stopped metoprolol a couple weeks ago - GI stop because HR low since than more episodes of dizziiness, was having some feeling extra heart beats right shoulder worse lately, PT exercises taught in past helped some wondering about steroid shot in shoulder. * ROS: G eneral/Constitutional: Fever d enies. H eadache d enies. W eight loss?denies. O phthalmologic: Discharge d enies. E ye Pain d enies. I tching and redness d enies. E NT: Nasal discharge d enies. N [place] congestion d enies.?Sore throat d enies. C ardiovascular: Heart Rythm Problems a dmits, low HR. C hest tightness/ heavy pressure d enies. R apid heart rate d enies. S welling of extremities d enies. C hest pain d enies. R espiratory: Productive cough d enies. C hest pain d enies. C ough d enies. S hortness of breath d enies. W heezing d enies. ? G astrointestinal: Abdominal pain d enies. C onstipation d enies. D ecreased appetite d enies. D iarrhea d enies. N ausea d enies. V omiting?denies. G enitourinary: Urinary incontinence d enies. P ainful urination d enies. M usculoskeletal: Patient complaining of r ight shoulder pain. B ack pain?denies. N nicolasa pain d enies. M uscle aches d enies. S kin: Rash d enies. S kin lesion(s) d enies. ? 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, unspecified eye Modified On:10/11/2022U Status:confirmed J45.40 Moderate persistent asthma, uncomplicated Modified On:11/10/2024U Status:confirmed H25.10 Nuclear sclerosis Modified On:10/11/2022U Status:confirmed F43.10 Post-traumatic stres s disorder Modified On:10/11/2022U Status:confirmed 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 Modified On:10/11/2022U Status:confirmed I10 Essential Hypertensi on Modified On:09/11/2023U Status:confirmed Z80.3 Family history of br east [...] History of COVID-19 Modified On:10/09/2022 Status:confirmed Z79.51 MCC (current) use of inhaled steroids Modified On:10/09/2022 Status:confirmed E78.5 Hyperlipidemia, unsp ecified Modified On:10/22/2022 Status:confirmed G47.62 Sleep related leg cr amps Modified On:04/12/2023 Status:confirmed I65.29 Carotid artery calci fication Modified On:09/04/2023 Status:confirmed E66.01 Class 3 obesity Modified On:09/02/2024 Status:confirmed E66.01 Morbid obesity Modified On:11/10/2024 Status:confirmed R13.10 Swallowing difficult y Modified On:12/15/2024 Status:confirmed J45.909 Asthma Modified On:12/31/2024 Status:confirmed * Medical History: M oderate persistent asthma, uncomplicated, Obstructive sleep apnea, Ocular myasthenia gravis, Essential Hypertension, Prediabetes, Macular degeneration, Hypercholesteremia, Post-traumatic stress disorder, Osteoarthritis, Umbilical hernia, Morbid obesity, History of COVID-19, Migraine, Hearing loss, Nuclear sclerosis, Retinal telangiectasis, unspecified eye, Dysmetabolic syndrome X, Family history of breast cancer in sister, H/O total knee replacement, right, H/O carpal tunnel repair, 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 * Surgical History: c arpal tunnel release , left knee replacement , right knee replacement , tonsillectomy , trigger finger release , Hernia Repair , Right Ankle/ Leg Surgery . * Family History: F ather: , Alzheimers, stroke, diagnosed with Diabetes, Hypertension. M other: , Alzheimers, stroke, breast cancer, diagnosed with Cancer, Diabetes, Hypertension. * Social History: T obacco Use: T obacco Control (Standard) T obacco use: N onsmoker Electronic Cigarette use C urrent user N o * Medications: T aking Albuterol Sulfate HFA 108 (90 Base) MCG/ACT Aerosol Solution 2 puffs as needed for SOB Inhalation every 4 hrs , Taking amLODIPine Besylate 5 MG Tablet Oral , Taking Arnuity Ellipta(Fluticasone Furoate) 200 MCG/ACT Aerosol Powder Breath Activated 1 puff Inhalation Once a day , Taking Aspirin Low Dose(Aspirin) 81 MG Tablet Chewable CHEW 1 TABLET (81 MG) IN THE MORNING Oral , Taking Atorvastatin Calcium 20 MG Tablet 1 tablet Orally Once a day , Taking B12 5000 MCG Tablet Sublingual as directed Sublingual , Taking Bilberry , Taking Cholecalciferol 50 MCG (2000 UT) Capsule 1 capsule Orally weekly , Taking Cinnamon 500 MG Tablet 2 tablets Orally once daily , Taking CO-Q 10 [place]-3 Fish Oil , Taking CPAP Supplies - - Mask and Tubing , Taking Garlic 1000 MG Capsule as directed Orally daily , Taking Isosorbide Mononitrate ER 60 MG Tablet Extended Release 24 Hour 1 tablet in the morning Orally Once a day , Taking Losartan Potassium 100 MG Tablet TAKE 1 TABLET BY MOUTH EVERY DAY , Taking Magnesium , Taking Montelukast Sodium 10 MG Tablet 1 tablet Orally Once a day , Taking Multivitamin(Multiple Vitamins-Minerals) , Taking Omeprazole 20 MG Capsule Delayed Release TAKE 1 CAPSULE BY MOUTH EVERY DAY 1/2 TO 1 HOUR BEFORE MORNING MEAL , Taking Ozempic (1 MG/DOSE)(Semaglutide (1 MG/DOSE)) 4 MG/3ML Solution Pen-injector INJECT 1MG SUBCUTANEOUSLY ONCE A WEEK , Taking Potassium , Notes to Pharmacist: 3 times weekly, Taking Restasis , Taking Spiriva Respimat(Tiotropium Harris Monohydrate) 1.25 MCG/ACT Aerosol Solution 2 puffs Inhalation Once a day , Taking Turmeric 500 MG Capsule 1 capsule Orally once daily , Taking Vitamin B Complex * Allergies: l atex, Blueberry Flavor, Morphine Sulfate, shellfish: anaphylaxis - Allergy, Acticoat: Blisters - Allergy, Tiotropium: Constipation - Side Effects - Criticality Low, metFORMIN HCl: Side Effects - Criticality Unknown. Objective: * Vitals: W t:250lbs, Ht: 65.5 in, BP:132/80mm Hg, HR:68/min, BMI:40.96Index, Ht-cm: 166.37 cm, Wt-k.4 kg. * Examination: G eneral Examinations: GENERAL APPEARANCE: a lert and oriented, in no acute distress, morbidly obese. EYES: c onjunctiva normal, sclera non-icteric. NOSE: n ormal external appearance. LUNGS: c lear to auscultation bilaterally. CARDIO: r egular rate and rhythm, S1, S2 normal. MUSCULOSKELETAL: G ait and station normal. SKIN: w arm and dry. Assessment: * Assessment: 1. P alpitations - R00.2 (Primary) 2 . R ight shoulder pain - M25.511 ? Plan: * Treatment: 2. R ight shoulder pain Notes: requesting steroid injection ortho referral? Referral To:[facility] Reason:right shoulder pain * Procedure Codes: 9 3000 EKG, WINTERP. * Preventive Medicine: Screenings/Counseling: B WA ACTION PLAN Above Normal BMI Follow-up D ietary management education, guidance, and counseling F ALL RISK SCREENING Fall Risk Assessment: N o falls in the past year * Follow Up: p rn * * Electronically signed by Nayana Fofana , UNIT MANAGER, PROGRAM DIRECTOR SUBSTANCE [id number] on 03/22/2025 at 12:58 PM EDT Sign off status: Completed Visit Status: C HK (Check Out) true * Provider: Deonna Fofana ([facility]), PEDIATRIC RN Date: Generated for Mariela valdez/Letty/Shawsmitting on: 07:45 AM EDT History and Physical Notes * HPI (History of Present Illness) Category Sub-Category Detail Notes Category Not es General stopped metoprolol a couple weeks ago - GI stop because HR low since than more episodes of dizziiness, was having some feeling extra heart beats right shoulder worse lately, PT exercises taught in past helped some wondering about steroid shot in shoulder Examination Category Sub-Category Detail Notes Category Not es General Examinations GENERAL APPEARANCE: alert a nd oriented, in no acute distress, morbidly obese EYES: conjunctiva normal, sclera non-icteric EARS: NOSE: normal external appe arance THROAT: CARDIO: regular rate and rhy thm, S1, S2 normal LUNGS: clear to auscultatio n bilaterally ABDOMEN: SKIN: warm and dry BACK: MUSCULOSKELETAL: Gait and station nor mal LYMPH NODES: Consultation Request Notes Referral Date Referring Provider Referred Provider Not amor 03/19/2025 Cecilia Fofana [facility]
--- OUTSIDE RECORDS SUMMARY | 2025-03-22 11:45 | XMS_ITS | Encounter Summary ---
Author Organization [facility] Address [address] [place] [address] Care Team Providers Care Director Product Name Role Phone Cecilia Fofana CNP Primary Care Provider [phone] Reason for Referral * Consultation (Routine) - Pending Review Specialty Diagnoses / Procedures Referred By Contac t Referred To Contact Cardiology Diagnoses PVC (premature ventricular contraction) Procedures [place] OFFICE/OUTPATIENT [facility] 60 MINUTES Giorgio De La Garza MD [address] [place] [address] Phone: tel: fax: Mauricio Perez MD [address] [place] [phone] Referral ID Status Reason Start Date Expiration Date Visits Requested Visits Authorized [id number] Pending Review Specialty Services Required 03/22/2025 03/22/2026 1 1 * Cardiac Stress Testing (Routine) - Pending Review Specialty Diagnoses / Procedures Referred By Contac t Referred To Contact Cardiology Diagnoses PVC (premature ventricular contraction) Procedures Holter monitor - 48 hour Giorgoi De La Garza MD [address] [place] [address] Phone: tel: fax: Referral ID Status Reason Start Date Expiration Date V isits Requested Visits Authorized [id number] Pending Review 03/22/2025 03/22/2026 1 1 * Imaging (Routine) - Pending Review Specialty Diagnoses / Procedures Referred By Yaritza parra Referred To Contact Cardiology Diagnoses Palpitations Shortness of breath Procedures Transthoracic echo (TTE) complete Giorgio De La Garza MD [address] [place] [address] Phone: tel: fax: Referral ID Status Reason Start Date Expiration Date Visits Requested Visits Authorized [id number] Pending Review Perform Procedure 03/22/2025 03/22/2026 1 1 * (Routine) - Canceled Specialty Diagnoses / Procedures Referred By Yaritza parra Referred To Contact Diagnoses Palpitations Procedures ECG 12 lead unit performed Giorgio De La Graza MD [address] [place] [address] Phone: tel: fax: Referral ID Status Reason Start Date Expiration Date V isits Requested Visits Authorized [id number] Canceled 03/22/2025 03/22/2026 1 1 Encounter Details Date Type Department Care Team (Late st Contact Info) Description 03/22/2025 11:45 AM EDT Office Visit [place] [address] [place] [address] Giorgio De La Garza MD [address] [place] [address] Palpitations (Primary Dx); Shortness of breath; Coronary artery disease involving [place] coronary artery of [place] heart without angina pectoris; Mixed hyperlipidemia; PVC (premature ventricular contraction); Primary hypertension; [place] (obstructive sleep apnea) Social History Tobacco Use Types Packs/Day Years Used Date Smoking Tobacco: Never Smokeless Tobacco: Never Alcohol Use Standard Drinks/Week Comments Not Currently 0 (1 standard drink = 0.6 oz pur e alcohol) [place] Safety & Environment Answer Date Rec orded Fear of Current or Ex-Partner Not on file Emotionally Abused Not on file 09/12/2023 Physically Abused Not on file 09/12/2023 Sexually Abused Not on file 09/12/2023 Physically or Sexually Abused Not on file Comments Unknown Sex and Gender Information Value Date Recorded Sex Assigned at Female 09/16/2023 11:20 AM EDT Legal Sex Female 12:17 AM EDT Gender Identity Female 09/16/2023 11:20 AM EDT Sexual Orientation Heterosexual or Straight 06/2023 11:20 AM EDT documented as of this encounter Last Filed Vital Signs Vital Sign Reading Time Taken Comments Blood Pressure 134/69 03/22/2025 12:09 PM EDT Pulse 52 03/22/2025 12:09 PM EDT Temperature - - Respiratory Rate - - Oxygen Saturation 98% 03/22/2025 12:09 PM EDT Inhaled Oxygen Concentration - - Weight 114 kg (251 lb) 03/22/2025 12:09 PM EDT Height 165.1 cm (5' 5 ) 03/22/2025 12:09 PM EDT Body Mass Index 41.77 03/22/2025 12:09 PM EDT documented in this encounter Functional Status * BP Answer Date of Assessment Author 134/69 03/22/2025 12:09 PM EDT Valerie Manriquez am, [place] * Pulse Answer Date of Assessment Author 52 03/22/2025 12:09 PM EDT Valerie Manriquez am, [place] * Patient Position Answer Date of Assessment Author Sitting 03/22/2025 12:09 PM EDT Valerie Manriquez am, MA * BP Answer Date of Assessment Author 134/69 03/22/2025 12:09 PM EDT Valerie Manriquez am, MA * Pulse Answer Date of Assessment Author 52 03/22/2025 12:09 PM EDT Valerie Manriquez am, [place] * SpO2 Answer Date of Assessment Author 98 03/22/2025 12:09 PM EDT Valerie Manriquez am, MA * BP Location Answer Date of Assessment Author Left arm 03/22/2025 12:09 PM EDT Valerie Manriquez am, MA * Patient Position Answer Date of Assessment Author Sitting 03/22/2025 12:09 PM EDT Valerie Manriquez am, [place] documented as of this encounter Progress Notes * Giorgio De La Garza MD - 03/22/2025 11:45 AM EDT Images from the original note were not included. [place] [facility] Subjective Anali Landry is a 69 y.o. year old female patient being seen per her PCP request due to palpitations. Patient complains of SOB, MONIQUE, fatigue, palpitations/racing heart, chest pressure, dizziness/lightheaded with position changes. Per patient the last 3 weeks it has increased. Patient states the pal pitations occur with and without activity. Patient complains of numbness in her finger tips. Patient states her pulse is really low, patient states it goes from 37 to 69. Patient states she just doesn't feel good. Patient Active Problem List Diagnosis Ankle pain [...] Other chest pain Abnormal cardiovascular stress test Carotid stenosis, bilateral Chronic GERD Dysphagia Hoarseness Sputum production Family History Problem Relation Name Age of [...] same symptoms of chest discomfort and shortness ofbreath at rest or with exertion. No change [...] than before. She has occasional palpitations and withthose palpitations she might feel some chest heaviness but no chest pain. She has improved shortness of breath on exertion. No leg edema. Her blood pressure is elevated but her heart rate is much improved after the above changes. visit if 03/22/2025: She is seen in follow-up. she reports that she recently she has been having significant worsening symptoms of chest heavinessand shortness of breath with exertion. She feels irregular heartbeats. She does not have chest painbut she reports it is heaviness that occurs with the palpitations. No syncope. She has occasional lightheadedness. EKG today shows sinus rhythm with frequent PVCs in a pattern of bigeminy sometimes. Review of Systems Constitutional: Negative. Cardiovascular: Positive for chest pain ( heaviness with episodes of palpitations), dyspnea on exertion, irregular heartbeat and palpitations. Respiratory: Positive for shortness of breath. Neurological: Positive for headaches and light-headedness. All other systems reviewed and are negative. Objective Visit Vitals BP 134/69 (BP Location: Left arm, Patient Position: Sitting) Pulse 52 Ht 1.651 m (5' 5 ) Wt 114 kg (251 lb) SpO2 98% BMI 41.77 kg/m?? Smoking Status Never BSA 2.29 m?? Physical Exam Constitutional: Appearance: She is well-developed. [...] General: No swelling. Cervical back: Neck supple. Right lower le+ Pitting Edema present. Left lower le+ Pitting Edema present. Skin: General: Skin is warm and dry. [...] known at this time. Adhesive Other blisters Metformin Hcl Unknown Silver-Hydrocolloid Dressing Hives Sulfa (Sulfonamide Antibiotics) Unknown Tiotropium Unknown Latex, Natural Rubber Hives and Rash Morphine Itching, Other and Rash Wound Dressings Itching and Other blisters Medications Current Outpatient Medications: albuterol 90 mcg/actuation inhaler, Inhale 2 puffs every 6 (six) hours if needed., Disp: , Rfl: amLODIPine (Norvasc) 5 mg tablet, Take 1 tablet (5 mg) by mouth in the morning., Disp: 90 tablet, Rfl: 3 Arnuity Ellipta 200 mcg/actuation inhaler, Inhale 1 puff in the morning., Disp: , Rfl: aspirin 81 mg chewable tablet, CHEW 1 TABLET (81 MG) IN THE MORNING, Disp: 90 tablet, Rfl: 3 atorvastatin (Lipitor) 20 mg tablet, TAKE 1 TABLET BY MOUTH AT BEDTIME, Disp: 90 tablet, Rfl: 3 b complex-vitamin c tablet, Take 1 tablet by mouth in the morning., Disp: , Rfl: bilberry 100 mg capsule, Take 5,000 Units by mouth in the morning., Disp: , Rfl: carboxymethylcellulose PF (Refresh Plus) 0.5 % ophthalmic solution, 1 drop if needed in the morning, at noon, and at bedtime., Disp: , Rfl: cholecalciferol (D3-5) 5,000 Units tablet, Take 5,000 Units by mouth in the morning., Disp: , Rfl: co-enzyme Q-10 30 mg capsule, Take 200 mg by mouth twice a day., Disp: , Rfl: cycloSPORINE (Restasis) 0.05 % ophthalmic emulsion, 1 drop twice a day., Disp: , Rfl: isosorbide mononitrate ER (Imdur) 60 mg 24 hr tablet, TAKE 1 TABLET (60 MG) BY MOUTH IN THE MORNING. DO NOT CRUSH OR CHEW., Disp: 90 tablet, Rfl: 3 losartan (Cozaar) 100 mg tablet, Take 100 mg by mouth in the morning., Disp: , Rfl: magnesium oxide (Mag-Ox) 400 mg (241.3 mg magnesium) tablet, Take 400 mg by mouth every other day.,Disp: , Rfl: metoprolol succinate XL (Toprol-XL) 25 mg 24 hr tablet, TAKE 1 TABLET (25 MG) BY MOUTH IN THE MORNING . DO NOT CRUSH OR CHEW, Disp: 90 tablet, Rfl: 3 montelukast (Singulair) 10 mg tablet, Take 10 mg by mouth in the morning., Disp: , Rfl: multivitamin (Theragran-M) 9 mg iron-400 mcg tablet, Take 1 tablet by mouth in the morning., Disp: , Rfl: sl-ijd-CD-vit X-dmftye-whfdyop (PreserVision AREDS 2 Plus MV) 200 mcg-15 mcg- 5 mg-1 mg capsule, Take 200 Units by mouth., Disp: , Rfl: omeprazole (PriLOSEC) [address] capsule, Take 20 mg by mouth before breakfast., Disp: , Rfl: semaglutide (Ozempic) 1 mg/dose (4 mg/3 mL) pen injector, INJECT 1MG SUBCUTANEOUSLY ONCE A WEEK for84 days, Disp: , Rfl: tiotropium (Spiriva) 18 mcg inhalation capsule, Place 1 capsule into inhaler and inhale in the morning., Disp: , Rfl: Recent Labs No visits with results within 6 Month(s) from this visit. Latest known visit with results is: Admission on 2023, Discharged on 2023 Component Date Value Ventricular Rate 2023 74 Atrial Rate 2023 74 ND Interval 2023 154 QRS DURATION 2023 88 QT Interval 2023 390 QTC CALCULATION(BAZETT) 2023 432 P Redmond 2023 31 R-Redmond 2023 6 T Wave Redmond 2023 38 Blood testing 09/06/2023: Potassium 4.2, BUN 17, creatinine 0.99, EGFR 56, glucose 86, LFTs normal. Blood testing 08/31/2023: Hemoglobin 14.1, platelets 284, potassium 4.3, BUN 22, creatinine 1.13, EGFR 48, hemoglobin A1c 5.6, LFTs normal, triglycerides 126, cholesterol 168, LDL 88, HDL 55, TSH 1.866, T4/free T3 normal. Blood testing 08/22/2024: Hemoglobin A1c 5.5%, triglycerides 121, cholesterol 140, LDL 58, HDL 58. Blood testing 11/18/2024: Hemoglobin 14.4, platelets 290. Imaging and other tests ECG 03/22/2025: Sinus rhythm with frequent premature ventricular complexes. Cannot rule out anteriormyocardial infarct, age indeterminant. Abnormal ECG Carotid ultrasound 09/25/2024: No sonographic evidence of hemodynamically significant narrowing of the above arteries. Using consensus panel criteria, the degree of stenosis is less than 50% bilaterally. ECG 2023: Sinus rhythm with frequent Premature ventricular complexes in a pattern of bigeminy,Otherwise normal ECG Cardiac catheterization 2023: Impression/Findings: Stable non-obstructive coronary artery disease. 40% stenosis in the mid LAD that is nonhemodynamically significant by IFR measurement. Minimal disease elsewhere. Plan: Aspirin 81 mg daily for life. Statin therapy for life. Simvastatin 10 mg daily will be changed to atorvastatin 20 mg daily. Maximize antianginal therapy. Risk factor control. Follow up in Cardiology Clinic. stress test 10/04/2023: Small to moderate size area of mildly decreased uptake in the anterior septal wall extending to the apex with suspected reversible ischemia. LAD distribution. Consider follow-up. Normal exercise test. No evidence of ischemic ECG changes following infusion of Lexiscan. Frequent PVCs noted throughout the exam. Uncontrolled systemic hypertension. Echocardiogram 10/07/2023: Global left ventricular systolic function is normal. Visually estimated ejection fraction is 55%. Normal right ventricular size and systolic function. Mildly increased left ventricular wall thickness. Normal diastolic function. Left atrium is normal in size. Mildly elevated right ventricular systolic pressure, RVSP 38 mmHg. No significant valvular abnormalities. Anteriorfree space, trivial effusion versus fat pad. Holter monitor 09/19/2023: Predominant rhythm is sinus with average rate of 71 bpm. Fastest rate of 112 bpm [sinus tachycardia] with slowest rate of 51 bpm. Ventricular ectopy 75,878 [11% total], 75,770 PVC, 108 couplets, bigeminy and trigeminy. No atrial fibrillation. No pauses or blocks. ECG 09/20/2023: Sinus rhythm with frequent premature ventricular complexes in a pattern of bigeminy.Low voltage QRS. Carotid ultrasound 08/30/2023: Moderate atherosclerotic disease on left, mild on right. 0 to 40% flow stenosis bilaterally. Antegrade vertebral flow. ECG 08/10/2019: Sinus arrhythmia with PVCs, low QRS voltage in precordial leads. Borderline ECG. PFTs 10/24/2018: Essentially normal PFTs. Assessment/Plan Diagnoses and all orders for this visit: Palpitations - ECG 12 lead unit performed - Transthoracic echo (TTE) complete; Future Shortness of breath - Transthoracic echo (TTE) complete; Future Coronary artery disease involving [place] coronary artery of [place] heart without angina pectoris Mixed hyperlipidemia PVC (premature ventricular contraction) - Holter monitor - 48 hour; Future - Ambulatory referral to Cardiac Electrophysiology; Future Primary hypertension [place] (obstructive sleep apnea) CAD: Cardiac catheterization in October 2023 showed 40% LAD that is nonsignificant by IFR measurement. Continue therapy with aspirin and statin. Hypertension: This is reasonably controlled. Continue amlodipine 5 mg once daily. Continue metoprolol succinate and losartan. Hyperlipidemia: blood testing showed LDL of 58 in August 2024. Continue atorvastatin 20 mg daily. PVCs, palpitations: These are symptomatic. Shown by today's ECG. I am going to check a Holter monitor to quantify the PVCs. I will refer her to Dr. Mauricio Perez from electrophysiology for further management. Shortness of breath: I am going to investigate by echocardiogram especially in light of her frequent PVCs I will see her in follow-up in 6 months. No follow-ups on file. Giorgio De La Garza MD documented in this encounter Plan of Treatment Upcoming Encounters Date Type Department Care Team (Late st Contact Info) Description 04/20/2025 3:15 PM EST Office Visit [facility] [address] [place] [address] Mauricio Perez MD [address] [place] [phone] Scheduled Orders Name Type Priority Associated Diagnoses Orde r Schedule Transthoracic echo (TTE) complete Echocardiography Routine Palpitations Shortness of breath Expected: 03/22/2025 (Approximate), Expires: 03/22/2027 Holter monitor - 48 hour Cardiac Services Routine PVC (premature ventricular contraction) Expected: 03/22/2025 (Approximate), Expires: 03/22/2027 Scheduled Referrals Name Type Priority Associated Diagnoses Order Schedule Ambulatory referral to Cardiac Electrophysiology Outpatient Referral Routine PVC (premature ventricular contraction) Expected: 03/22/2025 (Approximate), Expires: 09/20/2025 documented as of this encounter Procedures Procedure Name Priority Date/Time Associated Diagnosis Comments ECG 12 LEAD UNIT PERFORMED Routine 03/22/2025 12:12 PM EDT Palpitations documented in this encounter Results * ECG 12 lead unit performed (03/22/2025 12:12 PM EDT) Giorgio De La Garza MD ECG ORDERABLES Final Result documented in this encounter Visit Diagnoses Diagnosis Palpitations- Primary Shortness of breath Coronary artery disease involving [place] coronary artery of [place] heart without angina pectoris Mixed hyperlipidemia PVC (premature ventricular contraction) Other premature beats Primary hypertension Unspecified essential hypertension [place] (obstructive sleep apnea) Obstructive sleep apnea (adult) (pediatric) documented in this encounter Care Teams Director Product Relationship Specialty Start Date End Date Cecilia Fofana CNP [address] [place] [address] [place] [address] PCP - General Family Medicine 09/12/23 documented as of this encounter
--- NOTE | 2025-04-01 | XR_ITS ---
The [address] [address] Patient Name: BROOKE VELASQUEZ MRN: [id number] date: 1955 Sex: F Assigned Patient Location: [facility] Current Patient Location: [facility] Accession/Order Number: [id number] Exam Date: 04/01/2025 11:30 Report Date: 04/01/2025 14:43 At the request of: LILIAN CHILDERS DO Procedure: XR shoulder RT min 2V RIGHT SHOULDER - - 4 views CLINICAL HISTORY: Right shoulder pain COMPARISON: None FINDINGS: Mild degenerative changes involving the AC joint. Glenohumeral joint appears unremarkable. No acute bony process. XR/XR shoulder RT min 2V IMPRESSION: MILD DEGENERATIVE CHANGES WITHOUT ACUTE BONY PROCESS. Impression dictated by: Cabrera Valenzuela Jr., D.O. 04/01/2025 2:43 PM Dictation Location: [place] [address] Electronically authenticated by: [id number] Date: 04/01/2025 14:43
--- OUTSIDE RECORDS SUMMARY | 2025-04-01 07:45 | XMS_ITS | CCD ---
Author Organization [facility] Care Team Providers Care Vice President For Instruction Name Role Phone CARO SUGGS F Unavailable Unavailable SHANTELL SASHAJIA CLARISA Unavailable Unavailab le DEASY, CARO F Unavailable Unavailable DEASY, CARO F Unavailable Unavailable EBRAHEIM, JAMIN Admitting Unavailable EBWILDA, JAMIN Attending Unavailable ABIEL BLACKWELL Referring Unavailable ABIEL BLACKWELL Primary Care Unavailable [place] Procedure Practitioner Unavailab SU YoungerIL Surgeon Unavailable CECILIA BOUDREAUX Attending Unavailable ABIEL BLACKWELL Primary Care Unavailable CECILIA BOUDREAUX Admitting Unavailable Niranjan Bustillos Consulting Unavailable SAMSA Tim ANGIE Admitting Unavailable SAMSA Dumont ANGIE Attending Unavailable CECILIA BOUDREAUX Primary Care Unavailable ANGIE NICOLE Consulting Unavailable CECILIA BOUDREAUX Admitting Unavailable CECILIA BOUDREAUX Primary Care Unavailable CECILIA BOUDREAUX Attending Unavailable REQUEST, NONE LISTED Admitting Unavaila ble REQUEST, NONE LISTED Consulting Unavaila ble REQUEST, NONE LISTED Attending Unavaila ble CECILIA BOUDREAUX Primary Care Unavailable Abiel Blackwell MD Primary Care Provider Abiel Blackwell MD Primary Care Provider ALEXSANDRA ÁLVAREZ Attending Unavailable ABIEL BLACKWELL Referring Unavailable ABIEL BLACKWELL Primary Care Unavailable CECILIA BOUDREAUX Primary Care Physician Efra Hall Attending Unavailable Efra Hall Referring Unavailable Efra Hall Admitting Unavailable Efra Hall Attending Unavailable Efra Hlal Attending Unavailable KIM ROSSI Attending Unavailable KIM ROSSI Attending Unavailable Allergies Allergy Classification Reported Allergen(s) Allergy Type Date of Onset Reaction(s) Facility (8 sources) [place]; Translations: [BLUEBERRY] Propensity to adverse reactions to drug (disorder) 6 Anaphylaxis [facility] Repository (13 sources) morphine; Translations: [MORPHINE] Drug Allergy 2 Itching, Rash [facility] Repository (4 sources) natural latex rubber; Translations: [LATEX, NATURAL RUBBER] Propensity to adverse reactions to drug (disorder) 3 AOF [facility] Repository (2 sources) Shellfish; Translations: [SHELLFISH DERIVED] Propensity to adverse reactions to drug (disorder) 6 AOF [facility] Repository (2 sources) SILVER-HYDROCOLL OID DRESSING; Translations: [SILVER-HYDROCOL LOID DRESSING] Propensity to adverse reactions [facility]disorder[facility] Blueberry; Translations: [BLUEBERRIES] Propensity to adverse reactions (disorder) 9 RASH [facility] Repository (9 sources) Latex; Translations: [LATEX] Propensity to adverse reactions (disorder) 9 Rash [facility] Repository (1 source) ACCUCOT; Translations: [Unknown] Propensity to adverse reactions (disorder) 9 [facility] Repository (2 sources) Adhesive agent; Translations: [ADHESIVE] Drug allergy (disorder) 2 [facility] Repository (2 sources) Aspirin Drug Allergy [facility] Repository (1 source) fluticasone / vilanterol Drug Allergy [facility] Repository (3 sources) Shellfish; Translations: [shellfish] Drug allergy (disorder) [facility] Repository (2 sources) Acticoat Dressing Drug allergy (disorder) [facility] Repository (5 sources) crab allergenic extract; Translations: [CRAB] Drug Allergy 1 Anaphylaxis [facility] (5 sources) Other; Translations: [OTHER] Propensity to adverse reactions 1 [facility] (3 sources) Sulfonamide -class of antibiotic- (substance); Translations: [sulfa topicals] Drug allergy [facility] (1 source) metFORMIN; Translations: [METFORMIN HCL] Drug Allergy 5 [facility] Rep[facility] (1 source) Sulfonamides (Antibiotic); Translations: [SULFA (SULFONAMIDE ANTIBIOTICS)] Propensity to adverse reactions to drug (disorder) 5 [facility] Repository (1 source) tiotropium; Translations: [TIOTROPIUM] Drug Allergy 5 [facility] Repository (1 source) BLUEBERRY FLAVOR; Translations: [BLUEBERRY FLAVOR] Propensity to adverse reactions to drug (disorder) 2 [facility] Repository (1 source) SHELLFISH CONTAINING PRODUCTS; Translations: [SHELLFISH CONTAINING PRODUCTS] Propensity to adverse reactions to drug (disorder) 2 [facility] Repository (1 source) WOUND DRESSINGS; Translations: [WOUND DRESSINGS] Propensity to adverse reactions to drug (disorder) 2 [facility] Repository Medications Current Medications Medication Drug Class(es) Dates Sig (Normalized) Sig (Original) [id number] 200 actuat albuterol 0.09 mg/actuat metered dose inhaler (5 sources) beta2-Adrenergic Agonist End: 10-08-2024 take 2 puff(s) by inhalation every six hours as needed for wheezing albuterol (PROVENTIL HFA;VENTOLIN HFA) 90 mcg/actuation inhaler Inhale 2 puffs every 6 (six) hours as needed for wheezing. 10/08/2024 Discontinued amLODIPine 5 mg oral tablet (3 sources) Dihydropyridine Calcium Channel Yulissa Start: 12-17-2024 take 1 mg by mouth once daily amLODIPine 5 mg Tab mg tab(s), Oral, Daily, Refills(s) 0, High blood pressure Start Date: 12/17/24 Status: Ordered Repeat number: 1 take 2 tablets by mouth in the m orning amLODIPine (NORVASC) 2.5 mg tablet Take 2 tablets (5 mg total) by mouth in the morning. Active antiox #8/om3/dha/epa/lut/zeax (PRESERVISION AREDS 2, OMEGA-3, ORAL) (4 sources) End: 10-08-2024 take 2 tablets by mouth in the morning antiox #8/om3/dha/epa/lut/zeax (PRESERVISION AREDS 2, OMEGA-3, ORAL) Take 2 tablets by mouth in the morning. 10/08/2024 Discontinued (Patient Stopped On Own) take 2 tablets by mouth once kristin ly antiox #8/om3/dha/epa/lut/zeax (PRESERVISION AREDS 2, OMEGA-3, ORAL) Take 2 tablets by mouth daily. 0 Active aspirin 81 mg oral capsule (2 sources) Platelet Aggregation Inhibitor, Nonsteroidal Anti-inflammatory Drug Start: 12-17-2024 take 1 mg by mouth every twenty-four hours aspirin 81 mg oral capsule mg cap(s), Oral, q24hr, Refills(s) 0, Prophylaxis Start Date: 12/17/24 Status: Ordered Repeat number: 1 atorvastatin 20 mg oral tablet (3 sources) HMG-CoA Reductase Inhibitor Start: 12-17-2024 take 1 mg by mouth once daily atorvastatin 20 mg Tab mg tab(s), Oral, Daily, Refills(s) 0, High cholesterol Start Date: 12/17/24 Status: Ordered Repeat number: 1 Start: 09-01-2024 take 2 tablets by mo uth in the morning atorvastatin (LIPITOR) 20 mg tablet Take 2 tablets (40 mg total) by mouth in the morning. 09/01/2024 Active B-complex with vitamin C tablet (4 sources) take 1 tablet by katia th in the morning B-complex with vitamin C tablet Take 1 tablet by mouth in the morning. Active take 1 tablet by mouth in the mo rning B-complex with vitamin C tablet Take 1 tablet by mouth in the morning. 0 Active take 1 tablet by mouth once alexsander y B-complex with vitamin C tablet Take 1 tablet by mouth daily. 0 Active Bilberry extract (3 sources) Start: 12-17-2024 take 1 mg by mouth once daily bilberry mg, Oral, Daily, Refill(s) 0, Prophylaxis Start Date: 12/17/24 Status: Ordered Repeat number: 1 Start: 12-17-2024 take 1 mg by mouth once daily bilberry mg, Oral, Daily, Refill(s) 0 Start Date: 12/17/24 Status: Ordered Repeat number: 1 BILBERRY ORAL Bi lberry Active carboxymethylcellulose sodiu m 5 mg/ml ophthalmic solution (4 sources) End: 10-08-2024 carboxymethylcellulose (REFR ESH PLUS) 0.5 % dropperette 1 drop as needed in the morning and 1 drop as needed at noon and 1 drop as needed in the evening for dry eyes. 10/08/2024 Discontinued (Patient Stopped On Own) take 1 drop(s) into the eye(s) three times daily as needed carboxymethylcellulose (REFRESH PLUS) 0. 5 % dropperette 1 drop 3 (three) times a day as needed for dry eyes. 0 Active cholecalciferol 0.125 mg oral tablet (4 sources) Vitamin D take 1 tablet by mouth in the morning cholecalciferol, vitamin D3, 5,000 units tablet Take 1 tablet (5,000 Units total) by mouth in the morning. Active take 1 tablet by mouth once alexsander y cholecalciferol, vitamin D3, 5,000 units tablet Take 5,000 Units by mouth daily. 0 Active cinnamon bark 500 mg oral capsule (2 sources) Start: 12-17-2024 take 2 capsules by mouth twice daily cinnamon 500 mg oral capsule 1,000 mg = 2 cap(s), Oral, BID, # 100 cap(s), Refills(s) 0, Prophylaxis Start Date: 12/17/24 Status: Ordered Quantity: 100.0 Unit: cap(s) Repeat number: 1 CoQ10 (2 sources) Start: 12-17-2024 CoQ10 Refills( s) 0, Prophylaxis Start Date: 12/17/24 Status: Ordered Repeat number: 1 Start: 12-17-2024 CoQ10 Refills( s) 0 Start Date: 12/17/24 Status: Ordered Repeat number: 1 Restasis (6 sources) Calcineurin Inhibitor Immunosuppressant Start: 12-17-2024 Restasis q12hr, Refill(s) 0, Dry eyes Start Date: 12/17/24 Status: Ordered Repeat number: 1 Start: 12-17-2024 Restasis q12hr , Refill(s) 0 Start Date: 12/17/24 Status: Ordered Repeat number: 1 take 1 drop(s) into the eye(s) in the morning cycloSPORINE (RESTASIS) 0.05 % ophthalmic emulsion 1 drop in the morning and 1 drop before bedtime. Active take 1 drop(s) into the eye(s) twice daily cycloSPORINE (RESTASIS) 0.05 % ophthalmic emulsion 1 drop 2 (two) times a day. 0 Active Daily Multi oral tablet (2 sources) Start: 01-06-2014 take 1 tablet by mouth once daily Daily Multi oral tablet 1 tab(s), Oral, Daily, Refill(s) 0, Prophylaxis Start Date: 01/06/14 Status: Ordered Repeat number: 1 Start: 01-06-2014 take 1 tablet by katia th once daily Daily Multi oral tablet 1 tab(s), Oral, Daily, Refill(s) 0 Start Date: 01/06/14 Status: Ordered Repeat number: 1 esomeprazole 40 mg delayed release oral capsule (1 source) Proton Pump Inhibitor Start: 02-09-2025 take 1 capsule by mouth once daily Nexium 40 mg Cap-EC 40 mg = 1 cap(s), Oral, Daily, # 90 cap(s), Refills(s) 0, Pharmacy: [facility]/pharmacy #[id number], 163, cm, 02/09/25 13:32:00 EDT, Height/Length Dosing, 116.3, kg, 02/09/25 13:32:00 EDT, Weight Dosing Start Date: 02/09/25 Status: Ordered Quantity: 90.0 Unit: cap(s) Repeat number: 1 Indications: Gastro-esophageal reflux disease without esophagitis; Dysphagia, unspecified; Duodenitis without bleeding; Disease of stomach and duodenum, unspecified; Arnuity (7 sources) Corticosteroid Start: 12-17-2024 Arnuity Ellipta Inhalation, q24hr, Refills(s) 0, Shortness of breath or wheezing Start Date: 12/17/24 Status: Ordered Repeat number: 1 Start: 12-17-2024 Arnuity Ellipt a Inhalation, q24hr, Refills(s) 0 Start Date: 12/17/24 Status: Ordered Repeat number: 1 End: 10-08-2024 take 1 puff(s) by inhalation in the morning fluticasone furoate (ARNUITY ELLIPTA) 100 mcg/actuation blister with device Inhale 1 puff in the morning. 10/08/2024 Discontinued (Discontinued by another clinician) take 1 puff(s) by in halation in the morning fluticasone furoate (ARNUITY ELLIPTA) 100 mcg/actuation blister with device Inhale 1 puff in the morning. 0 Active take 1 puff(s) by in halation once daily fluticasone furoate (ARNUITY ELLIPTA) 100 mcg/actuation blister with device Inhale 1 puff daily. 0 Active Garlic preparation (2 sources) Non-Standardized Food Allergenic Extract Start: 12-17-2024 garlic Refill(s) 0, Prophylaxis Start Date: 12/17/24 Status: Ordered Repeat number: 1 Start: 12-17-2024 garlic Refill( s) 0 Start Date: 12/17/24 Status: Ordered Repeat number: 1 ICaps AREDS 2 (2 sources) Start: 12-17-2024 ICaps AREDS 2 Refill(s) 0, Prophylaxis Start Date: 12/17/24 Status: Ordered Repeat number: 1 Start: 12-17-2024 ICaps AREDS 2 Refill(s) 0 Start Date: 12/17/24 Status: Ordered Repeat number: 1 24 hr isosorbide mononitrate 60 mg extended release oral tablet (3 sources) Nitrate Vasodilator Start: 10-01-2024 End: 10-01-2025 take 1 mg by mouth once daily in the morning isosorbide mononitrate 60 mg ER Tab mg tab(s), Oral, qAM, Refills(s) 0, High blood pressure Start Date: 12/17/24 Status: Ordered Repeat number: 1 KRILL OIL ORAL (4 sources) End: 10-08-2024 KRILL OIL ORAL Take 1,000 mg by mouth. 10/08/2024 Discontinued (Patient Stopped On Own) KRILL OIL ORAL T dixon 1,000 mg by mouth. 0 Active losartan potassium 100 mg oral tablet (6 sources) Angiotensin 2 Receptor Yulissa Start: 12-17-2024 take 1 mg by mouth once daily losartan 100 mg Tab mg tab(s), Oral, Daily, Refills(s) 0, High blood pressure Start Date: 12/17/24 Status: Ordered Repeat number: 1 take 2 tablets by mouth in the m orning losartan (COZAAR) 50 mg tablet Take 2 tablets (100 mg total) by mouth in the morning. Active Magnesium Oxide (6 sources) Start: 12-17-2024 magnesium oxid e Oral, Refills(s) 0, Prophylaxis Start Date: 12/17/24 Status: Ordered Repeat number: 1 Start: 12-17-2024 magnesium oxid e Oral, Refills(s) 0 Start Date: 12/17/24 Status: Ordered Repeat number: 1 take 1 tablet by katia th in the morning, then take 1 tablet by mouth at bedtime magnesium oxide (MAG-OX) 400 mg tablet Take 1 tablet (400 mg total) by mouth in the morning and 1 tablet (400 mg total) before bedtime. Active metFORMIN hydrochloride 500 mg oral tablet (4 sources) Biguanide take 1 tablet by mouth in the morning, then take 1 tablet by mouth at bedtime metFORMIN (GLUCOPHAGE) 500 mg tablet Take 1 tablet (500 mg total) by mouth in the morning and 1 tablet (500 mg total) before bedtime. Active 24 hr metoprolol succinate 25 mg extended release oral tablet (6 sources) beta-Adrenergic Yulissa Start: take 1 mg by mouth once daily metoprolol succinate 25 mg ER Tab mg tab(s), Oral, Daily, Refills(s) 0, High blood pressure Start Date: 12/17/24 Status: Ordered Repeat number: 1 take 1 tablet by katia th every twenty-four hours in the morning metoprolol succinate XL (TOPROL-XL) 50 m g 24 hr tablet Take 1 tablet (50 mg total) by mouth in the morning. 25mg. Active take 1 tablet by mouth once alexsander y metoprolol succinate XL (TOPROL-XL) 50 mg 24 hr tablet Take 50 mg by mouth daily. 0 Active montelukast 10 mg oral tablet (6 sources) Leukotriene Receptor Antagonist Start: 12-17-2024 take 1 mg by mouth once daily montelukast 10 mg Tab mg tab(s), Oral, Daily, Refills(s) 0, Allergy symptoms Start Date: 12/17/24 Status: Ordered Repeat number: 1 take 1 tablet by mouth once alexsander y montelukast (SINGULAIR) 10 mg tablet Take 1 tablet (10 mg total) by mouth nightly. Active sdgffekl-fdru-VE-calcium &mi ns (THERAGRAN-M) 9 mg iron-400 mcg tablet (4 sources) cxdxvcvl-hddg-ZR -calcium &mins (THERAGRAN-M) 9 mg iron-400 mcg tablet Take 1 tablet by mouth in the morning. Active shwygpbi-rdkk-LB -calcium &mins (THERAGRAN-M) 9 mg iron-400 mcg tablet Take 1 tablet by mouth in the morning. 0 Active gqmyazme-wrdi-IJ -calcium &mins (THERAGRAN-M) 9 mg iron-400 mcg tablet Take 1 tablet by mouth daily. 0 Active Ozempic (1 mg dose) (2 sources) Start: 12-17-2024 Ozempic (1 mg dose) Refills(s) 0, Blood glucose Start Date: 12/17/24 Status: Ordered Repeat number: 1 Start: 12-17-2024 Ozempic (1 mg dose) Refills(s) 0 Start Date: 12/17/24 Status: Ordered Repeat number: 1 OZEMPIC 1 mg/dose (4 mg/3 mL) pen injector (1 source) inject 1 mg by subcutaneous injection every week OZEMPIC 1 mg/dose (4 mg/3 mL) pen injector Inject 1 mg under the skin once a week. Active simvastatin 10 mg oral tablet (4 sources) HMG-CoA Reductase Inhibitor End: 10-09-19 take 1 tablet by mouth once daily simvastatin (ZOCOR) 10 mg tablet Take 1 tablet (10 mg total) by mouth nightly. 10/08/2024 Discontinued (Discontinued by another clinician) Super B Complex (2 sources) Start: 01-07-20 take 1 tablet by mouth once daily Super B Complex 1 tab(s), Oral, Daily, Refill(s) 0, Prophylaxis Start Date: 01/06/14 Status: Ordered Repeat number: 1 Start: 01-06-2014 take 1 tablet by katia once daily Super B Complex 1 tab(s), Oral, Daily, Refill(s) 0 Start Date: 01/06/14 Status: Ordered Repeat number: 1 60 actuat tiotropium 0.72789 mg/actuat inhalation spray (3 sources) Anticholinergic Start: 12-17-2024 Spiriva Respim at 1.25 mcg/inh inhalation aerosol mcg, inh, Inhalation, Daily, Refill(s) 0, Shortness of breath or wheezing Start Date: 12/17/24 Status: Ordered Repeat number: 1 take 1.25 ug by inha lation in the morning tiotropium bromide (SPIRIVA RESPIMAT) 1. 25 mcg/actuation mist Inhale 2 puffs in the morning. Active turmeric extract 500 mg oral capsule (6 sources) Start: 12-17-2024 take 1 mg by mouth once daily turmeric 500 mg oral capsule mg cap(s), Oral, Daily, Refills(s) 0, Prophylaxis Start Date: 12/17/24 Status: Ordered Repeat number: 1 take 1000 mg by mouth in the mor crow TURMERIC ORAL Take 1,000 mg by mouth in the morning. With curcumin . Active take 1000 mg by mouth once daily TURMERIC ORAL Take 1,000 mg by mouth daily. With curcumin 0 Active ubidecarenone 30 mg oral capsule (4 sources) take 1 capsule by mo ut once in the morning coenzyme Q10 30 mg capsule Take 200 mg by mouth in the morning and 200 mg before bedtime. Active take 10 capsules by mouth twice daily coenzyme Q10 30 mg capsule Take 200 mg by mouth 2 (two) times a day. 0 Active Ventolin HFA 90 mcg/inh Aerosol-Adpt (2 sources) Start: 12-17-2024 take 1 ug by inhalation every six hours Ventolin HFA 90 mcg/inh Aerosol-Adpt mcg, inh, Inhalation, q6hr, Refill(s) 0, Shortness of breath or wheezing Start Date: 12/17/24 Status: Ordered Repeat number: 1 Start: 12-17-2024 take 1 ug by inhalat ion every six hours Ventolin HFA 90 mcg/inh Aerosol-Adpt mcg, inh, Inhalation, q6hr, Refill(s) 0 Start Date: 12/17/24 Status: Ordered Repeat number: 1 vitamin B12 (6 sources) Vitamin B12 Start: 01-06-2014 Vitamin B12 2, 500 microgram, Oral, Daily, Refills(s) 0, Prophylaxis Start Date: 01/06/14 Status: Ordered Repeat number: 1 Start: 01-06-2014 Vitamin B12 2, 500 microgram, Oral, Daily, Refills(s) 0 Start Date: 01/06/14 Status: Ordered Repeat number: 1 take 5 tablets by mo uth in the morning cyanocobalamin 1000 MCG tablet Take 5 tablets (5,000 mcg total) by mouth in the morning. Active Vitamin D3 (2 sources) Start: 01-06-2014 Vitamin D3 5,0 00 International_Unit, Oral, Daily, Refills(s) 0, Prophylaxis Start Date: 01/06/14 Status: Ordered Repeat number: 1 Start: 01-06-2014 Vitamin D3 5,0 00 International_Unit, Oral, Daily, Refills(s) 0 Start Date: 01/06/14 Status: Ordered Repeat number: 1 Problems Active Problems Problem Classification Problem Date Documented Da te Episodic/Chronic Asthma (4 sources) Mild persistent asthma, uncomplicated; Translations: [MILD PERSIST ASTHMA UNCOMPLICATED] Onset: 3 Chronic Cardiac dysrhythmias (2 sources) Ventricular premature depolarization; Translations: [Ventricular premature depolarization] Onset: 5 Chronic Coronary atherosclerosis and other heart disease (2 sources) Atherosclerotic heart disease of craig coronary artery without angina pectoris; Translations: [Atherosclerotic heart disease of craig coronary artery without angina pectoris] Onset: 5 Chronic Disorders of lipid metabolism (2 sources) Mixed hyperlipidemia; Translations: [Mixed hyperlipidemia] Onset: 4 Chronic Esophageal disorders (4 sources) Gastroesophageal reflux disease without esophagitis; Translations: [Gastro-esophageal reflux disease without esophagitis] Onset: 5 Chronic Essential hypertension (4 sources) Hypertensive disorder; Translations: [Essential (primary) hypertension] Onset: 4 09-22-2015 Chronic Gastritis and duodenitis (1 source) Duodenitis; Translations: [Duodenitis without bleeding] Onset: 5 Episodic Occlusion or stenosis of precerebral arteries (10 sources) Vascular calcification; Translations: [Occlusion and stenosis of unspecified carotid artery] Onset: 4 09-12-2023 Chronic Other disorders of stomach and duodenum (1 source) Gastroduodenal disorder; Translations: [Disease of stomach and duodenum, unspecified] Onset: 5 Episodic Other gastrointestinal disorders (4 sources) Dysphagia; Translations: [Dysphagia, unspecified] Onset: 5 Episodic Other lower respiratory disease (1 source) Cough; Translations: [Other specified cough] Onset: 5 Episodic Other lower respiratory disease (1 source) Productive cough 02-09-2025 Episodic Other lower respiratory disease (2 sources) Shortness of breath; Translations: [Shortness of breath] Onset: 5 Episodic Other nutritional; endocrine; and metabolic disorders (1 source) Body mass index 40+ - severely obese; Translations: [Body mass index (BMI) 40.0-44.9, adult] Onset: 5 Chronic Other nutritional; endocrine; and metabolic disorders (3 sources) Morbid obesity; Translations: [Morbid (severe) obesity due to excess calories] Onset: 5 Chronic Other nutritional; endocrine; and metabolic disorders (1 source) Obesity; Translations: [Other obesity due to excess calories] Onset: 5 Chronic Other nutritional; endocrine; and metabolic disorders (1 source) Obesity caused by energy imbalance 02-09-2025 Chronic Other upper respiratory disease (1 source) Difficulty talking; Translations: [Dysphonia] Onset: 5 Episodic Other upper respiratory disease (1 source) Hoarse 02-09-2025 Episodic Residual codes; unclassified (2 sources) Obstructive sleep apnea (adult) (pediatric); Translations: [Obstructive sleep apnea (adult) (pediatric)] Onset: Chronic Past or Other Problems Problem Classification Problem Date Documented Da te Episodic/Chronic Cardiac dysrhythmias (2 sources) Palpitations; Translations: [Palpitations] Onset: 09-16-2024 Episodic Conditions associated with dizziness or vertigo (1 source) Dizziness; Translations: [Dizziness and giddiness] 09-16-2023 Episodic Results Test Name Value Interpretation Reference Range Facility Office Visiton 03-22-2025 Follow-up visit [id number] Brooke Landry 1955 F Date Provider Department Center 03/22/2025 SaranyaKIM ROSSI FABRICE Krishnamurthy Family History Problem Relation Age of Onset Cancer Mother Heart disease Mother Stroke Mother Diabetes Father Heart disease Father Breast cancer Sister Diabetes Sister Mental illness Sister Family Status - Relation Status Age at Mother Father Sister Alive Level of Service:23300 [place] OFFICE/OUTPATIENT ESTABLISHED MOD MDM 30 MIN (25) Normal [facility] Ambulatory Visit Summaryon 0 02-09-2025 Ambulatory Visit Summary Ambulatory Visit Summary BROOKE LANDRY :1955 Visit Date:02/09/2025 Ambulatory Visit Instructions Your Diagnosis Dysphagia Chronic GERD Gastropathy Duodenitis Hoarseness Sputum production Obesity due to excess calories Your Care Team Attending Physician - Rafael QUIJANO, Efra Adkins Primary Care Physician - CECILIA BOUDREAUX CNP This Is Your Medications List esomeprazole (Nexium 40 mg Cap-EC) Contact prescribing physician if questions or concerns Turmeric (turmeric 500 mg oral capsule) albuterol (Ventolin HFA 90 mcg/inh Aerosol-Adpt) amlodipine (amLODIPine 5 mg Tab) aspirin (aspirin 81 mg oral capsule) atorvastatin (atorvastatin 20 mg Tab) bilberry cholecalciferol (Vitamin D3) cinnamon (cinnamon 500 mg oral capsule) cyanocobalamin (Vitamin B12) cycloSPORINE ophthalmic (Restasis) fluticasone (Arnuity Ellipta) garlic isosorbide mononitrate (isosorbide mononitrate 60 mg ER Tab) losartan (losartan 100 mg Tab) magnesium oxide metoprolol (metoprolol succinate 25 mg ER Tab) montelukast (montelukast 10 mg Tab) multivitamin (Super B Complex) multivitamin with minerals (Daily Multi oral tablet) multivitamin with minerals (ICaps AREDS 2) semaglutide (Ozempic (1 mg dose)) tiotropium (Spiriva Respimat 1.25 mcg/inh inhalation aerosol) ubiquinone (CoQ10) Procedures Performed Dilation of esophagus (12/25/2024), EGD - esophagogastroduodenoscopy (12/25/2024), Injection of facet joint using fluoroscopic guidance (02/24/2014), Epidural injection of lumbar spine using fluoroscopic guidance (01/11/2014), Ankle, Carpal tunnel, Hernia, Knee, Tonsil, Trigger finger. Discharge Vitals Heart Rate (Peripheral) 44 Blood Pressure 126/65 Height 64 in Height 163 cm Weight 256.397 lb Weight 116.3 kg BMI 43.77 Medications What How Much When Why Instructions New esomeprazole (Nexium 40 mg Cap-EC) 1 Capsules By Mouth Every day Dysphagia Chronic GERD Gastropathy Duodenitis Pickup at [facility]/pharmacy #[id number] Unchanged albuterol (Ventolin HFA 90 mcg/ inh Aerosol-Adpt) Inhalation Every 6 hours Contact prescribing physician if questions or concerns Unchanged amlodipine (amLODIPine 5 mg Tab) By Mouth Every day Contact prescribing physician if questions or concerns Unchanged aspirin (aspirin 81 mg oral capsule) By Mouth Every 24 hours Contact prescribing physician if questions or concerns Unchanged atorvastatin (atorvastatin 20 mg Tab) By Mouth Every day Contact prescribing physician if questions or concerns Unchanged bilberry By Mouth Every day Contact prescribing physician if questions or concerns Unchanged cholecalciferol (Vitamin D3) 5,000 International unit By Mouth Every day Contact prescribing physician if questions or concerns Unchanged cinnamon (cinnamon 500 mg oral capsule) 2 Capsules By Mouth 2 times a day Contact prescribing physician if questions or concerns Unchanged cyanocobalamin (Vitamin B12) 2,500 Microgram By Mouth Every day Contact prescribing physician if questions or concerns Unchanged cycloSPORINE ophthalmic (Restasis) Every 12 hours Contact prescribing physician if questions or concerns Unchanged fluticasone (Arnuity Ellipta) Inhalation Every 24 hours Contact prescribing physician if questions or concerns Unchanged garlic Contact prescribing physician if questions or concerns Unchanged isosorbide mononitrate (isosorbide mononitrate 60 mg ER Tab) By Mouth Once a day (in the morning) Contact prescribing physician if questions or concerns Unchanged losartan (losartan 100 mg Tab) By Mouth Every day Contact prescribing physician if questions or concerns Unchanged magnesium oxide By Mouth Contact prescribing physician if questions or concerns Unchanged metoprolol (metoprolol succinate 25 mg ER Tab) By Mouth Every day Contact prescribing physician if questions or concerns Unchanged montelukast (montelukast 10 mg Tab) By Mouth Every day Contact prescribing physician if questions or concerns Unchanged multivitamin (Super B Complex) 1 Tablets By Mouth Every day Contact prescribing physician if questions or concerns Unchanged multivitamin with minerals (Daily Multi oral tablet) 1 Tablets By Mouth Every day Contact prescribing physician if questions or concerns Unchanged multivitamin with minerals (ICaps AREDS 2) Contact prescribing physician if questions or concerns Unchanged semaglutide (Ozempic (1 mg dose)) Contact prescribing physician if questions or concerns Unchanged tiotropium (Spiriva Respimat 1.25 mcg/ inh inhalation aerosol) Inhalation Every day Contact prescribing physician if questions or concerns Unchanged Turmeric (turmeric 500 mg oral capsule) By Mouth Every day Contact prescribing physician if questions or concerns Unchanged ubiquinone (CoQ10) Contact prescribing physician if questions or concerns Pharmacy Information [facility]/pharmacy #[id number]: [address], [place] [phone] Allergies Blueberries (RA (more content not included)... Normal [facility] Gastroenterology Office/Clin ic Noteon 02-09-2025 Gastroenterology Office/Clinic Note Gastroenterology Office/Clinic Note Chief Complaint Increased phlegm and hoarseness HPI Staff This is a 69 year old female who presents today for a follow-up to EGD. Increased phlegm and hoarseness. Applesauce with pills has helped. Last office visit w/ Dr Hall History of Present Illness pt with issues with dysphagia x 6 months to solids getting worse manuel at dinner pills, bread, meat some GERD- trying to avoid late meals uses Cologuard for CRC screening Assessment/Plan 1. Dysphagia (R13.10: Dysphagia, unspecified) 2. Morbid obesity with BMI of 40.0-44.9, adult (E66.01: Morbid (severe) obesity due to excess calories) 3. Chronic GERD (K21.9: Gastro-esophageal reflux disease without esophagitis) Body mass index [BMI] 40.0-44.9, adult (Z68.41: Body mass index [BMI] 40.0-44.9, adult) Schedule EGD to assess dysphagia and obtain esophageal biopsies Patient will benefit from PPI in the future Patient will benefit from losing weight and eating healthy EGD w/ Dr Hall 12/25/24 Findings 1. Mild reflux esophagitis. Z-line at 37 cm. Small hiatal hernia measuring 2 cm. Nonobstructing Schatzki's ring in the lower esophagus, endoscope passed with some resistance. A Savory wire was passed into the scope and the scope was withdrawn over the wire. The esophagus was dilated using 57 Cypriot savory with heme noted on dilator. After dilation, visualization of stricture and passage with gastroscope showed heme and minimal oozing, no evidence of perforation. 2. Patchy erythema consistent with gastropathy status post biopsies 3. 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 Patchy erythema consistent with duodenitis Impression and Plan reflux esophagitis Schatzki's ring Gastropathy Keron's gland hyperplasia Duodenitis Final Diagnosis (Verified) A: STOMACH, BIOPSY: MILD CHRONIC GASTRITIS; REACTIVE GASTROPATHY - MUCOSAL ACUTE VASCULAR CONGESTION PRESENT - SPECIAL IHC STAIN FOR H. pylori: NEGATIVE B: ESOPHAGUS, BIOPSY: ARCHITECTURALLY NORMAL SQUAMOUS MUCOSA - NO SIGNIFICANT INFLAMMATORY OR OTHER ABNORMAL CELLULAR INFILTRATES History of Present Illness I have reviewed HPI staff note, most recent labs and imaging, I agree with the above documentation with the following additions/exceptions : PT with improvement in her dysphagia some hoarseness little issues with eating beef Review of Systems PHQ Score Initial Depression Screen Score: 0 SCORE All systems reviewed, negative except as mentioned above Physical Exam Vitals & Measurements HR: 44(Peripheral) BP: 126/65 HT: 163 cm HT: 64 in WT: 116.3 kg WT: 256.397 lb BMI: 43.77 General: alert, no acute distress HEENT: atraumatic normocephalic Cardiovascular: regular rate and rhythm, normal peripheral perfusion Respiratory: Lungs CTA, respirations non labored Extremities: no deformity, no trauma Abdomen: Benign, soft, nontender nondistended Assessment/Plan 1. Dysphagia (R13.10: Dysphagia, unspecified) Ordered: esomeprazole, 40 mg = 1 cap(s), Oral, Daily, # 90 cap(s), Refills(s) 0, Pharmacy: [id number], 163, cm, 02/09/25 13:32:00 EDT, Height/Length Dosing, 116.3, kg, 02/09/25 13:32:00 EDT, Weight Dosing Current tobacco non-user 1036F Most recent diastolic blood pressure <80 mm Hg 3078F Systolic BP <130 mm Hg (Most Recent) 3074F 2. Chronic GERD (K21.9: Gastro-esophageal reflux disease without esophagitis) Ordered: esomeprazole, 40 mg = 1 cap(s), Oral, Daily, # 90 cap(s), Refills(s) 0, Pharmacy: [id number], 163, cm, 02/09/25 13:32:00 EDT, Height/Length Dosing, 116.3, kg, 02/09/25 13:32:00 EDT, Weight Dosing Current tobacco non-user 1036F Most recent diastolic blood pressure <80 mm Hg 3078F Systolic BP <130 mm Hg (Most Recent) 3074F 3. Gastropathy (K31.9: Disease of stomach and duodenum, unspecified) Ordered: esomeprazole, 40 mg = 1 cap(s), Oral, Daily, # 90 cap(s), Refills(s) 0, Pharmacy: [id number], 163, cm, 02/09/25 13:32:00 EDT, Height/Length Dosing, 116.3, kg, 02/09/25 13:32:00 EDT, Weight Dosing Current tobacco non-user 1036F Most recent diastolic blood pressure <80 mm Hg 3078F Systolic BP <130 mm Hg (Most Recent) 3074F 4. Duodenitis (K29.80: Duodenitis without bleeding) Ordered: esomeprazole, 40 mg = 1 cap(s), Oral, Daily, # 90 cap(s), Refills(s) 0, Pharmacy: [facility]/pharmacy #[id number], 163, cm, 02/09/25 13:32:00 EDT, Height/Length Dosing, 116.3, kg, 02/09/25 13:32:00 EDT, Weight Dosing Current tobacco non-user 1036F Most recent diastolic blood pressure <80 mm Hg 3078F Systolic BP <130 mm Hg (Most Recent) 3074F 5. Hoarseness (R49.0: Dysphonia) 6. Sputum production (R05.8: Other specified cough) 7. Obesity due to excess calories (E66.09: Other obesity due to excess calories) Monitor clinical trajectory after esophageal dilation. Patient might benefit from further dilation Start Nexium 40 mg daily. Patient might benefit from increasing the frequency of the dose Might benef (more content not included)... Normal [facility] Comment on above: Result Comment: Elec tronically Signed By: Rafael QUIJANO, Efra Adkins\.br\Date and Time Signed: 02/09/25 13:51 EDT Surgical Pathology Reporton 01-01-2025 Surgical Pathology Report [facility] [address] [place] [address]- Surgical Pathology Report Collected Date/Time: 12/25/2024 12:17 EDT Pathologist: Giovany Sanderson MD Date/Time: 12/28/2024 07:42 EDT Rafael QUIJANO, Efra Mancilla MD Surgical Pathology Report - 01/01/2025 12:59 EDT - Auth (Verified) Final Diagnosis A: STOMACH, BIOPSY: MILD CHRONIC GASTRITIS; REACTIVE GASTROPATHY - MUCOSAL ACUTE VASCULAR CONGESTION PRESENT - SPECIAL IHC STAIN FOR H. pylori: NEGATIVE B: ESOPHAGUS, BIOPSY: ARCHITECTURALLY NORMAL SQUAMOUS MUCOSA - NO SIGNIFICANT INFLAMMATORY OR OTHER ABNORMAL CELLULAR INFILTRATES (Electronic Signature) Giovany Sanderson MD 01/01/2025 12:59 Clinical Information Dysphagia Pre-Op Diagnosis: Dysphagia Procedure: EGD Post-Op Diagnosis: 1. Reflux esophagitis 2. Schatzki's ring 3. Gastropathy 4. Keron's gland hyperplasia 5. Duodenitis Specimen(s) Received A.Gastric biopsy B.Esophageal biopsy Gross Description A: Received in formalin labeled with patient name, number, and gastric biopsy are three fragments of laureano tissue each measuring 0.1 cm. Specimen is entirely submitted in one cassette. B: Received in formalin labeled with patient name, number, and esophageal biopsy are multiple fragments of laureano tissue ranging from less than 0.1 cm up to 0.3 cm in greatest dimension. Specimen is entirely submitted in one cassette. (DC) DC:MCA Microscopic Description The use of one or more reagents in the above tests is regulated as an analyte specific reagent (ASR). The test or tests are ordered following initial H&E microscopic examination. The performance characteristics were determined by the [facility] Surgical Pathology. They have not been cleared or approved by the US Food and Drug Administration. The FDA has determined that such clearance or approval is not necessary. These tests are used for clinical purposes. They should not be regarded as investigational or for research. Appropriate positive and negative controls are performed and are acceptable. This report was transcribed using voice recognition technology and might contain unintended computerized environmental intern errors. Surgical Pathology Report Collected Date/Time: 12/25/2024 12:17 EDT Pathologist: Giovany Sanderson MD Received Date/Time: 12/28/2024 07:42 EDT Efra Hall MD, MD, Mohamad A. Microscopic Description Microscopic examination performed unless gross only specified. Quality was accessed and acceptable. Normal [facility] Comment on above: Performed By: #### [id number] #### [facility] [address] [place] [address] Main OR Intraoperative Recor don 12-28-2024 Main OR Intraoperative Record Main OR Intraoperative Record IntraOp Document Type FT Summary Primary Physician: Efra Hall MD Finalized Date/Time: 12/28/24 10:14:50 Pt. Name: BROOKE LANDRY/Sex: 1955 Female Med Rec #: [id number] Physician: Rafael QUIJANO, Efra Adkins Financial #: [id number] Pt. Type: O Room/Bed: / Admit/Disch: 12/25/24 10:07:43 - 12/25/24 23:59:59 Institution: Case Times FT Entry 1 Patient Times In Room 12/25/24 12:02:00 Out Room 12/25/24 12:13:00 Procedure Times Start 12/25/24 12:06:00 Stop 12/25/24 12:11:00 Anesthesia Times Start 12/25/24 12:02:00 Stop 12/25/24 12:13:00 Last Modified By: Pamela LONG, Savanna 12/25/24 12:14:14 Case Attendance FT Entry 1 Entry 2 Entry 3 Case Attendee Pamela LONG, Savanna Hernández, Yuki Gandara HAND MIXER, Kristen Brady Role Performed Care Provider - Primary Scrub - Primary Staff - Other Time In 12/25/24 12:02:00 12/25/24 12:02:00 12/25/24 12:02:00 Time Out 12/25/24 12:13:00 12/25/24 12:13:00 12/25/24 12:13:00 Procedure EGD(.) EGD(.) EGD(.) Comments help in room Last Modified By: Pamela RN, Savanna Santiago RN, Savanna Santiago RN, Savanna 12/25/24 12:14:14 12/25/24 12:14:14 12/25/24 12:14:14 Entry 4 Entry 5 Case Attendee Rafael QUIJANO, Efra Seals CHILDREN TEACHER, Mauricio Adkins Role Performed Surgeon - Primary CHILDREN TEACHER Time In 12/25/24 12:02:00 12/25/24 12:02:00 Time Out 12/25/24 12:13:00 12/25/24 12:13:00 Procedure EGD(.) EGD(.) Comments Dr. Lopez supervising Last Modified By: Pamela RN, Savanna Santiago RN, Savanna 12/25/24 12:14:14 12/25/24 12:14:14 Perioperative Protocols FT Pre-Care Text: Implements protective measures prior to operative or invasive procedure, confirms identity before the operative or invasive procedure, verifies operative procedure, surgical site, and laterality Entry 1 Procedure(s) EGD(.) Patient Identity Birthday, ID Band Verified (select at Check, Patient least 2): Participation Consents / H and P Anesthesia Consent, Operative Site N/A Verified H&P, Surgery/Procedure Marking Verified Consent Surgical Site No Laterality Verified n/a Verified Procedure Verified Yes Correct Patient Yes Position Verified Availability Equipment, Medication Prep Dry n/a Verified (If Applicable) PreOp Antibiotic No Time Out Savanna Santiago RN, Given Participants Yuki Hernández, Nichol HAND MIXER, Kristen Brady, Rafael QUIJANO, Efra Adkins, Mauricio Seals CRNA Time Out Complete 12/25/24 12:05:00 Outcomes Met? Yes Last Modified By: Savanna Santiago RN 12/25/24 12:10:28 Post-Care Text: The patient is free from signs and symptoms of injury caused by extraneous objects Allergy Information FT Pre-Care Text: Verifies allergies Entry 1 Allergies Reviewed? Yes Allergies Reviewed Self/Patient With Outcomes Met? Yes Last Modified By: Savanna Santiago RN 12/25/24 12:10:47 Post-Care Text: The patient received appropriate medication(s) safely administered during the perioperative period Surgical Procedures FT Entry 1 Procedure Description Procedure EGD Modifiers . Surgeon Description EGD with esophageal dilation using #57F savory dilator and gastric and esophgeal biopsies . Primary Procedure Yes Primary Surgeon Rafael QUIJANO, Efra Adkins Start 12/25/24 12:06:00 Stop 12/25/24 12:11:00 Anesthesia Type General Surgical Service Gastroenterology Wound Class 2 - Clean-Contaminated Last Modified By: Savanna Santiago RN 12/25/24 12:19:08 General Case Data FT Pre-Care Text: Classifies surgical wound, implements aseptic technique, initiates traffic control Entry 1 Case Information OR ENDO 1 FT Case Level Level 2 Wound Class 2 - Clean-Contaminated Specialty Gastroenterology ASA Class 3 Preop Diagnosis DYSPHAGIA Postop Same As Preop No Postop Diagnosis Hiatal hernia, Outcomes Met? Yes Keron's gland hyperplasia, gastropathy, reflux esophagitis, Schatzki ring, duodenitis. Last Modified By: Savanna Santiago RN 12/25/24 12:18:11 Post-Care Text: The patient is free from signs and symptoms of infection Skin Assessment (Pre Procedure) FT Pre-Care Text: Implements protective measures to prevent skin/ tissue injury due to thermal or mechanical sources Evaluates for signs and symptoms of physical injury to skin and tissue Entry 1 Skin Integrity Intact, [place], Warm, & Skin Abnormality No Dry Outcomes Met? Yes Last Modified By: Savanna Santiago RN 12/25/24 12:14:24 Post-Care Text: The patient is free from signs and symptoms of injury caused by extraneous objects Patient Positioning FT Pre-Care Text: Identifies physical alterations that require additional precautions for procedure-specific positioning, verifies presence of prosthetics or corrective devices, positions the patient, evaluates the patient for signs and symptoms of injury as a result of positioning Entry 1 Procedure EGD(.) Body Position Lateral, right side up Feet Uncrossed? Yes Left Arm Position (more content not included)... Normal [facility] Discharge Instructionson Discharge Instructions Discharge Instructions BROOKE LANDRY Bassem :1955 Visit Date:12/25/2024 Inpatient Discharge Instructions Your Care Team Admitting Physician - Efra Hall MD Referring Physician - Efra Hall MD. Reason for Your Visit DYSPHAGIA Your Diagnosis Keron's gland hyperplasia of duodenum Esophagitis, reflux Gastropathy Schatzki's ring Tests Performed Pathology Tissue Exam -- Results Pending -- Please visit your patient portal for your results or contact your primary care physician. This Is Your Medications List Turmeric (turmeric 500 mg oral capsule) albuterol (Ventolin HFA 90 mcg/inh Aerosol-Adpt) amlodipine (amLODIPine 5 mg Tab) aspirin (aspirin 81 mg oral capsule) atorvastatin (atorvastatin 20 mg Tab) bilberry cholecalciferol (Vitamin D3) cinnamon (cinnamon 500 mg oral capsule) cyanocobalamin (Vitamin B12) cycloSPORINE ophthalmic (Restasis) fluticasone (Arnuity Ellipta) garlic isosorbide mononitrate (isosorbide mononitrate 60 mg ER Tab) losartan (losartan 100 mg Tab) magnesium oxide metoprolol (metoprolol succinate 25 mg ER Tab) montelukast (montelukast 10 mg Tab) multivitamin (Super B Complex) multivitamin with minerals (Daily Multi oral tablet) multivitamin with minerals (ICaps AREDS 2) semaglutide (Ozempic (1 mg dose)) tiotropium (Spiriva Respimat 1.25 mcg/inh inhalation aerosol) ubiquinone (CoQ10) Procedure History Dilation of esophagus (12/25/2024), EGD - esophagogastroduodenoscopy (12/25/2024), Injection of facet joint using fluoroscopic guidance (02/24/2014), Epidural injection of lumbar spine using fluoroscopic guidance (01/11/2014), Ankle, Carpal tunnel, Hernia, Knee, Tonsil, Trigger finger. Discharge Vitals Temperature (Temporal Artery) 36 ???C Heart Rate (Monitored) 64 Respiratory Rate 17 Blood Pressure 136/73 Height 163 cm Weight 117.6 kg What to do next Instructions From Your Doctor No qualifying data available. New Follow Up Appointments after Discharge Follow Up with Rafael QUIJANO, LYSSA Duarte, MED When: Comments: Call to schedule follow up appointment and/or review any pending biopsy results Call for any problems. Where: [address] [place] [address], [address] [place] [address]- [phone] Medications What How Much When Instructions Next Dose Unchanged albuterol (Ventolin HFA 90 mcg/ inh Aerosol-Adpt) Inhalation Every 6 hours Unchanged amlodipine (amLODIPine 5 mg Tab) By Mouth Every day Unchanged aspirin (aspirin 81 mg oral capsule) By Mouth Every 24 hours Unchanged atorvastatin (atorvastatin 20 mg Tab) By Mouth Every day Unchanged bilberry By Mouth Every day Unchanged cholecalciferol (Vitamin D3) 5,000 International unit By Mouth Every day Unchanged cinnamon (cinnamon 500 mg oral capsule) 2 Capsules By Mouth 2 times a day Unchanged cyanocobalamin (Vitamin B12) 2,500 Microgram By Mouth Every day Unchanged cycloSPORINE ophthalmic (Restasis) Every 12 hours Unchanged fluticasone (Arnuity Ellipta) Inhalation Every 24 hours Unchanged garlic Unchanged isosorbide mononitrate (isosorbide mononitrate 60 mg ER Tab) By Mouth Once a day (in the morning) Unchanged losartan (losartan 100 mg Tab) By Mouth Every day Unchanged magnesium oxide By Mouth Unchanged metoprolol (metoprolol succinate 25 mg ER Tab) By Mouth Every day Unchanged montelukast (montelukast 10 mg Tab) By Mouth Every day Unchanged multivitamin (Super B Complex) 1 Tablets By Mouth Every day Unchanged multivitamin with minerals (Daily Multi oral tablet) 1 Tablets By Mouth Every day Unchanged multivitamin with minerals (ICaps AREDS 2) Unchanged semaglutide (Ozempic (1 mg dose)) Unchanged tiotropium (Spiriva Respimat 1.25 mcg/ inh inhalation aerosol) Inhalation Every day Unchanged Turmeric (turmeric 500 mg oral capsule) By Mouth Every day Unchanged ubiquinone (CoQ10) Allergies Blueberries (RASH) Latex morphine sulfa topicals (BLISTER) Problems Ongoing - Any problem that you are currently receiving treatment for. Chronic GERD Dysphagia Extreme obesity 17-DEC-2013 12:48:08<$> Hypertension Morbid obesity with BMI of 40.0-44.9, adult Education Materials Full Liquid Diet A full liquid diet refers to fluids and foods that are liquid, or will become liquid, at room temperature. This diet should only be used for a short period of time to help you recover from illness or surgery. Your health care provider or dietitian will help determine when it is safe to eat regular foods again. What are tips for following this plan? Reading food labels ??? Check food labels of nutrition shakes for the amount of protein. Look for nutrition shakes that have at least 8???10 grams of protein in each serving. ??? Choose drinks, such as milks and juices, that are fortified or enriched. This means that vitamins and minerals have been added. Shopping ??? Buy pre-made nutrition shakes to keep on flores (more content not included)... Normal [facility] Comment on above: Result Comment: Elec tronically Signed By: Bill LONG, Irma\.br\Date and Time Signed: 12/25/24 12:38 EDT H&P Updateon 12-25-2024 H&P Update H&P Update Patient: BROOKE LANDRY Age: 69 years Sex: Female : 1955 Associated Diagnoses: None Author: Efra Hall MD Preoperative Information Chief compliant/Indication for procedure: Dysphagia Chief Complaint as above Review of Systems All systems reviewed, negative except as mentioned above Health Status Allergies: Allergic Reactions (Selected) Severity Not Documented Blueberries- Rash. Latex- No reactions were documented. Morphine- No reactions were documented. Sulfa topicals- Blister. Current medications: (Selected) Inpatient Medications Ordered Sodium Chloride 0.9% IV Charity 1000 mL 1,000 mL: 1,000 mL, IV, 20 mL/hr, Routine, Start date 12/25/24 6:47:00 EDT, 50 hour(s), Total volume (mL): 1,000, 117.6 kg, 2.31, m2 Documented Medications Documented Arnuity Ellipta: Inhalation, q24hr, Refills(s) 0, Shortness of breath or wheezing CoQ10: Refills(s) 0, Prophylaxis Daily Multi oral tablet: 1 tab(s), Oral, Daily, Refill(s) 0, Prophylaxis ICaps AREDS 2: Refill(s) 0, Prophylaxis Ozempic (1 mg dose): Refills(s) 0, Blood glucose Restasis: q12hr, Refill(s) 0, Dry eyes Spiriva Respimat 1.25 mcg/inh inhalation aerosol: mcg, inh, Inhalation, Daily, Refill(s) 0, Shortness of breath or wheezing Super B Complex: 1 tab(s), Oral, Daily, Refill(s) 0, Prophylaxis Ventolin HFA 90 mcg/inh Aerosol-Adpt: mcg, inh, Inhalation, q6hr, Refill(s) 0, Shortness of breath or wheezing Vitamin B12: 2,500 microgram, Oral, Daily, Refills(s) 0, Prophylaxis Vitamin D3: 5,000 International_Unit, Oral, Daily, Refills(s) 0, Prophylaxis amLODIPine 5 mg Tab: mg tab(s), Oral, Daily, Refills(s) 0, High blood pressure aspirin 81 mg oral capsule: mg cap(s), Oral, q24hr, Refills(s) 0, Prophylaxis atorvastatin 20 mg Tab: mg tab(s), Oral, Daily, Refills(s) 0, High cholesterol bilberry: mg, Oral, Daily, Refill(s) 0, Prophylaxis cinnamon 500 mg oral capsule: 1,000 mg = 2 cap(s), Oral, BID, # 100 cap(s), Refills(s) 0, Prophylaxis garlic: Refill(s) 0, Prophylaxis isosorbide mononitrate 60 mg ER Tab: mg tab(s), Oral, qAM, Refills(s) 0, High blood pressure losartan 100 mg Tab: mg tab(s), Oral, Daily, Refills(s) 0, High blood pressure magnesium oxide: Oral, Refills(s) 0, Prophylaxis metoprolol succinate 25 mg ER Tab: mg tab(s), Oral, Daily, Refills(s) 0, High blood pressure montelukast 10 mg Tab: mg tab(s), Oral, Daily, Refills(s) 0, Allergy symptoms turmeric 500 mg oral capsule: mg cap(s), Oral, Daily, Refills(s) 0, Prophylaxis Problem list: All Problems Chronic GERD / SNOMED CT [id number] / Confirmed Dysphagia / SNOMED CT [id number] / Confirmed Extreme obesity 17-DEC-2013 12:48:08<$> / SNOMED CT [id number] / Confirmed Hypertension / SNOMED CT [id number] / Confirmed Morbid obesity with BMI of 40.0-44.9, adult / IMO [id number] / Possible Problem added automatically by Discern Expert based on clinical documentation, Active Problems (5) Chronic GERD Dysphagia Extreme obesity Hypertension Morbid obesity with BMI of 40.0-44.9, adult Histories Past Medical History: No active or resolved past medical history items have been selected or recorded. Family History: Entire family history is negative. Procedure history: Injection of facet joint using fluoroscopic guidance ([id number]) on 02/24/2014 at 58 Years. Comments: 09/22/2015 11:48 Sarah Lau Bilateral L3-S1 fij (20 depo) 50% relief Epidural injection of lumbar spine using fluoroscopic guidance ([id number]) on 01/11/2014 at 58 Years. Comments: 09/22/2015 11:43 Sarah Lau L5-S1 PARUL 85% Relief Tonsil ([id number]). Carpal tunnel ([id number]). Hernia ([id number]). Trigger finger ([id number]). Ankle ([id number]). Comments: 12/17/2024 9:14 LEONAT Urszula Blair left ankle Knee ([id number]). Comments: 12/17/2024 9:14 EDT - Urszula Lara double knee Physical Examination No qualifying data available General: in Nad Abdomen: Soft, NTND Impression and Plan Diagnosis: -EGD and colonoscopy Normal [facility] Comment on above: Result Comment: Elec tronically Signed By: Efra Hall MD\.br\Date and Time Signed: 12/25/24 10:49 EDT Main OR PACU I Recordon 12-15 Main OR PACU I Record Main OR PACU I Record PACU Phase I Document Type FT Summary Primary Physician: Efra Hall MD Finalized Date/Time: 12/25/24 13:35:31 Pt. Name: BROOKE LANDRY Bassem Franklin/Sex: 1955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 9 ANKLE LEFT 3 [facility] Department of Radiology [address] [place] [phone] Patient Name: BROOKE LANDRY : 1955 Sex: F Age: Race: White Pt. Location: Patient Status: O Ordered Date: 03/04/2019 1:25:00 PM Completed Date: 03/04/2019 01:38 PM Requesting Provider: BEBETO CRUM Attending Provider: BEBETO CRUM Report Copy To: Signs & Symptoms: S82.842D Displ bimalleol fx l low leg, subs for clos fx w routn heal I10 History: [place] Comments: , , , Ordering Provider - [...] alignment Electronically signed by:Julissa Che. Transcribed by: [email or web address], User Resident: Electronically Signed by: JULISSA CHE @ 03/04/2019 01:59 PM Normal [facility] Comment on above: Order Comment: , str ess view , Views (X-RAY, ANKLE): Radiologic Protocol , stress view , Views (X-RAY, ANKLE): Radiologic Protocol , , , Ordering Provider - JAMIN PACHECO MD , ANKLE RIGHT [address] [facility] 03-04-20 19 ANKLE RIGHT 3 [facility] Department of Radiology [address] [place] [phone] Patient Name: BROOKE LANDRY : 1955 Sex: F Age: Race: White Pt. Location: Patient Status: O Ordered Date: 03/04/2019 1:25:00 PM Completed Date: 03/04/2019 01:38 PM Requesting Provider: BEBETO CRUM Attending Provider: BEBETO CRUM Report Copy To: Signs & Symptoms: S82.842D Displ bimalleol fx l low leg, subs for clos fx w routn heal I10 History: [place] Comments: , , , Ordering Provider - BEBETO CRUM PA-C , Exam: ANKLE RIGHT 3 [facility] ANKLE LEFT 3 VWS, ANKLE RIGHT [...] alignment Electronically signed by:Julissa Che. Transcribed by: [email or web address], User Resident: Electronically Signed by: JULISSA CHE @ 03/04/2019 01:59 PM Normal [facility] Comment on above: Order Comment: , str ess view , Views (X-RAY, ANKLE): Radiologic Protocol , stress view , Views (X-RAY, ANKLE): Radiologic Protocol , , , Ordering Provider - JAMIN PACHECO MD , ANKLE LEFT [address] [facility] 9 ANKLE LEFT 3 VWS [facility] Department of Radiology [address] [place] [phone] Patient Name: BROOKE LANDRY : 1955 Sex: F Age: Race: White Pt. Location: Patient Status: Ordered Date: 02/04/2019 10:25:00 AM Completed Date: 02/04/2019 10:38 AM Requesting Provider: ITALO JIANG Attending Provider: Report Copy To: Signs & Symptoms: S82.842A Displaced bimalleolar fracture of left lower leg, init I10 History: [place] Comments: , Views (X-RAY, ANKLE): Radiologic Protocol [...] healing Electronically signed by:Zonia Cates. Transcribed by: [email or web address], User Resident: Electronically Signed by: ZONIA CATES @ 02/04/2019 03:17 PM Normal [facility] Comment on above: Order Comment: , str ess view , Views (X-RAY, ANKLE): Radiologic Protocol , stress view , Views (X-RAY, ANKLE): Radiologic Protocol , , , Ordering Provider - JAMIN PACHECO MD , ANKLE RIGHT 3 VWSon 02-05-20 19 ANKLE RIGHT 3 VWS [facility] Department of Radiology [address] [place] [phone] Patient Name: BROOKE LANDRY : 1955 [...] healing Electronically signed by:Zonia Cates. Transcribed by: [email or web address], User Resident: Electronically Signed by: ZONIA CATES @ 02/04/2019 03:31 PM Normal [facility] Comment on above: Order Comment: , str ess view , Views (X-RAY, ANKLE): Radiologic Protocol , stress view , Views (X-RAY, ANKLE): Radiologic Protocol , , , Ordering Provider - JAMIN PACHECO MD , Operative Reporton [id number] Operative Report MR#: [id number] I [facility] Pt. Name: Brooke Landry Room #: [id number] Discharge 01/23/2019 Date: Birthdate: 1955 OPERATIVE REPORT [...] A/Álvaro Dao MD Date Trans: 01/29/2019 11:37 A/smotoh DN_JN:[id number] Normal [facility] BASIC METABOLIC PANELon 08-0 Calcium [Mass/Vol] 9.4 mg/dL Normal 8.6-10.3 [facility] Comment on above: Order Comment: , str ess view , Views (X-RAY, ANKLE): Radiologic Protocol , stress view , Views (X-RAY, ANKLE): Radiologic Protocol , , , Ordering Provider - JAMIN PACHECO MD , Performed By: #### 0 0071 ####[id number] [place] [address], [facility] Chloride [Moles/Vol] 100 mmol/L Normal 98-107 [facility] Comment on above: Order Comment: , str ess view , Views (X-RAY, ANKLE): Radiologic Protocol , stress view , Views (X-RAY, ANKLE): Radiologic Protocol , , , Ordering Provider - JAMIN PACHECO MD , Performed By: #### 0 0071 ####[facility] [place] [address], [facility] CO2 [Moles/Vol] 32 mmol/L High 21-31 [facility] Comment on above: Order Comment: , str ess view , Views (X-RAY, ANKLE): Radiologic Protocol , stress view , Views (X-RAY, ANKLE): Radiologic Protocol , , , Ordering Lucero PACHECO MD , Performed By: #### 0 0071 ####[address] Creatinine [Mass/Vol] 0.78 mg/dL Normal 0.60-1.20 [facility] Comment on above: Order Comment: , str ess view , Views (X-RAY, ANKLE): Radiologic Protocol , stress view , Views (X-RAY, ANKLE): Radiologic Protocol , , , Ordering Lucero PACHECO MD , Performed By: #### 0 0071 ####[address] GFR/1.73 sq M predicted among blacks MDRD (S/P/Bld) [Vol rate/Area] mL/min/{1.73_m2} Normal >60 [facility] Comment on above: Order Comment: , str ess view , Views (X-RAY, ANKLE): Radiologic Protocol , stress view , Views (X-RAY, ANKLE): Radiologic Protocol , , , Ordering Lucero PACHECO MD , Performed By: #### 0 0071 ####[place] [address], [facility] GFR/1.73 sq M predicted among non-blacks MDRD (S/P/Bld) [Vol rate/Area] mL/min/{1.73_m2} Normal >60 [facility] Comment on above: Order Comment: , str ess view , Views (X-RAY, ANKLE): Radiologic Protocol , stress view , Views (X-RAY, ANKLE): Radiologic Protocol , , , Ordering Lucero PACHECO MD , Performed By: #### 0 0071 ####[address] [place] [address], [facility] Glucose [Mass/Vol] 151 mg/dL High 70-100 [facility] Comment on above: Order Comment: , str ess view , Views (X-RAY, ANKLE): Radiologic Protocol , stress view , Views (X-RAY, ANKLE): Radiologic Protocol , , , Ordering Lucero PACHECO MD , Performed By: #### 0 0071 ####[address] Potassium [Moles/Vol] 4.1 mmol/L Normal 3.5-5.1 [facility] Comment on above: Order Comment: , str ess view , Views (X-RAY, ANKLE): Radiologic Protocol , stress view , Views (X-RAY, ANKLE): Radiologic Protocol , , , Ordering Lucero PACHECO MD , Performed By: #### 0 0071 ####[place] [address], [facility] Sodium [Moles/Vol] 137 mmol/L Normal 136-145 [facility] Comment on above: Order Comment: , str ess view , Views (X-RAY, ANKLE): Radiologic Protocol , stress view , Views (X-RAY, ANKLE): Radiologic Protocol , , , Ordering Lucero PACHECO MD , Performed By: #### 0 0071 ####[place] [address], [facility] Urea nitrogen [Mass/Vol] 13 mg/dL Normal 7-25 [facility] Comment on above: Order Comment: , str ess view , Views (X-RAY, ANKLE): Radiologic Protocol , stress view , Views (X-RAY, ANKLE): Radiologic Protocol , , , Ordering Lucero PACHECO MD , Performed By: #### 0 0071 ####[address] CBC COMPLETE BLOOD COUNTon 0 01-23-2019 Erythrocyte distribution width (RBC) [Ratio] 13.5 % Normal 11.5-15.0 [facility] Comment on above: Order Comment: , str ess view , Views (X-RAY, ANKLE): Radiologic Protocol , stress view , Views (X-RAY, ANKLE): Radiologic Protocol , , , Ordering Lucero PACHECO MD , Performed By: #### 5 0608 ####[address] Hematocrit (Bld) [Volume fraction] 41.9 % Normal 36.0-45.0 [facility] Comment on above: Order Comment: , str ess view , Views (X-RAY, ANKLE): Radiologic Protocol , stress view , Views (X-RAY, ANKLE): Radiologic Protocol , , , Ordering Lucero PACHECO MD , Performed By: #### 5 0608 ####[address] Hemoglobin (Bld) [Mass/Vol] 13.1 g/dL Normal 12.0-15.0 [facility] Comment on above: Order Comment: , str ess view , Views (X-RAY, ANKLE): Radiologic Protocol , stress view , Views (X-RAY, ANKLE): Radiologic Protocol , , , Ordering Lucero PACHECO MD , Performed By: #### 5 0608 ####[facility] MCH (RBC) [Entitic mass] 27.3 pg Normal 27.0-33.0 [facility] Comment on above: Order Comment: , str ess view , Views (X-RAY, ANKLE): Radiologic Protocol , stress view , Views (X-RAY, ANKLE): Radiologic Protocol , , , Ordering Provider Brandon PACHECO MD , Performed By: #### 5 0608 ####[address] MCHC (RBC) [Mass/Vol] 31.3 g/dL Low 32.0-35.0 [facility] Comment on above: Order Comment: , str ess view , Views (X-RAY, ANKLE): Radiologic Protocol , stress view , Views (X-RAY, ANKLE): Radiologic Protocol , , , Ordering Provider Brandon PACHECO MD , Performed By: #### 5 0608 ####[address] MCV (RBC) [Entitic vol] 87.5 fL Normal 82.0-98.0 [facility] Comment on above: Order Comment: , str ess view , Views (X-RAY, ANKLE): Radiologic Protocol , stress view , Views (X-RAY, ANKLE): Radiologic Protocol , , , Ordering Provider Brandon PACHECO MD , Performed By: #### 5 0608 ####[address] Nucleated RBC/100 WBC (Bld) [Ratio] 0 % Normal 0-0 [facility] Comment on above: Order Comment: , str ess view , Views (X-RAY, ANKLE): Radiologic Protocol , stress view , Views (X-RAY, ANKLE): Radiologic Protocol , , , Ordering Lucero PACHECO MD , Performed By: #### 5 0608 ####[facility] PLAT CNT 295 10*3/uL Normal 150-400 [facility] Comment on above: Order Comment: , str ess view , Views (X-RAY, ANKLE): Radiologic Protocol , stress view , Views (X-RAY, ANKLE): Radiologic Protocol , , , Ordering Lucero PACHECO MD , Performed By: #### 5 0608 ####[address] RBC (Bld) [#/Vol] 4.79 10*6/uL Normal 3.80-5.00 [facility] Comment on above: Order Comment: , str ess view , Views (X-RAY, ANKLE): Radiologic Protocol , stress view , Views (X-RAY, ANKLE): Radiologic Protocol , , , Ordering Lucero PACHECO MD , Performed By: #### 5 0608 ####[address] WBC (Bld) [#/Vol] 7.82 10*3/uL Normal 4.00-10.60 [facility] Comment on above: Order Comment: , str ess view , Views (X-RAY, ANKLE): Radiologic Protocol , stress view , Views (X-RAY, ANKLE): Radiologic Protocol , , , Ordering Lucero PACHECO MD , Performed By: #### 5 0608 ####[address] POC GLUCOSE LABon 01-23-2019 Glucose [Mass/Vol] 116 mg/dL High 70-100 [facility] Comment on above: Performed By: #### 8 [id number] ####[facility] [place] [address], [place] POC GLUCOSE LABon 01-22-2019 Glucose [Mass/Vol] 98 mg/dL Normal 70-100 [facility] Comment on above: Performed By: #### 8 5499 ####[facility] [place] [address], [place] Glucose [Mass/Vol] 88 mg/dL Normal 70-100 [facility] Comment on above: Performed By: #### 8 [id number] ####[facility] [place] [address], [place] Glucose [Mass/Vol] 112 mg/dL High 70-100 [facility] Comment on above: Performed By: #### 8 [id number] ####[facility] [place] [address], [place] Glucose [Mass/Vol] 101 mg/dL High 70-100 [facility] Comment on above: Performed By: #### 8 [id number] ####[facility] [place] [address], [place] POC GLUCOSE LABon 01-21-2019 Glucose [Mass/Vol] 125 mg/dL High 70-100 [facility] Comment on above: Performed By: #### 8 [id number] ####[facility] [place] [address], [place] Glucose [Mass/Vol] 117 mg/dL High 70-100 [facility] Comment on above: Performed By: #### 8 [id number] ####[facility] [place] [address], [place] Glucose [Mass/Vol] 107 mg/dL High 70-100 [facility] Comment on above: Performed By: #### 8 [id number] ####[facility] [place], [place] [address] [place] [address] Glucose [Mass/Vol] 132 mg/dL High 70-100 [facility] Comment on above: Performed By: #### 8 [id number] ####[facility] *MRSA/MSSA DNA NASALon 01-20 *MRSA/MSSA DNA NASAL Clinical Report: (D) Specimen: NASAL SWAB Collected: 01/20/2019 11:05 Status: Final Last Updated: 01/20/2019 19:57 MSSA DNA (Final) Negative MRSA DNA (Final) Negative Normal [facility] Comment on above: Performed By: #### 3 1595 ####[facility] ANKLE LEFT [address] [facility] 9 ANKLE LEFT 2 S [facility] Department of Radiology [address] [place] [phone] Patient Name: BROOKE LANDRY : 1955 Sex: F Age: Race: White Pt. Location: OUTP Patient Status: D Ordered Date: 01/20/2019 12:15:00 PM Completed Date: 01/20/2019 12:34 PM Requesting Provider: JAMIN PACHECO Attending Provider: JAMIN PACHECO Report Copy To: Signs & Symptoms: ORIF LEFT ANKLE, History: ORIF LEFT ANKLE, Comments: ORIF LEFT ANKLE, Exam: ANKLE LEFT 2 S ANKLE LEFT 2 [facility] 01/20/2019 12:34 PM EDT SIGNS AND [...] documentation Electronically signed by:Manolo Whalen. Transcribed by: [email or web address], User Resident: Electronically Signed by: MANOLO WHALEN @ 01/20/2019 02:24 PM Normal [facility] Comment on above: Order Comment: , Vie ws (X-RAY, TIBIA AND FIBULA): Radiologic Protocol , Weight Bearing?: N , With or Without Brace/Cast/Collar: Without , Views (X-RAY, TIBIA AND FIBULA): Radiologic Protocol , Weight Bearing?: N , With or Without Brace/Cast/Collar: Without , , , Ordering Provider - JAMIN PACHECO MD , ANKLE RIGHT [address] [facility] 01-21-20 19 ANKLE RIGHT 2 [facility] Department of Radiology [address] [place] [phone] Patient Name: BROOKE LANDRY : 1955 [...] documentation Electronically signed by:Manolo Whalen. Transcribed by: [email or web address], User Resident: Electronically Signed by: MANOLO WHALEN @ 01/20/2019 02:23 PM Normal [facility] Comment on above: Order Comment: , [...] on above: Performed By: #### 8 [id number] ####[facility] Glucose [Mass/Vol] 118 mg/dL High 70-100 [facility] Comment on above: Performed By: #### 8 [id number] ####[facility] [place], [place] [id number] [place] [address] Glucose [Mass/Vol] 100 mg/dL Normal 70-100 [facility] Comment on above: Performed By: #### 8 5499 #### [facility] [address] [place], [place] [address] [place] [address] ANKLE LEFT 2 VWSon 9 ANKLE LEFT 2 VWS [facility] Department of Radiology [address] [place] [phone] Patient Name: BROOKE LANDRY : 1955 Sex: F Age: Race: White Pt. Location: Patient Status: O Ordered Date: 01/19/2019 12:05:00 PM Completed Date: 01/19/2019 12:19 PM Requesting Provider: JAMIN PACHECO Attending Provider: JAMIN PACHECO Report Copy To: Signs & Symptoms: S82.92XA Unsp fracture of left lower leg, init for clos fx I10 History: [place] Comments: , stress view , Views (X-RAY, [...] fx - 5 weeks ago f/u (accession [id number]), Patient has bi-lateral ankle pain. Right ankle is worse. Stress views ordered. (accession [id number]), Patient has bi-lateral ankle pain. Right ankle is worse. Stress views ordered. (accession [id number]), right tibia pain fx - 5 weeks ago f/u (accession [id number]) QUESTION FOR THE RADIOLOGIST: , Views (X-RAY, ANKLE): Radiologic Protocol , Weight Bearing?: N , With or Without Brace/Cast/Collar: Without , Views (X-RAY, ANKLE): Radiologic Protocol , Weight Bearing?: N ...More In Sending System PROTOCOL: AP,Lateral and Oblique views were obtained. (accession [id number]), AP(PA) and Lateral views were obtained. (accession [id number]), Stress views were obtained. AP(PA) view was obtained. (accession [id number]), AP(PA) and Lateral views were obtained. (accession [id number]) COMPARISON: None FINDINGS: Left ankle: Swelling Healing [...] widening Electronically signed by:Julissa Che. Transcribed by: [email or web address], User Resident: Electronically Signed by: JULISSA CHE @ 01/19/2019 01:54 PM Normal [facility] Comment on above: Order Comment: , str ess view , Views (X-RAY, ANKLE): Radiologic Protocol , stress view , Views (X-RAY, ANKLE): Radiologic Protocol , , , Ordering Provider - JAMIN PACHECO MD , ANKLE LEFT [address] [facility] 9 ANKLE LEFT 3 [facility] Department of Radiology [address] [place] [phone] Patient Name: BROOKE LANDRY : 1955 Sex: F Age: Race: White Pt. Location: Patient Status: O Ordered Date: 01/19/2019 10:50:00 AM Completed Date: 01/19/2019 11:10 AM Requesting Provider: JAMIN PACHECO Attending Provider: JAMIN PACHECO Report Copy To: Signs & Symptoms: S82.92XA Unsp fracture of left lower leg, init for clos fx I10 History: [place] Comments: , Views (X-RAY, ANKLE): Radiologic Protocol , Weight Bearing?: N , With or Without Brace/Cast/Collar: Without , Views (X-RAY, ANKLE): Radiologic Protocol , Weight Bearing?: N , With or Without Brace/Cast/Collar: Without , , , Ordering Provider - JAMIN PACHECO MD , Exam: ANKLE LEFT 3 [facility] ANKLE LEFT 3 VWS, ANKLE LEFT 2 VWS, ANKLE RIGHT 2 VWS, TIBIA FIBULA RIGHT 01/19/2019 11:10 AM EDT SIGNS AND SYMPTOMS: S82.92XA Unsp fracture of left lower leg, init for clos fx I10 TECHNOLOGIST COMMENTS: left ankle fx - 5 weeks ago f/u (accession [id number]), Patient has bi-lateral ankle pain. Right ankle is worse. Stress views ordered. (accession [id number]), Patient has bi-lateral ankle pain. Right ankle is worse. Stress views ordered. (accession [id number]), right tibia pain fx - 5 weeks ago f/u (accession [id number]) QUESTION FOR THE RADIOLOGIST: , Views (X-RAY, ANKLE): Radiologic Protocol , Weight Bearing?: N , With or Without Brace/Cast/Collar: Without , Views (X-RAY, ANKLE): Radiologic Protocol , Weight Bearing?: N ...More In Sending System PROTOCOL: AP,Lateral and Oblique views were obtained. (accession [id number]), AP(PA) and Lateral views were obtained. (accession [id number]), Stress views were obtained. AP(PA) view was obtained. (accession [id number]), AP(PA) and Lateral views were obtained. (accession [id number]) COMPARISON: None FINDINGS: Left ankle: Swelling Healing [...] widening Electronically signed by:Julissa Che. Transcribed by: [email or web address], User Resident: Electronically Signed by: JULISSA CHE @ 01/19/2019 01:54 PM Normal [facility] Comment on above: Order Comment: , Diliae ws (X-RAY, ANKLE): Radiologic Protocol , Weight Bearing?: N , With or Without Brace/Cast/Collar: Without , Views (X-RAY, ANKLE): Radiologic Protocol , Weight Bearing?: N , With or Without Brace/Cast/Collar: Without , , , Ordering Provider - JAMIN PACHECO MD , ANKLE RIGHT [address] [facility] 01-20-20 19 ANKLE RIGHT 2 [facility] Department of Radiology [address] [place] [phone] Patient Name: BROOKE LANDRY : 1955 Sex: F Age: Race: White Pt. Location: Patient Status: O Ordered Date: 01/19/2019 12:05:00 PM Completed Date: 01/19/2019 12:19 PM Requesting Provider: JAMIN PACHECO Attending Provider: JAMIN PACHECO Report Copy To: Signs & Symptoms: S82.92XA Unsp fracture of left lower leg, init for clos fx I10 History: [place] Comments: , stress view , Views (X-RAY, ANKLE): Radiologic Protocol , stress view , Views (X-RAY, ANKLE): Radiologic Protocol , , , Ordering Provider - JAMIN PACHECO MD , Exam: ANKLE RIGHT 2 S ANKLE LEFT 3 VWS, ANKLE LEFT 2 VWS, ANKLE RIGHT 2 VWS, TIBIA FIBULA RIGHT 01/19/2019 11:10 AM EDT SIGNS AND SYMPTOMS: S82.92XA Unsp fracture of left lower leg, init for clos fx I10 TECHNOLOGIST COMMENTS: left ankle fx - 5 weeks ago f/u (accession [id number]), Patient has bi-lateral ankle pain. Right ankle is worse. Stress views ordered. (accession [id number]), Patient has bi-lateral ankle pain. Right ankle is worse. Stress views ordered. (accession [id number]), right tibia pain fx - 5 weeks ago f/u (accession [id number]) QUESTION FOR THE RADIOLOGIST: , Views (X-RAY, ANKLE): Radiologic Protocol , Weight Bearing?: N , With or Without Brace/Cast/Collar: Without , Views (X-RAY, ANKLE): Radiologic Protocol , Weight Bearing?: N ...More In Sending System PROTOCOL: AP,Lateral and Oblique views were obtained. (accession [id number]), AP(PA) and Lateral views were obtained. (accession [id number]), Stress views were obtained. AP(PA) view was obtained. (accession [id number]), AP(PA) and Lateral views were obtained. (accession [id number]) COMPARISON: None FINDINGS: Left ankle: Swelling Healing [...] widening Electronically signed by:Julissa Che. Transcribed by: [email or web address], User Resident: Electronically Signed by: JULISSA CHE @ 01/19/2019 01:54 PM Normal [facility] Comment on above: Order Comment: , str ess view , Views (X-RAY, ANKLE): Radiologic Protocol , stress view , Views (X-RAY, ANKLE): Radiologic Protocol , , , Ordering Provider - JAMIN PACHECO MD , APTTon 01-19-2019 aPTT Coag (Bld) [Time] 30.1 s Normal 25.0-35.0 [facility] Comment on above: Result Comment: ALL [...] THIS PURPOSE. Performed By: #### 5 [id number], [id number] #### [facility] [address] [place] [address], [facility] BASIC METABOLIC PANELon Calcium [Mass/Vol] 10.4 mg/dL High 8.6-10.3 [facility] Comment on above: Performed By: #### 0 0071 #### [facility] [address] [place] [address], [facility] Chloride [Moles/Vol] 101 mmol/L Normal 98-107 [facility] Comment on above: Performed By: #### 0 0071 #### [facility] [address] [place] [address], [facility] CO2 [Moles/Vol] 32 mmol/L High 21-31 [facility] Comment on above: Performed By: #### 0 0071 #### [facility] [address] [place] [id number], [facility] Creatinine [Mass/Vol] 0.82 mg/dL Normal 0.60-1.20 [facility] Comment on above: Performed By: #### 0 0071 #### [facility] [address] [place] [address], [place] GFR/1.73 sq M predicted among blacks MDRD (S/P/Bld) [Vol rate/Area] mL/min/{1.73_m2} Normal >60 [facility] Comment on above: Performed By: #### 0 0071 #### [facility] [address] [place] [address], [place] GFR/1.73 sq M predicted among non-blacks MDRD (S/P/Bld) [Vol rate/Area] mL/min/{1.73_m2} Normal >60 [facility] Comment on above: Performed By: #### 0 0071 #### [facility] [address] [place] [address], [place] Glucose [Mass/Vol] 89 mg/dL Normal 70-100 [facility] Comment on above: Performed By: #### 0 0071 #### [facility] [address] [place] [address], [place] Potassium [Moles/Vol] 4.4 mmol/L Normal 3.5-5.1 [facility] Comment on above: Performed By: #### 0 0071 #### [facility] [address] [place] [address], [place] Sodium [Moles/Vol] 141 mmol/L Normal 136-145 [facility] Comment on above: Performed By: #### 0 0071 #### [facility] [address] [place] [address], [place] Urea nitrogen [Mass/Vol] 18 mg/dL Normal 7-25 [facility] Comment on above: Performed By: #### 0 0071 #### [facility] [address] CBC W/DIFFon 01-19-2019 ABS BASOPHILS 0.1 10*3/uL Normal 0.0-0.2 [facility] Comment on above: Performed By: #### 5 0103 #### [facility] [address] [place] [address], [facility] ABS IMM GRANS 0.0 10*3/uL Normal 0.0-0.2 [facility] Comment on above: Performed By: #### 5 0103 #### [facility] [address] [facility] ABS NEUTROPHILS 4.4 10*3/uL Normal 1.6-7.6 [facility] Comment on above: Performed By: #### 5 0103 #### [facility] [address] [facility] Basophils/100 WBC (Bld) 0.8 % Normal 0.0-1.0 [facility] Comment on above: Performed By: #### 5 0103 #### [facility] [address] [place] [address], [facility] Eosinophils (Bld) [#/Vol] 0.2 10*3/uL Normal 0.0-0.5 [facility] Comment on above: Performed By: #### 5 0103 #### [facility] [address] [place] [address], [facility] Eosinophils/100 WBC (Bld) 3.2 % Normal 0.0-6.0 [facility] Comment on above: Performed By: #### 5 0103 #### [facility] [address] [facility]. [address] Erythrocyte distribution width (RBC) [Ratio] 13.2 % Normal 11.5-15.0 [facility] Comment on above: Performed By: #### 5 0103 #### [facility] [address] [place] [address], [facility] Hematocrit (Bld) [Volume fraction] 44.8 % Normal 36.0-45.0 [facility] Comment on above: Performed By: #### 5 0103 #### [facility] [address] [place] [address], [facility] Hemoglobin (Bld) [Mass/Vol] 14.4 g/dL Normal 12.0-15.0 [facility] Comment on above: Performed By: #### 5 0103 #### [facility] [address] [place] [address], [facility] IMMATURE GRANS 0.1 % Normal 0.0-1.0 [facility] Comment on above: Performed By: #### 5 0103 #### [facility] [address] [facility]. [address] Lymphocytes (Bld) [#/Vol] 2.0 10*3/uL Normal 1.2-4.0 [facility] Comment on above: Performed By: #### 5 0103 #### [facility] [address] [place] [address], [facility] Lymphocytes/100 WBC (Bld) 27.9 % Normal 20.0-45.0 [facility] Comment on above: Performed By: #### 5 0103 #### [facility] [address] [place] [address], [facility] MCH (RBC) [Entitic mass] 28.0 pg Normal 27.0-33.0 [facility] Comment on above: Performed By: #### 5 0103 #### [facility] [address] [place] [address], [facility] MCHC (RBC) [Mass/Vol] 32.1 g/dL Normal 32.0-35.0 [facility] Comment on above: Performed By: #### 5 3 #### [facility] [address] [place] [address], [facility] MCV (RBC) [Entitic vol] 87.2 fL Normal 82.0-98.0 [facility] Comment on above: Performed By: #### 5 0103 #### [facility] [address] [place] [address], [facility] Monocytes (Bld) [#/Vol] 0.5 10*3/uL Normal 0.1-1.0 [facility] Comment on above: Performed By: #### 5 0103 #### [facility] [address] [place] [address], [facility] MONOS 7.4 % Normal 5.0-12.0 [facility] Comment on above: Performed By: #### 5 3 #### [facility] [address] [place] [address], [facility] Neutrophils/100 WBC (Bld) 60.6 % Normal 40.0-72.0 [facility] Comment on above: Performed By: #### 5 3 #### [facility] [address] [place] [address], [facility] Nucleated RBC/100 WBC (Bld) [Ratio] 0 % Normal 0-0 [facility] Comment on above: Performed By: #### 5 3 #### [facility] [address] [place] [address], [facility] PLAT CNT 334 10*3/uL Normal 150-400 [facility] Comment on above: Performed By: #### 5 3 #### [facility] [address] [place] [address], [facility] RBC (Bld) [#/Vol] 5.14 10*6/uL High 3.80-5.00 [facility] Comment on above: Performed By: #### 5 3 #### [facility] [address] [place] [address], [facility] WBC (Bld) [#/Vol] 7.18 10*3/uL Normal 4.00-10.60 [facility] Comment on above: Performed By: #### 5 0103 #### [address] PROTHROMBIN TIMEon 9 INR Coag (PPP) [Relative time] 0.99 {INR} Normal 0.91-1.16 [facility] Comment on above: Result Comment: ACCC [...] CHEST 1995;108:231S-246S. Performed By: #### 5 6101, [id number] #### [facility] [address] [facility] PT Coag (PPP) [Time] 13.1 s Normal 12.3-14.8 [facility] Comment on above: Result Comment: ALL RESULTS MUST BE INTERPRETED WITH RESPECT TO BLOOD DRAWING ARTIFACT OR DILUTION ERROR OF ANTICOAGULANT AT THE TIME OF SAMPLING. Performed By: #### 5 6101, [id number] #### [facility] [address] TIBIA FIBULA RIGHTon 019 TIBIA FIBULA RIGHT [facility] Department of Radiology [address] [place] [id number] Patient Name: BROOKE LANDRY : 1955 [...] fx - 5 weeks ago f/u (accession [id number]), Patient has bi-lateral ankle pain. Right ankle is worse. Stress views ordered. (accession [id number]), Patient has bi-lateral ankle pain. Right ankle is worse. Stress views ordered. (accession [id number]), right tibia pain fx - 5 weeks ago f/u (accession [id number]) QUESTION FOR THE RADIOLOGIST: , Views (X-RAY, ANKLE): Radiologic Protocol , Weight Bearing?: N , With or Without Brace/Cast/Collar: Without , Views (X-RAY, ANKLE): Radiologic Protocol , Weight Bearing?: N ...More In Sending System PROTOCOL: AP,Lateral and Oblique views were obtained. (accession [id number]), AP(PA) and Lateral views were obtained. (accession [id number]), Stress views were obtained. AP(PA) view was obtained. (accession [id number]), AP(PA) and Lateral views were obtained. (accession [id number]) COMPARISON: None FINDINGS: Left ankle: Swelling Healing [...] widening Electronically signed by:Julissa Che. Transcribed by: [email or web address], User Resident: Electronically Signed by: JULISSA CHE @ 01/19/2019 01:54 PM Normal [facility] Comment on above: Order Comment: , Rosalee ws (X-RAY, TIBIA AND FIBULA): Radiologic Protocol , Weight Bearing?: N , With or Without Brace/Cast/Collar: Without , Views (X-RAY, TIBIA AND FIBULA): Radiologic Protocol , Weight Bearing?: N , With or Without Brace/Cast/Collar: Without , , , Ordering Provider - JAMIN PACHECO MD , TYPE AND CROSSMATCHon 2018 ABO INTERPRETATION B Normal [facility] Comment on above: Performed By: #### 6 2594 #### [facility] [address] [place] [address], [facility] RH INTERPRETATION Negative Normal [facility] Comment on above: Performed By: #### 6 2594 #### [facility] [address] 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 Advise [place] 3 fatty acids 1gram daily.Return to clinic [...] the management ofthis patient's care with the Lead Shop Operator, if applicable. I also havereviewed and agree with the assessment and plan as stated above and agreewith all of its relevant components.Caro Suggs MD [facility] 07-08-2017 HOSP Office Visit OPHT (OPLKAV) ----BROOKE LANDRY ([id number]) 1955 FDate Time Provider Department07/08/17 1:30 PM CARO SUGGS OPLKAV During your visit today, we recorded the following information about you:Caro Suggs MD 07/08/2017 3:05 PM Signed(H35.073) Type 2 macular telangiectasis, bilateral (primary encounterdiagnosis)(H25.13) Senile nuclear sclerosis, bilateral(G70.00) Myasthenia gravis without [...] day [place] and Artificial tears . Advise [place] 3 fatty acids 1gram daily.The documentation recorded by the scribe accurately reflects the service Ipersonally performed and the decisions made by me.I have confirmed and edited as necessary the relevant ophthalmic history, ROS,and the neuro exam findings as obtained by others. I have seen and examinedBrooke Landry. I have discussed the case and the management of this patient'scare with the Lead Shop Operator, if applicable. I also have reviewed and agree withthe assessment and plan as stated above and agree with all of its relevantcomponents.Caro Suggs, [facility] INSTITUTEeferring Provider: GORDON ROBLES [[id number]]Allergies As of Date: 07/08/2017 Noted Allergy ReactionACTICOAT [...] right [H35.411]Order(s):DILATED FUNDUS EXAM [] Order #: [id number]: 1 IOP MEASUREMENT [] Order #: [id number]: 1 OCT MACULA CIRRUS OU (BOTH EYES) [21291020] Order #: [id number]: 1 DILATED FUNDUS EXAM [] Order #: [id number]: 1 FUTURE IOP MEASUREMENT [] Order #: [id number]: 1 FUTURE OCT MACULA CIRRUS OU (BOTH EYES) [21291020] Order #: [id number]: 1 FUTUREPrescriptions as of 07/08/2017 Sig: TURMERIC [...] [G*INVALID FOR*Follow-up and Disposition History RecordedEncounter Number: [id number] Status:Closed by CARO SUGGS MD on 07/08/17 [facility] PROGRESSon 07-08-2017 PROGRESS HNO ID: [id number] thor: Caro SuggsService: (none)Author Type: PhysicianType: Progress NotesFiled: 07/08/2017 3:05 PMNote Text:(H35.073) Type 2 macular telangiectasis, bilateral (primary encounterdiagnosis)(H25.13) Senile nuclear sclerosis, bilateral(G70.00) Myasthenia gravis without [...] dayBoth eyes and Artificial tears . Advise [place] 3 fatty acids 1gram daily.The documentation recorded by the scribe accurately reflects the service Ipersonally performed and the decisions made by me.I have confirmed and edited as necessary the relevant ophthalmic history,ROS, and the neuro exam findings as obtained by others. I have seen andexamined Brooke Landry. I have discussed the case and the management ofthis patient's care with the Lead Shop Operator, if applicable. I also havereviewed and agree with the assessment and plan as stated above and agreewith all of its relevant components.Caro Suggs MD [facility] 04-08-2017 HOSP Office Visit OPHT (OPHTLN) ----BROOKE LANDRY ([id number]) 1955 [facility] Time Provider Efnsgvxash00/23/17 10:30 AM OKSANA HERNANDEZ During your visit today, we recorded the following information about you:Oksana Hernandez MD 04/08/2017 4:20 PM AddendumPrefers to be seen in [place].(H35.073) 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 [...] Modules accepted: Orders, SmartSetReferring Provider: CARO SUGGS [[id number]]Allergies As of Date: 04/08/2017 Noted Allergy ReactionACTICOAT [...] eyes [H35.073]Order(s):DILATED FUNDUS EXAM [] Order #: [id number]: 1 IOP MEASUREMENT [] Order #: [id number]: 1 OCT MACULA CIRRUS OU (BOTH EYES) [21291020] Order #: [id number]: 1 DILATED FUNDUS EXAM [] Order #: [id number]: 1 FUTURE IOP MEASUREMENT [] Order #: [id number]: 1 FUTURE OCT MACULA CIRRUS OU (BOTH EYES) [21291020] Order #: [id number]: 1 FUTUREPrescriptions as of 04/08/2017 Sig: PYRIDOSTIGMINE [...] (around 10/07/2017).Follow-up and Disposition History RecordedEncounter Number: [id number] Status:Closed by OKSANA HERNANDEZ on 04/08/17 [facility] PROGRESSon 04-08-2017 PROGRESS HNO ID: [id number] thor: Oksana Evangelista: (none)Author Type: PhysicianType: Progress NotesFiled: 04/08/2017 4:20 PMNote Text:Pref[place] to be seen in [place].(H35.073) 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 [...] or sooner ifnew symptoms develop.Oksana Hernandez MD [facility] Vital Signs Date Time Vital Sign Value Performing Clinician Pedro reyna 10-08-2024 10:44-0400 Body height 166.4 cm Alexsandra Álvarez MD Work Phone: [facility] 10-08-2024 10:44-0400 Body mass index (BMI) [Ratio] 43.26 kg/m2 Alexsandra Álvarez MD Work Phone: [facility] 10-08-2024 10:44-0400 Body temperature 97.5 [degF] Alexsandra Álvarez MD Work Phone: [facility] 10-08-2024 10:44-0400 Body weight 119.75 kg Alexsadnra Álvarez MD Work Phone: [facility] 10-08-2024 10:44-0400 Diastolic blood pressure 78 mm[Hg] Alexsandra Álvarez MD Work Phone: [facility] 10-08-2024 10:44-0400 Heart rate 76 /min Alexsandra Álvarez MD Work Phone: [facility] 10-08-2024 10:44-0400 SaO2% (BldA) [Mass fraction] 97 % Alexsandra Álvarez MD Work Phone: [facility] 10-08-2024 10:44-0400 Systolic blood pressure 140 mm[Hg] Alexsandra Álvarez MD Work Phone: [facility] Encounters Encounter Date Encounter Type Care Provider Facility Start: 03-22-2025 End: 03-22-2025 ambulatory [facility] Start: 02-09-2025 End: 02-09-2025 ambulatory Efra Hall Facility:[facility] Start: 02-09-2025 End: 02-09-2025 Patient encounter procedure Efra Hall [facility] Start: 12-25-2024 End: 12-25-2024 ambulatory Efra Hall Facility[facility] Start: 12-17-2024 End: 12-17-2024 ambulatory Efra Hall Facility:[facility] Start: 12-17-2024 End: 12-17-2024 Patient encounter procedure Efra Hall [facility] Start: 12-15-2024 ambulatory Efra Hall Facilit y:[facility] Start: 10-08-2024 End: 10-08-2024 Office outpatient visit 25 minutes Alexsandra Álvarez MD Work Phone: [facility] Comment on above: Carotid stenosis, bi lateral (Primary Dx) Start: 10-08-2024 End: 10-08-2024 ambulatory [facility] Start: 09-16-2024 End: 09-16-2024 ambulatory [facility] Start: 09-16-2023 Orders Only Reina Gomes 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 [facility] Comment on above: Dizziness (Primary D x) Carotid artery calci fication, unspecified laterality (Primary Dx); Bilateral carotid artery stenosis Start: 09-12-2023 End: 09-12-2023 Office outpatient new 30 minutes Alexsandra Álvarez MD Work Phone: [facility] Comment on above: Carotid artery calci fication, unspecified laterality Start: 11-03-2022 ambulatory CECILIA BOUDREAUX Facility: [facility] Start: 09-21-2022 End: 09-22-2022 ambulatory NONE LISTED REQUEST Facility:[facility] Start: 09-11-2022 End: 09-12-2022 ambulatory Niranjan Bustillos Facility:[facility] Start: 11-16-2021 ambulatory CECILIA BOUDREAUX Facility: [facility] Start: 01-20-2019 End: 01-23-2019 Evaluation and management of inpatient JAMIN EBRAHEIM Facility:[facility] Start: 10-07-2017 End: 10-09-2017 Ambulatory CARO SUGGS [facility] Start: 07-08-2017 End: 07-09-2017 Ambulatory CARO SUGGS [facility] Start: 04-08-2017 End: 04-11-2017 Ambulatory CARO SUGGS [facility] Procedures Date Procedure Procedure Detail Performing Clinician Start: 12-25-2024 Dilation of esophagus Efra Hall Start: 12-25-2024 Esophagogastroduodenoscopy Efra ied Start: 01-20-2019 REPOSITION LEFT FIBULA WITH INT FIX, OPEN APPROACH JAMIN EBRAHEIM Start: 01-20-2019 REPOSITION RIGHT FIBULA WITH INT FIX, OPEN APPROACH JAMIN EBRAHEIM Start: 01-19-2019 Antibody screen JAMIN EBRAHEIM Comment on above: Performed By: #### [id number] #### [address] Start: 02-24-2014 Injection of facet joint using fluoroscopic guidance Efra Hall Comment on above: Bilateral L3-S1 fij (20 depo) 50% relief Start: 01-11-2014 Epidural injection of lumbar spine using fluoroscopic guidance Efra Hall Comment on above: L5-S1 PARUL 85% Relief Acquired trigger finger (disorder) Efra Hall Ankle region structu re (body structure) Efra Hall Comment on above: left ankle Carpal tunnel syndrome (disorder) Efra Hall Herniated structure (morphologic abnormality) Efra Hall Knee region structur e (body structure) Efra Hall 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 Tonsillar structure (palatine) (body structure) Efra Hall Plan of Treatment Date Care Activity Detail Author Start: 10-08-2025 Adult BMI Screening Adult BMI Screen ing [facility] Start: 10-08-2025 Tobacco Screening Tobacco Screening [facility] Start: 02-15-2025 Influenza vaccination Influenza Vacc ine [facility] Start: 10-08-2024 End: 10-08-2025 US Carotid arteries - bilateral Vas carotid duplex bilateral Vascular Ultrasound Routine Carotid stenosis, bilateral Expected: 10/08/2024, Expires: 10/08/2025 [facility] Work Phone: Comment on above: Expected: 10/08/2024 , Expires: 10/08/2025 Start: 10-08-2024 End: 10-08-2024 Patient encounter procedure 10/08/2024 10:50 AM EDT Office Visit [facility] [place] [address] Alexsandra Álvarez MD [address], [place] [address] [facility] Start: 02-16-2024 COVID-19 Vaccine ( season) COVID-19 Vaccine () [facility] Start: 02-16-2024 Influenza vaccination Influenza Vacc ine [facility] Start: 09-16-2023 End: 10-14-2024 US Carotid arteries - bilateral Vas carotid duplex bilateral Vascular Ultrasound Routine Bilateral carotid artery stenosis Expected: 09/16/2023, Expires: 10/14/2024 [facility] Work Phone: Comment on above: Expected: 09/16/2023 , Expires: 10/14/2024 Start: 02-15-2023 COVID-19 Vaccine ( season) COVID-19 Vaccine ( season) [facility] Start: 02-15-2023 Influenza vaccination Influenza Vacc ine [facility] Start: 11-02-2021 Adult BMI Screening Adult BMI Screen ing [facility] Start: 2018 Fall Risk Screening Fall Risk Screen ing [facility] Start: 11-16-2003 Administration of varicella zoster vaccine Zoster (Shingles) Vaccine (1 of 2) [facility] Start: 1972 DTaP,Tdap and Td Vac cines (1 - Tdap) DTaP,Tdap and Td Vaccines (1 - Tdap) [facility] Start: 11-16-1971 Adult BMI Follow Up Plan Adult BMI Follow Up Plan [facility] Start: 1965 Depression Screening Depression Scre ening [facility] Start: 1965 Tobacco Screening Tobacco Screening [facility] Start: 1955 Medicare Annual Well ness Visit Medicare Annual Wellness Visit [facility] Immunizations Immunization Date Immunization Notes Care Provider Fa cili 04-13-2022 influenza virus vaccine, unspecified formulation Alexsandra Álvarez MD Work Phone: [facility] Payers Date Payer Category Payer Medicaid [id number] 2018 Unknown [id number] 2018 Unknown [id number] 2014 Medicare [id number] 1959 Medicaid [id number] 1959 Medicare [id number] 1959 Self-pay [id number] 1955 Unknown [id number] 2.16.8 [id number] 1955 Unknown [id number] 2.16.84 [id number] 1955 Unknown [id number] 2.16.84 [id number] 1953 Unknown [id number] 2.16.84 [id number] 1955 Unknown [id number] 2.16. [id number] 1955 Unknown [id number] 2.16.8 [id number] 1955 Unknown [id number] 2.16.8 [id number] 1955 Unknown [id number] 2.16.8 [id number] 1955 Unknown [id number] 2.16.8 [id number] Unknown [id number] 2.16.84 [id number] Social History Date Type Detail Facility Start: 10-20-2020 End: 02-09-2025 Tobacco smoking status NHIS Never smoked tobacco [facility] Start: 10-20-2020 End: 09-16-2023 Tobacco use and exposure Smokeless tobacco non-user [facility] Start: 11-03-2020 End: 10-08-2024 Alcohol intake Lifetime non-drinker (finding) [facility] Start: 11-03-2020 End: 10-08-2024 History of Social function [facility] Start: 11-03-2020 End: 10-08-2024 Tobacco use panel [facility] Childcare Unknown [facility] Start: 1955 Sex Assigned At Not on file P [facility] Start: 01-20-2015 End: 09-04-2018 Sex Female (finding) [facility] Sexual Orientation [facility] Clinical Notes 09-12-2023 to 03-22-2025 Assessment & Plan Note - Alexsandra Álvarez MD - 10/08/2024 11:06 AM EDTAssessment & Plan Note - Alexsandra Álvarez MD - 10/08/2024 11:06 AM EDTMaugustin Álvarez MD - 10/08/2024 10:50 AM EDT Note Date & Type Note Facility 03-22-2025 Note [facility] Subjective Brooke Landry is a 69 y.o. year old female patient being seen per her PCP request due to palpitations. Patient complains of SOB, MONIQUE, fatigue, palpitations/racing heart, chest pressure, dizziness/lightheaded with position changes. Per patient the last 3 weeks it has increased. Patient states the palpitations occur with and without activity. Patient complains [...] been having significant worsening symptoms of chest heaviness and shortness of breath with exertion. She feels irregular heartbeats. She does not (more content not included)... [facility] 12-25-2024 Note Progress Note-Physic darryn Patient: BROOKE LANDRY Age: 69 years Sex: Female : 1955 Associated Diagnoses: None Author: Ifeanyi Lopez Jr., DO Postoperative Information Postoperative disposition: Postoperative disposition: Home. Optimetrix number: Optimetrix number [id number]. Anesthetic utilized: General. Physical Examination Vital Signs 12/25/2024 12:30 EDT SpO2 97 % 12/25/2024 12:30 EDT Heart Rate Monitored 64 bpm 12/25/2024 12:30 EDT Respiratory Rate Monitored 17 br/min 12/25/2024 12:30 EDT Systolic Blood Pressure 136 mmHg Diastolic Blood Pressure 73 mmHg Blood Pressure Location Left arm Mean Arterial Pressure, Cuff 94 mmHg 12/25/2024 12:25 EDT SpO2 97 % 12/25/2024 12:25 EDT Heart Rate Monitored 64 bpm Respiratory Rate Monitored 13 br/min 12/25/2024 12:25 EDT Systolic Blood Pressure 144 mmHg HI Diastolic Blood Pressure 82 mmHg Blood Pressure Location Left arm Mean Arterial Pressure, Cuff 103 mmHg 12/25/2024 12:20 EDT Heart Rate Monitored 72 bpm Respiratory Rate Monitored 15 br/min 12/25/2024 12:20 EDT SpO2 96 % 12/25/2024 12:20 EDT Systolic Blood Pressure 140 mmHg HI Diastolic Blood Pressure 118 mmHg HI Blood Pressure Location Left arm Mean Arterial Pressure, Cuff 125 mmHg 12/25/2024 12:15 EDT SpO2 95 % 12/25/2024 12:15 EDT Heart Rate Monitored 68 bpm 12/25/2024 12:15 EDT Systolic Blood Pressure 150 mmHg HI Diastolic Blood Pressure 113 mmHg HI 12/25/2024 12:15 EDT Temperature Temporal Artery 36 DegC LOW Respiratory Rate Monitored 16 br/min Blood Pressure Location Left arm Mean Arterial Pressure, Cuff 125 mmHg Pain Assessment: Controlled. General: Awake, Alert, Appropriate. Respiratory: Adequate air exchange, Non-labored. Cardiovascular: Stable, Normal peripheral perfusion. Neurological: Neurologic exam at baseline. No changes.. Assessment Anesthetic outcome No anesthetic complications noted. No nausea/vomiting. Review / Management Condition: Stable. Plan Transfer/Discharge: Transfer/Discharge Discharge when meets criteria ( From PACU to Ambulatory Surgery Unit, and To home ). [facility] Comment on above: Result Comment: Elec tronically Signed By: Ifeanyi Lopez Jr., DO\.br\Date and Time Signed: 12/25/24 13:45 EDT 12-25-2024 Note Patient Education - Text Endoscopy Care After Procedure Please read the instructions outlined below and refer to this sheet in the next few weeks. These discharge instructions provide you with general information on caring for yourself after you leave the hospital. Your doctor may also give you specific instructions. While your treatment has been planned according to the most current medical practices available, unavoidable complications occasionally occur. If you have any problems or questions after discharge, please call your doctor. ACTIVITY ??? You may resume your regular activity but move at a slower pace for the next 24 hours. ??? Take frequent rest periods for the next 24 hours. ??? Walking will help expel (get rid of) the air and reduce the bloated feeling in your abdomen. ??? No driving for 24 hours (because of the anesthesia (medicine) used during the test). ??? You may shower. ??? Do not sign any important legal documents or operate any machinery for 24 hours (because of the anesthesia used during the test). NUTRITION ??? Drink plenty of fluids. ??? You may resume your normal diet. ??? Begin with a light meal and progress to your normal diet. ??? Avoid alcoholic beverages for 24 hours or as instructed by your caregiver. MEDICATIONS ??? You may resume your normal medications unless your caregiver tells you otherwise. WHAT YOU CAN EXPECT TODAY ??? You may experience abdominal discomfort such as a feeling of fullness or ???gas??? pains. FOLLOW-UP ??? Your doctor will discuss the results of your test with you. seek immediate medical attention if any of the following occur: ??? Excessive nausea (feeling sick to your stomach) and/or vomiting. ??? Severe abdominal pain and distention (swelling). ??? Trouble swallowing. ??? Temperature over 100 F (37.8??? C). ??? Rectal bleeding or vomiting of blood. Document Released: 01/15/2005 Document Re-Released: 11/25/2006 ExitCare??? Patient Information ???2009 [employer]. Gastroenterology Full Liquid Diet A full liquid diet refers to fluids and foods that are liquid, or will become liquid, at room temperature. This diet should only be used for a short period of time to help you recover from illness or surgery. Your health care provider or dietitian will help determine when it is safe to eat regular foods again. What are tips for following this plan? Reading food labels ??? Check food labels of nutrition shakes for the amount of protein. Look for nutrition shakes that have at least 8?10 grams of protein in each serving. ??? Choose drinks, such as milks and juices, that are fortified or enriched. This means that vitamins and minerals have been added. Shopping ??? Buy pre-made nutrition shakes to keep on hand. ??? To vary your choices, buy different flavors of milks and shakes. Meal planning ??? Choose flavors and foods that you enjoy. ??? To make sure you get enough energy and calories from food: ? Have three full liquid meals each day. Have a liquid snack between each meal. ? Drink 6?8 oz (177?237 mL) of a nutritional supplement shake with meals or as snacks. ? Add protein powder, powdered milk, milk, or yogurt to shakes to increase the amount of protein. ??? Drink at least one serving a day of citrus fruit juice or fruit juice that has vitamin C added. General guidelines ??? Before starting the full liquid diet, check with your health care provider to know what foods you should avoid. These may include full-fat or high-fiber liquids. ??? You may have any liquid or food that becomes a liquid at room temperature. The food is considered a liquid if it can be poured off a spoon at room temperature. ??? Do not drink alcohol unless approved by your health care provider. ??? This diet gives you most of the nutrients that you need for energy, but you may not get enough of certain vitamins, minerals, and fiber. Make sure to talk to your health care provider or dietitian about: ? How many calories you need to eat each day. ? How much fluid you should have each day. ? Taking a multivitamin or a nutritional supplement. What foods should I eat? Fruits Fruit juice without pulp. Strained fruit pur?es (seeds and skins removed). Vegetables Pulp-free tomato or vegetable juice. Vegetables pur?ed in soup. Grains Thin, hot cereal, such as farina. Soft-cooked pasta or rice pur?ed in soup. Meats and other proteins Beef, chicken, and fish broths. Powdered protein supplements. Dairy Milk and milk-based beverages, including milk shakes and instant breakfast mixes. Smooth yogurt. Pur?ed cottage cheese. Fats and oils Melted margarine and butter. Cream. Canola, almond, avocado, corn, grapeseed, sunflower, and sesame oils. Gravy. Beverages Water. Coffee and tea (caffeinated or decaffeinated). Bureau. Liquid nutritional supplements. Soft drinks. Nondairy milks, such as almond, coconut, rice, or soy milk. Sweets a (more content not included)... [facility] 12-25-2024 Note Progress Note-Liane cates Patient: BROOKE LANDRY Age: 69 years Sex: Female : 1955 Associated Diagnoses: None Author: Ifeanyi Lopez Jr., DO Preoperative Information Anesthesia Preop Info NPO since midnight Anesthesia history: Patient history: No prior anesthetic problems. Informed consent: Signed by patient. Re-evaluation prior to induction: Initial evaluation reviewed: No significant change. Health Status Allergies: Allergic Reactions (Selected) Severity Not Documented Blueberries- Rash. Latex- No reactions were documented. Morphine- No reactions were documented. Sulfa topicals- Blister., Allergies (4) Active Severity Reaction Latex None Documented morphine None Documented sulfa topicals BLISTER Blueberries RASH Current medications: (Selected) Inpatient Medications Ordered Lactated Ringers IV Charity 1000 mL 1,000 mL: 1,000 mL, IV, 100 mL/hr, Routine, Start date 12/25/24 11:17:00 EDT, 10 hour(s), Total volume (mL): 1,000, 117.6 kg, 2.31, m2 Sodium Chloride 0.9% IV Charity 1000 mL 1,000 mL: 1,000 mL, IV, 20 mL/hr, Routine, Start date 12/25/24 6:47:00 EDT, 50 hour(s), Total volume (mL): 1,000, 117.6 kg, 2.31, m2 Documented Medications Documented Arnuity Ellipta: Inhalation, q24hr, Refills(s) 0, Shortness of breath or wheezing CoQ10: Refills(s) 0, Prophylaxis Daily Multi oral tablet: 1 tab(s), Oral, Daily, Refill(s) 0, Prophylaxis ICaps AREDS 2: Refill(s) 0, Prophylaxis Ozempic (1 mg dose): Refills(s) 0, Blood glucose Restasis: q12hr, Refill(s) 0, Dry eyes Spiriva Respimat 1.25 mcg/inh inhalation aerosol: mcg, inh, Inhalation, Daily, Refill(s) 0, Shortness of breath or wheezing Super B Complex: 1 tab(s), Oral, Daily, Refill(s) 0, Prophylaxis Ventolin HFA 90 mcg/inh Aerosol-Adpt: mcg, inh, Inhalation, q6hr, Refill(s) 0, Shortness of breath or wheezing Vitamin B12: 2,500 microgram, Oral, Daily, Refills(s) 0, Prophylaxis Vitamin D3: 5,000 International_Unit, Oral, Daily, Refills(s) 0, Prophylaxis amLODIPine 5 mg Tab: mg tab(s), Oral, Daily, Refills(s) 0, High blood pressure aspirin 81 mg oral capsule: mg cap(s), Oral, q24hr, Refills(s) 0, Prophylaxis atorvastatin 20 mg Tab: mg tab(s), Oral, Daily, Refills(s) 0, High cholesterol bilberry: mg, Oral, Daily, Refill(s) 0, Prophylaxis cinnamon 500 mg oral capsule: 1,000 mg = 2 cap(s), Oral, BID, # 100 cap(s), Refills(s) 0, Prophylaxis garlic: Refill(s) 0, Prophylaxis isosorbide mononitrate 60 mg ER Tab: mg tab(s), Oral, qAM, Refills(s) 0, High blood pressure losartan 100 mg Tab: mg tab(s), Oral, Daily, Refills(s) 0, High blood pressure magnesium oxide: Oral, Refills(s) 0, Prophylaxis metoprolol succinate 25 mg ER Tab: mg tab(s), Oral, Daily, Refills(s) 0, High blood pressure montelukast 10 mg Tab: mg tab(s), Oral, Daily, Refills(s) 0, Allergy symptoms turmeric 500 mg oral capsule: mg cap(s), Oral, Daily, Refills(s) 0, Prophylaxis, Home Medications (23) Active amLODIPine 5 mg Tab , Oral, Daily Arnuity Ellipta , Inhalation, q24hr aspirin 81 mg oral capsule , Oral, q24hr atorvastatin 20 mg Tab , Oral, Daily bilberry , Oral, Daily cinnamon 500 mg oral capsule 1,000 mg = 2 cap(s), Oral, BID CoQ10 Daily Multi oral tablet 1 tab(s), Oral, Daily garlic ICaps AREDS 2 isosorbide mononitrate 60 mg ER Tab , Oral, qAM losartan 100 mg Tab , Oral, Daily magnesium oxide , Oral metoprolol succinate 25 mg ER Tab , Oral, Daily montelukast 10 mg Tab , Oral, Daily Ozempic (1 mg dose) Restasis , q12hr Spiriva Respimat 1.25 mcg/inh inhalation aerosol , Inhalation, Daily Super B Complex 1 tab(s), Oral, Daily turmeric 500 mg oral capsule , Oral, Daily Ventolin HFA 90 mcg/inh Aerosol-Adpt , Inhalation, q6hr Vitamin B12 2,500 microgram, Oral, Daily Vitamin D3 5,000 International_Unit, Oral, Daily , Medications (2) Active Scheduled: (0) Continuous: (2) Lactated Ringers 1,000 mL 1,000 mL, IV, 100 mL/hr Sodium Chloride 0.9% 1,000 mL 1,000 mL, IV, 20 mL/hr PRN: (0) Problem list: All Problems Chronic GERD / SNOMED CT 801673306 / Confirmed Dysphagia / SNOMED CT 28794319 / Confirmed Extreme obesity 17-DEC-2013 12:48:08<$> / SNOMED CT [id number] / Confirmed Hypertension / SNOMED CT [id number] / Confirmed Morbid obesity with BMI of 40.0-44.9, adult / IMO [id number] / Possible Problem added automatically by Discern Expert based on clinical documentation Histories Past Medical History: No active or resolved past medical history items have been selected or recorded. Procedure history: Injection of facet joint using fluoroscopic guidance ([id number]) on 02/24/2014 at 58 Years. Comments: 09/22/2015 11:48 LEONAT - Sarah Hallman Bilateral L3-S1 fij (20 depo) 50% relief Epidural injection of lumbar spine using fluoroscopic guidance ([id number]) on 01/11/2014 at 58 Years. Comments: 09/22/2015 11:43 EDT - Sarah Hallman L5-S1 PARUL 85% Relief Tonsil (more content not included)... [facility] Comment on above: Result Comment: Elec tronically Signed By: Ifeanyi Lopez Jr., DO\.tod\Date and Time Signed: 12/25/24 11:18 EDT 10-08-2024 Evaluation + Plan note Associated Problem(s): Carotid stenosis, bilateral Recommended increasing atorvastatin to 40 mg continue aspirin. Continue risk factors modification. Surveillance with carotid imaging in 2 years. [facility] 10-08-2024 Miscellaneous Notes Associated Problem(s): Carotid stenosis, bilateral Recommended increasing atorvastatin to 40 mg continue aspirin. Continue risk factors modification. Surveillance with carotid imaging in 2 years. documented in this encounter [facility] 10-08-2024 History of Present illness Narrative Images from the original note were not included. To: ABIEL BLACKWELL MD HPI: Brooke Landry is a 68 y.o. female with Known bilateral carotid artery stenosis.She is asymptomatic and she is here for surveillance imaging. Ultrasound shows continues stable mild ICA stenosis bilaterally. No stroke or mini stroke.. Review of Systems: Review of Systems Constitutional: Negative. HENT: Negative. Respiratory: Negative. Cardiovascular: Negative. Gastrointestinal: Negative. Endocrine: Negative. Genitourinary: Negative. Musculoskeletal: Negative. Skin: Negative. Neurological: Negative. Hematological: Negative. Medications: Current Outpatient Medications on File Prior to Visit Medication Sig Dispense Refill atorvastatin (LIPITOR) 20 mg tablet Take 2 tablets (40 mg total) by mouth in the morning. coenzyme Q10 30 mg capsule Take 200 mg by mouth in the morning and 200 mg before bedtime. cyanocobalamin 1000 MCG tablet Take 5 tablets (5,000 mcg total) by mouth in the morning. cycloSPORINE (RESTASIS) 0.05 % ophthalmic emulsion 1 drop in the morning and 1 drop before bedtime. isosorbide mononitrate (IMDUR) 60 mg 24 hr tablet Take 1 tablet (60 mg total) by mouth daily. losartan (COZAAR) 50 mg tablet Take 2 tablets (100 mg total) by mouth in the morning. metoprolol succinate XL (TOPROL-XL) 50 mg 24 hr tablet Take 1 tablet (50 mg total) by mouth in the morning. 25mg. montelukast (SINGULAIR) 10 mg tablet Take 1 tablet (10 mg total) by mouth nightly. eesoxegk-hwba-PG-calcium &mins (THERAGRAN-M) 9 mg iron-400 mcg tablet Take 1 tablet by mouth in the morning. TURMERIC ORAL Take 1,000 mg by mouth in the morning. With curcumin . albuterol (PROVENTIL HFA;VENTOLIN HFA) 90 mcg/actuation inhaler Inhale 2 puffs every 6 (six) hours as needed for wheezing. (Patient not taking: Reported on 10/08/2024) albuterol (VENTOLIN HFA) 90 mcg/actuation inhaler Inhale 2 puffs every 6 (six) hours as needed for shortness of breath. amLODIPine (NORVASC) 2.5 mg tablet Take 2 tablets (5 mg total) by mouth in the morning. antiox #8/om3/dha/epa/lut/zeax (PRESERVISION AREDS 2, OMEGA-3, ORAL) Take 2 tablets by mouth in the morning. B-complex with vitamin C tablet Take 1 tablet by mouth in the morning. BILBERRY ORAL Bilberry carboxymethylcellulose (REFRESH PLUS) 0.5 % dropperette 1 drop as needed in the morning and 1 drop as needed at noon and 1 drop as needed in the evening for dry eyes. cholecalciferol, vitamin D3, 5,000 units tablet Take 1 tablet (5,000 Units total) by mouth in the morning. fluticasone furoate (ARNUITY ELLIPTA) 100 mcg/actuation blister with device Inhale 1 puff in the morning. fluticasone furoate (ARNUITY ELLIPTA) 100 mcg/actuation blister with device Inhale 1 puff in the morning. KRILL OIL ORAL Take 1,000 mg by mouth. magnesium oxide (MAG-OX) 400 mg tablet Take 1 tablet (400 mg total) by mouth in the morning and 1 tablet (400 mg total) before bedtime. metFORMIN (GLUCOPHAGE) 500 mg tablet Take 1 tablet (500 mg total) by mouth in the morning and 1 tablet (500 mg total) before bedtime. OZEMPIC 1 mg/dose (4 mg/3 mL) pen injector Inject 1 mg under the skin once a week. simvastatin (ZOCOR) 10 mg tablet Take 1 tablet (10 mg total) by mouth nightly. tiotropium bromide (SPIRIVA RESPIMAT) 1.25 mcg/actuation mist Inhale 2 puffs in the morning. No current facility-administered medications on file prior to visit. Past Medical History: Past Medical History: Diagnosis Date Arrhythmia Arthritis Asthma Diabetes mellitus type 2, controlled ([facility]) prediabetic Headache Hypertension Hypoglycemia Obesity PONV (postoperative nausea and vomiting) Sleep apnea cpap Visual impairment glasses Past Surgical History: Past Surgical History: Procedure Laterality Date CARPAL TUNNEL RELEASE Right HERNIA REPAIR 06/2019 JOINT REPLACEMENT bilateral knees LEG SURGERY Bilateral plate and screws in right, screws in left ankle RELEASE TRIGGER FINGER Right 11/02/2020 Performed by Wallace Barakat DO at [facility] TONSILLECTOMY Social and Family History: Social History Socioeconomic History Marital status: Spouse [...] Social History Narrative Not on file Social Drivers of Health Financial Resource Strain: Not on file Food Insecurity: No Food Insecurity (10/08/2024) Hunger Screening Food Insecurity - Worry: Never True Food Insecurity - Inability: Never True Transportation Needs: Not on file Physical Activity: Not on file Stress: Not on file Social Connections: Not on file Interpersonal Safety: Unknown (09/12/2023) Received from [facility] [place] Safety & Environment Fear of Current or Ex-Partner: Not on file Emotionally Abused: Not on file Physically Abused: Not on file Sexually Abused: Not on file Physically or Sexually Abused: Not on file Housing Instability: Not on file Family History Problem Relation Age of Onset Cancer Mother breast Stroke Mother Diabetes Mother Hypertension Mother Neuropathy Mother Heart disease Mother Diabetes Father Stroke Father Hypertension Father Heart disease Father Cancer Daughter ewings sarcoma No Known Problems Son No Known Problems Son Recent Labs: Recent and relative labs were reviewed and interpreted and contributed to the assessment and plan below. Vitals: BP 140/78 (BP Site: Right Arm, BP Postition: Sitting, BP CUFF SIZE: M (9-13 inches)) Pulse 76 Temp 36.4 C (97.5 F) Ht 166.4 cm (5' 5.5 ) Wt 119.7 kg (264 lb) SpO2 97% BMI 43.26 kg/m Body mass index is 43.26 kg/m . Physical Exam: Physical Exam Constitutional: Appearance: Normal appearance. HENT: Head: Normocephalic and atraumatic. Mouth/Throat: Mouth: Mucous membranes are moist. Eyes: Extraocular Movements: Extraocular movements intact. Pupils: Pupils are equal, round, and reactive to light. Cardiovascular: Rate and Rhythm: Normal rate and regular rhythm. Pulmonary: Effort: Pulmonary effort is normal. Breath sounds: Normal breath sounds. Abdominal: General: Abdomen is flat. Bowel sounds are normal. Palpations: Abdomen is soft. Musculoskeletal: General: Normal range of motion. Cervical back: Normal range of motion. Skin: General: Skin is warm and dry. Neurological: General: No focal deficit present. Mental Status: She is alert and oriented to person, place, and time. Mental status is at baseline. Psychiatric: Mood and Affect: Mood normal. Behavior: Behavior normal. Thought Content: Thought content normal. Judgment: Judgment normal. Recent testing: Carotid duplex Assessment and Plan: Problem List Carotid stenosis, bilateral - Primary Current Assessment & Plan Recommended increasing atorvastatin to 40 mg continue aspirin. Continue risk factors modification. Surveillance with carotid imaging in 2 years. Brooke was seen today for 1 year follow up with testing prior. carotid artery calcifi. Diagnoses and all orders for this visit: Carotid stenosis, bilateral Alexsandra Álvarez MD, MARLEE, RPVI, FSVS, FACS [facility] This note was created with the assistance of a speech recognition program. While intending to generate a timely document that accurately reflects the content of the visit, no guarantee can be provided that every grammatical or spelling mistake has been or will be identified or corrected. Thank you for your understanding. documented in this encounter [facility] 09-16-2024 Note [place] [facility] - [facility] Subjective Brooke Landry is a 68 [...] Pulse 67 Ht (more content not included)... [facility] 09-12-2023 History of Present illness Narrative Images from the original note were not included. [facility] [address] [facility] [id number] Subjective: Patient ID: Brooke Landry is a [...] mg by mouth nightly., Disp: , Rfl: bgaqmaqv-htob-IX-calcium &mins (THERAGRAN-M) 9 mg iron-400 mcg tablet, Take 1 tablet by mouth daily., Disp: , Rfl: simvastatin (ZOCOR) 10 mg tablet, Take 10 mg by mouth nightly., Disp: , Rfl: TURMERIC ORAL, Take 1,000 mg by mouth daily. With curcumin, Disp: , Rfl: Past Medical History: Diagnosis Date Arrhythmia Arthritis Asthma Diabetes mellitus type 2, controlled ([facility]) prediabetic Headache Hypertension Hypoglycemia Obesity PONV (postoperative nausea and vomiting) Sleep apnea cpap Visual impairment glasses Past Surgical History: Procedure Laterality Date CARPAL TUNNEL RELEASE Right HERNIA REPAIR 06/2019 JOINT REPLACEMENT bilateral knees LEG SURGERY Bilateral plate and screws in right, screws in left ankle RELEASE TRIGGER FINGER Right 11/02/2020 Performed by Wallace Barakat DO at [facility]ILLECT[facility] Family History Problem Relation Age [...] visit: Carotid artery calcification, unspecified laterality - [facility] [place], [place] Plan Plan: Best medical therapy ASA/Statin Annual surveillance Cardiology referral Alexsandra Álvarez MD, MARLEE documented in this encounter [facility] [employer] [facility] Evaluation + Plan note Future Appointments Appointment Date:12/25/2024 11:15:00 AM Scheduled Provider: Location:[facility] Appointment Type:Surgery [facility] Evaluation note Diagnosis Carotid artery calcification, unspecified laterality [facility] Diagnosis Dizziness- Primary Dizziness and giddiness [facility] Diagnosis Carotid artery calcification, unspecified laterality- Primary Bilateral carotid artery stenosis Occlusion and stenosis of carotid artery without mention of cerebral infarction [facility] Carotid stenosis, bilateral- Primary Occlusion and stenosis of carotid artery without mention of cerebral infarction [facility] Narrative No data available for this section [facility] Hospital Discharge instructions No data available for this section [facility] InstructionsNot on filedocumented in this encounter [facility] filedocumented in this encounter [facility] No data available for this section [facility] Reason for referral (narrative)* Consultation (Routine) - Pending Review Specialty Diagnoses / Procedures Referred By Contac t Referred To Contact Cardiology Diagnoses Dizziness Alexsandra Álvarez MD [address], [address] [address] [facility] Cardiology [address] [place] [address] Referral ID Status Reason Start Date Expiration Date Visits Requested Visits Authorized [id number] Pending Review Specialty Services Required 09/16/2023 09/15/2024 1 1 [facility] for visit Narrative* Consultation (Routine) - Pending Review Specialty Diagnoses / Procedures Referred By Contac t Referred To Contact Vascular Surgery Diagnoses Carotid artery calcification, unspecified laterality Cecilia Boudreaux, OPTOMETRIC TECHNOLOGIST-EMBEDDED LINUX DEVELOPER [address] [facility], [place] [address] Alexsandra Álvarez MD [address], [address] [address] Referral ID Status Reason Start Date Expiration Date Visits Requested Visits Authorized [id number] Pending Review Specialty Services Required 09/05/2023 09/04/2024 1 1 [facility] Summary Purpose Family History No Family History Records FoundNo Family History Records FoundNo Family History Records FoundNo Family History Records Found No data available for this section No Family History Records FoundNo Family History Records Found No data available for this section No Family History Records FoundNo Family History Records Found Advance Directives No Advanced Directives Records FoundNo Advanced Directives Records FoundNo Advanced Directives Records FoundNo Advanced Directives Records FoundNo Advanced Directives Records FoundNo Advanced Directives Records FoundNo Advanced Directives Records FoundNo Advanced Directives Records Found Hospital Course Note MR#: [id number] [facility] Pt. Name: Brooke Landry Admitted: 01/20/2019 [...] the aforementioned procedure. The patient presented to [facility] on 01/20/2019, where ORIF of bilateral [...] Referred By Yaritza t Referred To Contact Diagnoses Bilateral carotid artery stenosis Procedures Vas carotid duplex bilateral Alexsandra Álvarez MD [address], [address] [address] Referral ID Status Reason Start Date Expiration Date V isits Requested Visits Authorized [id number] Pending Review 09/16/2023 09/15/2024 1 1 Additional Source Comments INFORMATION SOURCE (unrecogn ized section and content) DATE CREATED AUTHOR 12/05/2017 [facility] DATE CREATED AUTHOR AUTHOR'S ORGANIZ ATION 06/22/2019 [facility] DATE CREATED AUTHOR AUTHOR'S ORGANIZ ATION 10/31/2022 [facility] DATE CREATED AUTHOR AUTHOR'S ORGANIZ ATION 10/09/2024 [facility] DATE CREATED AUTHOR AUTHOR'S ORGANIZ ATION 01/04/2025 [facility] DATE CREATED AUTHOR AUTHOR'S ORGANIZ ATION 01/05/2025 [facility] DATE CREATED AUTHOR AUTHOR'S ORGANIZ ATION 02/11/2025 [facility] DATE CREATED AUTHOR AUTHOR'S ORGANIZ ATION 03/24/2025 [facility] Care Teams (unrecognized sec tion and content) Vice President For Instruction Relationship Specialty Start Date End Date Abiel Blackwell MD [address] [place] [address] PCP - General Family Medicine 10/20/20 Vice President For Instruction Relationship Specialty Start Date End Date Abiel Blackwell MD [address] [place] [address] PCP - General Family Medicine 10/20/20 Vice President For Instruction Relationship Specialty Start Date End Date Abiel Blackwell MD [address] [facility] [place] [address] PCP - General Family Medicine 10/20/20 Vice President For Instruction Relationship Specialty Start Date End Date Abiel Blackwell MD [address] [facility] [place] [address] PCP - General Family Medicine 10/20/20 Reason for Visit (unrecogniz ed section and content) Reason Comments 1 year follow up with testing prior. Car otid artery calcifi FOR RECORDS PERTAINING TO PATIENTS WHO ARE [...] BE BASED ON THE PRIMARY CLINICAL RECORDS. [facility]. provides no warranty or guarantee of the accuracy or completeness of information in this document.
--- OUTSIDE RECORDS SUMMARY | 2025-04-01 07:45 | XMS_ITS | Clinical Summary ---
Author Organization [facility] Address [address] [place] [address] Care Team Providers Care Registered Nurse Cardiovascular Icu Name Role Phone Unavailable Primary Care Provider Unavailabl e Social History Tobacco Use Types Packs/Day Years Used Date Smoking Tobacco: Never Assessed Comments Unknown Sex and Gender Information Value Date Recorded Sex Assigned at Not on file Legal Sex Female 7:00 PM EDT Gender Identity Not on file Sexual Orientation Not on file Last Filed Vital Signs Vital Sign Reading Time Taken Comments Blood Pressure 162/72 08/24/2019 12:00 PM EDT Pulse - - Temperature - - Respiratory Rate - - Oxygen Saturation - - Inhaled Oxygen Concentration - - Weight 126 kg (278 lb) 10/25/2020 12:00 PM EDT Height 160 cm (5' 3 ) 10/25/2020 12:00 PM EDT Body Mass Index 49.25 10/25/2020 12:00 PM EDT Plan of Treatment Not on file Insurance MEDICARE
--- OUTSIDE RECORDS SUMMARY | 2025-04-01 07:46 | XMS_ITS | Encounter Summary ---
Author Organization [employer] Address [id number] [address] [place] [address] Care Team Providers Care Thread Dresser Name Role Phone Joey Partida MD Primary Care Provider [phone] Encounter Details Date Type Department Care Team (Late st Contact Info) Description 09/16/2023 Orders Only [facility] [address] [place] [address] Reina Gomes LPN Social History Tobacco Use [...] on filedocumented in this encounter Care Teams Thread Dresser Relationship Specialty Start Date End Date Joey Partida MD [address] [place] [address] PCP - General Family Medicine 10/20/20 documented as of this encounter
--- OUTSIDE RECORDS SUMMARY | 2025-04-01 07:46 | XMS_ITS | Clinical Summary ---
Author Organization [facility] Address [address] [place] [address] Care Team Providers Care Show Design Supervisor Name Role Phone Brigido Cecilia BETANCUR Primary Care Provider [phone] Allergies Active Allergy Reactions Criticality Noted Date Comments Adhesive Other 04/15/2012 blisters Blueberry Flavor Itching,Rash,Shortne s s of breath High 05/03/2012 Latex, Natural Rubber Hives,Rash Low 05/18/2013 Metformin Hcl Unknown 09/16/2024 Morphine Itching,Other,Rash Low 04/15/2012 Shellfish Containing Products Anaphylaxis,Hives,Itc hugo,Other,Shortness of breath High 05/03/2012 Crab Meat only known at this time. Silver-Hydrocolloid Dressing Hives 01/27/2016 Sulfa (Sulfonamide Antibiotics) Unknown 03/22/2025 Tiotropium Unknown 09/16/2024 Wound Dressings Itching,Other Low 05/03/2012 blisters Medications albuterol 90 mcg/actuation inhaler Inhale 2 puffs every 6 (six) hours if needed. Active b complex-vitamin c tablet Take 1 tablet by mouth in the morning. Active carboxymethylcellu lose PF (Refresh Plus) 0.5 % ophthalmic solution [...] inhaler Inhale 1 puff in the morning. 11/14/19 24 Active en-sts-WF-vit X-thjyhq-jqecfur (PreserVision AREDS 2 Plus MV) 200 mcg-15 mcg- 5 mg-1 mg capsule Take 200 Units by mouth. Active bilberry 100 mg capsule Take 5,000 Units by mouth in the morning. Active amLODIPine (Norvasc) 5 mg tabletIndications: Primary hypertension Take 1 tablet (5 mg) by mouth in the morning. 90 tablet 3 09/17/19 25 Active aspirin 81 mg chewable tabletIndications: Abnormal cardiovascular stress test CHEW 1 TABLET (81 MG) IN THE MORNING 90 tablet 3 09/30/19 25 026 Active atorvastatin (Lipitor) 20 mg tabletIndications: Mixed hyperlipidemia TAKE 1 TABLET BY MOUTH AT BEDTIME 90 tablet 3 10/02/19 25 Active isosorbide mononitrate ER (Imdur) 60 mg 24 hr tabletIndications: Primary hypertension,Coron tariq artery disease involving um[place]illa tribe coronary artery of um[place]illa tribe heart without angina pectoris TAKE 1 TABLET (60 MG) BY MOUTH IN THE MORNING. DO NOT CRUSH OR CHEW. 90 tablet 3 10/02/19 25 026 Active metoprolol succinate XL (Toprol-XL) 25 mg 24 hr tabletIndications: Primary hypertension,Coron tariq artery disease involving um[place]illa tribe coronary artery of umatilla tribe heart without angina pectoris TAKE 1 TABLET (25 MG) BY MOUTH IN THE MORNING . DO NOT CRUSH OR CHEW 90 tablet 3 12/29/19 25 026 Active omeprazole (PriLOSEC) [address] capsule Take 20 mg by mouth before breakfast. 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; Mixed hyperlipidemia; PVC (premature ventricular contraction); Primary hypertension; [place] (obstructive sleep apnea) from Last 3 Months Immunizations Immunization Administration Dates Next Due Influenza, Seasonal, Quadrivalent, [...] 2023 3:30 PM EDT Oxygen Saturation 98% 03/22/2025 12:09 PM EDT Inhaled Oxygen Concentration - - Weight 114 kg (251 lb) 03/22/2025 12:09 PM EDT Height 165.1 cm (5' 5 ) 03/22/2025 12:09 PM EDT Body Mass Index 41.77 03/22/2025 12:09 PM EDT Plan of Treatment Upcoming Encounters Date Type Department Care Team (Late st Contact Info) Description 04/20/2025 3:15 PM EST Office Visit [facility] [address] [place] [address] Mauricio Perez MD [address] [place] [address] Health Maintenance Due Date Last Done Comments CT Colonography 1953 Colonoscopy 1953 Colorectal Cancer Screening 1953 Diabetes: Hemoglobin A1C 1953 FIT-DNA 1953 FIT 1953 FOBT 1955 Medicare Annual Wellness (AWV) 1955 Sigmoidoscopy 1953 Diabetes: Retinopathy Screening 11/16/1963 Depression Screening 1965 Diabetes: Urine Protein Screening 1972 Pneumococcal Vaccine: 50+ Years (1 of 2 - PCV) 1972 Adult Tetanus 11/16/1975 Mammogram 1993 Zoster Vaccines (1 of 2) 11/16/2003 Fall Risk Screening 2018 COVID-19 Vaccine (2024-2 6 season) 2025 09/07/2021, 01/10/2021, 12/20/2020 Influenza Vaccine (#1) 2025 , 03/07/2021 HIB Vaccines Aged Out No longer [...] on patient's age to complete this topic Procedures Procedure Name Priority Date/Time Associated Diagnosis Comments ECG 12 LEAD UNIT PERFORMED Routine 03/22/2025 12:12 PM EDT Palpitations from Last 3 Months Results * ECG 12 lead unit performed (03/22/2025 12:12 PM EDT) Giorgio De La Garza MD ECG ORDERABLES Final Result from Last 3 Months Insurance MEDICAID [place] MEDICARE Advance Directives * Full Code (Latest Code Status on File) Date Activated Date Inactivated Comments 2023 1:30 PM 2023 5:42 PM Care Teams Show Design Supervisor Relationship Specialty Start Date End Date Cecilia Fofana CNP [address] [place] [address], [place] [address] PCP - General Family Medicine 09/12/23
--- OUTSIDE RECORDS SUMMARY | 2025-04-01 07:46 | XMS_ITS | Clinical Summary ---
Author Organization [employer] Address [id number] [address] [place] [address] Care Team Providers Care Manager Endoscopy Name Role Phone Joey Partida MD Primary Care Provider [phone] Allergies Active Allergy Reactions Criticality Noted Date [...] total) by mouth in the morning. Active nolewtkw-oput-PM -calcium &mins (THERAGRAN-M) 9 mg iron-400 mcg [...] in 2 years. Carotid artery calcification 09/13/2023 Family History Medical History Relation Name Comments [...] Risk Screening 2018 COVID-19 Vaccine ( - 2024-2 6 season) 2025 09/07/2021, 01/10/2021, 12/20/2020 Influenza Vaccine 02/15/2025 04/13/2022, 03/07/2021 Adult BMI Screening 10/08/2025 10/08/2024 Tobacco Screening 10/08/2025 10/08/2024 Medical Devices Not on file Insurance MEDICARE MEDICAID [place] Care Teams Manager Endoscopy Relationship Specialty Start Date End Date Joey Partida MD [address] [place] [address] PCP - General Family Medicine 10/20/20
--- OUTSIDE RECORDS SUMMARY | 2025-04-01 07:46 | XMS_ITS | Clinical Summary ---
Author Organization [facility] Address [address] [place], [place] [id number] Care Team Providers Care Investigator Internal Affairs Name Role Phone Steve No DO Primary [...] of 2) 11/16/2003 Bone Density Screening 2018 Advance Directive Discussion 06/17/2024 Covid-19 Vaccine ( - 2024- season) 2025 Influenza Vaccine (#1) 2025 RSV Vaccine (1 - 1-dose 75+ series) 2028 Insurance MEDICAID [place] MEDICARE BLUE CARD PPO OOS Care Teams Investigator Internal Affairs Relationship Specialty Start Date End Date Steve No DO PCP - General Family Medicine 05/18/13
--- OUTSIDE RECORDS SUMMARY | 2025-04-01 07:46 | XMS_ITS | Clinical Summary ---
Author Organization [facility] Address [address], [address] [place] [address] Care Team Providers Care Gis Software Engineer Name Role Phone Unavailable Primary Care Provider [...] Take 3 tablets by mouth daily. Active [place]-3 Fatty Acids (FISH OIL) 1000 MG CAPS Take 1,000 mg by mouth daily. Active Multiple Vitamins-Minera ls (COMPLETE MULTIVITAMIN/MT NERAL PO) Take 1 tablet by mouth [...] Name Comments Diabetes Father Heart Disease Father MT Cancer Mother breast Heart Disease Mother angina [...] Documents on File Type Date Recorded Patient Buggyman Expl anation ACP-Power of Image Consultant 10/21/2013 10:24 AM * Full Code (Latest [...]
--- OUTSIDE RECORDS SUMMARY | 2025-04-01 07:46 | XMS_ITS | Encounter Summary ---
Author Organization [employer] Address [facility] [place] [id number] [address] [place] [address] Care Team Providers Care Market Risk Specialist Name Role Phone Joey Partida MD Primary Care Provider [phone] Encounter Details Date Type Department Care Team (Late st Contact Info) Description 09/28/2024 Orders Only [facility] [address] [place] [address] Alexsandra Álvarez MD [address], [facility] [address] [place] [address] Social History Tobacco Use Types Packs/Day Years [...] on filedocumented in this encounter Care Teams Market Risk Specialist Relationship Specialty Start Date End Date Joey Partida MD [address] [place] [address] PCP - General Family Medicine 10/20/20 documented as of this encounter
--- OUTSIDE RECORDS SUMMARY | 2025-04-01 07:46 | XMS_ITS | Patient Health Record ---
Author Organization [facility] in [place] Address [address] [place] [address] Care Team Providers Care Rate Engineer Name Role Phone Cecilia Fofana Primary Care Provider [phone] Yair Pérez Unavailable [phone] Allergies Allergen (clinical drug ingredient) Drug/Non Drug Allergy documented on EMR Reaction Allergy Type Onset Date Status Latex latex (uncoded) Unknown Allergy Acti ve Shellfish (FN) shellfish (uncoded) anaphylaxis Allergy Active Blueberry Flavor Unknown Drug Allergy Active metformin metFORMIN HCl Unknown Drug Allergy Act bon Morphine Sulfate Unknown Drug Allergy Active Acticoat Blisters Drug Allergy Active tiotropium Tiotropium Constipation Drug Allergy Ac tive Results Component Value Reference Range Notes IMMUNOGLOBULIN E, TOTAL Reviewed date:11/23/2024 07:35:55 AM Interpretation: Performing Lab: Notes/Report: [facility] , Immunoglobulin E, Total 19 6-495 IU/mL [facility] [place], [place] [id number] Performed at: - [facility] Senior Linux Systems Engineer: Christine Hernandez MD, Phone: [phone] Performing Lab: see note LC - [facility] LB US THYROID Reviewed date:12/21/2024 03:23:50 PM Interpretation: Performing Lab: Notes/Report: Source Facility: [place] [address] Ultrasound Report Signed Patient: ANALI LANDRY MR#: [id number] : 1955 Acct:[id number] Age/Sex: 69 / F ADM Date: 12/17/24 Loc: US Attending Dr: CECILIA FOFANA Ordering Physician: CECILIA FOFANA Date of Service: 12/17/24 Procedure(s): US thyroid Accession Number(s): [id number] cc: CECILIA FOFANA [place] [address] Patient Name: ANALI LANDRY MRN: [facility]:[id number] date: 1955 Sex: F Assigned Patient Location: US Current Patient Location: US Accession/Order Number: [id number] Exam Date: 12/17/2024 22:37 Report Date: 12/17/2024 22:40 At the request of: CECILIA FOFANA Procedure: US thyroid Thyroid Ultrasound HISTORY: Dysphasia COMPARISON: None The RIGHT lobe measures 3.4 x 1.1 x 1.6cm. LEFT lobe measures 3.3 x 0.9 x 1.3 cm. Isthmus has an AP dimension of 0.3cm. Bilateral thyroid nodules identified. Largest measures up to 8 mm.. No microcalcifications identified. Symmetric blood flow of the thyroid gland identified. US/US thyroid IMPRESSION: Subcentimeter bilateral thyroid nodules. Impression dictated by: Abner Colon M.D. 12/17/2024 10:40 PM Dictation Location: [place] [address] Electronically authenticated by: [id number] Y Date: 12/17/2024 22:40 Dictated By: Abner Colon D.O. Signed By: 12/17/242241 DD/ 39 TD/TT: Occasional Babysitter: RT pulmonary function test Reviewed date:11/18/2024 05:06:54 PM Interpretation: Performing Lab: Notes/Report: Source Facility: [place] [address] Respiratory Report Signed Patient: ANALI LANDRY MR#: [id number] : 1955 Acct:[id number] Age/Sex: 69 / F ADM Date: 11/18/24 Loc: CARD Attending Dr: Yair Pérez D.O. Ordering Physician: Yair Pérez D.O. 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 Findings were considered accurate and reproducible. No bronchodilator was administered due to normal spirometric values. Spirometry: -FEV1/FVC: Normal @ 81% -FEV1: Normal @ 93% -FVC: Normal @ 87% -MVV: Mildly reduced @ 83% -MEP: Mildly reduced @ 71% / [id number] -MIP: Normal @ 120% / -79%cmH2O Lung volumes by plethysmography: -RV: Normal @ 105% -TLC: Normal @ 99% Diffusion capacity: -DLCO: Normal @ 83% when corrected for Hb 14.4g/dL Comparison from 10/24/2018: -No significant change in spirometry (FEV1 96%, FVC 89%) -MVV unchanged @ 83% -TLC relatively unchanged @ 99% -DLCO normal @ 99% Impressions: -Normal spirometry, lung volumes, and diffusion capacity. Other than a slight decrease in MEP, no evidence to suggest neuromuscular weakness. Only significant change from prior testing is a decrease in the DLCO from 99% to 83% - though this remains within the normal range, it is a 16% decrease which could suggest an early stage of ILD, emphysema, or cardiopulmonary vascular disease. Clinical correlation required. Electronically Signed On 11-18-2024 16:53:07 EDT by Yair Pérez Dictated By: Yair Pérez D.O. Signed By: 11/18/24 1654 DD/ 1527 TD/TT: Occasional Babysitter: CBC AUTO DIFF Reviewed date:11/18/2024 03:46:02 PM Interpretation: Performing Lab: Notes/Report: [facility] , White Blood Count 8.4 4.0-11.0 10 3/uL Red Blood Count 4.93 4.20-5.40 10 6/uL Hemoglobin 14.4 12.0-16.0 g/dL Hematocrit 42.5 36.0-48.0 % Mean Corpuscular Volume 86.2 81.0-99.0 fL Mean Corpuscular Hemoglobin 29.2 26.7-34.0 pg Mean Corpuscular HGB Conc 33.9 29.9-35.2 g/dL Red Cell Distribution Width 12.8 11.0-15.0 % Platelet Count 290 150-450 10 3/uL Mean Platelet Volume 10.6 9.5-13.5 fL Neutrophils Percent Auto 61.7 43.0-75.0 % Lymphocytes Percent Auto 26.4 20.5-60.0 % Monocytes Percent Auto 8.4 1.7-12.0 % Eosinophils Percent Auto 2.5 0.9-7.0 % Basophils Percent Auto 0.8 0.2-2.0 % Immature Granulocytes Pct Auto 0.2 0.0-0.5 % Neutrophils Absolute Auto 5.2 1.4-6.5 10 3/uL Lymphocytes Absolute Auto 2.2 1.2-3.8 10 3/uL Monocytes Absolute Auto 0.7 0.3-0.8 10 3/uL Eosinophils Absolute Auto 0.2 0.0-0.7 10 3/uL Basophils Absolute Auto 0.1 0.0-0.1 10 3/uL Immature Granulocytes Abs Auto 0.02 0.00-0.03 10 3/uL Performing Lab: see note ML - [facility] LB XR clavicle BI Reviewed date:12/21/2024 03:24:10 PM Interpretation: Performing Lab: Notes/Report: Source Facility: [facility]-[address] [place] [address] [place] [address] XRay Report Signed Patient: ANALI LANDRY MR#: [id number] : 1955 Acct:[id number] Age/Sex: 69 / F ADM Date: 12/17/24 Loc: US Attending Dr: CECILIA FOFANA Ordering Physician: CECILIA FOFANA Date of Service: 12/17/24 Procedure(s): XR clavicle BI Accession Number(s): [id number] cc: CECILIA FOFANA [address] [address] Patient Name: ANALI LANDRY MRN: [id number] date: 1955 Sex: F Assigned Patient Location: US Current Patient Location: US Accession/Order Number: [id number] Exam Date: 12/17/2024 22:40 Report Date: 12/17/2024 22:41 At the request of: CECILIA FOFANA Procedure: XR clavicle BI 2 views both clavicle plain film COMPARISON: None HISTORY: Bilateral clavicle pain ACUTE FINDINGS: None DEGENERATIVE CHANGE: Spurring of acromioclavicular joints SOFT TISSUE FINDINGS: Unremarkable POSTOP CHANGES: None BONE MINERALIZATION: Adequate XR/XR clavicle BI IMPRESSION: Mild bilateral acromioclavicular degeneration Impression dictated by: Abner Colon M.D. 12/17/2024 10:41 PM Dictation Location: [place] [address] Electronically authenticated by: [id number] Y Date: 12/17/2024 22:41 Dictated By: Abner Colon D.O. Signed By: 12/17/242242 DD/ 40 TD/TT: Occasional Babysitter: JOHN W/PRADIP DIFF Reviewed date:11/18/2024 04:47:52 PM Interpretation: Performing Lab: Notes/Report: [facility], IMMUNOGLOBULIN (TOTAL) Reviewed date:11/23/2024 08:54:57 AM Interpretation: Performing Lab: Notes/Report: Reason For Referral Reason swallowing issues Diagnosis 1 Swallowing difficult y (R13.10) Referral Organization [facility] Referring Provider First Name Cecilia Referring Provider Last Name Brigido [facility] Referred Provider Nicolás Loyola Referred Provider Specialty Gastroentero logy Referral Priority Routine Reason right shoulder pain Diagnosis 1 Right shoulder pain (M25.511) Referral Organization [facility] Referring Provider First Name Cecilia Referring Provider Last Name Brigido Referring Provider [facility] Referred Provider Kushal Parker Referred Provider Specialty Orthopedic S urgery Referral Priority Routine Medications Medication SIG (Take, Route, Frequency, Duration) Notes Start Date End Date Status B12 5000 MCG as directed Sublingual Active Montelukast Sodium 10 MG 1 tablet Orally Once a day; Duration: 90 days Active Atorvastatin Calcium 20 MG 1 tablet Orally Once a day 09/01/2024 Active Magnesium Active Aspirin Low Dose 81 MG CHEW 1 TABLET (81 MG) IN THE MORNING Oral; Duration: 90 Days Active Losartan Potassium 100 MG TAKE 1 TABLET BY MOUTH EVERY DAY; Duration: 90 days Active Arnuity Ellipta 200 MCG/ACT 1 puff Inhalation Once a day; Duration: 90 days Active Isosorbide Mononitrate ER 60 MG 1 tablet in the morning Orally Once a day; Duration: 90 days Active Vitamin B Complex Ac tive Bilberry Active Cinnamon 500 MG 2 tablets Orally onc e daily 09/01/2024 Active Ozempic (1 MG/DOSE) 4 MG/3ML INJECT 1MG SUBCUTANEOUSLY ONCE A WEEK; Duration: 84 days Active Cholecalciferol 50 MCG (2000 UT) 1 capsule Orally weekly 09/01/2024 Active Omeprazole 20 MG TAKE 1 CAPSULE BY MOUTH EVERY DAY 1/2 TO 1 HOUR BEFORE MORNING MEAL; Duration: 90 days Active Multivitamin Active amLODIPine Besylate 5 MG Oral; Duration: 90 Days Active Garlic 1000 MG as directed Orally daily 09/01/2024 Active Turmeric 500 MG 1 capsule Orally onc e daily 09/01/2024 Active Albuterol Sulfate HFA 108 (90 Base) MCG/ACT 2 puffs as needed for SOB Inhalation every 4 hrs; Duration: 90 Active CPAP Supplies - Mask and Tubing Active Spiriva Respimat 1.25 MCG/ACT 2 puffs Inhalation Once a day; Duration: 90 days Active Restasis Active CO-Q 10 [place]-3 Fish Oil Active Potassium 3 times weekly Active Immunizations Vaccine Route Administration Date Status Comme nts Flu, Fluad (23161) 65 yrs+, single-dose syringe (6194-5746) Unknown 04/13/2022 Administered SARS-COV-2 (COVID 19 Pfizer 30mcg/0.3mL) Unknown 09/07/2021 Administered Social History Tobacco Use: Social History Observation Description Date Details (start date - stop date) Never Smoker NA - NA Tobacco Control (Standard) Question Answer Notes Tobacco use: Nonsmoker Problems Problem Type SNOMED Code ICD Code Onset Dates Problem Status W/U Status Risk Notes Problem Hyperlipidemia (36232114) Hyperlipidemia, unspecified (E78.5) Active confirmed Problem Cramp in lower leg associated with rest (839874882) Sleep related leg cramps (G47.62) Active confirmed Problem Retinal telangiectas ia (02149371) Retinal telangiectasis, 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) Active confirmed Problem Uncomplicated modera te persistent asthma (193099341) Moderate persistent asthma, uncomplicated (J45.40) Active confirmed Problem Long-term current us e of inhaled steroid (998221085) USP (current) use of inhaled steroids (Z79.51) Active confirmed Problem Acquired absence of other part of head and neck (Z90.09) Active confirmed Problem Morbid obesity (476399981) Morbid obesity (E66.01) Active confirmed Problem Age-related macular degeneration (disorder) (478573797) Macular degeneration (H35.30) Active confirmed Problem Osteoarthritis (620353762) Osteoarthritis (M19.90) Active confirmed Problem Asthma (340910796) Asthma (J45.909) Active conf irmed Problem Obstructive sleep apnea (73632319) Obstructive sleep apnea (G47.33) Active confirmed Problem Migraine (68137993) Migraine (G43.909) Active c onfirmed Problem Hearing loss (52271342) Hearing loss (H91.90) Active confirmed Problem Umbilical hernia (354302875) Umbilical hernia (K42.9) Active confirmed Problem Myasthenia gravis without exacerbation (59365066338641) 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 confirmed Problem Difficulty swallowin g (003316597) Swallowing difficulty (R13.10) Active confirmed Problem Nuclear sclerosis (929883436) Nuclear sclerosis (H25.10) Active confirmed Problem Post-traumatic stres s disorder (48104985) Post-traumatic stress disorder (F43.10) Active confirmed Problem Dysmetabolic syndrom e X (046928312) Dysmetabolic syndrome X (E88.81) Active confirmed Problem Carotid artery occlusion (859978319) Carotid artery calcification (I65.29) Active confirmed Problem Essential hypertensi on (06118807) Essential Hypertension (I10) Active confirmed Problem Family history of malignant neoplasm of breast (793173589) Family history of breast cancer in sister (Z80.3) Active confirmed Problem hypercholesterolemia (disorder) (80583840) Hypercholesteremia (E78.00) Active confirmed Problem Artificial knee join t present (536720655698) H/O total knee replacement, right (Z96.651) Active confirmed Problem History of COVID-19 (923580345058667748) History of COVID-19 (Z86.16) Active confirmed 06/2022 Problem Postprocedural state s (635106264) H/O carpal tunnel repair (Z98.890) Active confirmed Problem Morbid obesity (296414902) Class 3 obesity (E66.01) Active confirmed Vital Signs Heart Rate 68 /min 03/19/2025 Temperature 97.0 degrees Fahrenheit 12/24/2024 Respiratory Rate 18 /min 12/24/2024 Oximetry 94 % 12/24/2024 Blood pressure diastolic 80 mm Hg 03/19/2025 Height 65.5 in 03/19/2025 Blood pressure systolic 132 mm Hg 03/19/2025 Weight 250 lbs 03/19/2025 BMI 40.96 kg/m2 03/19/2025 Procedures Procedure Date Ordered Date Performed Result Body Sit e MIPS/MEPS 11/10/2024 11/18/2024 N/A PFT (25113, 81540, 29971) 11/10/2024 11/18/2024 N/A ECG with Interpretation 03/19/2025 03/19/2025 N/A Encounters Encounter Location Date Provider Diagnosis [facility] [address] [place] [address] 09/01/2024 Cecilia Brigido Class 3 obesity E66. 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 [facility] [address] [place] [address] 11/10/2024 Yair Pérez Obstructive sleep ap gogo G47.33 ; Moderate persistent asthma, uncomplicated J45.40 ; Ocular myasthenia gravis G70.00 ; 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.51 and Morbid obesity E66.01 [facility] [address] [place] [place] [address] 08/11/2024 Cecilia Fofana [facility] [address] [place] [address] 12/21/2024 Cecilia Fofana [facility] [address] [facility] [place] [address] 12/23/2024 Yair Pérez [facility] [address] [place] [place] [place] [address] 02/09/2025 Cecilia Fofana [facility] [address] [place] [place] [address] 02/26/2025 Cecilia Fofana Assessments Encounter Date Diagnosis (ICD Code) Assessment Notes Treatment Notes Treatment Clinical Notes Section Notes 11/10/2024 Obstructive sleep apnea (ICD-10 - G47.33) Ovsw-uy-ecib encounter performed with the patient to document [...] to look into biologics or referral to lens assistant. It has been 6 years since last PFT. Ordering PFT, along with MIP & MEP to evaluate neuromuscular strength. Additionally, ordering labs to check for eosinophils & IgE. In the meantime, she was instructed to begin using both Arnuity and Spiriva daily as prescribed. 03/19/2025 Palpitations (ICD-10 - R00.2) follow up with cardiology cachorro, call for apt today ekg ok here, NSR to ER if symptomatic , verbalizes understanding 03/19/2025 Right shoulder pain (ICD-10 - M25.511) requesting steroid injection ortho referral? 12/15/2024 Clavicle pain (ICD-10 - M89.8X1) 12/15/2024 Swallowing difficulty (ICD-10 - R13.10) 12/24/2024 Obstructive sleep apnea (ICD-10 - G47.33) Previously evaluted 11/10/2024 - No significant changes at this time. Smtl-id-zlgz encounter performed with the patient to document [...] & supplies with the size she request. 09/01/2024 Class 3 obesity (ICD-10 - E66.01) continue with Ozempic A1c wnl wants to stay at same dose due to SE work on diet 09/01/2024 Prediabetes (ICD-10 - R73.03) A1C WNL continue ozempic 12/24/2024 Moderate persistent asthma, uncomplicated (ICD-10 - J45.40) Current treatment: Arnuity + Spiriva 1.25; Unable to tolerate LABA - palpitations Many symptoms improved after discontinuing metoprolol. PFT reviewed - no evidence to suggest systemic myasthenia gravis. Still has some mild dyspnea with strenuous activity and laying down at night. IgE only 19; eosinophils were 200, so could consider possibly Nucala in the future, but I feel the best option at this time would be to work on weight loss and improved conditioning. She will work on weight loss. DLCO has dropped from 99% to 83% from 2018 to 2024. Both remain in the normal range, but a drop in DLCO can be the first sign of some conditions. Underlying cardiovascular disease can contribute to this, but so can ILD. No evidence to suggest ILD or fibrosis at this time. Will monitor her for now, may consider rechecking PFT in 1 year to document stability vs. worsening. 12/24/2024 Ocular myasthenia gravis (ICD-10 - G70.00) No significant concerning findings on PFT (MVV, MEP, MIP) to suggest systemic myasthenia gravis. 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 Has not seen anyone locally. Will check PFT with signs of muscle strength including MVV, MIP, and MEP. 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 12/24/2024 Morbid obesity (ICD-10 - E66.01) Continue working at weight loss. On Ozempic for DM2 - may consider increasing dose if tolerating it. Patient encouraged to work out on eliptical. 12/24/2024 USP (current) use of inhaled steroids (ICD-10 - [...] to manage blood glucose in this situation. 12/24/2024 Other Plan Of Treatment Pending Test Test Name Order Date CMP (COMPLETE METABOLIC PANEL) 4 HEMOGLOBIN A1C (GLYCO) 08/26/2023 IRON, TOTAL 08/26/2023 IRON, TOTAL 09/11/2023 LIPID PANEL (CHOL/TRIG/HDL/LDL) 08/26/19 24 CBC WITH DIFF 08/26/2023 VITAMIN D, 25 LEVEL (TOTAL) 08/26/2023 US Thyroid 12/15/2024 ECG with Interpretation 03/19/2025 Insulin Level 08/26/2023 COMPREHENSIVE METABOLIC PROFILE WITH GFR 09/04/2023 COMPREHENSIVE METABOLIC PROFILE WITH GFR 09/11/2023 Cardiolyte Stress Test 08/26/2023 CBC W/AUTO DIFF 09/11/2023 STOOL OCCULT BLOOD 10/22/2022 GLYCOHEMOGLOBIN A1C 09/11/2023 INSULIN 09/11/2023 US CAROTID ART SANDRO 08/26/2023 THYROID PANEL (T4/TSH/FREE T3) THYROID PANEL (T4/TSH/FREE T3) 4 Holter Monitor - 3 days up to 14 days Lipid Panel 09/11/2023 Insurance Providers Payer Name Payer Address Payer Phone Subscriber Number Group Number Insured Name Patient Relationship to Insured Coverage Start Date Coverage End Date [place] [address] [place] [address] [id number] Anali Landry Self - patient is the insured 5 [place] 2ND [place] [address] [facility] [facility] [place] [id number] Anali Landry Self - patient is the [...] nd neck Z90.09 Surgical History Surgery Date(Month/Year) Right Ankle/ Leg Surgery Hernia Repair trigger finger release tonsillectomy right knee replacement left knee replacement carpal tunnel release
== END 2025-04-01 07:44 | disposition home or self-care (01) ==
LOC: RAD 07:43
PROVIDERS: PCP Nurse Practitioner Family; Visit Provider Physician Assistant
DX: M25.511 Pain in right shoulder (principal); M25.512 Pain in left shoulder
CPT/HCPCS: 73030

== ENCOUNTER 2025-04-02 08:51 | Outpatient (OUT) | payer MEDICARE, MEDICAID, SELFPAY ==
--- OUTSIDE RECORDS SUMMARY | 2025-04-02 08:55 | XMS_ITS | CCD ---
Author Organization [facility] Team Providers Care 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 Name Role Phone CARO SUGGS F Unavailable Unavailable SHANTELL SAHSAJIA MCKENNA Unavailable Unavailab le DEASY, CARO F Unavailable Unavailable DEASY, CARO F Unavailable Unavailable EBRAHEIM, JAMIN Admitting Unavailable EBWILDA, JAMIN Attending Unavailable ABIEL BLACKWELL Referring Unavailable ABIEL BLACKWELL Primary Care Unavailable [place] Procedure Practitioner Unavailab le MARCELO, JAMIN Surgeon Unavailable CECILIA BOUDREAUX Attending Unavailable ABIEL BLACKWELL Primary Care Unavailable CECILIA BOUDREAUX Admitting Unavailable Niranjan Lamas Consulting Unavailable SAMSA ., ANGIE Admitting Unavailable SAMANGIE KINSEY Attending Unavailable CECILIA BOUDREAUX Primary Care Unavailable SAM ., ANGIE Consulting Unavailable CECILIA BOUDREAUX Admitting Unavailable CECILIA BOUDREAUX Primary Care Unavailable CECILIA BOUDREAUX Attending Unavailable REQUEST, NONE LISTED Admitting Unavaila ble REQUEST, NONE LISTED Consulting Unavaila ble REQUEST, NONE LISTED Attending Unavaila CECILIA Mazariegos Primary Care Unavailable Abiel Blackwell MD Primary Care Provider Abiel Blackwell MD Primary Care Provider [phone] ALEXSANDRA ÁLVAREZ Attending Unavailable ABIEL BLACKWELL Referring Unavailable ABIEL BLACKWELL Primary Care Unavailable CECILIA BOUDREAUX Primary Care Physician [phone] Efra Hall Attending Unavailable Efra Hall Referring Unavailable Efra Hall Admitting Unavailable Efra Hall Attending Unavailable Efra Hall Attending Unavailable KIM ROSSI Attending Unavailable KIM ROSSI Attending Unavailable Amaury Rodney DO Attending Provider Brigido R&D LAB TECHNICIAN-CCecilia Primary Care Provider Allergies Allergy Classification Reported Allergen(s) Allergy Type Date of Onset Reaction(s) Facility (8 sources) Blueberry; Translations: [BLUEBERRY] Propensity to adverse reactions to drug (disorder) 6 Anaphylaxis [facility] Repository (14 sources) morphine; Translations: [MORPHINE] Drug Allergy 2 Itching, Rash [facility] Repository (4 sources) natural latex rubber; Translations: [LATEX, NATURAL RUBBER] Propensity to adverse reactions to drug (disorder) 3 AOF [facility] Repository (3 sources) Shellfish; Translations: [SHELLFISH DERIVED] Propensity to adverse reactions to drug (disorder) 6 AOF, Rash [facility] Repository (2 sources) SILVER-HYDROCOLL OID DRESSING; Translations: [SILVER-HYDROCOL LOID DRESSING] Propensity to adverse reactions to drug (disorder) 6 AOF [facility] Repository (4 sources) Blueberry; Translations: [BLUEBERRIES] Propensity to adverse reactions (disorder) 9 RASH [facility] Repository (9 sources) Latex; Translations: [LATEX] Propensity to adverse reactions (disorder) 9 Rash [facility] Repository (1 source) ACCUCOT; Translations: [Unknown] Propensity to adverse reactions (disorder) 9 [facility] Repository (2 sources) Adhesive agent; Translations: [ADHESIVE] Drug allergy (disorder) 2 [facility] Repository (2 sources) Aspirin Drug Allergy [facility] (1 source) fluticasone / vilanterol Drug Allergy [facility] (3 sources) Shellfish; Translations: [shellfish] Drug allergy (disorder) [facility] (2 sources) Acticoat Dressing Drug allergy (disorder) [facility] (5 sources) crab allergenic extract; Translations: [CRAB] Drug Allergy 1 Anaphylaxis [facility] (5 sources) Other; Translations: [OTHER] Propensity to adverse reactions 1 [facility] (3 sources) Sulfonamide -class of antibiotic- (substance); Translations: [sulfa topicals] Drug allergy [facility] (1 source) metFORMIN; Translations: [METFORMIN HCL] Drug Allergy 5 [facility] Repository (2 sources) Sulfonamides (Antibiotic); Translations: [SULFA (SULFONAMIDE ANTIBIOTICS)] Propensity to adverse reactions to drug (disorder) 5 Anaphylaxis [facility] Repository (1 source) tiotropium; Translations: [TIOTROPIUM] Drug Allergy 5 [facility] Repository (1 source) BLUEBERRY FLAVOR; Translations: [BLUEBERRY FLAVOR] Propensity to adverse reactions to drug (disorder) 2 [facility] Repository (1 source) SHELLFISH CONTAINING PRODUCTS; Translations: [SHELLFISH CONTAINING PRODUCTS] Propensity to adverse reactions to drug (disorder) 2 [facility] Repository (1 source) WOUND DRESSINGS; Translations: [WOUND DRESSINGS] Propensity to adverse reactions to drug (disorder) 2 [facility] Repository Medications Current Medications Medication Drug Class(es) Dates Sig (Normalized) Sig (Original) [id number] 200 actuat albuterol 0.09 mg/actuat metered dose inhaler (6 sources) beta2-Adrenergic Agonist Start: 04-01-2025 Albuterol Sulfate 90 mcg/actuation HFA aerosol inhaler Active INHALATION April 01, 2025 12:00am Complies with drug therapy End: 10-08-2024 take 2 puff(s) by inhalation every six hours as needed for wheezing albuterol (PROVENTIL HFA;VENTOLIN HFA) 90 mcg/actuation inhaler Inhale 2 puffs every 6 (six) hours as needed for wheezing. 10/08/2024 Discontinued amLODIPine 5 mg oral tablet (4 sources) Dihydropyridine Calcium Channel Yulissa Start: 04-01-2025 Amlodipine 5 mg tablet Active MG PO April 01, 2025 12:00am Complies with drug therapy Start: 12-17-2024 take 1 mg by mouth once daily amLODIPine 5 mg Tab mg tab(s), Oral, Daily, Refills(s) 0, High blood pressure Start Date: 12/17/24 Status: Ordered Repeat number: 1 take 2 tablets by mo uth in the morning amLODIPine (NORVASC) 2.5 mg tablet Take 2 [...] number: 1 atorvastatin 20 mg oral tablet (4 sources) HMG-CoA Reductase Inhibitor Start: 04-01-2025 Atorvastatin 20 mg tablet Active MG PO April 01, 2025 12:00am Complies with drug therapy Start: 12-17-2024 take 1 mg by mouth [...] take 1 tablet by katia once daily Daily Multi oral tablet 1 tab(s), Oral, Daily, Refill(s) 0 Start Date: 01/06/14 Status: Ordered Repeat number: 1 esomeprazole 40 mg delayed release oral capsule (2 sources) Proton Pump Inhibitor Start: 04-01-2025 Esomeprazole Magnesi um 40 mg capsule,delayed release(DR/EC) Active MG PO April 01, 2025 12:00am Complies with drug therapy Start: 02-09-2025 take 1 capsule by mo cox branson once daily Nexium 40 mg Cap-EC 40 mg = 1 cap(s), Oral, Daily, # 90 cap(s), Refills(s) 0, Pharmacy: [facility]/pharmacy #[id number], 163, cm, 02/09/25 13:32:00 EDT, Height/Length Dosing, 116.3, kg, 02/09/25 13:32:00 EDT, Weight Dosing Start Date: 02/09/25 Status: Ordered Quantity: 90.0 Unit: cap(s) Repeat number: 1 Indications: Gastro-esophageal reflux disease without esophagitis; Dysphagia, unspecified; Duodenitis without bleeding; Disease of stomach and duodenum, unspecified; Fluticasone Furoate (8 sources) Corticosteroid Start: 04-01-2025 Fluticasone Fu roate (Arnuity Ellipta) 200 mcg/actuation blister with device Active INHALATION April 01, 2025 12:00am Complies with drug therapy Start: 12-17-2024 Arnuity Ellipt a Inhalation, q24hr, Refills(s) 0, Shortness of breath [...] mononitrate 60 mg extended release oral tablet (4 sources) Nitrate Vasodilator Start: 04-01-2025 take 1 tablet by mouth every twenty-four hours Isosorbide Mononitrate 60 mg tablet extended release 24 hr Active MG PO April 01, 2025 12:00am Complies with drug therapy Start: 10-01-2024 End: 10-01-2025 take 1 mg [...] Active losartan potassium 100 mg oral tablet (7 sources) Angiotensin 2 Receptor Yulissa Start: 04-01-2025 Losartan 100 mg tablet Active MG PO April 01, 2025 12:00am Complies with drug therapy Start: 12-17-2024 take 1 mg by mouth once daily losartan 100 mg Tab mg tab(s), Oral, Daily, Refills(s) 0, High blood pressure Start Date: 12/17/24 Status: Ordered Repeat number: 1 take 2 tablets by mo [facility] branson in the morning losartan (COZAAR) 50 mg tablet Take 2 tablets (100 mg total) by mouth in the morning. Active Magnesium Oxide (6 sources) Start: 12-17-2024 magnesium oxid e Oral, Refills(s) 0, Prophylaxis Start Date: 12/17/24 Status: Ordered Repeat number: 1 Start: 12-17-2024 magnesium oxid e Oral, Refills(s) 0 Start Date: 12/17/24 Status: Ordered Repeat number: 1 take 1 tablet by katia in the morning, then take 1 tablet [...] succinate 25 mg extended release oral tablet (7 sources) beta-Adrenergic Yulissa Start: take 1 tablet by mouth every twenty-four hours Metoprolol Succinate 25 mg tablet extended release 24 hr Active MG PO April 01, 2025 12:00am Complies with drug therapy Start: 12-17-2024 take 1 mg by mouth [...] morning. 25mg. Active take 1 tablet by katia th once daily metoprolol succinate XL (TOPROL-XL) 50 mg 24 hr tablet Take 50 mg by mouth daily. 0 Active montelukast 10 mg oral tablet (7 sources) Leukotriene Receptor Antagonist Start: 04-01-2025 Montelukast 10 mg tablet Active MG PO April 01, 2025 12:00am Complies with drug therapy Start: 12-17-2024 take 1 mg by mouth once daily montelukast 10 mg Tab mg tab(s), Oral, Daily, Refills(s) 0, Allergy symptoms Start Date: 12/17/24 Status: Ordered Repeat number: 1 take 1 tablet by katia th once daily montelukast (SINGULAIR) 10 mg tablet Take 1 tablet (10 mg total) by mouth nightly. Active whrlbxtp-bofh-UR-calcium &mi ns (THERAGRAN-M) 9 mg iron-400 mcg tablet (4 sources) kmhjiwgp-nlhz-DP -calcium &mins (THERAGRAN-M) 9 mg iron-400 mcg tablet Take 1 tablet by mouth in the morning. Active cpdlczga-cwil-CE -calcium &mins (THERAGRAN-M) 9 mg iron-400 mcg tablet Take 1 tablet by mouth in the morning. 0 Active ipixdvom-cptk-OU -calcium &mins (THERAGRAN-M) 9 mg iron-400 mcg tablet Take 1 tablet by mouth daily. 0 Active omeprazole 20 mg delayed release oral capsule (1 source) Proton Pump Inhibitor Start: 04-01-2025 Omeprazole 20 mg capsule,delayed release(DR/EC) Active MG PO April 01, 2025 12:00am Complies with drug therapy Ozempic (1 mg dose) (2 sources) Start: [...] under the skin once a week. Active Semaglutide (1 source) Start: 04-01-20 Semaglutide (Ozempic) 1 mg/dose (4 mg/3 mL) pen injector Active MG SUBCUT April 01, 2025 12:00am Complies with drug therapy simvastatin 10 mg oral tablet (4 sources) [...] 1 tablet by katia th once daily Super B Complex 1 tab(s), Oral, Daily, Refill(s) 0 Start Date: 01/06/14 Status: Ordered Repeat number: 1 60 actuat tiotropium 0.82821 mg/actuat inhalation spray (4 sources) Anticholinergic Start: 04-01-2025 Tiotropium Bro mide (Spiriva Respimat) 1.25 mcg/actuation mist Active INHALATION April 01, 2025 12:00am Complies with drug therapy Start: 12-17-2024 Spiriva Respim at 1.25 mcg/inh inhalation aerosol mcg, inh, Inhalation, Daily, Refill(s) 0, Shortness of breath or wheezing Start Date: 12/17/24 Status: Ordered Repeat number: 1 take 1.25 ug by inha lation in the morning tiotropium bromide (SPIRIVA RESPIMAT) 1.25 mcg/actuation mist [...] (4 sources) take 1 capsule by mo uth once in the morning coenzyme Q10 30 [...] disease (2 sources) Atherosclerotic heart disease of [place] coronary artery without angina pectoris; Translations: [Atherosclerotic heart disease of [place] coronary artery without angina pectoris] Onset: 5 [...] carotid artery] Onset: 4 09-12-2023 Chronic Other connective tissue disease (2 sources) Right rotator cuff syndrome; Translations: [Unspecified rotator cuff tear or rupture of right shoulder, not specified as traumatic] 04-01-2025 Episodic Other disorders of stomach and duodenum (1 [...] of breath; Translations: [Shortness of breath] Onset: Episodic Other non-traumatic joint disorders (1 source) Pain in left shoulder; Translations: [Left shoulder pain] 03-31-2025 Episodic Other non-traumatic joint disorders (1 source) Pain in right shoulder; Translations: [Right shoulder pain] 04-01-2025 Episodic Other nutritional; endocrine; and metabolic disorders (1 source) Body mass index 40+ - severely obese; Translations: [Body mass index (BMI) 40.0-44.9, adult] Onset: Chronic Other nutritional; endocrine; and metabolic disorders (3 sources) Morbid obesity; Translations: [Morbid (severe) obesity due to excess calories] Onset: Chronic Other nutritional; endocrine; and metabolic disorders (1 source) Obesity; Translations: [Other obesity due to excess calories] Onset: Chronic Other nutritional; endocrine; and metabolic disorders (1 source) Obesity caused by energy imbalance 02-09-2025 Chronic Other upper respiratory disease (1 source) Difficulty talking; Translations: [Dysphonia] Onset: Episodic Other upper respiratory disease (1 source) [...] Range Facility Office Visiton 03-22-2025 Follow-up visit [id number] Brooke Landry 1955 F Date Provider Department Center 03/22/2025 KIM STEPHENS FABRICE Krishnamurthy Family History Problem Relation Age of Onset Cancer Mother Heart disease Mother Stroke Mother Diabetes Father Heart disease Father Breast cancer Sister Diabetes Sister Mental illness Sister Family Status - Relation Status Age at Mother Father Sister Alive Level of Service:99789 MO OFFICE/OUTPATIENT ESTABLISHED MOD MDM 30 MIN (25) Normal [facility] Ambulatory Visit Summaryon 0 02-09-2025 Ambulatory Visit [...] Dysphagia Chronic GERD Gastropathy Duodenitis Pickup at [facility]/pharmacy #[id number] Unchanged albuterol (Ventolin HFA 90 mcg/ inh [...] physician if questions or concerns Pharmacy Information [id number]: [address] [place], [place] [id number] [phone] Allergies Blueberries (RA (more content not included)... Normal [facility] Gastroenterology Office/Clin ic Noteon 02-09-2025 Gastroenterology Office/Clinic [...] wire. The esophagus was dilated using 57 Eritrean savory with heme noted on dilator. After [...] Daily, # 90 cap(s), Refills(s) 0, [id number], 163, cm, 02/09/25 13:32:00 EDT, Height/Length Dosing, 116.3, kg, 02/09/25 13:32:00 EDT, Weight Dosing Current tobacco non-user 1036F Most recent diastolic blood pressure <80 mm Hg 3078F Systolic BP <130 mm Hg (Most Recent) 3074F 2. Chronic GERD (K21.9: Gastro-esophageal reflux disease without esophagitis) Ordered: esomeprazole, 40 mg = 1 cap(s), Oral, Daily, # 90 cap(s), Refills(s) 0, [id number], 163, cm, 02/09/25 13:32:00 EDT, Height/Length Dosing, 116.3, kg, 02/09/25 13:32:00 EDT, Weight Dosing Current tobacco non-user 1036F Most recent diastolic blood pressure <80 mm Hg 3078F Systolic BP <130 mm Hg (Most Recent) 3074F 3. Gastropathy (K31.9: Disease of stomach and duodenum, unspecified) Ordered: esomeprazole, 40 mg = 1 cap(s), Oral, Daily, # 90 cap(s), Refills(s) 0, Pharmacy: [facility]/pharmacy #[id number], 163, cm, 02/09/25 13:32:00 EDT, Height/Length Dosing, 116.3, kg, 02/09/25 13:32:00 EDT, Weight Dosing Current tobacco non-user 1036F Most recent diastolic blood pressure <80 mm Hg 3078F Systolic BP <130 mm Hg (Most Recent) 3074F 4. Duodenitis (K29.80: Duodenitis without bleeding) Ordered: esomeprazole, 40 mg = 1 cap(s), Oral, Daily, # 90 cap(s), Refills(s) 0, Pharmacy: [facility]/pharmacy #[id number], 163, cm, 02/09/25 13:32:00 EDT, Height/Length [...] Might benef (more content not included)... Normal [facility] Comment on above: Result Comment: Elec tronically Signed By: Rafael QUIJANO, Efra Adkins\.br\Date and Time Signed: 02/09/25 13:51 EDT Surgical Pathology Reporton 01-01-2025 Surgical Pathology Report [facility] [address] [place] [address]- Surgical Pathology Report Collected Date/Time: 12/25/2024 12:17 EDT Pathologist: Maria E QUIJANO, Giovany H Received Date/Time: 12/28/2024 07:42 EDT Efra Hall MD, MD, Mohamad A. 07 Surgical Pathology Report - 01/01/2025 12:59 EDT [...] characteristics were determined by the [facility] Surgical Pathology. They have not been [...] recognition technology and might contain unintended computerized hose builder errors. Surgical Pathology Report Collected Date/Time: 12/25/2024 12:17 EDT Pathologist: Giovany Sanderson MD Received Date/Time: 12/28/2024 07:42 EDT Efra Hall MD, MD, Mohamad A. Microscopic Description Microscopic examination performed unless gross only specified. Quality was accessed and acceptable. Normal [facility] Comment on above: Performed By: #### [id number] #### [facility] [address] [place] [address] Main OR Intraoperative Recor don 12-28-2024 Main OR Intraoperative Record Main OR Intraoperative Record IntraOp Document Type FT Summary Primary Physician: Efra Hall MD Finalized Date/Time: 12/28/24 10:14:50 Pt. Name: BROOKE LANDRY Bassem GiraldoB./Sex: 1955 Female Med Rec #: [id number] Physician: Efra Hall MD Financial #: [id number] Pt. Type: O Room/Bed: / Admit/Disch: 12/25/24 10:07:43 - 12/25/24 23:59:59 Institution: Case Times FT Entry 1 Patient Times In Room 12/25/24 12:02:00 Out Room 12/25/24 12:13:00 Procedure Times Start 12/25/24 12:06:00 Stop 12/25/24 12:11:00 Anesthesia Times Start 12/25/24 12:02:00 Stop 12/25/24 12:13:00 Last Modified By: Savanna Santiago RN 12/25/24 12:14:14 Case Attendance FT Entry 1 Entry 2 Entry 3 Case Attendee Pamela LONG, Yuki Taylor PASSENGER RELATIONS REPRESENTATIVE, Kristen Brady Role Performed Clinical Medical Transcriptionist - Primary Scrub - Primary Staff - Other Time In 12/25/24 12:02:00 12/25/24 12:02:00 12/25/24 12:02:00 Time Out 12/25/24 12:13:00 12/25/24 12:13:00 12/25/24 12:13:00 Procedure EGD(.) EGD(.) EGD(.) Comments help in room Last Modified By: Pamela LONG, Savanna Santiago RN, Savanna Schulz RN 12/25/24 12:14:14 12/25/24 12:14:14 12/25/24 12:14:14 Entry 4 Entry 5 Case Attendee Rafael QUIJANO, Mauricio Negro CRNA Role Performed Surgeon - Primary ENVIRONMENTAL JOURNALIST Time In 12/25/24 12:02:00 12/25/24 12:02:00 Time Out 12/25/24 12:13:00 12/25/24 12:13:00 Procedure EGD(.) EGD(.) Comments Dr. Lopez supervising Last Modified By: Savanna Santiago RN, RN, Angela 12/25/24 12:14:14 12/25/24 12:14:14 Perioperative Protocols FT [...] Santiago RN, Given Participants Yuki Hernández, Nichol MCCARTY, Rafael Stokes MD, Arnel Duarte CRNA, Paul A. Time Out Complete 12/25/24 12:05:00 Outcomes Met? [...] and tissue Entry 1 Skin Integrity Intact, [place], Warm, & Skin Abnormality No Dry Outcomes [...] Arm Position (more content not included)... Normal [facility] Discharge Instructionson Discharge Instructions Discharge Instructions GRISDANIELLAMARTHA Luevano :1955 Visit Date:12/25/2024 Inpatient Discharge Instructions Your Care Team Admitting Physician - Efra Hall MD Referring Physician - Efra Hall MD Reason for Your Visit DYSPHAGIA Your Diagnosis [...] after Discharge Follow Up with Rafael QUIJANO, Efra Adkins GAS, MED When: Comments: Call to schedule follow up appointment and/or review any pending biopsy results Call for any problems. Where: [address] [place] [address], [address] [place] [phone] Medications What How Much When Instructions Next [...] on flores (more content not included)... Normal [facility] Comment on above: Result Comment: Elec tronically Signed By: Bill LONG, Irma\.tod\Date and Time Signed: 12/25/24 12:38 EDT H&P Updateon 12-25-2024 H&P Update H&P Update Patient: BROOKE LANDRY Age: 69 years Sex: Female : 1955 Associated Diagnoses: None Author: Rafael QUIJANO, Efra Adkins Preoperative Information Chief compliant/Indication for procedure: Dysphagia [...] All Problems Chronic GERD / SNOMED CT 994311116 / Confirmed Dysphagia / SNOMED CT 22931745 / Confirmed Extreme obesity 17-DEC-2013 12:48:08<$> / SNOMED CT [id number] / Confirmed Hypertension / SNOMED CT 5088612400 / Confirmed Morbid obesity with BMI of 40.0-44.9, adult / IMO 99349271 / Possible Problem added automatically by Discern Expert based on clinical documentation, Active Problems (5) Chronic GERD Dysphagia Extreme obesity Hypertension Morbid obesity with BMI of 40.0-44.9, adult Histories Past Medical History: No active or resolved past medical history items have been selected or recorded. Family History: Entire family history is negative. Procedure history: Injection of facet joint using fluoroscopic guidance ([id number]) on 02/24/2014 at 58 Years. Comments: 09/22/2015 11:48 LEONAT - Sarah Hallman Bilateral L3-S1 fij (20 depo) 50% relief Epidural injection of lumbar spine using fluoroscopic guidance ([id number]) on 01/11/2014 at 58 Years. Comments: 09/22/2015 11:43 EDT - Sarah Hallman L5-S1 PARUL 85% Relief Tonsil ([id number]). Carpal tunnel (552631562). Hernia (1228885501). Trigger finger (3532173969). Ankle (5030674). Comments: 12/17/2024 9:14 EDT - Urszula Lara left ankle Knee (972497916). Comments: 12/17/2024 9:14 EDT - Urszula Lara double knee Physical Examination No qualifying data available General: in Nad Abdomen: Soft, NTND Impression and Plan Diagnosis: -EGD and colonoscopy Normal [facility] Comment on above: Result Comment: Elec tronically Signed By: Efra Hall MD\.br\Date and Time Signed: 12/25/24 10:49 EDT Main OR PACU I Recordon 12-15 Main OR PACU I Record Main OR PACU I Record PACU Phase I Document Type FT Summary Primary Physician: Efra Hall MD Finalized Date/Time: 12/25/24 13:35:31 Pt. Name: GRISBROOKE/Sex: 1955 Female Med Rec #: [id number] Physician: Efra Hall MD Financial #: [id number] Pt. Type: O Room/Bed: / Admit/Disch: 12/25/24 [...] By: Irma Khan RN 12/25/24 13:35 Normal [facility] Main OR Preoperative Recordo n 12-25-2024 Main OR Preoperative Record Main OR Preoperative Record Holding Area Document Type FT Summary Primary Physician: Efra Hall MD Finalized Date/Time: 12/25/24 11:47:03 Pt. Name: BROOKE LANDRY Bassem GiraldoB./Sex: 1955 Female Med Rec #: [id number] Physician: Efra Hall MD Financial #: [id number] Pt. Type: O Room/Bed: / Admit/Disch: 12/25/24 [...] By: Christiana Zaragoza RN 12/25/24 11:47 Normal [facility] Operative Reporton Operative Report Operative Report [...] wire. The esophagus was dilated using 57 Eritrean savory with heme noted on dilator. After dilation, visualization of stricture and passage with gastroscope showed heme and minimal oozing, no evidence of perforation. 2. Patchy erythema consistent with gastropathy status post biopsies 3. 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 Patchy erythema consistent with duodenitis Images Procedure images: Rec_hd_video__T1_ 20_[id number]_502.jpg Rec_hd_video__T1_ 23_59_829.jpg Rec_hd_video___ 22_19_499.jpg Rec1_hd_video___ _18_480.jpg Rec1_hd_video___ _59_910.jpg Rec1_hd_video___ 24_02_627.jpg Rec1_hd_video___ _30_345.jpg Rec1_hd_video___ _49_045.jpg Rec1_hd_video___ _13_154.jpg Rec1_hd_video___ _[id number].jpg . Post-Procedure Complications: none. Estimated blood loss: Minimal. Specimens: None. (more content not included)... Normal [facility] Comment on above: Result Comment: Elec tronically Signed By: Rafael QUIJANO, Efra Adkins\.br\Date and Time Signed: 12/25/24 12:13 EDT Other Comment: Tuyet valdez Attachment - attachment storage system not supported [id number] [facility] Attachment - attachment storage system not supported [id number] Can be viewed [facility] Attachment - attachment storage system not supported [id number] Can be viewed in [facility] Attachment - attachment storage system not supported [id number] Can be viewed in [facility] Attachment - attachment storage system not supported [id number] Can be viewed in [facility] Attachment - attachment storage system not supported [id number] Can be viewed in [facility] Attachment - attachment storage system not supported [id number] Can be viewed in [facility] Attachment - attachment storage system not supported [id number] Can be viewed in [facility] Attachment - attachment storage system not supported [id number] Can be viewed in source systemMissing Attachment - attachment storage system not supported [id number] Can be viewed in source system Ambulatory Visit Summaryon 0 12-17-2024 Ambulatory Visit Summary Ambulatory Visit Summary BROOKE LANDRY :1955 Visit Date:12/17/2024 Ambulatory Visit Instructions Your Diagnosis Dysphagia Morbid obesity with BMI of 40.0-44.9, adult Chronic GERD Body mass index [BMI] 40.0-44.9, adult Your Care Team Attending Physician - Rafael QUIJANO, Efra Adkins Primary Care Physician - CECILIA BOUDREAUX CNP This Is Your Medications List Contact prescribing [...] your office (more content not included)... Normal [facility] Gastroenterology Office/Clin ic Noteon 12-17-2024 Gastroenterology Office/Clinic Note Gastroenterology Office/Clinic Note Chief Complaint Dr. Boudreaux referred for dysphagia HPI Staff NEW- Patient is a(n) 69 year old female who was referred by Brigido for dysphagia. Dysphagia: When did it start: [...] Family History Family history is negative Normal [facility] Comment on above: Result Comment: Elec tronically Signed By: Rafael QUIJANO, Efra Adkins\.br\Date and Time Signed: 12/17/24 09:42 EDT Office Visiton 09-16-2024 Follow-up visit [id number] Brooke Landry 1955 F Date Provider Department Center 09/16/2024 KIM STEPHENS [facility] Family History Problem Relation Age of Onset Cancer Mother Heart disease Mother Stroke Mother Diabetes Father Heart disease Father Breast cancer Sister Diabetes Sister Mental illness Sister Family Status - Relation Status Age at Mother Father Sister Alive Level of Service:67884 MO OFFICE/OUTPATIENT ESTABLISHED MOD MDM 30 MIN Normal [facility] GLYCOHEMOGLOBIN A1Con 2022 ADA RECOMMENDATION SEE BELOW Normal [facility] Comment on above: Result Comment: ADA RECOMMENDED LIMIT 4.0 - 6.0 ADA THERAPEUTIC TARGET < 7.0 ACTION SUGGESTED > 7.0 Performed By: #### D ATA1C #### [facility] [address] [address] [address] Kiley Plata Glucose [Mass/Vol] 120 mg/dL Normal [facility] Comment on above: Performed By: #### D ATA1C #### [facility] [address] [address] [address] Kiley Plata HbA1c (Bld) [Mass fraction] 5.8 % Normal 4.5-6.2 [facility] Comment on above: Performed By: #### D ATA1C #### [facility] [address] [address] [address] Kiley Plata XR CHEST 2 Von [...] pad is favored. Electronically authenticated by: NIRANJAN LAMAS Date: 2022-09-11 10:04 Normal [facility] ANKLE LEFT 3 [facility] 9 ANKLE LEFT 3 VWS [facility] Department of Radiology [address] [place] [phone] Patient Name: BROOKE LANDRY : 1955 [...] alignment Electronically signed by:Julissa Che. Transcribed by: [email or web address], User Resident: Electronically Signed by: JULISSA CHE @ 06/15/2019 02:12 PM Normal [facility] Comment on above: Order Comment: , str ess view , Views (X-RAY, ANKLE): Radiologic Protocol , stress view , Views (X-RAY, ANKLE): Radiologic Protocol , , , Ordering Provider - JAMIN PACHECO MD , ANKLE RIGHT 3 VWSon 06-15-20 19 ANKLE RIGHT 3 VWS [facility] Department of Radiology [address] [place] [phone] Patient Name: BROOKE LANDRY : 1955 Sex: F Age: Race: White Pt. Location: Patient Status: Ordered Date: 06/15/2019 1:45:00 PM Completed Date: 06/15/2019 01:47 PM Requesting Provider: SOLANGE CRUZ Attending Provider: Report Copy To: Signs & Symptoms: M25.579 Pain in unspecified ankle and joints of unspecified foot I10 History: [place] Comments: , , , Ordering Provider [...] alignment Electronically signed by:Julissa Che. Transcribed by: [email or web address], User Resident: Electronically Signed by: JULISSA CHE @ 06/15/2019 02:12 PM Normal [facility] Comment on above: Order Comment: , str ess view , Views (X-RAY, ANKLE): Radiologic Protocol , stress view , Views (X-RAY, ANKLE): Radiologic Protocol , , , Ordering Provider - JAMIN PACHECO MD , ANKLE LEFT 3 [facility] 9 ANKLE LEFT 3 [facility] Department of Radiology [address] [place] [phone] Patient Name: BROOKE LANDRY : 1955 Sex: F Age: Race: White Pt. Location: Patient Status: Ordered Date: 04/29/2019 2:10:00 PM Completed Date: 04/29/2019 02:13 PM Requesting Provider: BEBETO CRUM Attending Provider: Report Copy To: Signs & Symptoms: S82.842D Displ bimalleol fx l low leg, subs for clos fx w routn heal I10 History: [place] Comments: , , , Ordering Provider [...] spurring Electronically signed by:Julissa Che. Transcribed by: [email or web address], User Resident: Electronically Signed by: JULISSA CHE @ 04/29/2019 03:41 PM Normal [facility] Comment on above: Order Comment: , str ess view , Views (X-RAY, ANKLE): Radiologic Protocol , stress view , Views (X-RAY, ANKLE): Radiologic Protocol , , , Ordering Provider - JAMIN PACHECO MD , ANKLE RIGHT 3 [facility] 04-29-20 19 ANKLE RIGHT 3 [facility] Department of Radiology [address] [place] [phone] Patient Name: BROOKE LANDRY : 1955 [...] spurring Electronically signed by:Julissa Che. Transcribed by: [email or web address], User Resident: Electronically Signed by: JULISSA CHE @ 04/29/2019 03:41 PM Normal [facility] Comment on above: Order Comment: , str ess view , Views (X-RAY, ANKLE): Radiologic Protocol , stress view , Views (X-RAY, ANKLE): Radiologic Protocol , , , Ordering Provider - JAMIN PACHECO MD , ANKLE LEFT 3 [facility] 9 ANKLE LEFT 3 S [facility] Department of Radiology [address] [place] [phone] Patient Name: BROOKE LANDRY : 1955 [...] alignment Electronically signed by:Julissa Che. Transcribed by: [email or web address], User Resident: Electronically Signed by: JULISSA CHE @ 03/18/2019 03:19 PM Normal [facility] Comment on above: Order Comment: , str ess view , Views (X-RAY, ANKLE): Radiologic Protocol , stress view , Views (X-RAY, ANKLE): Radiologic Protocol , , , Ordering Provider - JAMIN PACHECO MD , ANKLE RIGHT 3 VWSon 03-18-20 19 ANKLE RIGHT 3 VWS [facility] Department of Radiology [address] [place] [phone] Patient Name: BROOKE LANDRY : 1955 [...] alignment Electronically signed by:Julissa Che. Transcribed by: [email or web address], User Resident: Electronically Signed by: JULISSA CHE @ 03/18/2019 03:19 PM Normal [facility] Comment on above: Order Comment: , str ess view , Views (X-RAY, ANKLE): Radiologic Protocol , stress view , Views (X-RAY, ANKLE): Radiologic Protocol , , , Ordering Provider - JAMIN PACHECO MD , ANKLE LEFT 3 VWSon 9 ANKLE LEFT 3 VWS [facility] Department of Radiology [address] [place] [phone] Patient Name: BROOKE LANDRY : 1955 [...] alignment Electronically signed by:Julissa Che. Transcribed by: [email or web address], User Resident: Electronically Signed by: JULISSA CHE @ 03/04/2019 01:59 PM Normal [facility] Comment on above: Order Comment: , str ess view , Views (X-RAY, ANKLE): Radiologic Protocol , stress view , Views (X-RAY, ANKLE): Radiologic Protocol , , , Ordering Provider - JAMIN PACHECO MD , ANKLE RIGHT 3 [facility] 03-04-20 19 ANKLE RIGHT 3 [facility] Department of Radiology [address] [place] [phone] Patient Name: BROOKE LANDRY : 1955 [...] alignment Electronically signed by:Julissa Che. Transcribed by: [email or web address], User Resident: Electronically Signed by: JULISSA CHE @ 03/04/2019 01:59 PM Normal [facility] Comment on above: Order Comment: , str ess view , Views (X-RAY, ANKLE): Radiologic Protocol , stress view , Views (X-RAY, ANKLE): Radiologic Protocol , , , Ordering Provider - JAMIN PACHECO MD , ANKLE LEFT 3 [facility] 9 ANKLE LEFT 3 [facility] Department of Radiology [address] [place] [phone] Patient Name: BROOKE LANDRY : 1955 Sex: F Age: Race: White Pt. Location: Patient Status: Ordered Date: 02/04/2019 10:25:00 AM Completed Date: 02/04/2019 10:38 AM Requesting Provider: ITALO JIANG Attending Provider: Report Copy To: Signs & Symptoms: S82.842A Displaced bimalleolar fracture of left lower leg, init I10 History: [place] Comments: , Views (X-RAY, ANKLE): Radiologic Protocol , Views (X-RAY, ANKLE): Radiologic Protocol , , , Ordering Provider - ITALO JIANG PA-C , Exam: ANKLE LEFT 3 S ANKLE LEFT 3 VWS 02/04/2019 10:38 AM EDT SIGNS [...] hardware unchanged. Incomplete healing Electronically signed by:Zonia Faria. Transcribed by: [email or web address], User Resident: Electronically Signed by: ZONIA FARIA @ 02/04/2019 03:17 PM Normal [facility] Comment on above: Order Comment: , str ess view , Views (X-RAY, ANKLE): Radiologic Protocol , stress view , Views (X-RAY, ANKLE): Radiologic Protocol , , , Ordering Provider - JAMIN PACHECO MD , ANKLE RIGHT 3 [facility] 02-05-20 19 ANKLE RIGHT 3 [facility] Department of Radiology [address] [place] [phone] Patient Name: BROOKE LANDRY : 1955 Sex: F Age: Race: White Pt. Location: Patient Status: Ordered Date: 02/04/2019 10:30:00 AM Completed Date: 02/04/2019 10:38 AM Requesting Provider: ITALO JIANG Attending Provider: Report Copy To: Signs & Symptoms: S82.841A Displaced bimalleolar fracture of right lower leg, init I10 History: [place] Comments: , Views (X-RAY, ANKLE): Radiologic Protocol , Views (X-RAY, ANKLE): Radiologic Protocol , , , Ordering Provider - ITALO JIANG PA-C , Exam: ANKLE RIGHT 3 [facility] ANKLE RIGHT 3 VWS 02/04/2019 10:38 AM [...] hardware unchanged. Incomplete healing Electronically signed by:Zonia Faria. Transcribed by: [email or web address], User Resident: Electronically Signed by: ZONIA FARIA @ 02/04/2019 03:31 PM Normal [facility] Comment on above: Order Comment: , str ess view , Views (X-RAY, ANKLE): Radiologic Protocol , stress view , Views (X-RAY, ANKLE): Radiologic Protocol , , , Ordering Provider - JAMIN PACHECO MD , Operative Reporton 01-29- 9 Operative Report MR#: [id number] I [facility] Pt. Name: Brooke Landry Room #: [id number] Discharge 01/23/2019 Date: Birthdate: 1955 OPERATIVE REPORT [...] 3.5 cortical screws. Electronically Signed by: Jamin Pacheoc M.D. 01/31/2019 10:09 A Jamin Pacheco M.D. I was present for the eduardo and critical portions and I was otherwise immediately available to assist. Date Dict: 01/29/2019/08:25 Purvi/Álvaro Dao MD Date Trans: 01/29/2019 11:37 A/smooth [id number] Normal [facility] BASIC METABOLIC PANELon 08-0 Calcium [Mass/Vol] 9.4 mg/dL Normal 8.6-10.3 [facility] Comment on above: Order Comment: , str ess view , Views (X-RAY, ANKLE): Radiologic Protocol , stress view , Views (X-RAY, ANKLE): Radiologic Protocol , , , Ordering Provider - JAMIN PACHECO MD , Performed By: #### 0 0071 ####[facility] [place] [address], [facility] Chloride [Moles/Vol] 100 mmol/L Normal 98-107 [facility] Comment on above: Order Comment: , str ess view , Views (X-RAY, ANKLE): Radiologic Protocol , stress view , Views (X-RAY, ANKLE): Radiologic Protocol , , , Ordering Lucero PACHECO MD , Performed By: #### 0 0071 ####[facility] [place] [address] CO2 [Moles/Vol] 32 mmol/L High 21-31 [facility] Comment on above: Order Comment: , str ess view , Views (X-RAY, ANKLE): Radiologic Protocol , stress view , Views (X-RAY, ANKLE): Radiologic Protocol , , , Ordering Lucero PACHECO MD , Performed By: #### 0 0071 ####[address] Creatinine [Mass/Vol] 0.78 mg/dL Normal 0.60-1.20 [facility] Comment on above: Order Comment: , str ess view , Views (X-RAY, ANKLE): Radiologic Protocol , stress view , Views (X-RAY, ANKLE): Radiologic Protocol , , , Ordering Lucero PACHECO MD , Performed By: #### 0 0071 ####[address] GFR/1.73 sq M predicted among blacks MDRD (S/P/Bld) [Vol rate/Area] mL/min/{1.73_m2} Normal >60 [facility] Comment on above: Order Comment: , str ess view , Views (X-RAY, ANKLE): Radiologic Protocol , stress view , Views (X-RAY, ANKLE): Radiologic Protocol , , , Ordering Lucero PACHECO MD , Performed By: #### 0 0071 ####[facility] GFR/1.73 sq M predicted among non-blacks MDRD (S/P/Bld) [Vol rate/Area] mL/min/{1.73_m2} Normal >60 [facility] Comment on above: Order Comment: , str ess view , Views (X-RAY, ANKLE): Radiologic Protocol , stress view , Views (X-RAY, ANKLE): Radiologic Protocol , , , Ordering Lucero PACHECO MD , Performed By: #### 0 0071 ####[address] Glucose [Mass/Vol] 151 mg/dL High 70-100 [facility] Comment on above: Order Comment: , str ess view , Views (X-RAY, ANKLE): Radiologic Protocol , stress view , Views (X-RAY, ANKLE): Radiologic Protocol , , , Ordering Lucero PACHECO MD , Performed By: #### 0 0071 ####[address] Potassium [Moles/Vol] 4.1 mmol/L Normal 3.5-5.1 [facility] Comment on above: Order Comment: , str ess view , Views (X-RAY, ANKLE): Radiologic Protocol , stress view , Views (X-RAY, ANKLE): Radiologic Protocol , , , Ordering Lucero PACHECO MD , Performed By: #### 0 0071 ####[address] Sodium [Moles/Vol] 137 mmol/L Normal 136-145 [facility] Comment on above: Order Comment: , str ess view , Views (X-RAY, ANKLE): Radiologic Protocol , stress view , Views (X-RAY, ANKLE): Radiologic Protocol , , , Ordering Lucero PACHECO MD , Performed By: #### 0 0071 ####[facility] Urea nitrogen [Mass/Vol] 13 mg/dL Normal 7-25 [facility] Comment on above: Order Comment: , str ess view , Views (X-RAY, ANKLE): Radiologic Protocol , stress view , Views (X-RAY, ANKLE): Radiologic Protocol , , , Ordering Lucero PACHECO MD , Performed By: #### 0 0071 ####[address] CBC COMPLETE BLOOD COUNTon 0 01-23-2019 Erythrocyte distribution width (RBC) [Ratio] 13.5 % Normal 11.5-15.0 [facility] Comment on above: Order Comment: , str ess view , Views (X-RAY, ANKLE): Radiologic Protocol , stress view , Views (X-RAY, ANKLE): Radiologic Protocol , , , Ordering Lucero PACHECO MD , Performed By: #### 5 [id number] ####[address] Hematocrit (Bld) [Volume fraction] 41.9 % Normal 36.0-45.0 [facility] Comment on above: Order Comment: , str ess view , Views (X-RAY, ANKLE): Radiologic Protocol , stress view , Views (X-RAY, ANKLE): Radiologic Protocol , , , Ordering Lucero PACHECO MD , Performed By: #### 5 0608 ####[address] [place] [address], [place] Hemoglobin (Bld) [Mass/Vol] 13.1 g/dL Normal 12.0-15.0 [facility] Comment on above: Order Comment: , str ess view , Views (X-RAY, ANKLE): Radiologic Protocol , stress view , Views (X-RAY, ANKLE): Radiologic Protocol , , , Ordering Provider Brandon PACHECO MD , Performed By: #### 5 [id number] ####[address] MCH (RBC) [Entitic mass] 27.3 pg Normal 27.0-33.0 [facility] Comment on above: Order Comment: , str ess view , Views (X-RAY, ANKLE): Radiologic Protocol , stress view , Views (X-RAY, ANKLE): Radiologic Protocol , , , Ordering Provider Brandon PACHECO MD , Performed By: #### 5 0608 ####[address] MCHC (RBC) [Mass/Vol] 31.3 g/dL Low 32.0-35.0 [facility] Comment on above: Order Comment: , str ess view , Views (X-RAY, ANKLE): Radiologic Protocol , stress view , Views (X-RAY, ANKLE): Radiologic Protocol , , , Ordering Provider Brandon PACHECO MD , Performed By: #### 5 0608 ####[address] MCV (RBC) [Entitic vol] 87.5 fL Normal 82.0-98.0 [facility] Comment on above: Order Comment: , str ess view , Views (X-RAY, ANKLE): Radiologic Protocol , stress view , Views (X-RAY, ANKLE): Radiologic Protocol , , , Ordering Lucero PACHECO MD , Performed By: #### 5 0608 ####[address] Nucleated RBC/100 WBC (Bld) [Ratio] 0 % Normal 0-0 [facility] Comment on above: Order Comment: , str ess view , Views (X-RAY, ANKLE): Radiologic Protocol , stress view , Views (X-RAY, ANKLE): Radiologic Protocol , , , Ordering Lucero PACHECO MD , Performed By: #### 5 0608 ####[address] PLAT CNT 295 10*3/uL Normal 150-400 [facility] Comment on above: Order Comment: , str ess view , Views (X-RAY, ANKLE): Radiologic Protocol , stress view , Views (X-RAY, ANKLE): Radiologic Protocol , , , Ordering Lucero PACHECO MD , Performed By: #### 5 0608 ####[address] RBC (Bld) [#/Vol] 4.79 10*6/uL Normal 3.80-5.00 [facility] Comment on above: Order Comment: , str ess view , Views (X-RAY, ANKLE): Radiologic Protocol , stress view , Views (X-RAY, ANKLE): Radiologic Protocol , , , Ordering Lucero PACHECO MD , Performed By: #### 5 0608 ####[address] WBC (Bld) [#/Vol] 7.82 10*3/uL Normal 4.00-10.60 [facility] Comment on above: Order Comment: , str ess view , Views (X-RAY, ANKLE): Radiologic Protocol , stress view , Views (X-RAY, ANKLE): Radiologic Protocol , , , Ordering Provider - JAMIN PACHECO MD , Performed By: #### 5 [id number] ####[facility] [place] [address], [place] POC GLUCOSE LABon 01-23-2019 Glucose [Mass/Vol] 116 mg/dL High 70-100 [facility] Comment on above: Performed By: #### 8 [id number] ####[facility] [place] [address], [place] POC GLUCOSE LABon 01-22-2019 Glucose [Mass/Vol] 98 mg/dL Normal 70-100 [facility] Comment on above: Performed By: #### 8 [id number] ####[facility] [place] [address], [place] Glucose [Mass/Vol] 88 mg/dL Normal 70-100 [facility] Comment on above: Performed By: #### 8 5499 ####[facility] [place] [address], [place] Glucose [Mass/Vol] 112 mg/dL High 70-100 [facility] Comment on above: Performed By: #### 8 [id number] ####[facility] [place] [address], [place] Glucose [Mass/Vol] 101 mg/dL High 70-100 [facility] Comment on above: Performed By: #### 8 [id number] ####[facility] [place] [address], [place] POC GLUCOSE LABon 01-21-2019 Glucose [Mass/Vol] 125 mg/dL High 70-100 [facility] Comment on above: Performed By: #### 8 [id number] ####[facility] [facility] [place] [address], [facility] Glucose [Mass/Vol] 117 mg/dL High 70-100 [facility] Comment on above: Performed By: #### 8 5499 ####[facility] [facility] [place] [address], [facility] Glucose [Mass/Vol] 107 mg/dL High 70-100 [facility] Comment on above: Performed By: #### 8 [id number] ####[facility] [facility] [place] [address], [facility] Glucose [Mass/Vol] 132 mg/dL High 70-100 [facility] Comment on above: Performed By: #### 8 [id number] ####[facility] [place] [address], [facility] *MRSA/MSSA DNA NASALon 01-20 *MRSA/MSSA DNA NASAL Clinical Report: (D) Specimen: NASAL SWAB Collected: 01/20/2019 11:05 Status: Final Last Updated: 01/20/2019 19:57 MSSA DNA (Final) Negative MRSA DNA (Final) Negative Normal [facility] Comment on above: Performed By: #### 3 1595 ####[facility] [place] [address], [facility] ANKLE LEFT 2 VWSon 9 ANKLE LEFT 2 S [facility] Department of Radiology [address] [place] [phone] Patient Name: BROOKE LANDRY : 1955 Sex: F Age: Race: White Pt. Location: OUTP Patient Status: D Ordered Date: 01/20/2019 12:15:00 PM Completed Date: 01/20/2019 12:34 PM Requesting Provider: JAMIN PACHECO Attending Provider: JAMIN PACHECO Report Copy To: Signs & Symptoms: ORIF LEFT ANKLE, History: ORIF LEFT ANKLE, Comments: ORIF LEFT ANKLE, Exam: ANKLE LEFT 2 [facility] ANKLE LEFT 2 [facility] 01/20/2019 12:34 PM EDT SIGNS AND SYMPTOMS: [...] above. IMPRESSION: For documentation Electronically signed by:Manolo Buckner. Transcribed by: [email or web address], User Resident: Electronically Signed by: MANOLO BUCKNER @ 01/20/2019 02:24 PM Normal [facility] Comment on above: Order Comment: , Vie ws (X-RAY, TIBIA AND FIBULA): Radiologic Protocol , Weight Bearing?: N , With or Without Brace/Cast/Collar: Without , Views (X-RAY, TIBIA AND FIBULA): Radiologic Protocol , Weight Bearing?: N , With or Without Brace/Cast/Collar: Without , , , Ordering Provider - JAMIN PACHECO MD , ANKLE RIGHT 2 [facility] 01-21-20 19 ANKLE RIGHT 2 [facility] Department of Radiology [address] [place] [phone] Patient Name: BROOKE LANDRY : 1955 [...] ANKLE RIGHT 2 VWS ANKLE RIGHT 2 VWS 01/20/2019 12:34 PM [...] obtained. IMPRESSION: For documentation Electronically signed by:Manolo Buckner. Transcribed by: [email or web address], User Resident: Electronically Signed by: MANOLO BUCKNER @ 01/20/2019 02:23 PM Normal [facility] Comment on above: Order Comment: , Rosalee ws (X-RAY, TIBIA AND FIBULA): Radiologic Protocol , Weight Bearing?: N , With or Without Brace/Cast/Collar: Without , Views (X-RAY, TIBIA AND FIBULA): Radiologic Protocol , Weight Bearing?: N , With or Without Brace/Cast/Collar: Without , , , Ordering Provider - JAMIN PACHECO MD , POC GLUCOSE LABon 01-20-2019 Glucose [Mass/Vol] 190 mg/dL High 70-100 [facility] Comment on above: Performed By: #### 8 [id number] ####[facility] [place] [address], [facility] Glucose [Mass/Vol] 118 mg/dL High 70-100 [facility] Comment on above: Performed By: #### 8 [id number] ####[facility] [place] [address], [facility] Glucose [Mass/Vol] 100 mg/dL Normal 70-100 [facility] Comment on above: Performed By: #### 8 [id number] #### [facility] [address] [place], [place] [id number] [place] [address] ANKLE LEFT 2 [facility] 9 ANKLE LEFT 2 [facility] Department of Radiology [address] [place] [phone] Patient Name: BROOKE LANDRY : 1955 [...] fx - 5 weeks ago f/u (accession [id number]), Patient has bi-lateral ankle pain. Right ankle is worse. Stress views ordered. (accession [id number]), Patient has bi-lateral ankle pain. Right ankle is worse. Stress views ordered. (accession [id number]), right tibia pain fx - 5 weeks ago f/u (accession [id number]) QUESTION FOR THE RADIOLOGIST: , Views (X-RAY, ANKLE): Radiologic Protocol , Weight Bearing?: N , With or Without Brace/Cast/Collar: Without , Views (X-RAY, ANKLE): Radiologic Protocol , Weight Bearing?: N ...More In Sending System PROTOCOL: AP,Lateral and Oblique views were obtained. (accession [id number]), AP(PA) and Lateral views were obtained. (accession [id number]), Stress views were obtained. AP(PA) view was obtained. (accession [id number]), AP(PA) and Lateral views were obtained. (accession [id number]) COMPARISON: None FINDINGS: Left ankle: Swelling Healing [...] widening Electronically signed by:Julissa Che. Transcribed by: [email or web address], User Resident: Electronically Signed by: JULISSA CHE @ 01/19/2019 01:54 PM Normal [facility] Comment on above: Order Comment: , str ess view , Views (X-RAY, ANKLE): Radiologic Protocol , stress view , Views (X-RAY, ANKLE): Radiologic Protocol , , , Ordering Provider - JAMIN PACHECO MD , ANKLE LEFT 3 [facility] 9 ANKLE LEFT 3 [facility] Department of Radiology [address] [place] [phone] Patient Name: BROOKE LANDRY : 1955 Sex: F Age: Race: White Pt. Location: Patient Status: O Ordered Date: 01/19/2019 10:50:00 AM Completed Date: 01/19/2019 11:10 AM Requesting Provider: JAMIN PACHECO Attending Provider: JAMIN PACHECO Report Copy To: Signs & Symptoms: S82.92XA Unsp fracture of left lower leg, init for clos fx I10 History: [place] Comments: , Views (X-RAY, ANKLE): Radiologic [...] fx - 5 weeks ago f/u (accession [id number]), Patient has bi-lateral ankle pain. Right ankle is worse. Stress views ordered. (accession [id number]), Patient has bi-lateral ankle pain. Right ankle is worse. Stress views ordered. (accession [id number]), right tibia pain fx - 5 weeks ago f/u (accession [id number]) QUESTION FOR THE RADIOLOGIST: , Views (X-RAY, ANKLE): Radiologic Protocol , Weight Bearing?: N , With or Without Brace/Cast/Collar: Without , Views (X-RAY, ANKLE): Radiologic Protocol , Weight Bearing?: N ...More In Sending System PROTOCOL: AP,Lateral and Oblique views were obtained. (accession [id number]), AP(PA) and Lateral views were obtained. (accession [id number]), Stress views were obtained. AP(PA) view was obtained. (accession [id number]), AP(PA) and Lateral views were obtained. (accession [id number]) COMPARISON: None FINDINGS: Left ankle: Swelling Healing [...] widening Electronically signed by:Julissa Che. Transcribed by: [email or web address], User Resident: Electronically Signed by: JULISSA CHE @ 01/19/2019 01:54 PM Normal [facility] Comment on above: Order Comment: , Rosalee ws (X-RAY, ANKLE): Radiologic Protocol , Weight Bearing?: N , With or Without Brace/Cast/Collar: Without , Views (X-RAY, ANKLE): Radiologic Protocol , Weight Bearing?: N , With or Without Brace/Cast/Collar: Without , , , Ordering Provider - JAMIN PACHECO MD , ANKLE RIGHT 2 [facility] 01-20-20 19 ANKLE RIGHT 2 [facility] Department of Radiology [address] [place] [phone] Patient Name: BROOKE LANDRY : 1955 [...] fx - 5 weeks ago f/u (accession [id number]), Patient has bi-lateral ankle pain. Right ankle is worse. Stress views ordered. (accession [id number]), Patient has bi-lateral ankle pain. Right ankle is worse. Stress views ordered. (accession [id number]), right tibia pain fx - 5 weeks ago f/u (accession [id number]) QUESTION FOR THE RADIOLOGIST: , Views (X-RAY, ANKLE): Radiologic Protocol , Weight Bearing?: N , With or Without Brace/Cast/Collar: Without , Views (X-RAY, ANKLE): Radiologic Protocol , Weight Bearing?: N ...More In Sending System PROTOCOL: AP,Lateral and Oblique views were obtained. (accession [id number]), AP(PA) and Lateral views were obtained. (accession [id number]), Stress views were obtained. AP(PA) view was obtained. (accession [id number]), AP(PA) and Lateral views were obtained. (accession [id number]) COMPARISON: None FINDINGS: Left ankle: Swelling Healing [...] widening Electronically signed by:Julissa Che. Transcribed by: [email or web address], User Resident: Electronically Signed by: JULISSA CHE @ 01/19/2019 01:54 PM Normal [facility] Comment on above: Order Comment: , str ess view , Views (X-RAY, ANKLE): Radiologic Protocol , stress view , Views (X-RAY, ANKLE): Radiologic Protocol , , , Ordering Provider - JAMIN PACHECO MD , APTTon 01-19-2019 aPTT Coag (Bld) [Time] 30.1 s Normal 25.0-35.0 [facility] Comment on above: Result Comment: ALL [...] THIS PURPOSE. Performed By: #### 5 6101, [id number] #### [facility] [address] [place] [address], [facility] BASIC METABOLIC PANELon Calcium [Mass/Vol] 10.4 mg/dL High 8.6-10.3 [facility] Comment on above: Performed By: #### 0 0071 #### [facility] [address] [place] [address], [facility] Chloride [Moles/Vol] 101 mmol/L Normal 98-107 [facility] Comment on above: Performed By: #### 0 0071 #### [facility] [address] [place] [address], [place] CO2 [Moles/Vol] 32 mmol/L High 21-31 [facility] Comment on above: Performed By: #### 0 0071 #### [facility] [address] [place] [address], [place] Creatinine [Mass/Vol] 0.82 mg/dL Normal 0.60-1.20 [facility] Comment on above: Performed By: #### 0 0071 #### [facility] [address] [place] [address], [place] GFR/1.73 sq M predicted among blacks MDRD (S/P/Bld) [Vol rate/Area] mL/min/{1.73_m2} Normal >60 [facility] Comment on above: Performed By: #### 0 0071 #### [facility] [address] [place] [address], [place] GFR/1.73 sq M predicted among non-blacks MDRD (S/P/Bld) [Vol rate/Area] mL/min/{1.73_m2} Normal >60 [facility] Comment on above: Performed By: #### 0 0071 #### [facility] [address] [place] [address], [place] Glucose [Mass/Vol] 89 mg/dL Normal 70-100 [facility] Comment on above: Performed By: #### 0 0071 #### [facility] [address] [place] [address], [place] Potassium [Moles/Vol] 4.4 mmol/L Normal 3.5-5.1 [facility] Comment on above: Performed By: #### 0 0071 #### [facility] [address] [place] [address], [place] Sodium [Moles/Vol] 141 mmol/L Normal 136-145 [facility] Comment on above: Performed By: #### 0 0071 #### [facility] [address] Urea nitrogen [Mass/Vol] 18 mg/dL Normal 7-25 [facility] Comment on above: Performed By: #### 0 0071 #### [facility] [address] CBC W/DIFFon 01-19-2019 ABS BASOPHILS 0.1 10*3/uL Normal 0.0-0.2 [facility] Comment on above: Performed By: #### 5 0103 #### [facility] [address] ABS IMM GRANS 0.0 10*3/uL Normal 0.0-0.2 [facility] Comment on above: Performed By: #### 5 0103 #### [facility] [address] ABS NEUTROPHILS 4.4 10*3/uL Normal 1.6-7.6 [facility] Comment on above: Performed By: #### 5 102 #### [facility] [address] Basophils/100 WBC (Bld) 0.8 % Normal 0.0-1.0 [facility] Comment on above: Performed By: #### 5 0103 #### [facility] [address] [place] [address], [facility] Eosinophils (Bld) [#/Vol] 0.2 10*3/uL Normal 0.0-0.5 [facility] Comment on above: Performed By: #### 5 0103 #### [facility] [address] [place] [address], [facility] Eosinophils/100 WBC (Bld) 3.2 % Normal 0.0-6.0 [facility] Comment on above: Performed By: #### 5 0103 #### [facility] [address] [facility]. [address] Erythrocyte distribution width (RBC) [Ratio] 13.2 % Normal 11.5-15.0 [facility] Comment on above: Performed By: #### 5 0103 #### [facility] [address] [facility] [place] [address], [facility] Hematocrit (Bld) [Volume fraction] 44.8 % Normal 36.0-45.0 [facility] Comment on above: Performed By: #### 5 3 #### [facility] [address] [facility]. [address] Hemoglobin (Bld) [Mass/Vol] 14.4 g/dL Normal 12.0-15.0 [facility] Comment on above: Performed By: #### 5 0103 #### [facility] [address] [facility]. [address] IMMATURE GRANS 0.1 % Normal 0.0-1.0 [facility] Comment on above: Performed By: #### 5 0103 #### [facility] [address] [facility] [address] Lymphocytes (Bld) [#/Vol] 2.0 10*3/uL Normal 1.2-4.0 [facility] Comment on above: Performed By: #### 3 #### [facility] [address] [facility]. [address] Lymphocytes/100 WBC (Bld) 27.9 % Normal 20.0-45.0 [facility] Comment on above: Performed By: #### 3 #### [facility] [address] [place] [address], [facility] MCH (RBC) [Entitic mass] 28.0 pg Normal 27.0-33.0 [facility] Comment on above: Performed By: #### 5 0103 #### [facility] [address] [facility] [address] MCHC (RBC) [Mass/Vol] 32.1 g/dL Normal 32.0-35.0 [facility] Comment on above: Performed By: #### 5 0103 #### [facility] [address] [facility] [place] [address], [facility] MCV (RBC) [Entitic vol] 87.2 fL Normal 82.0-98.0 [facility] Comment on above: Performed By: #### 5 3 #### [facility] [address] [facility] [place] [address], [facility] Monocytes (Bld) [#/Vol] 0.5 10*3/uL Normal 0.1-1.0 [facility] Comment on above: Performed By: #### 5 3 #### [facility] [address] [facility]. [address] MONOS 7.4 % Normal 5.0-12.0 [facility] Comment on above: Performed By: #### 5 3 #### [facility] [address] [facility] [address] Neutrophils/100 WBC (Bld) 60.6 % Normal 40.0-72.0 [facility] Comment on above: Performed By: #### 5 3 #### [facility] [address] [facility] [place] [address], [facility] Nucleated RBC/100 WBC (Bld) [Ratio] 0 % Normal 0-0 [facility] Comment on above: Performed By: #### 5 3 #### [facility] [address] [place] [address], [facility] PLAT CNT 334 10*3/uL Normal 150-400 [facility] Comment on above: Performed By: #### 3 #### [facility] [address] [place] [address], [facility] RBC (Bld) [#/Vol] 5.14 10*6/uL High 3.80-5.00 [facility] Comment on above: Performed By: #### 5 0103 #### [facility] [address] [place] [address], [facility] WBC (Bld) [#/Vol] 7.18 10*3/uL Normal 4.00-10.60 [facility] Comment on above: Performed By: #### 5 0103 #### [facility] [address] [facility] [place] [address], [facility] PROTHROMBIN TIMEon 9 INR Coag (PPP) [Relative time] 0.99 {INR} Normal 0.91-1.16 [facility] Comment on above: Result Comment: ACCC P [...] CHEST 1995;108:231S-246S. Performed By: #### 5 6101, 21583 #### [facility] [address] [place] [address], [facility] PT Coag (PPP) [Time] 13.1 s Normal 12.3-14.8 [facility] Comment on above: Result Comment: ALL RESULTS MUST BE INTERPRETED WITH RESPECT TO BLOOD DRAWING ARTIFACT OR DILUTION ERROR OF ANTICOAGULANT AT THE TIME OF SAMPLING. Performed By: #### 5 6101, [address] #### [address] [address], [facility] TIBIA FIBULA RIGHTon 019 TIBIA FIBULA RIGHT [facility] Department of Radiology [address] [place] [phone] Patient Name: BROOKE LANDRY : 1955 [...] fx - 5 weeks ago f/u (accession [id number]), Patient has bi-lateral ankle pain. Right ankle is worse. Stress views ordered. (accession [id number]), Patient has bi-lateral ankle pain. Right ankle is worse. Stress views ordered. (accession [id number]), right tibia pain fx - 5 weeks ago f/u (accession [id number]) QUESTION FOR THE RADIOLOGIST: , Views (X-RAY, ANKLE): Radiologic Protocol , Weight Bearing?: N , With or Without Brace/Cast/Collar: Without , Views (X-RAY, ANKLE): Radiologic Protocol , Weight Bearing?: N ...More In Sending System PROTOCOL: AP,Lateral and Oblique views were obtained. (accession [id number]), AP(PA) and Lateral views were obtained. (accession [id number]), Stress views were obtained. AP(PA) view was obtained. (accession [id number]), AP(PA) and Lateral views were obtained. (accession [id number]) COMPARISON: None FINDINGS: Left ankle: Swelling Healing [...] widening Electronically signed by:Julissa Che. Transcribed by: [email or web address], User Resident: Electronically Signed by: JULISSA CHE @ 01/19/2019 01:54 PM Normal [facility] Comment on above: Order Comment: , Vie ws (X-RAY, TIBIA AND FIBULA): Radiologic Protocol , Weight Bearing?: N , With or Without Brace/Cast/Collar: Without , Views (X-RAY, TIBIA AND FIBULA): Radiologic Protocol , Weight Bearing?: N , With or Without Brace/Cast/Collar: Without , , , Ordering Provider - JAMIN PACHECO MD , TYPE AND CROSSMATCHon 2018 ABO INTERPRETATION B Normal [facility] Comment on above: Performed By: #### 6 2594 #### [facility] [address] [place] [address], [facility] RH INTERPRETATION Negative Normal [facility] Comment on above: Performed By: #### 6 2594 #### [facility] [address] [place] [address], [facility] PROGRESSon 10-07-2017 PROGRESS HNO ID: [id number] thor: Caro Bowers DeasyService: (none)Author Type: PhysicianType: [...] dayBoth eyes and Artificial tears . Advise [place] 3 fatty acids 1gram daily.Return to clinic [...] the management ofthis patient's care with the Mud Jack Nozzle Worker, if applicable. I also havereviewed and agree with the assessment and plan as stated above and agreewith all of its relevant components.Caro Suggs MD [facility] 07-08-2017 HOSP Office Visit OPHT (OPLKAV) ----BROOKE LANDRY ([id number]) 1955 FDate Time Provider Department07/08/17 1:30 PM CARO SUGGS OPLKAV During your visit today, we recorded the following information about you:Caro Suggs MD 07/08/2017 3:05 PM Signed(H35.073) Type 2 macular telangiectasis, bilateral (primary encounterdiagnosis)(H25.13) Senile nuclear sclerosis, bilateral(G70.00) Myasthenia gravis without exacerbation ([facility])(H35.411) Lattice degeneration of peripheral retina, right61 year [...] day B[place] and Artificial tears . Advise [place] 3 fatty acids 1gram daily.The documentation recorded by the scribe accurately reflects the service Ipersonally performed and the decisions made by me.I have confirmed and edited as necessary the relevant ophthalmic history, ROS,and the neuro exam findings as obtained by others. I have seen and examinedBrooke Landry. I have discussed the case and the management of this patient'scare with the Mud Jack Nozzle Worker, if applicable. I also have reviewed and agree withthe assessment and plan as stated above and agree with all of its relevantcomponents.Caro Suggs, [facility]STeferring Provider: GORDON ROBLES [[id number]]Allergies As of Date: 07/08/2017 Noted Allergy ReactionACTICOAT [...] of peripheral retina, right [H35.411]Order(s):DILATED FUNDUS EXAM [[id number]] Order #: [id number]: 1 IOP MEASUREMENT [] Order #: [id number]: 1 OCT MACULA CIRRUS OU (BOTH EYES) [21291020] Order #: [id number]: 1 DILATED FUNDUS EXAM [] Order #: [id number]: 1 FUTURE IOP MEASUREMENT [] Order #: [id number]: 1 FUTURE OCT MACULA CIRRUS OU (BOTH EYES) [21291020] Order #: [id number]: 1 FUTUREPrescriptions as of 07/08/2017 Sig: TURMERIC [...] [G*INVALID FOR*Follow-up and Disposition History RecordedEncounter Number: [id number] Status:Closed by CARO SUGGS MD on 07/08/17 [facility] PROGRESSon 07-08-2017 PROGRESS HNO ID: [id number] thor: Caro SuggsService: (none)Author Type: PhysicianType: Progress [...] dayBoth eyes and Artificial tears . Advise [place] 3 fatty acids 1gram daily.The documentation recorded by the scribe accurately reflects the service Ipersonally performed and the decisions made by me.I have confirmed and edited as necessary the relevant ophthalmic history,ROS, and the neuro exam findings as obtained by others. I have seen andexamined Brooke Landry. I have discussed the case and the management ofthis patient's care with the Mud Jack Nozzle Worker, if applicable. I also havereviewed and agree with the assessment and plan as stated above and agreewith all of its relevant components.Caro Suggs MD [facility] 04-08-2017 HOSP Office Visit OPHT (OPHTLN) ----BROOKE LANDRY ([id number]) 1955 FDate Time Provider Oxidhudnwg38/23/17 10:30 AM OKSANA JETT During your visit today, we recorded the following information about you:Oksana Jett MD 04/08/2017 4:20 PM AddendumPrefers to be seen in [place].(H35.073) 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 [...] MD 04/08/2017 4:19 PM SignedAddended by: OKSANA JETT on: 04/08/2017 04:19 PM Modules accepted: Orders, SmartSetReferring Provider: CARO SUGGS [[id number]]Allergies As of Date: 04/08/2017 Noted Allergy ReactionACTICOAT DRESSING (SILVER-HYDROCO*01/27/2016 4 - HivesBLUEBERRY 01/27/2016 12 - Shortness of BreathLATEX, NATURAL RUBBER 05/18/2013 2 - Rash 4 - HivesMORPHINE 01/07/2015 2 - Rash 9 - ItchingSHELLFISH DERIVED 01/27/2016 12 - Shortness of BreathDate Reviewed: 04/08/2017Reviewed by: Oksana Jett - Fully AssessedReason for Visit: Type 2 macular telangiectasis [Other]Primary Visit Diagnosis: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 [H35.073]Order(s):DILATED FUNDUS EXAM [[id number]] Order #: [id number]: 1 IOP MEASUREMENT [] Order #: [id number]: 1 OCT MACULA CIRRUS OU (BOTH EYES) [21291020] Order #: [id number]: 1 DILATED FUNDUS EXAM [] Order #: [id number]: 1 FUTURE IOP MEASUREMENT [] Order #: [id number]: 1 FUTURE OCT MACULA CIRRUS OU (BOTH EYES) [21291020] Order #: [id number]: 1 FUTUREPrescriptions as of 04/08/2017 Sig: PYRIDOSTIGMINE [...] (around 10/07/2017).Follow-up and Disposition History RecordedEncounter Number: [id number] Status:Closed by OKSANA JETT on 04/08/17 [facility] PROGRESSon 04-08-2017 PROGRESS HNO ID: [id number] thor: Oksana Evangelista: (none)Author Type: PhysicianType: Progress NotesFiled: 04/08/2017 4:20 PMNote Text:Prefers to be seen in [place].(H35.013) 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 [...] noted below, or sooner ifnew symptoms develop.Oksana Jett MD [facility] Vital Signs Date Time Vital Sign Value Performing Clinician Faci lity 10-08-2024 10:44-0400 Body height 166.4 cm Alexsandra Álvarez MD Work Phone: [facility] 10-08-2024 10:44-0400 Body mass index (BMI) [Ratio] 43.26 kg/m2 Alexsandra Álvarez MD Work Phone: [facility] 10-08-2024 10:44-0400 Body temperature 97.5 [degF] Alexsandra Álvarez MD Work Phone: [facility] 10-08-2024 10:44-0400 Body weight 119.75 kg Alexsandra Álvarez MD Work Phone: [facility] 10-08-2024 10:44-0400 Diastolic blood pressure 78 mm[Hg] Alexsandra Álvarez MD Work Phone: [facility] 10-08-2024 10:44-0400 Heart rate 76 /min Alexsandra Álvarez MD Work Phone: [facility] 10-08-2024 10:44-0400 SaO2% (BldA) [Mass fraction] 97 % Alexsandra Álvarez MD Work Phone: [facility] 10-08-2024 10:44-0400 Systolic blood pressure 140 mm[Hg] Alexsandra Álvarez MD Work Phone: [facility] Encounters Encounter Date Encounter Type Care Provider Facility Start: 04-01-2025 End: 04-01-2025 ambulatory Cecilia Boudreaux R[employer]D LAB TECHNICIAN-C Work Phone: [facility] Work Phone: Start: 04-01-2025 End: 04-01-2025 Patient encounter procedure Amaury Rodney DO -[facility] Work Phone: Start: 03-22-2025 End: 03-22-2025 ambulatory [facility] Start: 02-09-2025 End: 02-09-2025 ambulatory Efra Hall [facility] Start: 02-09-2025 End: 02-09-2025 Patient encounter procedure Efra Hall [facility] Start: 12-25-2024 End: 12-25-2024 ambulatory Efra Hall Facility:[facility] Start: 12-17-2024 End: 12-17-2024 ambulatory Efra Hall [facility] Start: 12-17-2024 End: 12-17-2024 Patient encounter procedure Efra Hall [facility] Start: 12-15-2024 ambulatory Efra Hall Facilit y:[facility] Start: 10-08-2024 End: 10-08-2024 Office outpatient visit 25 minutes Alexsandra Álvarez MD Work Phone: [facility] Comment on above: Carotid stenosis, bi lateral (Primary Dx) Start: 10-08-2024 End: 10-08-2024 ambulatory ALEXSANDRA ÁLVAREZ [facility] Start: 09-16-2024 End: 09-16-2024 ambulatory [facility] Start: 09-16-2023 Orders Only Reina Gomes LPN [...] Facility:[facility] Start: 09-11-2022 End: 09-12-2022 ambulatory Niranjan Lamas Facility:[facility] Start: 11-16-2021 ambulatory CECILIA BOUDREAUX Facility: [facility] Start: 01-20-2019 End: 01-23-2019 Evaluation and management of inpatient JAMIN EBRAHEIM Facility:[facility] Start: 10-07-2017 End: 10-09-2017 Ambulatory CARO Bowers [facility] Start: 07-08-2017 End: 07-09-2017 Ambulatory CARO [facility] Start: 04-08-2017 End: 04-11-2017 Ambulatory [facility] Procedures Date Procedure Procedure Detail Performing Clinician Start: 12-25-2024 Dilation of esophagus Efra Hall Start: 12-25-2024 Esophagogastroduodenoscopy Efra eid Start: 01-20-2019 REPOSITION LEFT FIBULA WITH INT FIX, OPEN APPROACH JAMIN EBRAHEIM Start: 01-20-2019 REPOSITION RIGHT FIBULA WITH INT FIX, OPEN APPROACH JAMIN EBRAHEIM Start: 01-19-2019 Antibody screen JAMIN EBRAHEIM Comment on above: Performed By: #### [id number] #### [address] Start: 02-24-2014 Injection of facet joint using fluoroscopic guidance Efra Hall Comment on above: Bilateral L3-S1 fij (20 depo) 50% relief Start: 01-11-2014 Epidural injection of lumbar spine using fluoroscopic guidance [employer] Comment on above: L5-S1 PARUL 85% Relief Acquired trigger finger (disorder) [employer] [facility] Ankle region structu re (body structure) [employer] [facility] Comment on above: left ankle Carpal tunnel syndrome (disorder) [employer] [facility] Herniated structure (morphologic abnormality) [employer] [facility] Knee region structur e (body structure) [employer] [facility] 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 Tonsillar structure (palatine) (body structure) [employer] [facility] Plan of Treatment Date Care Activity Detail Author Start: 10-08-2025 Adult BMI Screening [facility] Start: 10-08-2025 Tobacco Screening Tobacco Screening [facility]OOSE Start: 02-15-2025 Influenza vaccination Influenza Vacc ine [facility] Start: 10-08-2024 End: 10-08-2025 US Carotid arteries - bilateral Vas carotid duplex bilateral Vascular Ultrasound Routine Carotid stenosis, bilateral Expected: 10/08/2024, Expires: 10/08/2025 Reaction Work Phone: Comment on above: Expected: 10/08/2024 , Expires: 10/08/2025 Start: 10-08-2024 End: 10-08-2024 Patient encounter procedure 10/08/2024 10:50 AM EDT Office Visit [facility] [facility] [address] [place] [address] Alexsandra Álvarez MD [address], [address] [address] [facility] Start: 02-16-2024 COVID-19 Vaccine ( season) COVID-19 Vaccine ( season) [facility] Start: 02-16-2024 Influenza vaccination Influenza Vacc ine [facility] Start: 09-16-2023 End: 10-14-2024 US Carotid arteries - bilateral Vas carotid duplex bilateral Vascular Ultrasound Routine Bilateral carotid artery stenosis Expected: 09/16/2023, Expires: 10/14/2024 [facility] Work Phone: Comment on above: Expected: 09/16/2023 , Expires: 10/14/2024 Start: 02-15-2023 COVID-19 Vaccine ( season) COVID-19 Vaccine () [facility] Start: 02-15-2023 Influenza vaccination Influenza Vacc ine [facility] Start: 11-02-2021 Adult BMI Screening Adult BMI Screen ing [facility] Start: 2018 Fall Risk Screening Fall Risk Screen ing [facility] Start: 11-16-2003 Administration of varicella zoster vaccine Zoster (Shingles) Vaccine (1 of 2) [facility] Start: 1972 DTaP,Tdap and Td Vac cines (1 - Tdap) DTaP,Tdap and Td Vaccines (1 - Tdap) [facility] Start: 11-16-1971 Adult BMI Follow Up Plan Adult BMI Follow Up Plan [facility] Start: 1965 Depression Screening Depression Scre ening [facility] Start: 1965 Tobacco Screening Tobacco Screening [facility] Start: 1955 Medicare Annual Well ness Visit Medicare Annual Wellness Visit [facility] XR Shoulder - left Views [facility] XR Shoulder - right Views [facility] Immunizations Immunization Date Immunization Notes Care Provider Fa iva 04-13-2022 influenza virus vaccine, unspecified formulation Alexsandra Álvarez MD Work Phone: [facility] Payers Date Payer Category Payer Medicaid [id number] 2018 Unknown [id number] 2018 Unknown [id number] 2014 Medicare [id number] 1959 Medicaid [id number] 1959 Medicare [id number] 1959 Self-pay [id number] 1953 Unknown [id number] 2.16.8 [id number] 1953 Unknown [id number] 2.16.84 [id number] 1953 Unknown [id number] 2.16.84 [id number] 1953 Unknown [id number] 2.16.84 [id number] 1953 Unknown [id number] 2.16. [id number] 1953 Unknown [id number] 2.16.8 [id number] 1953 Unknown [id number] 2.16.8 [id number] 1953 Unknown [id number] 2.16.8 [id number] 1955 Unknown [id number] 2.16.8 [id number] Unknown [id number] 2.16.84 [id number] Unknown Rebeca GIBBS/ALEXANDER [id number] Social History Date Type Detail Facility Start: 10-20-2020 End: 02-09-2025 Tobacco smoking status NHIS Never smoked tobacco [facility] Start: 10-20-2020 End: 09-16-2023 Tobacco use and exposure Smokeless tobacco non-user [facility] Start: 11-03-2020 End: 10-08-2024 Alcohol intake Lifetime non-drinker (finding) [facility] Start: 11-03-2020 End: 10-08-2024 History of Social function [facility] Start: 11-03-2020 End: 10-08-2024 Tobacco use panel [facility] Childcare Unknown [facility] Start: 1955 Sex Assigned At Not on file P [facility] Start: 01-20-2015 End: 09-04-2018 Sex Female (finding) [facility] Sexual Orientation [facility] Work Phone: Start: 1955 Sex Assigned At Female F [facility] Clinical Notes 09-12-2023 to 03-22-2025 Assessment & Plan Note - Alexsandra Álvarez MD - 10/08/2024 11:06 AM EDTAssessment & Plan Note - Alexsandra Álvarez MD - 10/08/2024 11:06 AM EDTMaugustin Álvarez MD - 10/08/2024 10:50 AM EDT Note Date & Type Note Facility 03-22-2025 Note [facility] eDnisse Landry is a 69 y.o. year old [...] She does not (more content not included)... [facility] 12-25-2024 Note Progress Note-Liane cates Patient: BROOKE LANDRY Age: 69 years Sex: Female : 1955 Associated Diagnoses: None Author: Ifeanyi Lopez Jr., DO Postoperative Information Postoperative disposition: Postoperative disposition: Home. Optimetrix number: Optimetrix number [id number]. Anesthetic utilized: General. Physical Examination Vital Signs [...] Ambulatory Surgery Unit, and To home ). [facility] Comment on above: Result Comment: Elec tronically Signed By: Ifeanyi Lopez Jr., DO.br\Date and Time Signed: 12/25/24 13:45 EDT 12-25-2024 [...] Document Re-Released: 11/25/2006 ExitCare??? Patient Information ???2009 [employer]. Gastroenterology Full Liquid Diet A full liquid [...] Water. Coffee and tea (caffeinated or decaffeinated). [place]. Liquid nutritional supplements. Soft drinks. Nondairy milks, such as almond, coconut, rice, or soy milk. Sweets a (more content not included)... [facility] 12-25-2024 Note Progress Note-Physic darryn Patient: [...] All Problems Chronic GERD / SNOMED CT 420622194 / Confirmed Dysphagia / SNOMED CT 29595555 / Confirmed Extreme obesity 17-DEC-2013 12:48:08<$> / SNOMED CT [id number] / Confirmed Hypertension / SNOMED CT 2432731856 / Confirmed Morbid obesity with BMI of 40.0-44.9, adult / IMO [id number] / Possible Problem added automatically by Discern Expert based on clinical documentation Histories Past Medical History: No active or resolved past medical history items have been selected or recorded. Procedure history: Injection of facet joint using fluoroscopic guidance ([id number]) on 02/24/2014 at 58 Years. Comments: 09/22/2015 11:48 Sarah Lau Bilateral L3-S1 fij (20 depo) 50% relief Epidural injection of lumbar spine using fluoroscopic guidance ([id number]) on 01/11/2014 at 58 Years. Comments: 09/22/2015 11:43 Sarah Lau L5-S1 PARUL 85% Relief Tonsil (more content not included)... [facility] Comment on above: Result Comment: Elec tronically Signed By: Ifeanyi Lopez Jr., DO.tod\Date and Time Signed: 12/25/24 11:18 EDT 10-08-2024 Evaluation + Plan note Associated Problem(s): Carotid stenosis, bilateral Recommended increasing atorvastatin to 40 mg continue aspirin. Continue risk factors modification. Surveillance with carotid imaging in [address] [facility] 10-08-2024 Miscellaneous Notes Associated Problem(s): Carotid stenosis, bilateral Recommended increasing atorvastatin to 40 mg continue aspirin. Continue risk factors modification. Surveillance with carotid imaging in 2 years. documented in this encounter [facility] 10-08-2024 History of Present illness Narrative Images [...] tablet (10 mg total) by mouth nightly. ubiinevr-ngdm-TG-calcium &mins (THERAGRAN-M) 9 mg iron-400 mcg tablet [...] Arthritis Asthma Diabetes mellitus type 2, controlled ([facility]) prediabetic Headache Hypertension Hypoglycemia Obesity PONV (postoperative nausea and vomiting) Sleep apnea cpap Visual impairment glasses Past Surgical History: Past Surgical History: Procedure Laterality Date CARPAL TUNNEL RELEASE Right HERNIA REPAIR 06/2019 JOINT REPLACEMENT bilateral knees LEG SURGERY Bilateral plate and screws in right, screws in left ankle RELEASE TRIGGER FINGER Right 11/02/2020 Performed by Wallace Barakat DO at [facility] TONS[facility] Social and Family History: Social History [...] Interpersonal Safety: Unknown (09/12/2023) Received from [facility] [place] [facility] Environment Fear of Current [...] Alexsandra Álvarez MD, MARLEE, RPVI, FSVS, FACS [facility] This note was created with the assistance of a speech recognition program. While intending to generate a timely document that accurately reflects the content of the visit, no guarantee can be provided that every grammatical or spelling mistake has been or will be identified or corrected. Thank you for your understanding. documented in this encounter [facility] 09-16-2024 Note [facility] Subjective Brooke Landry is [...] Pulse 67 Ht (more content not included)... [facility] 09-12-2023 History of Present illness Narrative Images from the original note were not included. [facility] [address] [facility] [address] Subjective: Patient ID: Brooke Landry is a [...] mg by mouth nightly., Disp: , Rfl: xpatowgz-thev-OP-calcium &mins (THERAGRAN-M) 9 mg iron-400 mcg tablet, Take 1 tablet by mouth daily., Disp: , Rfl: simvastatin (ZOCOR) 10 mg tablet, Take 10 mg by mouth nightly., Disp: , Rfl: TURMERIC ORAL, Take 1,000 mg by mouth daily. With curcumin, Disp: , Rfl: Past Medical History: Diagnosis Date Arrhythmia Arthritis Asthma Diabetes mellitus type 2, controlled ([facility]) prediabetic Headache Hypertension Hypoglycemia Obesity PONV (postoperative nausea and vomiting) Sleep apnea cpap Visual impairment glasses Past Surgical History: Procedure Laterality Date CARPAL TUNNEL RELEASE Right HERNIA REPAIR 06/2019 JOINT REPLACEMENT bilateral knees LEG SURGERY Bilateral plate and screws in right, screws in left ankle RELEASE TRIGGER FINGER Right 11/02/2020 Performed by Wallace Barakat DO at [facility] TONSILLECTOMY Family History Problem Relation Age of [...] visit: Carotid artery calcification, unspecified laterality - [facility] [place] Plan Plan: Best medical therapy ASA/Statin Annual surveillance Cardiology referral Alexsandra Álvarez MD, MARLEE documented in this encounter [facility] Evaluation + Plan note Future Appointments Appointment Date:12/25/2024 11:15:00 AM Scheduled Provider: Location:[facility] Appointment Type:Surgery FT [facility] Evaluation note Diagnosis Carotid artery calcification, unspecified laterality documented in this encounter [facility]* Diagnosis Dizziness- Primary Dizziness and giddiness [facility] Diagnosis Carotid artery calcification, unspecified laterality- Primary Bilateral carotid artery stenosis Occlusion and stenosis of carotid artery without mention of cerebral infarction [facility] Diagnosis Carotid stenosis, bilateral- Primary Occlusion and stenosis of carotid artery without mention of cerebral infarction documented in this encounter [facility] note* Diagnosis Onset Date Resolution Status Admit Date Rotator cuff syndrome of right shoulder acute April 01 11:17am [facility] Work Phone: Hospital course Narrative No data available for this section [facility] Hospital Discharge instructions No data available for this section [facility] InstructionsNot on filedocumented in this encounter [facility] filedocumented in this encounter [facility]Not on filedocumented in this encounter [facility] System[facility] note No data available for this section [facility] Reason for referral (narrative)* Consultation (Routine) - Pending Review Specialty Diagnoses / Procedures Referred By Contbetsy t Referred To Contact Cardiology Diagnoses Dizziness Alexsandra Álvarez MD [address] [address] [facility] [address] [place] [address] Referral ID Status Reason Start Date Expiration Date Visits Requested Visits Authorized [id number] Pending Review Specialty Services Required 09/16/2023 09/15/2024 [address] [facility] (narrative)No reason for referral information [facility] Work Phone: Reason for visit Narrative* Consultation (Routine) - Pending Review Specialty Diagnoses / Procedures Referred By Contac t Referred To Contact Vascular Surgery Diagnoses Carotid artery calcification, unspecified laterality Cecilia Boudreaux, CREDIT ADMINISTRATION SPECIALIST-PRINTING TECHNICIAN [address] [place] [address] Alexsandra Álvarez MD [address] [address] Phone: Referral ID Status Reason Start Date Expiration Date Visits Requested Visits Authorized [id number] Pending Review Specialty Services Required 09/05/2023 09/04/2024 [address] [facility] Summary Purpose Family History No Family History Records FoundNo Family History Records FoundNo Family History Records FoundNo Family History Records Found No data available for this section No Family History Records FoundNo Family History Records Found No data available for this section No Family History Records FoundNo Family History Records Found Advance Directives Advance Directive Response Recorded Date/ Time Advance Directives No December 31 3:06pm Hospital Course Note MR#: [id number] I [facility] Pt. Name: Brooke Landry Admitted: [...] the aforementioned procedure. The patient presented to [facility] on 01/20/2019, where ORIF of bilateral ankles [...] Vas carotid duplex bilateral Alexsandra Álvarez MD [address], [address] [address] Referral ID Status Reason Start Date Expiration Date V isits Requested Visits Authorized [id number] Pending Review 09/16/2023 09/15/2024 1 1 Chief Complaint and Reason for Visit Chief Complaint Admit Date [facility] CONS[facility] CECILIA BOUDREAUX RT SHOULDER PA IN NX April 01, 2025 11:17am Reason for Visit Admit Date Rotator cuff syndrome of right shoulder April 01, 2025 11:17am Additional Source Comments INFORMATION SOURCE (unrecogn ized section and content) DATE CREATED AUTHOR 12/05/2017 [facility] DATE CREATED AUTHOR AUTHOR'S ORGANIZ ATION 06/22/2019 [facility] DATE CREATED AUTHOR AUTHOR'S ORGANIZ ATION 10/31/2022 [facility] DATE CREATED AUTHOR AUTHOR'S ORGANIZ ATION 10/09/2024 [facility] DATE CREATED AUTHOR AUTHOR'S ORGANIZ ATION 01/04/2025 [facility] DATE CREATED AUTHOR AUTHOR'S ORGANIZ ATION 01/05/2025 [facility] DATE CREATED AUTHOR AUTHOR'S ORGANIZ ATION 02/11/2025 [facility] DATE CREATED AUTHOR AUTHOR'S ORGANIZ ATION 03/24/2025 [facility] Care Teams (unrecognized sec tion and content) 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 Relationship Specialty Start Date End Date Abiel Blackwell MD [address] [place] [address] PCP - General Family Medicine 10/20/20 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 Relationship Specialty Start Date End Date Abiel Blackwell MD [address] [place] [address] PCP - General Family Medicine 10/20/20 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 Relationship Specialty Start Date End Date Abiel Blackwell MD [address] [place] [place] [address] PCP - General Family Medicine 10/20/20 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 Car otid artery calcifi Goals (unrecognized section and content) Goals may be documented in a n alternate section FOR RECORDS PERTAINING TO PATIENTS WHO ARE [...] BE BASED ON THE PRIMARY CLINICAL RECORDS. [facility], [facility]. provides no warranty or guarantee of the accuracy or completeness of information in this document.
--- NOTE | 2025-04-02 09:00 | CA_ITS ---
Patient Name: BROOKE VELASQUEZ MR#: [id number] : 1955 Exam Date: 04/02/2025 Ordering Doctor: DR KIM DE LA GARZA M.D. ECHOCARDIOGRAM REPORT PROCEDURE: CA ECHO DOPPLER COMPLETE INDICATIONS: Palpitations, shortness of breath COMPARISON: None. DESCRIPTION: COMPLETE ECHOCARDIOGRAM Real-time transthoracic echocardiography with 2D, M-mode, spectral and color flow Doppler performed. QUALITY: Technical quality was good. LEFT VENTRICLE: Normal chamber size. Normal left ventricular wall thickness. Normal systolic function. LV EF: Normal left ventricular ejection fraction, (55%). DIASTOLIC: Diastolic function is indeterminate. ATRIAL SEPTUM: Visually appears intact. LEFT ATRIUM: Normal chamber size. RIGHT ATRIUM: Normal chamber size. RIGHT VENTRICLE: Normal chamber size. TRICUSPID VALVE: Normal mobility and thickness. No stenosis with mild regurgitation. Doppler studies reveal mildly (35-45) elevated right sided pressures. RVSP 39 mmHg MITRAL VALVE: Normal mobility and thickness. No evidence of mitral valve stenosis. There is no mitral annular calcification. No mitral regurgitation. AORTIC VALVE: Normal trileaflet appearance. No visible sclerosis. Normal leaflet mobility. No evidence of aortic valve stenosis. No aortic regurgitation. AORTIC ROOT: Normal diameter and appearance, measuring 2.5 cm. PULMONIC VALVE: Normal thickness and mobility. No stenosis. Trivial regurgitation. PERICARDIUM: No evidence of pericardial effusion. IVC: Collapses with inspiration. PLEURA: CONCLUSION: 1. Normal left ventricular size and systolic function. LVEF is estimated at 55%. 2. Normal right ventricular size and systolic function. 3. Mild tricuspid regurgitation. 4. Mildly elevated right-sided pressures. 5. Frequent PVCs noted during the exam. Adult Echocardiography Procedure Report Left Ventricle LVEDD (3.7 - 5.6 cm): 5.28 cm LVESD (2.2 - 4.0 cm): 3.72 cm LVIVS thickness (0.6 - 1.2 cm): 0.94 cm LVPW thickness (0.5 - 1.0 cm): 0.81 cm e': 0.11 m/s E - e': 6.39 LVOT Max Gradient: 4.38 mm[Hg] LVOT Area (cm2): 1.05 m/s Peak Velocity (LVOT): 1.05 m/s Mean Velocity (LVOT): 0.65 m/s LVOT Diameter 2.05 cm Left Ventricular Ejection Fraction: 55 % Left Atrium LA Volume Index (2D A2C): 22.68 ml/m2 Left Atrium Systolic Dimension: 3.98 cm Mitral Valve MV E to A Ratio: 0.57 Mitral Valve A-Wave Peak Velocity: 1.19 m/s Mitral Valve E-Wave Peak Velocity: 0.68 m/s Right Ventricle Aorta AO Root Diam: 2.46 cm Aortic Valve AoV Area (Peak Shantanu): 1.80 cm2, 1.80 cm2 AoV Area (VTI): 2.04 cm2, 2.04 cm2 Peak Velocity(Antegrade Flow): 1.91 m/s Peak Gradient(Antegrade Flow): 14.60 mm[Hg] Mean Velocity(Antegrade Flow): 1.20 m/s Mean Gradient(Antegrade Flow): 6.71 mm[Hg] Velocity Time Integral: 41.40 cm Tricuspid Valve Peak Velocity (Regurgitant Flow): 2.99 m/s Pulmonic Valve Right Atrium Right Atrium Systolic Pressure: 48.09 ml, 48.09 ml Dictated by: Kim De La Garza M.D. on 04/02/2025 at 18:06 Approved by: Kim De La Garza M.D. on 04/02/2025 at 18:15
== END 2025-04-02 08:52 | disposition home or self-care (01) ==
LOC: CARD 08:52
PROVIDERS: PCP Nurse Practitioner Family; Visit Provider Internal Medicine Interventional Cardiology
DX: R00.2 Palpitations (principal); R06.02 Shortness of breath
CPT/HCPCS: 93306